=== PATIENT | female | born 1960 | race Caucasian/White ===

== ENCOUNTER 2022-07-28 08:13 | Emergency (ER) | payer OTHER, SELFPAY ==
[2022-07-28 08:26] VITALS: BP 142/92; PULSE 95; RESP 18; TEMP 36.2; O2SAT 96; BMI 36.6
--- NOTE | 2022-07-28 08:38 | CRLHL7_ITS ---
For Patients: As a result of the Century Cures Act, medical imaging exams and procedure reports are released immediately into your electronic medical record. You may view this report before your referring provider. If you have questions, please contact your health care provider. INDICATION: Pelvic/left lower quadrant pain, question diverticulitis. TECHNIQUE: CT of the abdomen and pelvis with 98 cc Isovue 370 IV contrast. Coronal and sagittal reconstructions. COMPARISON: None. FINDINGS: Mild hepatic steatosis. There is a 3.9 cm benign cyst in the left hepatic lobe. Cholecystectomy. No biliary dilation. Fatty infiltration of the pancreas. The spleen and adrenal glands are negative. Splenules. Hepatic and portal veins are patent. Symmetric enhancement of the kidneys. Tiny low-attenuation lesion in the right kidney is likely a cyst. No hydronephrosis or ureteral dilation. No obstructing urinary calculi identified. The bladder is normal in appearance. Hysterectomy. No adnexal mass. Colonic diverticulosis. There is mild wall thickening of the mid sigmoid colon with surrounding inflammatory fat stranding compatible with acute diverticulitis. No intraperitoneal free air or significant free fluid. No evidence of abscess. Moderate amount of stool in the proximal colon. Negative appendix. No small bowel dilation. No lymphadenopathy. Degenerative changes of the spine. Few tiny sclerotic lesions in the pelvis may represent bone islands. The lung bases are clear. Bilateral breast implants. Surgical clips left axilla. IMPRESSION: Acute uncomplicated diverticulitis of the mid sigmoid colon. No evidence of perforation or abscess. Please note that all CT scans at this facility use dose modulation, iterative reconstruction, and/or weight-based dosing when appropriate to reduce radiation dose to as low as reasonably achievable. Dictated by Diana Winters MD @ 07/28/2022 12:13:41 PM (Electronically Signed)
--- NOTE | 2022-07-28 08:40 | ED.GENADULT ---
HPI - General Adult General Date Seen: 07/28/22 Chief complaint: Abdominal Pain Stated complaint: Pelvic pain Time Seen by Provider: 07/28/22 08:27 Source: patient History of Present Illness HPI narrative: Patient is a very pleasant 62-year-old woman is here for evaluation of several days of pelvic pain. She says her symptoms developed on Monday, she presents to the ER on . Initially, she thought that she was getting a bladder infection as these are frequent for her. She usually gets dysuria and frequency however, and this presents with only pelvic pain, which she notes is unusual. It is constant although it is worse when she is up and moving around, she feels better when she is lying down. It has gotten worse over the course of the week, and now is moderate in intensity. On Monday, she says that she was having a bowel movement when she felt a pop in her pelvic region, which was strange although she did not think much of it. She thought maybe it was gas. Since then, she has had very small volume stools, she has been a little afraid to push because of that popping sensation. They have been soft, no bloody or melanotic stools. She denies constipation. She has had no nausea or vomiting. No fevers. No flank pain. She called the clinic today and was advised to come to the ER for further evaluation. She has been keeping up with hydration she feels, although she says she is prone to dehydration. She states that her general health is good. She has had a couple of prior colonoscopies, without significant findings. Most recently a couple of years ago. She has had a cholecystectomy and a partial hysterectomy. She smokes a very occasional cigar but otherwise does not smoke, rare alcohol. Allergies to sulfa. Related Data Home Medications Medication Instructions Recorded Confirmed exemestane 25 mg tablet mg 07/28/22 levothyroxine 112 mcg tablet mcg 07/28/22 rizatriptan 10 mg tablet mg 07/28/22 Previous Rx's Medication Instructions Recorded fluconazole 150 mg tablet 150 mg PO DAILY #1 tab 07/28/22 (Diflucan) Allergies Allergy/AdvReac Type Severity Reaction Status Date / Time Sulfa (Sulfonamide Allergy Verified 07/28/22 08:30 Antibiotics) Review of Systems Status of ROS: Reports: 10 or more systems reviewed and unremarkable except as noted in History and below Exam Narrative: Exam Narrative: Vital signs as noted above. In general, an alert, well-appearing patient. She looks comfortable. Head: Normocephalic, atraumatic. Eyes: Pupils are equal reactive. Extraocular movements are full. Conjunctivae are normal. ENT: Mucous membranes are moist. Throat is normal. Neck: Supple without lymphadenopathy. Heart: Regular rate and rhythm. No murmur or rub. Lungs: Clear bilaterally. No increased work of breathing, crackles or wheezes. Abdomen: Soft and nondistended. Mild left lower quadrant and pelvic tenderness without rebound guarding or rigidity. Bowel sounds are present. Back: No CVA tenderness. Extremities: Well perfused. No edema. No calf tenderness. Pulses intact. Neurologic: Patient is alert and oriented to person and place. Speech is fluent. Face is symmetric. Moves all extremities equally. Affect: Normal. Skin: Warm and dry. Well perfused. Const: Vital Signs, click to edit/add: Vital Signs - 24 hr 07/28/22 08:26 Temperature 97.2 F L Pulse Rate [Right Pulse Oximeter] 95 Respiratory Rate 18 Blood Pressure [Ri ght Upper Arm] 142/92 H Pulse Oximetry 96 Oxygen Delivery Me thod Room Air Documenting provider has reviewed patient's vital signs: yes Course Course Hospital Course: We will place an IV here, hang some normal saline. I do think an abdominal CT is warranted as I think diverticulitis, colitis, or other inflammatory bowel process or mass needs to be excluded at this point. A urine has been obtained to rule out bladder infection as well. I think kidney stone is less likely but possible as well. She declines the need for anything for pain at this moment. Labs pending. Labs are reassuring, her white blood cell count is normal, hemoglobin 14.1. Metabolic panel is entirely normal, lactate is 1.0. CRP is mildly elevated at 4. Urinalysis is negative, 0-2 reds 0-[address] scan by my review shows some fat stranding in the area of the sigmoid colon consistent likely with diverticulitis. I do not see evidence of free fluid. The final radiology report is as follows: IMPRESSION: Acute uncomplicated diverticulitis of the mid sigmoid colon. No evidence of perforation or abscess. I have reviewed this with the patient. Will start her on Augmentin. Reviewed reasons to return such as severe worsening pain, fevers, vomiting, bloody stools. Otherwise anticipate gradual improvement over the next several days to week. Primary care follow-up for further concerns. Vital Signs Vital signs: Initial Vital Signs Temperature 97.2 F L 07/28/22 08:26 Temperature Source Temporal Artery Scan 07/28/22 08:26 Pulse Rate 95 07/28/22 08:26 Pulse Rhythm 07/28/22 08:26 Respiratory Rate 18 07/28/22 08:26 Blood Pressure 142/92 H 07/28/22 08:26 Blood Pressure Mean 108 07/28/22 08:26 Blood Pressure Position Sitting 07/28/22 08:26 Pulse Oximetry 96 07/28/22 08:26 Oxygen Delivery Method 07/28/22 08:26 Vital Signs Temperature 97.2 F L 07/28/22 08:26 Pulse Rate 95 07/28/22 08:26 Respiratory Rate 18 07/28/22 08:26 Blood Pressure 142/92 H 07/28/22 08:26 Pulse Oximetry 96 07/28/22 08:26 Oxygen Delivery Method 07/28/22 08:26 Temperature 97.2 F L 07/28/22 08:26 Pulse Rate 95 07/28/22 08:26 Respiratory Rate 18 07/28/22 08:26 Blood Pressure 142/92 H 07/28/22 08:26 Pulse Oximetry 96 07/28/22 08:26 Oxygen Delivery Method 07/28/22 08:26 Medical Decision Making Lab Data Labs: Lab Results 07/28/22 07/28/22 07/28/22 Range/Units 08:21 09:28 09:28 WBC 7.51 (4.50-11.00) K/uL RBC 4.79 (4.00-5.20) m/uL Hgb 14.1 (12.0-16.0) gm/dL Hct 43.7 (33.0-51.0) % MCV 91 (80-100) fL MCH 29 (26-34) pg MCHC 32 (32-36) gm/dL RDW Coeff of Rosemary 12.8 (11.5-15.5) % Plt Count 259 (140-440) K/uL Neut % (Auto) 69.0 (42.0-72.0) % Lymph % (Auto) 21.0 (20-44) % [place] % (Auto) 6.4 (0.0-11.0) % Eos % (Auto) 3.3 (0.0-7.0) % Baso % (Auto) 0.3 (0.0-3.0) % Neut # (Auto) 5.18 (1.7-7.0) K/uL Lymph # (Auto) 1.58 (0.90-2.90) K/uL [place] # (Auto) 0.50 (0.00-0.90) K/UL Eos # (Auto) 0.25 (0.00-0.50) K/uL Baso # (Auto) 0.02 (0.00-0.30) K/uL Abs Immat Gran (auto) 0.00 (0.00-0.30) K/uL Imm/Tot Granulo (auto) 0.0 % Sodium 138 (135-149) mmol/L Potassium 4.0 (3.6-5.1) mmol/L Chloride 103 (96-114) mmol/L Carbon Dioxide 26 (20-32) mmol/L BUN 15 (7-30) mg/dL Creatinine 0.6 (0.5-1.5) mg/dL Estimated Creat Clear 47.63 Estimated GFR 101 ml/min Glucose 105 (60-115) mg/dL Lactate (0.5-1.9) mmol/L Calcium 9.6 (8.4-10.6) mg/dL C-Reactive Protein 4.0 H (0.5-1.0) mg/dL Urine Color Yellow (Yellow) Urine Appearance Slightly Cloudy A (Clear) Urine pH 7.0 (5.0-8.5) Ur Specific [place] 1.020 (1.000-1.030) Urine Protein Negative (Negative) Urine Glucose (UA) Negative (Negative) Urine Ketones Negative (Negative) Urine Blood Trace-lysed A (Negative) Urine Nitrite Negative (Negative) Urine Bilirubin Negative (Negative) Urine Urobilinogen 0.2 (0.2-1.0) Ur Leukocyte Esterase Negative (Negative) Urine RBC 0-2 (0-2) Urine WBC 0-2 (0-5) Ur Squamous Epith Cells None (None-Few) Urine Bacteria None (None) 07/28/22 Range/Units 09:28 WBC (4.50-11.00) K/uL RBC (4.00-5.20) m/uL Hgb (12.0-16.0) gm/dL Hct (33.0-51.0) % MCV (80-100) fL MCH (26-34) pg MCHC (32-36) gm/dL RDW Coeff of Rosemary (11.5-15.5) % Plt Count (140-440) K/uL Neut % (Auto) (42.0-72.0) % Lymph % (Auto) (20-44) % [place] % (Auto) (0.0-11.0) % Eos % (Auto) (0.0-7.0) % Baso % (Auto) (0.0-3.0) % Neut # (Auto) (1.7-7.0) K/uL Lymph # (Auto) (0.90-2.90) K/uL [place] # (Auto) (0.00-0.90) K/UL Eos # (Auto) (0.00-0.50) K/uL Baso # (Auto) (0.00-0.30) K/uL Abs Immat Gran (auto) (0.00-0.30) K/uL Imm/Tot Granulo (auto) % Sodium (135-149) mmol/L Potassium (3.6-5.1) mmol/L Chloride (96-114) mmol/L Carbon Dioxide (20-32) mmol/L BUN (7-30) mg/dL Creatinine (0.5-1.5) mg/dL Estimated Creat Clear Estimated GFR ml/min Glucose (60-115) mg/dL Lactate 1.0 (0.5-1.9) mmol/L Calcium (8.4-10.6) mg/dL C-Reactive Protein (0.5-1.0) mg/dL Urine Color (Yellow) Urine Appearance (Clear) Urine pH (5.0-8.5) Ur Specific [place] (1.000-1.030) Urine Protein (Negative) Urine Glucose (UA) (Negative) Urine Ketones (Negative) Urine Blood (Negative) Urine Nitrite (Negative) Urine Bilirubin (Negative) Urine Urobilinogen (0.2-1.0) Ur Leukocyte Esterase (Negative) Urine RBC (0-2) Urine WBC (0-5) Ur Squamous Epith Cells (None-Few) Urine Bacteria (None) Discharge Plan Discharge Clinical Impression: Diverticulitis Patient Disposition: Home, Self-Care Condition: Stable Instructions: Diverticulitis (ED) Additional Instructions: Return for worsening or severe pain, fever, vomiting, bloody stools or other worsening. Antibiotics as prescribed. Ibuprofen or Tylenol as needed for pain. Prescriptions: New fluconazole [Diflucan] 150 mg tablet 150 mg PO DAILY Qty: 1 0RF No Action rizatriptan 10 mg tablet exemestane 25 mg tablet Label Comments: TAKE ONE TABLET BY MOUTH EVERY DAY levothyroxine 112 mcg tablet Stand Alone Forms: [employer] Info Instructions
[2022-07-28 08:42] LABS: Appearance Urine Slightly Cloudy (Clear); Bilirubin Urine Negative (Negative); Blood Urine Trace-lysed (Negative); Color Urine Yellow (Yellow); Glucose Urine Negative (Negative); Ketones Urine Negative (Negative); Leukocyte Esterase Urine Negative (Negative); Nitrite Urine Negative (Negative); Protein Urine Negative (Negative); Urobilinogen Urine 0.2 (0.2-1.0)
[2022-07-28 08:57] LABS: RBC Urine 0-2 (0-2); WBC Urine 0-2 (0-5)
[2022-07-28 09:43] LABS: Basophils Absolute Auto 0.02 K/uL (0.00-0.30); Basophils Percent Auto 0.3 % (0.0-3.0); Eosinophils Absolute Auto 0.25 K/uL (0.00-0.50); Eosinophils Percent Auto 3.3 % (0.0-7.0); Hematocrit 43.7 % (33.0-51.0); Hemoglobin* 14.1 gm/dL (12.0-16.0); Lymphocytes Absolute Auto 1.58 K/uL (0.90-2.90); Mean Corpuscular HGB Conc 32 gm/dL (32-36); Mean Corpuscular Hemoglobin 29 pg (26-34); Mean Corpuscular Volume 91 fL (80-100); Monocytes Percent Auto 6.4 % (0.0-11.0); Neutrophils Absolute Auto 5.18 K/uL (1.7-7.0); Platelet Count* 259 K/uL (140-440); RDW Coefficient of Variation % 12.8 % (11.5-15.5); Red Blood Count 4.79 m/uL (4.00-5.20); White Blood Count* 7.51 K/uL (4.50-11.00)
--- OUTSIDE RECORDS SUMMARY | 2022-07-28 09:46 | XMS_ITS | Encounter Summary ---
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 documented in this encounter Results Breast Breast reconstruction-Plastic And Recon Surgery Image Exam (02/24/2022 12:00 PM CDT) Specimen (Source) Anatomical Location Collection Method / Collectio n Time Received Time / Laterality Volume Narrative IIMS - 02/24/2022 4:03 PM CDT This order has been created and auto-finalized to support the import of images acquired without order. The clini garett documentation to support these images can be found on the encounter za t produced images. Provider Not In System IMG NON RAD IMAGING PROCEDUR ES Performing Organization Address City/State/ZIP Code Phon e Number IIMS IIMS NA documented in this encounter Visit Diagnoses Not on filedocumented in this encounter
--- OUTSIDE RECORDS SUMMARY | 2022-07-28 09:46 | XMS_ITS | Encounter Summary ---
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
--- OUTSIDE RECORDS SUMMARY | 2022-07-28 09:46 | XMS_ITS | Clinical Summary ---
:1960 Author Organization [facility] [place] [address] Care Team Providers Name Role Phone Fransisco Javier Solis DPM Unavailable Staff, Other Clinical Unavailable Unavailable Gerri Serrano Primary Care Provider [phone] Allergies Active Allergy Reactions Severity Noted Date Comments Adhesive Other - Describe In 04/20/2017 Contact dermatitis Tape-Silicones Comment Field Amoxicillin-Pot Headache 02/18/2020 Clavulanate Morphine Hallucinations 12/07/2016 Nortriptyline Sedation 12/13/2006 INTOLERANCE Oxycodone Nausea Only 02/10/2021 Shellfish Derived Edema 06/02/2017 Raw shellf chuck Ankles swell Sulfa (Sulfonamide Hives 12/13/2006 Antibiotics) Medications Medication Sig Dispensed Refills Start Date End Date Status vitamin e 1,000 unit Take by mouth once 0 10/13/2015 Active cap daily. exemestane (AROMASIN) Take 1 tablet by 30 tablet 0 02/14/2020 Active 25 mg mouth once daily tabletIndications: after a meal. Ductal carcinoma of right breast (HC) clindamycin (CLEOCIN) TAKE 4 CAPSULES BY 0 0 Active 150 mg capsule MOUTH 1 HOUR PRIOR TO DENTAL APPOINTMENT fluocinonide 0.05% APPLY TO AFFECTED 60 g 0 05/25/2020 Active topical (LIDEX) 0.05 AREAS TOPICALLY 2 % TIMES DAILY. FOR NO ointmentIndications: MORE THAN 14 DAYS Seborrheic CONSECUTIVELY WILL dermatitis, CALL FOR REFILLS unspecified cholecalciferol Take 1 Capsule 0 01/06/2021 Active (Vitamin D) 1,000 (1,000 units) by unit capsule mouth once daily. cyanocobalamin Take 1 Tablet 90 Tablet 3 01/06/2021 Active (Vitamin B-12) 1,000 (1,000 mcg) by mcg tablet mouth once daily. Cranberry 400 mg 2 tablets PO daily 0 01/06/2021 Active capsule LORazepam (ATIVAN) 1 0 06/23/2021 Active mg tablet nitrofurantoin Take 1 tablet by 20 Capsule 1 07/01/2021 Active macrocrystaL mouth after (MACRODANTIN) 100 mg intercourse. capsuleIndications: UTI symptoms D-Mannose 99 % As directed 2 g 60 g 5 07/07/2021 Active powdIndications: once daily. Recurrent UTI rizatriptan (MAXALT) TAKE 1 TABLET BY 10 Tablet 8 11/12/2021 Active 10 mg MOUTH AT ONSET. MAY tabletIndications: TAKE WITH 2 Migraine syndrome IBUPROFEN. MAY REPEAT IN 2 HRS IF NEEDED. TAKE NO MORE THAT 2 TABS IN 24HRS. verapamil SR (CALAN TAKE 1 TABLET BY 90 Tablet 1 01/25/2022 Active SR) 120 mg MOUTH EVERY Sustained-Release MORNING. tabletIndications: Migraine syndrome levothyroxine TAKE 1 TABLET BY 30 Tablet 0 02/11/2022 Active (SYNTHROID) 112 mcg MOUTH ONCE DAILY. tabletIndications: Hypothyroidism, unspecified type levothyroxine Take 1 Tablet (112 90 tablet. 3 02/16/2022 Active (SYNTHROID) 112 mcg mcg) by mouth once tabletIndications: daily. Hypothyroidism, unspecified type estradioL (ESTRACE) Insert 1 g into the 42.5 g 2 05/20/2022 Active 0.01% (0.1 mg/g) vagina every Monday vaginal and Monday. creamIndications: Urinary problem sertraline (ZOLOFT) Take 1 Tablet (25 30 Tablet 0 05/23/2022 Active 25 mg mg) by mouth every tabletIndications: morning. Anxiety Active Problems Problem Noted Date H/O total hysterectomy 01/19/2022 Breast implant status 08/16/2018 Routine adult health maintenance 03/06/2017 Overview: Colonoscopy 02/2017 normal repeat in 10 y ears Ductal carcinoma of right breast 11/07/2016 Overview: New dx right breast. Hx previous ca righ t breast. Osteoarthritis 08/15/2014 Overview: Bilateral hands Chronic cholecystitis 01/17/2013 Esophageal reflux 12/26/2012 Overview: Off and on sx over the years EGD 12/2012 normal Low back pain 07/06/2010 Dysthymic disorder 09/28/2007 Overview: Depression Unspecified hypothyroidism 12/13/2006 Migraine, unspecified, without mention of intractable migraine without 12/13/2006 mention of status migrainosus Seborrheic dermatitis, unspecified 12/13/2006 Malignant neoplasm of breast (female), unspecified sit e 12/13/2006 Malignant neoplasm of breast (female), unspecified sit e 12/13/2006 Meniere's disease, unspecified 12/13/2000 Malignant neoplasm of breast (female), unspecified sit e 12/13/1989 Hallux valgus with bunions, right Hammertoe of right foot Plantar fasciitis of right foot Encounters Date Type Specialty Care Team Description 07/28/2022 Travel 07/28/2022 Nurse Triage Gerri Serrano, Abdo freddy Pain (Middle PA lower abdomen p ain) 05/16/2022 Telephone Gerri Serrano, [facility] Management PA from Last 3 Months Immunizations Name Administration Dates Next Due COVID-19 vaccine (Giftah-BioNTech 02/16/2022 30mcg/0.3mL) 12YO+ CAYETANO-SUCROSE PF, MDV COVID-19 vaccine (Giftah-BioNTech 06/14/2021, 12/30/2020, 30mcg/0.3mL) PF, MDV HepA-HepB (Twinrix) 04/22/2008, 11/06/2007, 09/28/2007 Influenza,CCIIV4 PRESERV FREE 06/21/2020 Td (Age >=7 Years) 01/13/2021, 06/01/2000 Tdap 02/08/2011 Zoster (Shingrix-RZV, recombinant) 04/25/2019, 01/25/2019 Family History Medical History Relation Name Comments Depression Brother 1 Brendan Migraines Brother 1 Brendan Spondyloarthropathy Brother 1 Brendan undifferenti ated, started on Enbrel Crohn's disease Brother 2 Jaden Depression Brother 2 Jaden Migraines Brother 2 Jaden Diabetes Father Cancer-breast Maternal Aunt Cancer-breast Maternal Uncle Arthritis Mother Cancer-breast Mother Crohn's disease Mother Diabetes Mother Other Mother MIGRAINE/COLON P OLYPS Depression Sister Suicidality Son 1 ALON Alcoholism Son 2 MARKO recovering Relation Name Status Comments Brother 1 Brendan Alive Brother 2 Jaden Alive Father Alive Maternal Aunt Maternal Uncle Mother Alive Other ANANTH Alive SPOUSE Sister Alive Son 1 ALON Son 2 MARKO Alive Social History Tobacco Use Types Packs/Day Years Used Date Never Smoker Smokeless Tobacco: Never Used Tobacco Cessation: Counseling Given: Yes Alcohol Use Standard Drinks/Week Comments Not Currently 0 (1 standard drink = 0.6 oz pure alcoho l) occasional Sex Assigned at Date Recorded Not on file COVID-19 Exposure Response Date Recorded In the last 10 days, have you been in contact with No / Unsu re 07/28/2022 7:24 AM CDT someone who was confirmed or suspected to have Coronavirus/COVID-19? Obstetrics History Para Term AB IAB SAB Ectopic Multiple Living Live Births 2 2 Date Outcome GA Total Labor/2nd/3rd Weight Sex Delivery Anes PTL Delia A 1 A5 Name Clin Labor Last Filed Vital Signs Vital Sign Reading Time Taken Comments Blood Pressure 111/67 02/16/2022 1:01 PM CDT Pulse 88 02/16/2022 1:01 PM CDT Temperature 37.3 ??C (99.1 ??F) 06/22/2021 4:54 PM CDT Respiratory Rate 18 07/07/2021 9:34 AM CDT Oxygen Saturation 97% 01/14/2022 8:16 AM CDT Inhaled Oxygen Concentration - - Weight 100.7 kg (222 lb) 02/16/2022 1:01 PM CDT Height 161 cm (5' 3.39) 02/16/2022 1:01 PM CDT Body Mass Index 38.85 02/16/2022 1:01 PM CDT Plan of Treatment Health Maintenance Due Date Last Done Comments COVID-19 vaccine series (5 - 04/13/2022 02/16/2022, 021, Booster for Pfizer series) 12/30/2020, Additiona l history exists Influenza for age 50-64 05/26/2022 06/21/2020 Depression screening for age 12+ 07/01/2022 07/01/2021, 03/2021, 07/01/2021, Additional history exists BMI (ht and wt on same day) for 02/16/2023 02/16/2022, 12/25, age 18+ 08/11/2021, Additional history exists Lipids for age 45-75 02/16/2027 02/16/2022, 01/13/2021, 02/18/2020, Additional history exists Colonoscopy through age 75 03/06/2027 03/06/2017, 7, 03/06/2017 (Completed outside of [facility]), Additional history exists Tetanus booster 01/13/2031 01/13/2021, 02/08/2011, 02/08/2011, Additional history exists Tdap Completed 02/08/2011 Hepatitis C screening for age Completed 08/13/2014 18-79 Zoster (shingles) series for age Completed 04/25/2019, 11/2018 50+ Medical Devices Implanted Type Area Furniture Associate Device Shelf Model / Identifier Expiration Date Ser ial / Lot [id number] - [id number] Right: Royal [id number] / Implanted: Qty: 1 on 06/02/2017 by Javier Crooks DPM at [facility] [employer] / Description: 2.7 mm locking screw, T8 [id number] - [id number] Left: Foot [employer] [id number] / Implanted: Qty: 2 on 10/02/2017 by Javier Crooks DPM at [facility] / N/A Description: 2.7mm Locking Screws, T8 Explanted Type Area Furniture Associate Device Shelf Model / Identifier Expiration Date Ser ial / Lot [id number] - [id number] Left: [employer] [id number] / Explanted: Qty: 1 on 10/02/2017 at [facility] [employer] / N/A Description: CP Screws, T8 Results Not on filefrom Last 3 Months Insurance Payer Benefit Plan / Subscriber ID Effective Dates Phone Addre ss Type Group MEDICA MEDICA CHOICE [id number] 2021-Present [address] [address] [place] [address] [phone] [address] [facility] y 6 (Home) [facility] [phone] [place] [id number] 1 (Work) Advance Directives Latest Code Status on File Code Status Date Activated Date Inactivated Comments Full Code 10/02/2017 9:37 AM 10/02/2017 7:57 PM Code Status Discussion: Not Discussed Full Code 06/02/2017 10:56 AM 06/02/2017 2:32 PM Code Status Discussion: Not Discussed Full Code 06/02/2017 6:03 AM 06/02/2017 10:56 AM Code Status Discussion: Not Discussed Care Teams Supply Chain Planner Relationship Specialty Start Date End Date Gerri Serrano PA PCP - General Physician Physical Therapy Manager 10/25/19 [address] [place] [address] Javier Moody DPM Surgery - Podiatric 09/28/17 [address] [place] [address] Staff, Other Clinical Plastic Surgery 09/28/17 .
--- OUTSIDE RECORDS SUMMARY | 2022-07-28 09:46 | XMS_ITS | Clinical Summary ---
:1960 Author Organization [facility] Address [address] [place] [address] Care Team Providers Name Role Phone Unavailable Primary Care Provider Unavailable Source Comments Patient records contain information from all sites at [facility]. For routine questions regarding patient records, call [phone] during business hours, M-F 8:00 AM - 5:00 PM Central Time. Record requests for emergency care only can be directed to [phone] at any time.[facility] Allergies Active Allergy Reactions Severity Noted Date Comments Adhesive Tape-Silicones Other (see comments) 7 Contact dermatitis Morphine Hallucinations 12/07/2016 Nortriptyline Rash 12/13/2006 INTOLERANCE Shellfish Derived Swelling 12/07/2016 ankle swel ling Sulfa (Sulfonamide Hives 05/18/2004 Antibiotics) Medications Medication Sig Dispensed Refills Start Date End Date Status exemestane (AROMASIN) 25 Take 1 tablet by 0 01/18/20 17 Active mg tablet mouth daily. ibuprofen (ADVIL,MOTRIN) Take 600 mg by 0 01/13/2017 Active 200 mg tablet mouth every 8 (eight) hours as needed. for pain levothyroxine Take 1 tablet by 0 05/21/2009 Active (SYNTHROID, LEVOTHROID) mouth daily. 125 mcg tablet vitamin E acetate Take 2 tablets 0 05/21/2009 Active (VITAMIN E ORAL) by mouth daily. 400 unit. sertraline (ZOLOFT) 100 Take 1.5 tablets 0 7 Active mg tablet by mouth at bedtime. cholecalciferol (VITAMIN Take 1,000 Units 0 12/05/19 10 Active D3) 1,000 Unit tablet by mouth daily. triamterene-hydroCHLOROt Take 1 capsule 0 05/29/2018 Active hiazide (DYAZIDE) by mouth daily. 37.5-25 mg per capsule oxyCODONE (ROXICODONE) 5 Take 1 tablet (5 15 tablet 0 07/25/20 18 Active mg immediate release mg total) by tabletIndications: Acute mouth every 4 Pain (four) hours as needed for pain or moderate pain or score 4-6 of 10 Indication: Acute Pain. Additional Information Patient not taking. Reported on 08/06/2018 verapamil (CALAN-SR) 120 mg ER Take 120 mg by mouth daily. 0 07/13/2018 Active tablet acetaminophen (TYLENOL) 500 mg Take 2 tablets (1,000 mg 0 08/17/2018 Active tablet total) by mouth every 6 (six) hours as needed for pain. cephalexin (KEFLEX) 500 mg capsule Take 1 Capsule (500 mg) by 0 01/14/2022 Active mouth 2 times daily for 7 days clindamycin (CLEOCIN) 150 mg As Needed 0 02/12/2020 Active capsule cranberry 400 mg capsule 2 tablets PO daily 0 2020 Active cyanocobalamin (VITAMIN B12) 1,000 Daily 0 01/06 Active mcg tablet d-mannose, bulk, 99 % powder 2 g by other route. 0 1 Active estrogens, conjugated, (Premarin) Insert into the vagina. 0 09/20/2021 Active 1 g (0.625 mg/gram) vaginal cream fluconazole (DIFLUCAN) 150 mg TAKE ONE TABLET BY MOUTH 0 01/14/2022 Active tablet ONCE FOR 1 DOSE. fluocinonide (LIDEX) 0.05 % Twice A Day as needed 0 05/25/2020 Active ointment LORazepam (ATIVAN) 1 mg tablet 0 1 Active nitrofurantoin (MACRODANTIN) 100 Take 1 tablet by mouth 0 07/01/2021 Active mg capsule after intercourse. rizatriptan (MAXALT) 10 mg tablet 0 2021 Active vitamin E 450 mg (1,000 Unit) Daily 0 Active capsule zoledronic rkqt-jpgmuoro-vursz Q5wozvaz 0 Active (zoledronic rj-uwltlrwj-2.9NaCl) 4 mg/100 mL piggyback levothyroxine (SYNTHROID, 0 02/11/2022 Active LEVOTHROID) 112 mcg tablet verapamiL (CALAN-SR) 120 mg ER Take 1 tablet by mouth 0 01/25/2022 Active tablet every morning. 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 Social History Tobacco Use Types Packs/Day Years Used Date Smoking Tobacco: Never Smokeless Tobacco: Never Alcohol Use Standard Drinks/Week Comments No 0 (1 standard drink = 0.6 oz pure alcoho l) Sex Assigned at Date Recorded Female 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 Last Filed Vital Signs Vital Sign Reading Time Taken Comments Blood Pressure 134/72 08/17/2018 9:55 AM BOOKKEEPER Pulse 66 08/17/2018 9:55 AM BOOKKEEPER Temperature 36.4 ??C (97.5 ??F) 08/17/2018 9:55 AM BOOKKEEPER Respiratory Rate 16 08/17/2018 9:55 AM BOOKKEEPER Oxygen Saturation 97% 08/17/2018 9:55 AM BOOKKEEPER Inhaled Oxygen Concentration - - Weight 99.7 kg (219 lb 12.8 oz) 08/16/2018 4:41 PM BOOKKEEPER Height 161.3 cm (5' 3.5) 08/16/2018 4:41 PM BOOKKEEPER Body Mass Index 38.32 08/16/2018 4:41 PM BOOKKEEPER Plan of Treatment Health Maintenance Due Date Last Done Comments CT Colonography 1960 Cologuard 1960 Colonoscopy 1960 Colorectal Cancer Screening 1960 FIT 1960 HIV Screening 1960 Hepatitis C Screening 1960 Depression Screening 09/25/2021 (Annual PHQ-2) COVID-19 Vaccine (5 - 04/13/2022 02/16/2022, 06/14/2021, Booster for Pfizer series) 12/30/2020, Additiona l history exists Influenza Vaccine (#1) 2022 07/20/2021, 06/21/2020 Creatinine Level 08/11/2022 08/11/2021, 06/16/2021, 01/13/2021, Additional history exists Potassium Level 08/11/2022 08/11/2021, 01/13/2021, 02/18/2020, Additional history exists Sodium Level 08/11/2022 08/11/2021, 01/13/2021, 02/18/2020, Additional history exists Lipid (Cholesterol) 02/16/2023 02/16/2022, 01/13/2021, Screening 02/18/2020, Additional history exists Thyroid Stimulating Hormone 02/16/2023 02/16/2022, 08/11/20 21, (TSH) test for thyroid 01/13/2021, Additional function history exists Fasting Glucose for 08/11/2024 08/11/2021, 01/13/2021, Diabetes Screening 02/18/2020, Additional history exists DTaP,Tdap,and Td Vaccines 01/13/2031 01/13/2021, 02/08/2011 (3 - Td or Tdap) Zoster Vaccines Completed 04/25/2019, 01/25/2019 Pneumococcal vaccine (0-64 Aged Out No lo nger eligible years) based on patient 's age to complete this topic Medical Devices Implanted Type Area Magazine Designer Device Shelf Model / Identifier Expiration Serial / Date Lot Maday Yost 615cc - Archer [id number] Breast Other/Legacy - Allerg an Implanted: Qty: 1 on 04/20/2017 Implant See Implant Medical Description Description: Device Magazine Designer - Startpack.. Body Location - Other. Right. Device Status Text - [id number]. Brst Resp Gel Stysrf 560 - [id number] - [id number] Breast Left: Allergan 03/29/2021 SRF-560 / Implanted: Qty: 1 on 07/25/2018 at [facility] Implant Other/Legacy - Medical [id number] / See Implant Description Conversions - Default Historical Implant Device Hardware e.g. Foot Implanted: 10/13/2017 (Quantity not on file) pins/screws/r ods Description: Body Location - Feet. Devic e Status Text - Hardware. Conversions - Default Historical Implant Device Knee Implant Other/Legacy - See Implant Implanted: 12/07/2016 (Quantity not on file) Description Description: Body Location - [email or web address]. Device Status Text - Knee Imp. Alloderm Rtu 2.4 + -.4mm 9.6x19.3cm - Archer [id number] Mesh or P atch Other/Legacy - See NanoLumens (Use Implanted: Qty: 1 on 12/07/2016 Implant Description Allergan ) Description: Device Magazine Designer - Nursing Home Quality Martell. Body Location - Other. Right. Device Status Text - [id number]. Explanted Type Area Magazine Designer Device Shelf Model / Identifier Expiration Serial / Date Lot Natrelle- Inspira 615cc - Archer [id number] Breast Other/Legacy - Allerg an Implanted: Qty: 1 on 04/20/2017 Implant See Implant Medical Explanted: Qty: 1 on 07/25/2018 at [facility] Description Description: Device Magazine Designer - [employer] Body Location - Other. Left. Device Status Text - [id number]. Natrelle-Hemstitching Machine Operator Mod Tab 500cc - Archer [id number] Tissue Expand er Other/Legacy - See Allergan Medical Explanted: Qty: 1 on 04/20/2017 Implant Description Description: Device Magazine Designer - [employer]er [employer] Body Location - Other. Right. Device Status Text - [id number]. Insurance Payer Benefit Plan / Subscriber ID Effective Dates Phone Addre ss Type Group MEDICA MEDICA [id number] 2017-Present [phone] [address] [address] [place] [address] [phone] [id number] [facility]. 6 (Home) [facility] [phone] FILIPPO Chung 1 (Work) [phone]
--- OUTSIDE RECORDS SUMMARY | 2022-07-28 09:46 | XMS_ITS | Encounter Summary ---
:1960 Author Organization [facility] Address [address] [place] [address] Care Team Providers Name Role Phone Unavailable Primary Care Provider Unavailable Reason for Referral MRI/CAT/PET Scan (Routine) - Pending Review Specialty Diagnoses / Procedures Referred By Contact Refer red To Contact Radiology Diagnoses Aftercare Plastic Surgery Implant Breast Status [facility] MR Breast Bilateral without and with IV Contrast C.N.P., D.N.P. [address] [place] [address] Referral ID Status Reason Start Date Expiration Date Visits V isits Requested Authorized [id number] Pending 02/24/2022 02/24/2023 1 1 Review utpatient (Routine) - Authorized Specialty Diagnoses / Procedures Referred By Contact Refer red To Contact Plastic Surgery [facility] jarad C.N.P., D.N.P. [address] [place] [address] Referral ID Status Reason Start Date Expiration Date Visits V isits Requested Authorized [id number] Authorized 02/24/2022 02/24/2023 1 1 Scheduling Instructions With Tessa Reason for Visit Outpatient (Routine) - Closed Specialty Diagnoses / Procedures Referred By Contact Refer red To Contact Plastic Surgery Janiya Aguilar, [place] [facility] P.A.-C., PIsaac, M.S. [address] [place] [address] Referral ID Status Reason Start Date Expiration Date Visits Requ ested Visits Authorized [id number] Closed 01/28/2021 01/28/2022 1 1 Encounter Details Date Type Department Care Team Description 02/24/2022 Office Visit Division of Plastic Tessa Starkey Aftercar e Plastic Surgery (Primary Dx); Surgery in [place], Yana, M .S. 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 - 02/24/2022 1:30 PM CDT SUBJECTIVE CHIEF COMPLAINT / REASON FOR VISIT 1. Valerie Box is status post implant based breast reconstruction on 04/20/2017 (smooth implants)with Dr. Son. 2. History of radiation to right breast 3. Annual implant check HISTORY OF PRESENT ILLNESS Valerie Box is a very pleasant 61 y.o. female who presents today for a routine annual implant check. She had ultrasound done last year after plastics visit for right breast lump. She reports that she subsequently visited her oncologist in [place] and had biopsies done on this right breast lump which was all negative. She is closely following with oncology and had a visit yesterday in [place]. She denies any concerns or symptoms. She specifically denies any persistent pain, tightness, changein shape of her breasts, axillary fullness, rashes, swelling, increase in size of her breasts, masses, signs/symptoms of an infection or any other changes. She is doing well and has no concerns. She isoverall happy with the cosmetic outcome. REVIEW OF SYSTEMS Pertinent items noted in HPI. OBJECTIVE There were no vitals taken for this visit. PHYSICAL EXAM General: Patient is alert and oriented x 3. She does not appear to be in acute distress. Very pleasant. Breast: Breast incisions have healed nicely. No obvious signs of fluid accumulation, infection, rashes, masses. Najera grade 1, implants are soft and mobile to touch. Excellent symmetry and overall cosmetic appearance. Right breast skin is in centrally, history of right breast radiation. Axilla: No axillary lymphadenopathy noted bilaterally ASSESSMENT / PLAN 1. Annual implant check It was a pleasure to see Valerie Box today for her annual implant check. She is doing well and has no concerns regarding her implants. Physical exam within realm of normal from implant standpoint. She would like her updated information sent to her oncologist. Contact information for our clinic is given to patient to provide to her oncologist for further questions or update. We have discussed risk of ALCL (atypical large cell lymphoma) with textured implants. She has smoothimplants. We discussed that the information surrounding PERCY- ALCL is constantly changing and at thistime, the risk associated with smooth implants is very low. I did go over presenting signs/symptoms of ALCL and was instructed to call us should she note any of these. She understood. If at any point she desires to have implants removed, or consider alternative reconstructive options she was advised to let me know. At this point she feels comfortable with observation. We also discussed signs and symptoms of ruptured implant, flipped implant, and capsular contracture.She was instructed to monitor for persistent pain, tightness, change in shape of her breasts, axillary fullness, masses, rashes, increase in size of breasts, swelling, signs/symptoms of an infection, or any other changes and to let us know if she notes any of these. We recommend prophylactic antibiotics any time she is having any dental/invasive procedures indefinitely or until guidelines change. I have discussed FDA recommended surveillance for implant rupture with MRI after 5-6 years of placement and every 2-3 years after that. She is now 5 years out since implant placement. We will plan on MRI track of implants in follow-up next year. Patient agrees with this plan. Photos were taken with pt's permission. Valerie Box will return in one year for an implant check and MRI. If she needs to see our team sooner, she can let us know. All questions were asked and answered per patient report. It was an absolute pleasure taking care ofValerie Box. PATIENT EDUCATION Ready to learn, no apparent learning barriers were identified; learning preferences include listening. Explained diagnosis and treatment plan; patient expressed understanding of the content. Billing: Established patient. Kyem-bc-jmlt time 25 minutes more than 50% of time was spent in counseling/addressing patient's concerns. documented in this encounter Plan of Treatment Scheduled Orders Name Type Priority Associated Diagnoses Order S chedule MR Breast Bilateral Imaging RAD - Routine (most Aftercare Plas tic Expected: without and with IV inpatients and all Surgery 02/24/2023 Contrast outpatients) Implant Breast (Approximate) , Status Post Expires: 05/27/2023 Scheduled Referrals Name Type Priority Associated Diagnoses Order S chedule Plastic Surgery Outpatient Referral Routine Expec gunnar: office visit 02/24/2023 (clinic) (Approximate), Expires: 05/27/2023 documented as of this encounter Visit Diagnoses Diagnosis Aftercare Plastic Surgery - Primary Implant Breast Status Post documented in this encounter
--- OUTSIDE RECORDS SUMMARY | 2022-07-28 09:47 | XMS_ITS | Encounter Summary ---
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
--- OUTSIDE RECORDS SUMMARY | 2022-07-28 09:47 | XMS_ITS | Encounter Summary ---
:1960 Author Organization [facility] Address [address] [place] [address] Care Team Providers Name Role Phone Unavailable Primary Care Provider Unavailable Encounter Details Date Type Department Care Team Description 02/08/2021 Clinical Communication Division of Plastic [place], An wyatt Surgery in [facility], P.A.-C., P.A.[facility] [address] [facility] [address] [place] [phone] Social History Tobacco Use Types Packs/Day Years Used Date Smoking Tobacco: Never Smokeless Tobacco: Never Alcohol Use Standard Drinks/Week Comments No 0 (1 standard drink = 0.6 oz pure alcoho l) Sex Assigned at Date Recorded 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 Son. I see an orderfor an US but the notes say we are waiting to hear from you before scheduling. Please advise, thank you documented in this encounter Plan of Treatment Not on filedocumented as of this encounter Visit Diagnoses Not on filedocumented in this encounter
--- OUTSIDE RECORDS SUMMARY | 2022-07-28 09:47 | XMS_ITS | Encounter Summary ---
:1960 Author Organization [facility] Address [address] [place] [address] Care Team Providers Name Role Phone Unavailable Primary Care Provider Unavailable Reason for Visit Reason Onset Date Comments Testing For Upper Respiratory Virus Symptoms 08/30/2021 Encounter Details Date Type Department Care Team Description 08/30/2021 External Outreach Department of Family Lindsay Busby , Contact With And Medicine in [facility], C.N.P. 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 - 08/30/2021 9:56 AM CST Encounter created for symptomatic infectious disease screening with possible COVID, Influenza, RSV, and/or Group A Strep testing. E POLISHER documented in this encounter Plan of Treatment Not on filedocumented as of this encounter Procedures Procedure Name Priority Date/Time Associated Diagnosis Comme nts SARS CORONAVIRUS-2 Routine 08/30/2021 1:30 PM Contact With And Results for this RNA, V FRAME POLISHER (Suspected) Exposure procedu re are in To COVID-19 the results section. documented in this encounter Results SARS Coronavirus-2 RNA, V Symptomatic (08/30/2021 1:30 PM FRAME POLISHER) [facility] Method Time Signature SARS-CoV-2 Swab, 08/31/2021 MKTO Specimen Nasopharynx 2:16 AM FRAME POLISHER Source SARS CoV-2 Undetected Undetected 08/31/2021 MKTO RNA, TMA 2:16 AM FRAME POLISHER Comment: SARS-CoV-2 RNA absent. This result does not rule out COVID-19 in the patient, as the sensitivity of the test depends o n the timing of the specimen collection and the quality of the specim en. Result should be correlated with patient's history and clinical presentat ion. ----ADDITIONAL INFORMATION---- This molecular amplification test was pe rformed using the Aptima SARS-CoV-2 assay ([employer] on the [employer] tem under emergency use authorization (EUA) by the U.S. Food and Drug Administ ration. Fact sheets for this EUA assay can be fo und at the following links: For Healthcare Providers: https://www.fd a.gov/media/374286/download For Patients: https://www.fda.gov/media/ 175190/download Specimen Anatomical Collection Method Collection Time Receive d Time (Source) Location / / Volume Laterality Varies 08/30/2021 1:30 PM 5:01 (Nasopharynx) FRAME POLISHER PM FRAME POLISHER Lindsay Busby APRN, C.N.P. LAB MICROBIOLOGY - GENERAL ORDERABLES Performing Organization Address City/State/ZIP Code Phon e Number [facility]- [address] [place] [phone] [place] [address] [place] [address] [address] documented in this encounter Visit Diagnoses Diagnosis Contact With And (Suspected) Exposure To COVID-19 - Primary documented in this encounter Additional Health Concerns Infection Onset Date Last Indicated Resolved Time COVID19 Pending 08/30/2021 08/30/2021 08/31/2021 2:16 AM FRAME POLISHER documented as of this encounter
--- OUTSIDE RECORDS SUMMARY | 2022-07-28 09:47 | XMS_ITS | Encounter Summary ---
:1960 Author Organization [facility] Address [address] [place] [address] Care Team Providers Name Role Phone Unavailable Primary Care Provider Unavailable Reason for Visit Outpatient (Routine) - Closed Specialty Diagnoses / Procedures Referred By Contact Refer red To Contact Plastic Surgery Diagnoses Follow Up Examination Postoperative Visit Therese Lizarraga, [facility] jarad Millan, P.A. [address] [place], [place] [address] Referral ID Status Reason Start Date Expiration Date Visits Requ ested Visits Authorized [id number] Closed 08/06/2018 08/06/2019 1 1 Encounter Details Date Type Department Care Team Description 10/15/2018 Office Visit Division of Plastic Therese Lizarraga [facility] low Up Examination Surgery in [place], PCorey., P .A. 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 - 10/15/2018 10:00 AM CST SUBJECTIVE CHIEF COMPLAINT / REASON FOR VISIT Post operative evaluation. HISTORY OF PRESENT ILLNESS Ms. Box is a 58 [address] of [address]. Son who underwent left implant exchange, left breast revision with mastopexy and bilateral fat grafting on July 25, 2018. She has a history of bilateralimplant based reconstruction and unfortunately developed a left breast cellulitis on August 17, 2018. She comes in today for three-month follow-up. She states she is doing well without any pain or concerns. She does not want any further surgeries, but she states that she has a dog ear on the left breast that is sometimes bothersome to her. She has resumed all normal activities without any concerns or difficulties. She denies any signs/symptoms of infection or other concerns today. OBJECTIVE PHYSICAL EXAM General: Patient is alert and oriented times three. In no acute distress. Breast: Incisions are clean, dry and intact without drainage. No erythema suggestive of cellulitis, ecchymosis, or obvious signs of fluid collections. No evidence of cellulitis or necrosis. Moderate size dog ear on the left lateral incision. Abdomen: Fat harvesting sites show no gross abnormalities. ASSESSMENT / PLAN #1 Follow Up Examination Postoperative Visit Ms. Box continues to do well. She is not interested in any revisions at this point, but may call later in time to have the dog-ear revised on the left lateral incision. She will call if she has any worries/concerns before this time. Signs/symptoms of an infection were reviewed with the patient and she was instructed to call us immediately if any of these occur. Patient has all appropriate phone numbers to call in case she has questions or concerns. Patient is aware to take prophylactic antibiotics before dental/invasive procedures, unless instructed otherwise. Photographs obtained. We will plan to see her back for annual follow-up, but certainly sooner if needed. She will call if she has any worries/concerns before this time. She will monitor for progressive pain, tightness, or changing in shape of the breast. She is aware of ALCL and the presenting features and call us if any of these occur. All questions were asked and answered per patient report. It was an absolute pleasure taking care ofMs. Box. POUNCER documented in this encounter Plan of Treatment Not on filedocumented as of this encounter Visit Diagnoses Diagnosis Follow Up Examination Postoperative Visi t documented in this encounter
--- OUTSIDE RECORDS SUMMARY | 2022-07-28 09:47 | XMS_ITS | Encounter Summary ---
:1960 Author Organization [facility] Address [address] [place] [id number] Care Team Providers Name Role Phone Unavailable Primary Care Provider Unavailable Encounter Details Date Type Department Care Team Description 05/02/2019 Clinical Communication Division of Plastic Arron Wilkes [facility] [place] [address] [place] [phone] Social History Tobacco Use Types Packs/Day Years Used Date Smoking Tobacco: Never Smokeless Tobacco: Never Alcohol Use Standard Drinks/Week Comments No 0 (1 standard drink = 0.6 oz pure alcoho l) Sex Assigned at Date Recorded 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
--- OUTSIDE RECORDS SUMMARY | 2022-07-28 09:47 | XMS_ITS | Encounter Summary ---
:1960 Author Organization [facility] Address [address] [place] [address] Care Team Providers Name Role Phone Unavailable Primary Care Provider Unavailable Reason for Visit Outpatient (Routine) - Closed Specialty Diagnoses / Procedures Referred By Contact Refer red To Contact Plastic Surgery Denny Bearden [place] M.D. [address] [place], [place] [phone] Referral ID Status Reason Start Date Expiration Date Visits Requ ested Visits Authorized [id number] Closed 05/03/2019 05/02/2020 1 1 Encounter Details Date Type Department Care Team Description 07/11/2019 Office Visit Division of Plastic Ashley Bearden Plastic Surgery in Denny Matson M.D . 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 - 07/11/2019 2:30 PM CDT See procedure note TRICAL SYSTEM SPECIALIST documented in this encounter Procedure Notes Denny Bearden M.D. - 07/11/2019 2:30 PM CDTProcedure(s): PLS SCAR REMOVAL/REVISION Left standing cone revision, measuring 10 cm. Lidocaine injected without any issues, then we proceeded to excise the excess tissue, adequate hemostasis obtained, the wound was closed in two layers utilizing interrupted deep dermal sutures followedBy a running subcuticular layer. No immediate complications TRICAL SYSTEM SPECIALIST documented in this encounter Plan of Treatment Not on filedocumented as of this encounter Visit Diagnoses Diagnosis Aftercare Plastic Surgery - Primary documented in this encounter Administered Medications Inactive Administered Medications - up to 3 most recent administrations Medication Order MAR Action Action Date Dose Rate Site lidocaine-EPINEPHrine 1 %-1:100,000 Given 07/11/2019 3:11 PM CDT 70 mL injection 90 mL (XYLOCAINE W/EPI) 90 mL, injection, Once, On Alla 07/11/19 at 1515, For 1 dose documented in this encounter
--- OUTSIDE RECORDS SUMMARY | 2022-07-28 09:47 | XMS_ITS | Encounter Summary ---
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 documented in this encounter Results PLASTIC AND RECON SURGERY IMAGE EXAM (10/15/2018 12:00 PM UMBRELLA CUTTER) Specimen (Source) Anatomical Collection Method Collection Time Re ceived Time Location / / Volume Laterality 10/15/2018 12:00 PM UMBRELLA CUTTER Narrative [facility] - 10/15/2018 12:22 PM UMBRELLA CUTTER This order has been created and auto-finalized [...]
--- OUTSIDE RECORDS SUMMARY | 2022-07-28 09:47 | XMS_ITS | Encounter Summary ---
:1960 Author Organization [facility] Address [address] [place] [address] Care Team Providers Name Role Phone Unavailable Primary Care Provider Unavailable Reason for Visit Reason Comments COVID Nurse Line Encounter Details Date Type Department Care Team Description 01/21/2020 Clinical Communication Division of Plastic DOT Velazquez Nurse Line [facility] [place] [address] [facility] [address] [place] [phone] Social History Tobacco Use Types Packs/Day Years Used Date Smoking Tobacco: Never Smokeless Tobacco: Never Alcohol Use Standard Drinks/Week Comments No 0 (1 standard drink = 0.6 oz pure alcoho l) Sex Assigned at Date Recorded 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 In the past 14 days, have you been tested for COVID-19 with a positive or pending result? no 2. In the past 14 days, do you, anyone in the household, or anyone you have had prolonged exposure have (any of the following)? a. Fever = 38.0 C (100.5 F) lasting 24 hours? no b. New symptoms (Specifically: cough, shortness of breath, respiratory distress, sore throat, diarrhea, chills, myalgia's (muscle aches), loss of smell, or change or loss of taste sensation)? no c. Had close contact with persons who are under quarantine or isolation for COVID? no d. Had close contact with a patient with known or possible COVID-19? no Route reply to: Doris Scheduling Contact Number: [phone] documented in this encounter Plan of Treatment Not on filedocumented as of this encounter Visit Diagnoses Not on filedocumented in this encounter
--- OUTSIDE RECORDS SUMMARY | 2022-07-28 09:47 | XMS_ITS | Encounter Summary ---
:1960 Author Organization [facility] Address [address] [place] [address] Care Team Providers Name Role Phone Unavailable Primary Care Provider Unavailable Reason for Referral Outpatient (Routine) - Closed Specialty Diagnoses / Procedures Referred By Contact Refer red To Contact Plastic Surgery Denny Bearden [place] M.D. [address] [place] [phone] Referral ID Status Reason Start Date Expiration Date Visits Requ ested Visits Authorized [id number] Closed 05/03/2019 05/02/2020 1 1 Scheduling Instructions Minor OR 1hr 2:30pm slot Encounter Details Date Type Department Care Team Description 05/03/2019 Orders Only Division of Plastic Trini Wilkes , Surgery in [facility] [address] [place] [phone] Social History Tobacco Use Types Packs/Day Years Used Date Smoking Tobacco: Never Smokeless Tobacco: Never Alcohol Use Standard Drinks/Week Comments No 0 (1 standard drink = 0.6 oz pure alcoho l) Sex Assigned at Date Recorded 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
--- OUTSIDE RECORDS SUMMARY | 2022-07-28 09:47 | XMS_ITS | Encounter Summary ---
:1960 Author Organization [facility] Address [address] [place] [address] Care Team Providers Name Role Phone Unavailable Primary Care Provider Unavailable Reason for Referral Outpatient (Routine) - Closed Specialty Diagnoses / Procedures Referred By Contact Refer red To Contact [facility]astic [facility] Yana, P.A., M.S. [address] [place] [phone] Referral ID Status Reason Start Date Expiration Date Visits Requ ested Visits Authorized [id number] Closed 01/28/2021 01/28/2022 1 1 utpatient (Routine) - Closed Specialty Diagnoses / Procedures Referred By Contact Refer red To Contact Diagnoses Unspecified Skin Changes Implant Breast Status Post Janiya Aguilar [place] Procedures BI Ultrasound Breast Focused Right Yana, P.A., M.S. [address] [place] [phone] Referral ID Status Reason Start Date Expiration Date Visits Requ ested Visits Authorized [id number] Closed 01/27/2021 01/27/2022 1 1 Reason for Visit Outpatient (Routine) - Closed Specialty Diagnoses / Procedures Referred By Contact Refer red To Contact Plastic Surgery Madeline Velazquez P. A.-C. [address] [phone] Referral ID Status Reason Start Date Expiration Date Visits Requ ested Visits Authorized [id number] Closed 02/11/2020 02/10/2021 1 1 Encounter Details Date Type Department Care Team Description 01/27/2021 Office Visit Division of Plastic Janiya Aguilar cified Skin Changes (Primary Dx); Surgery in [place], [place], Yana, PIsaac, I mplant Breast Status Post [address] [place] [phone] Social History Tobacco Use Types Packs/Day Years Used Date Smoking Tobacco: Never Smokeless Tobacco: Never Alcohol Use Standard Drinks/Week Comments No 0 (1 standard drink = 0.6 oz pure alcoho l) Sex Assigned at Date Recorded 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 - 01/27/2021 2:30 PM CDT SUBJECTIVE CHIEF COMPLAINT / REASON FOR VISIT 1. Annual implant check HISTORY OF PRESENT ILLNESS is a very pleasant 60 y.o. female whose history is significant for bilateral breast final implant exhange by Dr. Bearden on 04/20/2017. She has smooth implants. She has a history of radiation to the right breast. She presents today for a routine annual implant check. She denies any changes with her implants. She reports asymmetry but she does not want any additional procedures. Shewill be having her right shoulder replaced next week and was wondering if this is okay from a plastic surgery standpoint. She reports she continues to follow with her local oncologist every 6 months. She specifically denies any persistent pain, tightness, change in shape or size of her breasts, axillary fullness, rashes, swelling, masses, signs/symptoms of an infection or any other changes. She is doing well and has no concerns. REVIEW OF SYSTEMS Pertinent items noted in HPI. OBJECTIVE There were no vitals taken for this visit. PHYSICAL EXAM General: Patient is alert and oriented x 3. She does not appear to be in acute distress. Very pleasant. Breast: Breast incisions fully healed. No obvious signs of fluid accumulation, infection, rashes, masses or capsular contracture bilaterally. Implants are soft and mobile. Right breast skin very thin centrally and multiple small 2-3mm nodules noted. Axilla: No axillary lymphadenopathy noted bilaterally ASSESSMENT / PLAN #1 Annual Implant Check Ms. Box continues to do well. I did notice some skin changes centrally located on her right breast. She is unsure if this was there before as she does not look at her breasts. She states she recently saw her local oncologist and there were no concerns at that appointment. I recommended that we get an ultrasound of the area for evaluation. She was okay with this if we could do it today but adilene could not come back tomorrow due to work and will be having shoulder surgery next week so she needs to quarantine. I recommended we do it at her earliest convenience. I would also like to talk to her local oncologist about the area. She was okay with this. She will continue to monitor for progressive pain, tightness, or changing in shape of the breast. Patient is aware to take prophylactic antibiotics before dental/invasive procedures, unless instructed otherwise. I have discussed the FDA recommended surveillance for implant integrity with an MRI after 5-6 years of placement and every 2-3 years after that. I will remind her yearly and discuss ordering an MRI when the time comes. Signs/symptoms of an infection were reviewed with the patient and she was instructed to call us immediately if any of these occur. Patient has all appropriate phone numbers to call in case she has questions or concerns. I will follow up with her regarding the ultrasound results once obtained. I will also discuss this with Dr. Bearden. Until then, we will plan for another annual implant check but certainly sooner if she has any concerns or worries before this time. Photographs obtained. All questions were asked and answered per patient report. It was an absolute pleasure taking care ofMs. Box. PATIENT EDUCATION Ready to learn, no apparent learning barriers were identified; learning preferences include listening. Explained diagnosis and treatment plan; patient expressed understanding of the content. Billing: Established patient. Srdu-mk-cofe time 25 minutes more than 50% of time was spent in counseling/addressing patient's concerns. documented in this encounter Plan of Treatment Scheduled Referrals Name Type Priority Associated Diagnoses Order [facility] Plastic Surgery Outpatient Referral Routine Expec gunnar: office visit 01/28/2022 (clinic) (Approximate), Expires: 01/29/2024 documented as of this encounter Results (ABNORMAL) BI Ultrasound Breast Focused Right (02/11/2021 9:23 AM CDT) Anatomical Region Laterality Modality Breast, Breast Imaging RST LOS, Breast Imaging ARZ LOS, [place] [address] Right Ultrasound Imaging FLA LOS Specimen (Source) Anatomical Collection Method Collection Time Re ceived Time Location / / Volume Laterality 02/11/2021 9:43 AM CDT Impressions 02/11/2021 10:51 AM CDT Two palpable areas of concern in the right breast have sonographic features most suggestive of benign fat n ecrosis. RECOMMENDATION: ??Short-Term Follow-Up 6 Month Recommend follow-up short-term ultrasoun d in 6 months to evaluate the two areas of probably benign fat necrosis in the r ight breast. Findings, impressions and recommendations discussed with the patie nt following imaging. All questions answered. ASSESSMENT: ??BI-RADS: 3: Probably Benig n. Narrative 02/11/2021 10:51 AM CDT EXAM: ??BI ULTRASOUND BREAST FOCUSED RIGHT INDICATION: ??Palpable abnormality in th e right breast. Patient has a history of right breast cancer with recurrence stat us post mastectomy and implant reconstruction. COMPARISON: ??Prior exam(s) were availab le and reviewed for comparison. FINDINGS: ??Targeted ultrasound of the p alpable mass in the outer right breast, 3 cm lateral from the mastectomy scar demo nstrates a well-circumscribed oval-shaped hyperechoic mass without int ernal blood flow. This measures 0.9 x 0.3 x 1.1 cm. Additional targeted ultrasound of the ri ght breast, 6 o'clock position 3 cm inferior to the mastectomy scar demonstr ates a well-circumscribed heterogeneously hyperechoic mass without internal blood flow. This measures 0.8 x 0.5 x 0.8 cm. Procedure Note Hunter Robles M.D., Ph.D. - 02/12/20 21 EXAM: BI ULTRASOUND BREAST FOCUSED RIGHT INDICATION: Palpable abnormality in the right breast. Patient has a history of right breast cancer with recurrence stat us post mastectomy and implant reconstruction. COMPARISON: Prior exam(s) were available and reviewed for comparison. FINDINGS: Targeted ultrasound of the pal pable mass in the outer right breast, 3 cm lateral from the mastectomy scar demo nstrates a well-circumscribed oval-shaped hyperechoic mass without int ernal blood flow. This measures 0.9 x 0.3 x 1.1 cm. Additional targeted ultrasound of the ri ght breast, 6 o'clock position 3 cm inferior to the mastectomy scar demonstr ates a well-circumscribed heterogeneously hyperechoic mass without internal blood flow. This measures 0.8 x 0.5 x 0.8 cm. IMPRESSION: Two palpable areas of concern in the rig ht breast have sonographic features most suggestive of benign fat n ecrosis. RECOMMENDATION: Short-Term Follow-Up 6 M [facility] Recommend follow-up short-term ultrasoun d in 6 months to evaluate the two areas of probably benign fat necrosis in the r ight breast. Findings, impressions and recommendations discussed with the patie nt following imaging. All questions answered. ASSESSMENT: BI-RADS: 3: Probably Benign. Janiya Aguilar P.A.-C., P.A., M.S. IMG BI PROCEDURES documented in this encounter Visit Diagnoses Diagnosis Unspecified Skin Changes - Primary Implant Breast Status Post Unspecified Skin Changes Implant Breast Status Post documented in this encounter
--- OUTSIDE RECORDS SUMMARY | 2022-07-28 09:47 | XMS_ITS | Encounter Summary ---
:[address] 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 documented in this encounter Results PLASTIC AND RECON SURGERY IMAGE EXAM (09/03/2018 12:00 PM PROVIDER RELATIONS CONSULTANT) Specimen (Source) Anatomical Location Collection Method / Collectio n Time Received Time / Laterality Volume Narrative [facility] - 09/03/2018 4:09 PM PROVIDER RELATIONS CONSULTANT This order has been created and auto-finalized [...]
--- OUTSIDE RECORDS SUMMARY | 2022-07-28 09:47 | XMS_ITS | Encounter Summary ---
:1960 Author Organization [facility] Address [address] [place] [address] Care Team Providers Name Role Phone Unavailable Primary Care Provider Unavailable Encounter Details Date Type Department Care Team Description 02/17/2021 Clinical Communication Division of Plastic Carly Aguilar Surgery in [place], Isirdo Solis., P.A., [place] M.S. 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 - 02/17/2021 1:51 PM CDT I called and spoke to the patient about her ultrasound results. I explained that the ultrasound shows that the areas on her right breast were likely areas of fat necrosis from her surgery. I explained that the recommended follow-up is another ultrasound in 6 months. She was quite concerned about this given that she has had breast cancer twice. She feels 6 months is a long-time to wait. I recommended she see our breast Clinic team for continued care regarding additional imaging and monitoring of changes in her breast. She states she has a local oncologist who she sees every 6 months and is wonderingif her oncologist could do this. I explained that either option is very reasonable and she should dowhat she feels most comfortable with. She reached out to her local oncologist and asked them to review the results of her ultrasound. She will let me know if she plans to continue following with them or if she would like a consult for our breast clinic. She was in agreement with this plan and had no further questions. We will plan to see her back in Plastic surgery Clinic in 1 year for her annual implant check. She will contact us in the meantime if she has any additional questions or concerns. PATIENT EDUCATION Ready to learn, no apparent learning barriers were identified; learning preferences include listening. Explained diagnosis and treatment plan; patient expressed understanding of the content. documented in this encounter Plan of Treatment Not on filedocumented as of this encounter Visit Diagnoses Not on filedocumented in this encounter
--- OUTSIDE RECORDS SUMMARY | 2022-07-28 09:47 | XMS_ITS | Encounter Summary ---
:1960 Author Organization 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 documented in this encounter Results Breast Breast Reconstruction-Plastic And Recon Surgery Image Exam (01/27/2021 12:00 AM CDT) Specimen (Source) Anatomical Location Collection Method / Collectio n Time Received Time / Laterality Volume Narrative [facility]IMS - 01/27/2021 4:10 PM CDT This order has been created [...]
--- OUTSIDE RECORDS SUMMARY | 2022-07-28 09:47 | XMS_ITS | Encounter Summary ---
:1960 Author Organization [facility] Address [address] [place] [address] Care Team Providers Name Role Phone Unavailable Primary Care Provider Unavailable Encounter Details Date Type Department Care Team Description 05/03/2019 Clinical Communication Division of Plastic Ander tan, [place] M[place] . 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 She declined new PAG. Telephone Encounter - Roslyn Luz - 05/03/2019 10:01 AM CDT Left message for patient to schedule for 07/11. Angelika spoke with patient and said we could scheduleher at 2:30 pm that day. But after speaking with the patient, 8:30 am would work as well. So it is up to the patient if she would prefer morning or afternoon. Appointment needs 1 hr in the bedroom. Thank you! documented in this encounter Plan of Treatment Not on filedocumented as of this encounter Visit Diagnoses Not on filedocumented in this encounter
--- OUTSIDE RECORDS SUMMARY | 2022-07-28 09:47 | XMS_ITS | Encounter Summary ---
:1960 Author Organization [facility] Address [address] [place] [address] Care Team Providers Name Role Phone Unavailable Primary Care Provider Unavailable Reason for Referral Outpatient (Routine) - Closed Specialty Diagnoses / Procedures Referred By Contact Refer red To Contact Plastic Surgery Madeline Velazquez P. A.-C. [facility] [address] [place] [phone] Referral ID Status Reason Start Date Expiration Date Visits Requ ested Visits Authorized [id number] Closed 02/11/2020 02/10/2021 1 1 Reason for Visit Outpatient (Routine) - Closed Specialty Diagnoses / Procedures Referred By Contact Refer red To Contact [facility]astic [facility] [address] [place] [phone] Referral ID Status Reason Start Date Expiration Date Visits Requ ested Visits Authorized [id number] Closed 12/06/2019 12/05/2020 1 1 Encounter Details Date Type Department Care Team Description 02/11/2020 Office Visit Division of Plastic Marcus, Rebekah Breast Status Surgery in [facility] Vivek Correa Post (Primary Dx) [address] [place] [phone] Social History Tobacco Use Types Packs/Day Years Used Date Smoking Tobacco: Never Smokeless Tobacco: Never Alcohol Use Standard Drinks/Week Comments No 0 (1 standard drink = 0.6 oz pure alcoho l) Sex Assigned at Date Recorded 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 - 02/11/2020 10:30 AM CDT SUBJECTIVE CHIEF COMPLAINT / REASON FOR VISIT 1. Annual implant check 2. underwent bilateral breast final implant exchange with fat grafting performed by Dr. Bearden on 04/20/2017. Subsequently she underwent 2 more revisionary procedures. Bilaterally she has smooth shell implants. 3. History of radiation right breast HISTORY OF PRESENT ILLNESS is a very pleasant 59 y.o. female who presents today for a routine annual implant check.She states that from implant standpoint she has been doing very well. She denies any changes with her breast implants. She states that she is overall pleased with her implants and is not interested in having any additional procedures. She specifically denies any persistent pain, tightness, change in shape of her breasts/s, axillary fullness, rashes, swelling, increase in size of her breasts, masses, signs/symptoms of an infection orany other changes. She is doing well and has no concerns. REVIEW OF SYSTEMS Pertinent items noted in HPI. OBJECTIVE There were no vitals taken for this visit. PHYSICAL EXAM General: Patient is alert and oriented x 3. She does not appear to be in acute distress. Very pleasant. Breast: Breast incision/s have healed nicely. No obvious signs of fluid accumulation, infection, rashes, masses or capsular contracture bilaterally. Implant/s are nice and soft. Axilla: No axillary lymphadenopathy noted bilaterally. ASSESSMENT / PLAN 1. Annual implant check 2. underwent bilateral breast final implant exchange with fat grafting performed by Dr. Bearden on 04/20/2017. Subsequently she underwent 2 more revisionary procedures. Bilaterally she has smooth shell implants. 3. History of radiation right breast is doing well. Her implant/s appears to be within realm of normal and I did not appreciate any obvious abnormalities on today's examination. She is overall pleased with her reconstruction and is not interested in having any additional procedures. I will have her monitor for persistent pain, tightness, change in shape of her breasts, axillary fullness, masses, rashes, increase in size of breast/s, swelling, signs/symptoms of an infection, or anyother changes and to let us know if she notes any of these. We still recommend prophylactic antibiotics any time she is having any dental/invasive procedures indefinitely or until guidelines change. Need for MRI/FDA recommendations reviewed, and at this point she would like to hold off on acquiring MRI as she is not having any difficulties and I believe this is very reasonable. We have discussed riskof ALCL (atypical large cell lymphoma- which is a type of cancer) with textured implants. She has smooth implants. The risk of the disease (ALCL) with smooth implants is virtually nonexistent at the moment. In any case, I did go over presenting signs/symptoms of ALCL and was instructed to call us should she note any of these. She understood. Photos were taken with pt's permission. will return to see me in 1-2 years for an implant check. All questions were asked and answered per patient report. It was an absolute pleasure taking care of. PATIENT EDUCATION Ready to learn, no apparent learning barriers were identified; learning preferences include listening. Explained diagnosis and treatment plan; patient expressed understanding of the content. Billing: Established patient. [id number] time 15 minutes more than 50% of time was spent in counseling/addressing patient's concerns. documented in this encounter Plan of Treatment Scheduled Referrals Name Type Priority Associated Diagnoses Order S chedule Plastic Surgery Outpatient Referral Routine Expec gunnar: office visit 02/10/2021 (clinic) (Approximate), Expires: 02/10/2023 documented as of this encounter Visit Diagnoses Diagnosis Implant Breast Status Post - Primary documented in this encounter
--- OUTSIDE RECORDS SUMMARY | 2022-07-28 09:47 | XMS_ITS | Encounter Summary ---
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 Patient spoke with KIM Guillen on 05/01/2019 and discussed wanting excision of left lateral dog ear. Patient underwent bilateral implant exchange with Dr. Son on August 17, 2018 and then left implant exchange due to cellulitis as well as and revision with mastopexy and bilateral fat grafting July 25, 2018. Patient offered July 11, 2019 2:30pm appointment with Dr. Son to have left lateral dog ear excised in [place]. . Patient agreed to date and denied having any further questions or concerns at this time. Patient also requested to have July 17, 2019 appointment with KIM Guillen cancelled. All questions were answered to the best of my ability. PLAN Disposition/Recommendation: Patient contacted regarding scheduling dog ear excision in [place] withDr. Huy. Education: patient/caller able to teach back Caller agreeable to plan of care: yes The following references were used: nursing clinical judgement and provider KIM Guillen documented in this encounter Plan of Treatment Not on filedocumented as of this encounter Visit Diagnoses Not on filedocumented in this encounter
--- OUTSIDE RECORDS SUMMARY | 2022-07-28 09:47 | XMS_ITS | Encounter Summary ---
:1960 Author Organization [facility] Address [address] [place] [address] Care Team Providers Name Role Phone Unavailable Primary Care Provider Unavailable Reason for Referral Outpatient (Routine) - Closed Specialty Diagnoses / Procedures Referred By Contact Refer red To Contact Diagnoses Unspecified Skin Changes Implant Breast Status Post Janiya Aguilar [facility] Procedures BI Ultrasound Breast Focused Right Vane Millan, M.S. [address] [place] [phone] Referral ID Status Reason Start Date Expiration Date Visits Requ ested Visits Authorized [id number] Closed 01/27/2021 01/27/2022 1 1 Reason for Visit Outpatient (Routine) - Closed Specialty Diagnoses / Procedures Referred By Contact Refer red To Contact Diagnoses Unspecified Skin Changes Implant Breast Status Post Janiya Aguilar [facility] Procedures BI Ultrasound Breast Focused Right Yana PNikoANiko, M.S. [address] [place] [phone] Referral ID Status Reason Start Date Expiration Date Visits Requ ested Visits Authorized [id number] Closed 01/27/2021 01/27/2022 1 1 Encounter Details Date Type Department Care Team Description 02/11/2021 Hospital Encounter Department of Janiya Aguilar cified Skin Changes; Radiology in [place] Implant Breast Status Post [place], [place] Vane M.S. 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 cholecalciferol (VITAMIN Take 1,000 Units by 0 D3) 1,000 Unit tablet mouth daily. clindamycin (CLEOCIN) 150 As Needed 0 02/12/2020 mg capsule cranberry 400 mg capsule 2 tablets PO daily 0 cyanocobalamin (VITAMIN Daily 0 01/06/2021 B12) 1,000 mcg tablet exemestane (AROMASIN) 25 mg Take 1 tablet by 0 tablet mouth daily. fluocinonide (LIDEX) 0.05 % Twice A Day as 0 04/27 ointment needed ibuprofen (ADVIL,MOTRIN) Take 600 mg by mouth 0 0 01/13/2017 200 mg tablet every 8 (eight) hours as needed. for pain levothyroxine (SYNTHROID, Take 1 tablet by 0 04/26 LEVOTHROID) 125 mcg tablet mouth daily. oxyCODONE (ROXICODONE) 5 mg Take 1 tablet (5 mg 15 tablet 0 07/25/2018 immediate release total) by mouth tabletIndications: Acute every 4 (four) hours Pain as needed for pain or moderate pain or score 4-6 of 10 Indication: Acute Pain. sertraline (ZOLOFT) 100 mg Take 1.5 tablets by 0 04/20/2017 tablet mouth at bedtime. triamterene-hydroCHLOROthia Take 1 capsule by 0 0 05/29/2018 zide (DYAZIDE) 37.5-25 mg mouth daily. per capsule verapamil (CALAN-SR) 120 mg Take 120 mg by mouth 0 07/13/2018 ER tablet daily. vitamin E acetate (VITAMIN Take 2 tablets by 0 E ORAL) mouth daily. 400 unit. documented as of this encounter Plan of Treatment Not on filedocumented as of this encounter Procedures Procedure Name Priority Date/Time Associated Comments Diagnosis BI ULTRASOUND RAD - Routine 02/11/2021 9:23 Unspecified Skin Result s for this BREAST FOCUSED (most inpatients AM CDT Changes procedure are in RIGHT and all Implant Breast the results outpatients) Status Post section. documented in this encounter Results (ABNORMAL) BI Ultrasound Breast Focused Right (02/11/2021 9:23 AM CDT) Anatomical Region Laterality Modality Breast, Breast Imaging RST LOS, Breast Imaging ARZ LOS, Lorie st Right Ultrasound Imaging FLA LOS Specimen [...] n ecrosis. RECOMMENDATION: Short-Term Follow-Up 6 M ont Recommend follow-up short-term ultrasoun d in 6 months to evaluate the two areas of probably benign fat necrosis in the r ight breast. Findings, impressions and recommendations discussed with the patie nt following imaging. All questions answered. ASSESSMENT: BI-RADS: 3: Probably Benign. Janiya Aguilar P.A.-C., P.A., M.S. IMG BI PROCEDURES documented in this encounter Visit Diagnoses Diagnosis Unspecified Skin Changes Implant Breast Status Post documented in this encounter
--- OUTSIDE RECORDS SUMMARY | 2022-07-28 09:47 | XMS_ITS | Encounter Summary ---
:1960 Author Organization [facility] Address [address] [place] [address] Care Team Providers Name Role Phone Unavailable Primary Care Provider Unavailable Reason for Visit Reason Onset Date Comments Procedure 07/03/2019 Encounter Details Date Type Department Care Team Description 07/03/2019 Clinical Communication Division of Plastic Huy-Ester tan, Procedure Surgery in [place] M[place] . 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 Left detailed message. Telephone Encounter - Trini Wilkes R.N. - 07/03/2019 11:51 AM CDT James Smith, She should have someone come with her just to be safe. Thanks! Telephone Encounter - Sarah Hall - 07/03/2019 11:39 AM CDT Patient calling, she is having dog ear revision on 07/11 and she is wondering if she is able to drive herself to/from this procedure. She would like a call back. documented in this encounter Plan of Treatment Not on filedocumented as of this encounter Visit Diagnoses Not on filedocumented in this encounter
--- OUTSIDE RECORDS SUMMARY | 2022-07-28 09:47 | XMS_ITS | Encounter Summary ---
:1960 Author Organization [facility] Address [address] [place] [address] Care Team Providers Name Role Phone Unavailable Primary Care Provider Unavailable Reason for Referral Outpatient (Routine) - Closed Specialty Diagnoses / Procedures Referred By Contact Refer red To Contact Plastic Surgery Denny Bearden [place] M.D. [address] [place] [phone] Referral ID Status Reason Start Date Expiration Date Visits Requ ested Visits Authorized [id number] Closed 12/06/2019 12/05/2020 1 1 Scheduling Instructions Please put on DONY schedule on a day Dr. 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
--- OUTSIDE RECORDS SUMMARY | 2022-07-28 09:47 | XMS_ITS | Encounter Summary ---
:1960 Author Organization [facility] Address [address] [place] [address] Care Team Providers Name Role Phone Unavailable Primary Care Provider Unavailable Reason for Visit Reason Onset Date Comments Communication 05/01/2019 Encounter Details Date Type Department Care Team Description 05/01/2019 Clinical Communication Division of Plastic Jo Lizarraga Communication Surgery in [facility] Yana Koch , P.A. 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 - 05/03/2019 8:21 AM CDT I called the patient 2 days ago, and she would like to have the left breast dog- ear removed. I discussed with her that this could be done as a minor procedure in the clinic by Dr. Son. We will reschedule her appointment to be with Dr. Son for a minor procedure of dog ear removal. I spoke with Angelika regarding the patient wanting the left breast dog-ear removed. She will set up a time in clinic for the patient to have a minor procedure. Angelika will speak with the patient regarding availability. Telephone Encounter - Reynaldo Andrade - 05/01/2019 2:24 PM CDT Patient called from a missed phone call. Tried paging Krystle but she was unavailable. She would like a call back Telephone Encounter - Nikki Lynch - 05/01/2019 10:17 AM CDT Patient is wondering if during the appointment on 07/17, she can get the bulge taken care of on her breast. She would like a call back please on if this is possible or not. [phone] Thank you Nikki documented in this encounter Plan of Treatment Not on filedocumented as of this encounter Visit Diagnoses Not on filedocumented in this encounter
--- OUTSIDE RECORDS SUMMARY | 2022-07-28 09:47 | XMS_ITS | Encounter Summary ---
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 documented in this encounter Results Breast Breast Reconstruction-Plastic And Recon Surgery Image Exam (02/11/2020 12:00 PM CDT) Specimen (Source) Anatomical Collection Method Collection Time Re ceived Time Location / / Volume Laterality 02/11/2020 12:00 PM CDT Narrative [facility] - 02/11/2020 2:24 PM CDT This order has been created [...]
--- OUTSIDE RECORDS SUMMARY | 2022-07-28 09:47 | XMS_ITS | Encounter Summary ---
:1960 Author Organization [facility] Address [address] [place] [address] Care Team Providers Name Role Phone Unavailable Primary Care Provider Unavailable Encounter Details Date Type Department Care Team Description 12/06/2019 Clinical Communication Division of Plastic [place], 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 Thank you! documented in this encounter Plan of Treatment Not on filedocumented as of this encounter Visit Diagnoses Not on filedocumented in this encounter
--- OUTSIDE RECORDS SUMMARY | 2022-07-28 09:47 | XMS_ITS | Encounter Summary ---
:1960 Author Organization [facility] Address [address] [place] [address] Care Team Providers Name Role Phone Unavailable Primary Care Provider Unavailable Encounter Details Date Type Department Care Team Description 05/11/2021 Orders Only [facility] Sa tatiana Bliss M.D. 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
--- OUTSIDE RECORDS SUMMARY | 2022-07-28 09:48 | XMS_ITS | Encounter Summary ---
:1960 Author Organization [facility] Address [address] [place] [id number] Care Team Providers Name Role Phone Unavailable Primary Care Provider Unavailable Reason for Referral Outpatient (Routine) - Closed Specialty Diagnoses / Procedures Referred By Contact Refer red To Contact Plastic Surgery Monty Ware D.O. [place] [address] [place] [address] Referral ID Status Reason Start Date Expiration Date Visits Requ ested Visits Authorized [id number] Closed 08/17/2018 08/17/2019 1 1 Scheduling Instructions Schedule with Dr Son DONY on Monday TER Reason for Visit Auth/Cert Specialty Diagnoses / Procedures Referred By Contact Refer red To Contact Diagnoses Implant Breast Status Post Left breast infection Procedures Obsv pt via ATC Referral ID Status Reason Start Date Expiration Date Visits Requ ested Visits Authorized [id number] 1 1 Encounter Details Date Type Department Care Team Description 08/16/2018 - Hospital Encounter [facility] [place] Implant Breast 08/17/2018 Hospital, Denny Todd, Status P ost (Primary [place], Marisol Virk Dx) Building, [address] [place] [address] [address] [facility] [address] [place], [place] [phone] (Work) [phone] Social History Tobacco Use Types Packs/Day Years Used Date Smoking Tobacco: Never Smokeless Tobacco: Never Alcohol Use Standard Drinks/Week Comments No 0 (1 standard drink = 0.6 oz pure alcoho l) Sex Assigned at Date Recorded Female 08/20/2018 8:53 AM FAGOTER documented as of this encounter Last Filed Vital Signs Vital Sign Reading Time Taken Comments Blood Pressure 134/72 08/17/2018 9:55 AM FAGOTER Pulse 66 08/17/2018 9:55 AM FAGOTER Temperature 36.4 ??C (97.5 ??F) 08/17/2018 9:55 AM FAGOTER Respiratory Rate 16 08/17/2018 9:55 AM FAGOTER Oxygen Saturation 97% 08/17/2018 9:55 AM FAGOTER Inhaled Oxygen Concentration - - Weight 99.7 kg (219 lb 12.8 oz) 08/16/2018 4:41 PM FAGOTER Height 161.3 cm (5' 3.5) 08/16/2018 4:41 PM FAGOTER Body Mass Index 38.32 08/16/2018 4:41 PM FAGOTER documented in this encounter Discharge Summaries Sameer Carlson M.D. - 08/17/2018 9:43 AM CST DISCHARGE SUMMARY BRIEF OVERVIEW Discharge Provider: Denny Flannery M.D. Primary Care Provider Phone Number: None Primary Care Provider Fax Number: None Other Providers: None Admission Date: 08/16/2018 Discharge Date: 08/17/2018 PRINCIPAL DIAGNOSIS Left breast cellulitis DISCHARGE DISPOSITION Home or Self Care [1] ACTIVE ISSUES REQUIRING FOLLOW UP An appointment has been scheduled for you to see Dr. Flannery on 08/20/2018 at 8:45am. Please report fifteen minutes prior to the appointment time to [address] If you need to reschedule your appointment, please call [phone]. Signs of Infection: Please inspect your incisions daily for signs and symptoms of infection. These include but are not limited to high fever, increased redness, swelling, or pain around the incisions, discharge from the incisions, or separation of the incisions. Should any of the above occur, you should contact Dr. Flannery 's service. During evening or weekend hours, you may contact a member of Dr. Flannery???s team by calling the [facility] protective signal operator at and ask to speak with Dr. Flannery???s resident marine electronics technician for emergencies. For questions during the week, Monday - Monday 8-4:30pm please call [phone] Flannery???s team. Care of your Surgical Sites: Continue to monitor for redness. Additional Instructions: Do not use heat or ice packs on the breast or surgical areas. Please do not smoke, or be exposed to second hand smoke. Sleep in whatever position is comfortable. Activity: Be careful not to put pressure on the breasts, especially at the center of your chest. Please do notengage in repetitive upper body activities (cleaning windows, vacuuming etc) or aerobic exercise forthe first 4 weeks. Do gentle exercises to increase comfort and range of motion in shoulders and arms. Please keep your heart rate below 100 beats per minute during the first 4 weeks. No lifting more than 15 pounds or any strenuous activity for at least 5 weeks after surgery. Then gradually increase your activity as tolerated. Diet: To optimize healing, it is essential to have adequate nutritional intake. Studies have shown drastically improved outcomes for patients with a sound nutritional state. It is recommended you take a multivitamin daily. A balanced diet with recommended daily servings of lean protein, vegetables and grains can help ensure adequate nutrition. It is equally important to drink water throughout the day. Thiswill help prevent constipation. Pain Medications: You have been given a prescription for narcotics. Do not drive or drink alcohol while taking this medication. Do not take more than 6 tablets per day. Please use Colace daily while taking the narcoticsto prevent constipation. If you feel like you no longer need this medications to control your pain you may transition to [id number] Tylenol for pain relief. Do not take more than 8 tablets of Tylenol (4000 mg) per day. You may also take ibuprofen, no more than 600mg three times daily. Medication Disposal: Dispose of unused or medications correctly to reduce the risk of medications being taken or used unsafely or improperly by you or others. Do not keep medications longer than the expiration datenoted on the medication container. Follow these U. S. Food and Drug Administration guidelines for disposing medications. - Securely store medications to prevent misuse. - Follow any disposal instruction on the medication label. - Do not flush medication down the toilet, unless told otherwise. - Bring unused medications to a community medication take-back program for proper disposal. - If no take-back program is available, throw medications in the household trash, but first: o Take medication out of its original container and mix it with an undesirable substance such as used coffee grounds or mireille litter. o Put medication that is mixed with an undesirable substance in a sealable bag, empty can or a container to prevent medication from leaking. o Remove or scratch out all identifying information from a medication container label to help protect your identity and health information. - Disposal requirements vary from state to state. Contact local waste management with questions. - When in doubt about proper disposal, talk with your pharmacist. - Chemotherapy medications may require special handling. Antibiotics: Please continue antibiotics as prescribed. Hygiene: You may shower. Be careful not to rub on the incisions, just pat dry please. Please do not soak in bath water or a hot tub for at least 3 weeks following your surgery. Shall you have any questions please do not hesitate to call us. We would be more than happy to answer these for you. OUTPATIENT FOLLOW UP Future Appointments Date Time Provider Department Center 08/20/2018 9:00 AM Denny Flannery M.D. [facility] 10/15/2018 10:00 AM Therese Lizarraga P.A.-Hollis., M.S. [facility] TEST RESULTS PENDING AT DISCHARGE Pending Labs Order Current Status MRSA Culture In process DETAILS OF HOSPITAL STAY REASON FOR ADMISSION Implant Breast Status Post HOSPITAL COURSE Ms. Valerie Box is a 58 year old female patient of Dr. Son who underwent left implant exchange, left breast revision/mastopexy and bilateral fat grafting on 07/25/18. She has a history of bilateral implant reconstruction on 04/20/17 and was last seen in follow-up on 08/06/18 and was doing well. ?? She contacted the plastic surgery service team on 08/16 with concerns of a small open wound on the left breast. She states that the left inframammary (IMF) incision began to drain some cloudy fluid this morning. She also described swelling, redness and tenderness to palpation for the past 3-4 days along the left IMF but thought it was related to the bra and therefore she exchanged the bra for a breast binder. She was admitted for IV antibiotics and close monitoring. Unfortunately her son recently and she needs to attend a wake and over the next two days. Labs were obtained which revealed normal CBC, ESR and slightly increased CRP on 11.9. Infectious Disease was consulted and recommended oral antibiotics, Duricef 500 mg BID and Doxycycline 100 mg BID. The erythema was improved the following morning. Ultrasound was obtained which showed no localised fluid collections, therefore no aspiration was performed. At the time of discharge, the patient was hemodynamically stable. We reviewed signs of infections and she will contact our service if she notices worsening. CONSULTS ORDERED DURING THIS ADMISSION IP CONSULT TO INFECTIOUS DISEASES IP CONSULT TO CARE MANAGEMENT CONDITION AT DISCHARGE improved Discharge instructions were provided to the patient and caregiver(s). TER documented in this encounter Medications at Time of Discharge Medication Sig Dispensed Refills Start Date End Date acetaminophen (TYLENOL) Take 2 tablets 0 08/17/20 18 500 mg tablet (1,000 mg total) by mouth every 6 (six) hours as needed for pain. cholecalciferol (VITAMIN Take 1,000 Units 0 12/04 D3) 1,000 Unit tablet by mouth daily. exemestane (AROMASIN) 25 Take 1 tablet by 0 01/17 mg tablet mouth daily. ibuprofen (ADVIL,MOTRIN) Take 600 mg by 0 017 200 mg tablet mouth every 8 (eight) hours as needed. for pain levothyroxine (SYNTHROID, Take 1 tablet by 0 04/26 LEVOTHROID) 125 mcg tablet mouth daily. oxyCODONE (ROXICODONE) 5 Take 1 tablet (5 15 tablet 0 07/25 mg immediate release mg total) by mouth tabletIndications: Acute every 4 (four) Pain hours as needed for pain or moderate pain or score 4-6 of 10 Indication: Acute Pain. sertraline (ZOLOFT) 100 mg Take 1.5 tablets 0 tablet by mouth at bedtime. triamterene-hydroCHLOROthi Take 1 capsule by 0 azide (DYAZIDE) 37.5-25 mg mouth daily. per capsule verapamil (CALAN-SR) 120 Take 120 mg by 0 018 mg ER tablet mouth daily. vitamin E acetate (VITAMIN Take 2 tablets by 0 E ORAL) mouth daily. 400 unit. cefadroxil (DURICEF) 500 Take 1 capsule 27 capsule 0 018 08/31/2018 mg capsule (500 mg total) by mouth 2 (two) times a day for 14 days. doxycycline monohydrate Take 1 tablet (100 27 tablet 0 07/2708/31/2018 (ADOXA) 100 mg tablet mg total) by mouth 2 (two) times a day for 14 days. sennosides (SENOKOT) 8.6 Take 1 tablet (8.6 30 tablet 0 08/24/2018 mg tablet mg total) by mouth daily. documented as of this encounter Progress Notes Sameer Carlson M.D. - 08/17/2018 8:15 AM CST SUBJECTIVE Events over the past 24 hours: RAMAKRISHNA. IV antibiotics started yesterday and redness and swelling has been decreasing. OBJECTIVE VITAL SIGNS Vitals: 08/16/18 1641 08/16/18 2200 08/17/18 0330 BP: 127/76 114/63 138/68 Temp: 37 ??C 36.7 ??C 36.4 ??C Pulse: 93 85 67 Heart Rate: 93 Resp: 18 18 20 Weight: 99.7 kg SpO2: 96% 94% 97% Temp (24hrs), Av.7 ??C, Min:36.4 ??C, Max:37 ??C Intake/Output @PHYSEXAMPLS@ General: Alert, awake, orientated x 3 Breast: Left breast erythema has decreased since yesterday. No active purlulence or drainage. Breastis tender to touch. No wound dehiscence. ASSESSMENT / PLAN Hospital Problems as of 08/17/2018 1. Implant Breast Status Post Plan Valerie Box is a 58 y.o. pleasant lady who presented yesterday with a breast infection/cellulitis after a implant exchange on 07/25/18. She was admitted and started on IV antibiotics. Erythema around the breast has been decreasing this morning. Unfortunately that patient has to attend the of her son this afternoon and would like to leave by 9 am. We have consulted ID who have recommended oral antibiotics. She will receive a ultrasound guided breast aspiration this morning. ?? Antibiotics: Duracef 500mg BID, Doxcycyline 100mg BID ?? Ultrasound guided needle aspiration at 9am ?? Diet: NPO till ultrasound. Adult regular after ?? Pain: Acetaminophen 1000mg, tramadol 50mg prn ?? Fluids: 20ml/hr LR ?? Activity: Ad keysha ?? Follow up: 08/20 with NPP ?? Discharge after she recieves her ultrasound guided aspiration Sameer Carlson M.D. TER Cameron Teran M.D., Ph.D., M.H.S. - 08/16/2018 1:14 PM CST Ms. Valerie Box is a 58 year old female patient of Dr. Son who underwent left implant exchange, left breast revision/mastopexy and bilateral fat grafting on 07/25/18. She has a history of bilateral implant reconstruction on 04/20/17 but was unhappy with the left breast appearing larger and sitting lower on the chest wall. She was last seen in follow-up on 08/06/18 and was doing well. She contacted the plastic surgery service pager at 12:50 with concerns of a small open wound on the left breast. She states that the left inframammary (IMF) incision began to drain some cloudy fluid this morning. She also described swelling, redness and tenderness to palpation for the past 3-4 days along the left IMF but thought it was related to the bra and therefore she exchanged the bra for a breast binder. Denies fevers, chills or other symptoms. I asked for her to come to [facility] [place] to be evaluated. She lives about 1.5 hours away. She may require IV antibiotics and admission. Unfortunately her son recently and she needs to attend a wake and over the next two days and says she cannot be admitted for IV antibiotics. I will wait for her arrival for further evaluation and management. TER documented in this encounter H&P Notes Jeffry, Cameron S, M.D., Ph.D., M.H.S. - 08/16/2018 6:30 PM CST PLASTIC SURGERY CONSULT NOTE Today's date: 08/16/2018 Date of admission: 08/16/2018 Chief Complaint: left breast redness, swelling, drainage HPI: Ms. Valerie Box is a 58 year old female patient of Dr. Son who underwent left implant exchange, left breast revision/mastopexy and bilateral fat grafting on 07/25/18. She has a history of bilateral implant reconstruction on 04/20/17 but was unhappy with the left breast appearing larger and sitting lower on the chest wall. She was last seen in follow-up on 08/06/18 and was doing well. She contacted the plastic surgery service pager at 12:50 with concerns of a small open wound on the left breast. She states that the left inframammary (IMF) incision began to drain some cloudy fluid this morning. She also described swelling, redness and tenderness to palpation for the past 3-4 days along the left IMF but thought it was related to the bra and therefore she exchanged the bra for a breast binder. Denies fevers, chills or other symptoms. I asked for her to come to [facility] [place] to be evaluated. Unfortunately her son recently and she needs to attend a wake and over the next two days and says she must be discharged tomorrow morning to attend the services. PMHx: Past Medical History: Diagnosis Date ??? Malignant Neoplasm Unspecified (HCC) ??? Post Operative Nausea/Vomiting Past Surgical History: Procedure Laterality Date ??? AXILLARY SENTINEL LYMPH NODE BIOPSY, PREOPERATIVE LYMPHOSCINTIGRAPHY Left 12/07/2016 Axillary sentinel lymph node biopsy, preoperative lymphoscintigraphy ??? BIOPSY LYMPH NODE - CERVICAL Right 08/27/1992 Right cervical node biopsy. Wide local excision of right breast carcinoma. ??? BREAST RECONSTRUCTION-TISSUE PLATE GRINDER Bilateral 12/07/2016 Breast Reconstruction-tissue senior systems architect Notes: sub-muscular, with use of AlloDerm. ??? BREAST-CAPSULOTOMY Bilateral 04/20/2017 Breast-capsulotomy ??? BREAST-IMPLANT EXCHANGE-SILICONE Bilateral 04/20/2017 Breast-implant exchange-silicone ??? BREAST-MASTOPEXY Left 04/20/2017 Breast-mastopexy Notes: for symmetry ??? BREAST-REVISION Bilateral 10/13/2017 Breast-revision Notes: proceed as indicated ??? CHOLECYSTECTOMY ??? EXCHANGE SILICONE IMPLANT BREAST Left 07/25/2018 Procedure: EXCHANGE SILICONE IMPLANT BREAST.; Surgeon: Denny Flannery M.D.; Location: [facility] ??? INJECTION FAT Bilateral 07/25/2018 Procedure: INJECTION FAT into right vs bilateral mastectomy flaps, harvested from abdomen, bilateral flanks, proceed as indicated.; Surgeon: Denny Flannery M.D.; Location: [facility] ??? INJECTION-FAT Bilateral 04/20/2017 Injection-fat Notes: [place] from: Abdomen, Flanks ??? INJECTION-FAT Bilateral 10/13/2017 Injection-fat Notes: Into Breasts, [place]ley from Abdomen ??? JOINT REPLACEMENT ??? MASTECTOMY - SKIN SPARING Bilateral 12/07/2016 Mastectomy - skin sparing ??? PARTIAL HYSTERECTOMY ??? PELVIC LAPAROSCOPY N/A 08/13/1993 Laparoscopy. Bilateral bipolar tubal coagulation. ??? REVISION BREAST Left 07/25/2018 Procedure: Revision Breast, mastopexy of mastectomy flaps, proceed as indicated.; Surgeon: Denny Flannery M.D.; Location: [facility] SOCIAL: Social History Social History ??? Marital status: Spouse name: N/A ??? Number of children: N/A ??? Years of education: N/A Social History Main Topics ??? Smoking status: Never Smoker ??? Smokeless tobacco: Never Used ??? Alcohol use No ??? Drug use: No ??? Sexual activity: Not on file Other Topics Concern ??? Not on file Social History Narrative ??? No narrative on file MEDICATIONS Medications Scheduled Medication Dose/Rate, Route, Frequency Last Action acetaminophen tablet 1,000 mg (TYLENOL) 1,000 mg, oral, Q6H Given: 08/16 1746 cefepime in dextrose (iso-osm) IVPB 2 g (MAXIPIME) 2 g, IV, Q12H New Ba/22 183 exemestane tablet 25 mg (AROMASIN) 25 mg, oral, Daily Ordered levothyroxine tablet 125 mcg (SYNTHROID, LEVOTHROID) 125 mcg, oral, Daily Ordered sertraline tablet 200 mg (ZOLOFT) 200 mg, oral, Daily at bedtime Ordered sodium chloride injection 3 mL 3 mL, IV, Q12H SATISH Ordered traMADol tablet 50 mg (ULTRAM) 50 mg, oral, Q6H Ordered triamterene-hydroCHLOROthiazide 37.5-25 mg per capsule 1 capsule (DYAZIDE) 1 capsule, oral, Daily Ordered vancomycin 1,000 mg in NaCl 0.9% IVPB (VANCOCIN) 15 mg/kg, IV, Q12H Ordered verapamil ER tablet 120 mg (CALAN-SR) 120 mg, oral, Daily Ordered Continuous Medication Dose/Rate, Route, Frequency Last Action lactated ringers 20 mL/hr, IV, Continuous New Ba08/16 1849 PRN Medication Dose/Rate, Route, Frequency Last Action naloxone injection 0.2 mg (NARCAN) 0.2 mg, IV, PRN Ordered sennosides tablet 8.6 mg (SENOKOT) 8.6 mg, oral, At bedtime PRN Ordered sodium chloride injection 10 mL 10 mL, IV, PRN Ordered sodium chloride injection 3 mL 3 mL, IV, PRN Ordered ALLERGIES Allergies Allergen Reactions ??? Adhesive Tape-Silicones Other (see comments) Contact dermatitis ??? Morphine Hallucinations ??? Nortriptyline Rash INTOLERANCE ??? Shellfish Derived Swelling ankle swelling ??? Sulfa (Sulfonamide Antibiotics) Hives ROS Pertinent items are noted in HPI; all other review of systems was negative. Objective: Vitals: 08/16/18 1641 BP: 127/76 Pulse: 93 Resp: 18 Temp: 37 ??C SpO2: 96% Physical Exam: GEN: A&Ox3, accompanied by niece. She appears anxious and is emotional given the recent events. She is well informed of the medical need for IV antibiotics for the cellulitis and potential breast implant infection. RESP: No respiratory distress. BREASTS: Breasts are soft and warm. History of mastectomies. Left breast inverted T incision is clean dry and intact with a small wound near the T junction along the lateral limb, measuring about 0.5 x0.5 cm. The wound is not full thickness and there is no evidence of exposed implant or other structure. No fluid is able to be expressed from the wound. No fluctuance noted. Mildly tender to palpation and warm. No signs of hematoma, seroma or fluid collection. There is evidence of cellulitis which wasdemarcated with a surgical marking pen. Right breast without evidence of hematoma, seroma, fluid, cellulitis, infection. Photographs were taken. Laboratory/Imaging: Recent Results (from the past 24 hour(s)) BMP (Basic Metabolic Panel) Collection Time: 08/16/18 5:19 PM Result Value Potassium, S 4.1 Sodium, S 140 Chloride, S 98 Bicarbonate, S 28 Anion Gap 14 Bld Urea Nitrog(BUN), S 16 Creatinine, S 0.82 eGFR-Non Black 79 eGFR-Black >90 Calcium, Total 9.8 Glucose, S 94 CBC with Differential Collection Time: 08/16/18 5:19 PM Result Value Hemoglobin 14.0 Hematocrit 42.6 Erythrocytes 4.75 MCV 89.7 RBC Distrib Width 13.4 Platelet Count 347 Leukocytes 8.4 Neutrophils 5.23 Lymphocytes 2.15 Monocytes 0.56 Eosinophils 0.38 Basophils 0.04 Sedimentation Rate Collection Time: 08/16/18 5:19 PM Result Value Sedimentation Rate, B 18 CRP (C-Reactive Protein) Collection Time: 08/16/18 5:19 PM Result Value C-Reactive Protein (CRP), S 11.9 (H) Assessment/Plan: #1 Implant Breast Status Post Ms. Valerie Box is a 58 year old female patient of Dr. Son who underwent left implant exchange, left breast revision/mastopexy and bilateral fat grafting on 07/25/18. She has a history of bilateral implant reconstruction on 04/20/17 but was unhappy with the left breast appearing larger and sitting lower on the chest wall. She was last seen in follow-up on 08/06/18 and was doing well. She contacted the plastic surgery service pager at 12:50 with concerns of a small open wound on the left breast. She states that the left inframammary (IMF) incision began to drain some cloudy fluid this morning. She also described swelling, redness and tenderness to palpation for the past 3-4 days along the left IMF but thought it was related to the bra and therefore she exchanged the bra for a breast binder. Denies fevers, chills or other symptoms. I asked for her to come to [facility] to be evaluated. Unfortunately her son recently and she needs to attend a wake and over the next two days and says she must be discharged tomorrow morning to attend the services. PLAN Plan: dismiss tomorrow morning to attend wake/ services per patient request, although medicalrecommendation would be for continued IV antibiotics. Continue to monitor vitals. We will acquire CBC, electrolytes, ESR, CRP. Activity: no strenuous activity or lifting Anticoagulation: ambulate, SCDs Antibiotics (dates): IV Vancomycin and cefepime Consults: Infectious disease (for recommendations), social work (for IV abx planning close to or at home), ultrasound-guided radiology (US aspiration in AM) Cultures: - Diet: NPO after midnight Drains: - Dressings: Xeroform to left breast IMF wound Disposition: Home 08/16/18 Follow up: Pending Plan of care was discussed with the patient and all questions and concerns were answered to their satisfaction. TER documented in this encounter Consult Notes Flo Bennett M.D. - 08/17/2018 6:51 AM CSTAssociated Order(s): IP CONSULT TO INFECTIOUS DISEASES [facility] Consultation Service-Consult Note SUBJECTIVE DEMOGRAPHIC INFORMATION Patient Name: Valerie Box Clinic Number:[id number] Age: 58 y.o. Birthdate: 1960 Sex: female Service Date/Time: 08/17/18 6:51 AM Referring Provider: Denny Flannery M* REASON FOR CONSULT We are asked to see Ms. Box to give further recommendations for evaluation and management of left breast implant infection - needs to dismiss by 830 AM tomorrow morning to home and then may returnto the hospital on Monday - please evaluate this evening. HISTORY OF PRESENT ILLNESS This is a 58 year old female right-sided breast cancer diagnosed in 1991, treated with breast conservation, axillary lymph node dissection, as well as adjuvant radiation to the right breast and a year cyclophosphamide, 5 fluorouracil, and prednisone, with remission until mammogram in 2016 showed changes, prompting the patient to undergo bilateral skin sparing mastectomy with placement of right-sided submuscular tissue senior systems architect, left-sided Irizarry pattern reduction with subcutaneous tissue senior systems architect, which were performed 11/2016, with no postoperative complications. Pathology was noted on left side. Shehad a subsequent bilateral implant exchange with bilateral mastectomy flap revision and fat graftingfrom abdomen in 03/2017 without issue, however the patient had significant asymmetry, notably present prior to reconstruction, and therefore underwent left implant exchange with left breast revision and mastopexy as well as bilateral fat grafting 07/25/2018, with follow-up on 08/06/2018 with incisionsclean, dry, intact without drainage. On 08/16/2018 the patient contacted plastic surgery due to drainage with cloudy fluid, some redness,swelling, and tenderness for about 4 days to the left breast. Therefore the patient was admitted andstarted on cefepime and vancomycin by Plastic surgery. The patient has had excellent response to this with erythema well retracted from marked borders. An ultrasound of the breast has been done and demonstrated no fluid collection. MRSA nares has been done, is pending. The patient denies any systemic symptoms including fevers, chills, nausea, vomiting, shortness of breath, chest pain, dysuria, hematuria, diarrhea, hematochezia, melena, or any changes other than the local swelling, redness, tenderness, and drainage which is now improved from the left breast inferiorly along the incision. Unfortunately the patient's son has and she must go to his wake and 08/17/2018, therefore Infectious Disease is consulted for an out patient antibiotic regimen pending return 08/19 are 08/20 for reassessment by Plastic surgery. The patient denies sick contacts, exposures, or recent travel. REVIEW OF SYSTEMS All other systems reviewed and are negative. REVIEW OF HISTORY The following portions of the patient's history were reviewed and updated as appropriate: allergies,current medications, medical history, social history, surgical history and problem list OBJECTIVE Vitals: 08/16/18 2200 08/16/18 2234 08/17/18 0330 08/17/18 0504 BP: 114/63 138/68 Pulse: 85 67 Heart Rate: Temp: 36.7 ??C 36.4 ??C Resp: 18 20 Height: Weight: SpO2: 94% 97% TempSrc: Oral Oral Pain Score: 2 2 2 Pain Location: Breast Breast PHYSICAL EXAMINATION Nursing note and vitals reviewed. General: Alert, oriented, conversant Respiratory: Clear to auscultation bilaterally Chest: Left breast with erythema to inferior aspect primarily around incision, with erythema well retracted from marked borders, somewhat tender to palpation, warm, and without any fluctuance or drainage, also with a 2-3 mm eschar to the superoir portion of the erythema as noted in imaging seen in Qreads Abdomen: Soft, nontender, nondistended Extremities: Warm and well perfused DIAGNOSTICS Pertinent studies include: 08/17 US Left breast: IMPRESSION: Along the surgical incisions of the central breast and inferior breast at 6 o'clock, there is subcutaneous edema and mild skin thickening. No underlying focal fluid collections. No antolin-implant fluid collection. There is a thin linear echogenic line extending along the incision centered in the area of edema but this is also seen in areas with no redness and no subcutaneous edema, finding represents surgical material. ASSESSMENT / PLAN 1. Left breast cellulitis in setting of left implant exchange with left breast revision and mastopexy as well as bilateral fat grafting 07/25/2018 DISCUSSION The patient has history as noted above with left breast cellulitis which appears to be improving on cefepime and vancomycin IV, with an 08/17 ultrasound of the left breast which has been negative for fluid collection and MRSA nares which are pending (MRSA notes a helps to stratify the likelihood of MRSA infection, and less likely if the patient's MRSA nares is negative). On exam the patient's erythema is significantly improved compared to images and marked borders, and a more erythematous sub cm area with very small eschar is noted, however without any fluctuance with leakage. We can reasonably define a course of oral antibiotics as below provided the patient follows up with Plastic surgery for reassessment as response to therapy and MRSA nares result RECOMMENDATIONS 1. Please start cefadroxil 500 mg p.o. b.i.d., and doxycycline 100 mg p.o. B.i.d. (this covers empirically for strep, Staph, and MRSA, essentially an expanded cellulitis coverage), planned course of antibiotics will be 10 days, however this may change based on response to therapy. The patient should still return for re-assessment as soon as she is reasonably able (planned currently for Monday 08/20 in plastic surgery clinic) 2. Will follow up MRSA nares swab Follow up: We will plan for this patient to follow-up with infectious diseases clinic outpatient next week to be coordinated with Plastic surgery appointment. Plan: If he MRSA nares is negative, we will plan to discontinue doxycycline. If MRSA nares is positive would plan to continue doxycycline. If the patient does not demonstrate continued improvement, or demonstrates worsening, we would recommend the patient be readmitted for IV antibiotic therapy and further workup. Discussed with staff Dr. Loya We will sign off as patient is being dismissed. Please page the [facility] pager at [phone] withquestions. Thank you for the consultation. DIAGNOSES #1 Implant Breast Status Post Flo Bennett M.D. TER Associated attestation - Mandy Loya M.D. - 08/17/2018 5:36 PM [facility] I went to evaluate the patient this morning, but she was at ultrasound. I was not able to evaluate her this morning before her discharge. I did discuss the plan of care with Dr. Bennett. The patient needed to leave for her son's and thus could not stay inpatient for IV antibiotics. Fortunately, her ultrasound was negative for fluid collection in the breast. She had good improvement with vancomycin and cefepime. We recommend she continue on cefadroxil and doxycycline through this weekend and velma-evaluated on Monday in Plastic surgery Clinic as well as Infectious Disease Clinic. We generally would treat the breast infection in the case of having implant in place with IV antibiotics. However if she has had good response to oral therapy who were not seen periprosthetic fluid collection, it may be reasonable to complete a course of oral antibiotics. If patient were having any worsening or notsignificant improvement in the cellulitis, then we would recommend him sitting up parental antibiotics through the outpatient setting or readmission. documented in this encounter Nursing Notes Victoriano Holly R.N. - 08/17/2018 10:13 AM CST Pt discharged home to self care. She refused escort services and left the unit with family. Victoriano Brady R.N. - 08/17/2018 10:12 AM CST Goals: Pt will be educated on discharge instructions. Identify possible barriers to meeting goals/advancing plan of care: none Stability of the patient: Moderately Stable - Low risk of patient condition declining or worsening End of Shift Summary: Pt met discharge criteria. She was educated on post discharge instructions.Questions were answered. Oliver Jenkins R.N. - 08/17/2018 4:08 AM CST Problem: PAIN - ADULT Goal: PT VERBALIZES/DEMONSTRATES ADEQUATE COMFORT LEVEL OR BASELINE Outcome: Progressing Comments: Goals: Clinical Goals for the Shift: Pain controlled to pt satisfaction. Identify possible barriers to meeting goals/advancing plan of care: None Stability of the patient: Moderately Stable - Low risk of patient condition declining or worsening End of Shift Summary: Pain well controlled NOC. TER Corina Arcos R.N. - 08/16/2018 7:58 PM CST SKIN/TISSUE INTEGRITY ??? Skin/Tissue integrity maintained or improved Not Progressing INFECTION - ADULT ??? Absence of infection during hospitalization Progressing KNOWLEDGE DEFICIT ??? Patient/family/caregiver demonstrates understanding of disease process, treatment plan, medications, and discharge instructions Progressing PAIN - ADULT ??? PT VERBALIZES/DEMONSTRATES ADEQUATE COMFORT LEVEL OR BASELINE Progressing SAFETY ADULT ??? Maintain a safe environment Progressing Goals: Patient will have pain controlled, remain vitally stable and create plan of care. Identify possible barriers to meeting goals/advancing plan of care: None Stability of the patient: Moderately Stable - Low risk of patient condition declining or worsening End of Shift Summary: Patient remained vitally stable, had pain controlled with tylenol. Plan of care was made for patient with antibiotics, emotional support was provided to patient. TER documented in this encounter Miscellaneous Notes Hospital Course - Sameer Carlson M.D. - 08/17/2018 7:19 AM CST Ms. Valerie Box is a 58 year old female patient of Dr. Son who underwent left implant exchange, left breast revision/mastopexy and bilateral fat grafting on 07/25/18. She has a history of bilateral implant reconstruction on 04/20/17 and was last seen in follow-up on 08/06/18 and was doing well. ?? She contacted the plastic surgery service team on 08/16 with concerns of a small open wound on the left breast. She states that the left inframammary (IMF) incision began to drain some cloudy fluid this morning. She also described swelling, redness and tenderness to palpation for the past 3-4 days along the left IMF but thought it was related to the bra and therefore she exchanged the bra for a breast binder. She was admitted for IV antibiotics and close monitoring. Unfortunately her son recently and she needs to attend a wake and over the next two days. Labs were obtained which revealed normal CBC, ESR and slightly increased CRP on .. Infectious Disease was consulted and recommended oral antibiotics, Duricef 500 mg BID and Doxycycline 100 mg BID. The erythema was improved the following morning. Ultrasound was obtained which showed no localised fluid collections, therefore no aspiration was performed. At the time of discharge, the patient was hemodynamically stable. We reviewed signs of infections and she will contact our service if she notices worsening. TER documented in this encounter Plan of Treatment Scheduled Referrals Name Type Priority Associated Diagnoses Order S [facility] Plastic Surgery Outpatient Referral Routine Expec gunnar: office visit 08/20/2018, (clinic) Expires: 08/17/2021 documented as of this encounter Procedures Procedure Name Priority Date/Time Associated Comments Diagnosis US CHEST RAD - Semiurgent 08/17/2018 9:32 Results for (Fast; most ED AM [facility] this procedur e patients; some are in the inpatients) results section. MRSA CULTURE Routine 08/16/2018 7:09 Results for PM [facility] this procedure are in the results section. SEDIMENTATION RATE, Routine 08/16/2018 5:19 Resul ts for B PM [facility] this procedure are in the results section. CBC WITH Routine 08/16/2018 5:19 Results for DIFFERENTIAL, B PM [facility] this procedu re are in the results section. C-REACTIVE PROTEIN Routine 08/16/2018 5:19 Result s for (CRP), S/P PM [facility] this procedure are in the results section. BASIC METABOLIC Routine 08/16/2018 5:19 Results f or PANEL, S/P PM [facility] this procedure are in the results section. documented in this encounter Results US Chest (08/17/2018 9:32 AM [facility]) Anatomical Region Laterality Modality N/A Ultrasound Specimen (Source) Anatomical Collection Method Collection Time Re ceived Time Location / / Volume Laterality 08/17/2018 9:35 AM [facility] Impressions 08/17/2018 9:42 AM [facility] IMPRESSION: Along the surgical incisions of the central breast and inferior breast at 6 o'clock, there is subcutaneo us edema and mild skin thickening. No underlying focal fluid collections. No p yi-implant fluid collection. ??There is a thin linear echogenic line extending a long the incision centered in the area of edema but this is also seen in areas with no redness and no subcutaneous edema, finding represents surgical mater ial. Narrative 08/17/2018 9:42 AM [facility] EXAMS: US CHEST COMPARISON: None Procedure Note Kamryn Stanley M.D. - 08/17/2018Formatt ing of this note might be different from the original. EXAMS: US CHEST COMPARISON: None IMPRESSION: Along the surgical incisions of the central breast and inferior breast at 6 o'clock, there is subcutaneo us edema and mild skin thickening. No underlying focal fluid collections. No p yi-implant fluid collection. There is a thin linear echogenic line extending a long the incision centered in the area of edema but this is also seen in areas with no redness and no subcutaneous edema, finding represents surgical mater ial. Sameer BELL US PROCEDURES MRSA Culture (08/16/2018 7:09 PM [facility]) [facility] Method Time Signature MRSA Culture No growth 08/17/2018 [facility] of MRSA 8:05 PM [facility] - [facility] Specimen Anatomical Collection Method Collection Time Receive d Time (Source) Location / / Volume Laterality Swab (Nares) 08/16/2018 7:09 PM 8 7:20 [facility] PM [facility] Comment: Specimen Source Site: Swab Suzanne Evans M.D. LAB MICROBIOLOGY - GEN ERAL ORDERABLES Performing Organization Address City/[facility]/ZIP Code Phon e Number [facility] - [address] [address] [facility] (ABNORMAL) CRP (C-Reactive Protein) (08/16/2018 5:19 PM [facility]) [facility] Method Time Signature C-Reactive 11.9 (H) <=8.0 08/16/2018 [facility] Protein (CRP), mg/L 6:02 PM [facility] Specimen Anatomical Collection Method Collection Time Receive d Time (Source) Location / / Volume Laterality Blood (Blood, 08/16/2018 5:19 PM 08/16/20 18 5:31 Venous) [facility] PM [facility] Cameron Teran M.D., Ph.D. LAB BLOOD ADD-ON Performing Organization Address City/[facility]/ZIP Code Phon e Number [facility] - [address] [address] [facility] Sedimentation Rate (08/16/2018 5:19 PM [facility]ER) [facility] Method Time Signature Sedimentation 18 0 - 29 08/16/2018 [facility] Rate, B mm/1 h 6:35 PM [facility] Specimen Anatomical Collection Method Collection Time Receive d Time (Source) Location / / Volume Laterality Blood (Blood, 08/16/2018 5:19 PM 08/16/20 18 5:31 Venous) [facility] PM [facility] Cameron Teran M.D., Ph.D. LAB BLOOD ADD-ON Performing Organization Address City/[facility]/ZIP Code Phon e Number [facility] - [address] [address] [facility] CBC with Differential (08/16/2018 5:19 PM [facility]ER) [facility] Method Time Signature Hemoglobin 14.0 11.6 - 08/16/2018 [facility] 15.0 g/dL 5:35 PM [facility] Hematocrit 42.6 35.5 - 08/16/2018 [facility] 44.9 % 5:35 PM [facility] Erythrocytes 4.75 3.92 - 08/16/2018 [facility] 5.13 5:35 PM [facility] - x10(12)/L [facility] MCV 89.7 78.2 - 08/16/2018 [facility] 97.9 fL 5:35 PM [facility] RBC Distrib Width 13.4 12.2 - 08/16/2018 [facility] 16.1 % 5:35 PM [facility] Platelet Count 347 157 - 371 08/16/2018 [facility] x10(9)/L 5:35 PM [facility] Leukocytes 8.4 3.4 - 9.6 08/16/2018 [facility] x10(9)/L 5:35 PM [facility] Neutrophils 5.23 1.56 - 08/16/2018 [facility] 6.45 5:35 PM [facility] - x10(9)/L [facility] Lymphocytes 2.15 0.95 - 08/16/2018 [facility] 3.07 5:35 PM [facility] - x10(9)/L [facility] Monocytes 0.56 0.26 - 08/16/2018 [facility] 0.81 5:35 PM [facility] - x10(9)/L [facility] Eosinophils 0.38 0.03 - 08/16/2018 [facility] 0.48 5:35 PM [facility] - x10(9)/L [facility] Basophils 0.04 0.01 - 08/16/2018 [facility] 0.08 5:35 PM [facility] - x10(9)/L [facility] Specimen Anatomical Collection Method Collection Time Receive d Time (Source) Location / / Volume Laterality Blood (Blood, 08/16/2018 5:19 PM 08/16/20 18 5:31 Venous) [facility] PM [facility] Cameron Teran M.D., Ph.D. LAB BLOOD ADD-ON Performing Organization Address City/State/ZIP Code Phon e Number [facility] - [address] [place], [place] [address] [facility] BMP (Basic Metabolic Panel) (08/16/2018 5:19 PM [facility]ER) Analysis Performed At Patho logist Time Signature Potassium, S 4.1 3.6 - 5.2 08/16/2018 [facility] mmol/L 6:02 PM [facility] Sodium, S 140 135 - 145 08/16/2018 [facility] mmol/L 6:02 PM [facility] Chloride, S 98 98 - 107 08/16/2018 [facility] mmol/L 6:02 PM [facility] Bicarbonate, S 28 22 - 29 08/16/2018 [facility] mmol/L 6:02 PM [facility] Anion Gap 14 7 - 15 08/16/2018 [facility] 6:02 PM [facility] BUN (Blood Urea 16 6 - 21 08/16/2018 [facility] Nitrogen), S mg/dL 6:02 PM [facility] Creatinine 0.82 0.59 - 08/16/2018 [facility] 1.04 mg/dL 6:02 PM [facility] eGFR-Non 79 >=60 08/16/2018 [facility] Black/ mL/min/BSA 6:02 PM [facility] Comment: ----ADDITIONAL INFORMATION---- Estimated GFR calculated using the 2009 CKD_EPI creatinine equation. eGFR-Black/ >90 >=60 mL/min/BSA 08/16/2018 6:02 [facility] Comment: ----ADDITIONAL INFORMATION---- Estimated GFR calculated using the 2009 CKD_EPI creatinine equation. Calcium, Total, S 9.8 8.6 - 10.0 mg/dL 08/16/2018 6:02 PM [facility] S Glucose, S 94 70 - 140 mg/dL 08/16/2018 6:02 PM [facility] [place] Specimen Anatomical Collection Method Collection Time Receive d Time (Source) Location / / Volume Laterality Blood (Blood, 08/16/2018 5:19 PM 08/16/20 18 5:31 [address]) [facility] Cameron Teran M.D., Ph.D. LAB BLOOD ADD-ON Performing Organization Address City/State/ZIP Code Phon e Number [facility] - [address] [address] [facility] documented in this encounter Visit Diagnoses Diagnosis Implant Breast Status Post - Primary Implant Breast Status Post Cellulitis Breast documented in this encounter Admitting Diagnoses Diagnosis Implant Breast Status Post documented in this encounter Administered Medications Inactive Administered Medications - up to 3 most recent administrations Medication Order MAR Action Action Date Dose Rate Site acetaminophen tablet 1,000 mg Given 08/17/2018 5:06 AM [facility] 1,000 mg (TYLENOL) 1,000 mg, oral, Every 6 hours, First dose on Alla 08/16/18 at 1715 Given 08/16/2018 10:34 PM [facility] 1,000 mg Given 08/16/2018 5:46 PM [facility] 1,000 mg cefadroxil capsule 500 mg (DURICEF) Given 08/17/2018 9:57 AM [facility]ER 500 mg 500 mg, oral, 2 times daily, First dose on Mon08/17/18 at 0745, Indications: Prophylaxis, surgical cefepime in dextrose (iso-osm) IVPB 2 New Bag 08/17/2018 5:06 AM [facility] 2 g 200 mL/hr g (MAXIPIME) 2 g, intravenous, at 200 mL/hr, Administer over 30 Minutes, Every 12 hours, First dose on Alla 08/16/18 at 1715, premix bag, Drug Monitoring Program: Pharmacist to adjust medication dosing based on indication and drug clearance factors., Indications: Skin and soft tissue infection New Bag 08/16/2018 6:35 PM [facility] 2 g 200 mL/hr doxycycline hyclate tablet 100 mg Given 08/17/2018 9:57 AM [facility] 1 00 mg (VIBRA-TABS) 100 mg, oral, Daily, First dose on Mon08/17/18 at 0900, Indications: Prophylaxis, surgical exemestane tablet 25 mg (AROMASIN) Given 08/17/2018 9:58 AM [facility]ER 25 mg 25 mg, oral, Daily, First dose (after last modification) on Alla 08/16/18 at 2015, Dose should be given after a meal. HAZARDOUS - Handle with care Given 08/16/2018 10:34 PM [facility] 25 mg lactated ringers Rate/Dose Verify 08/16/2018 7:38 PM [facility] 20 mL/hr 20 mL/hr 20 mL/hr, intravenous, Continuous, Starting on Alla 08/16/18 at 1715 New Bag 08/16/2018 6:49 PM [facility] 20 mL/hr 20 mL/hr levothyroxine tablet 125 mcg (SYNTHROID, Given 08/17/2018 5:12 A M [facility]ER 125 mcg LEVOTHROID) 125 mcg, oral, Daily before breakfast, First dose on Mon08/17/18 at 0700 naloxone injection 0.2 mg (NARCAN) 0.2 mg, intravenous, As needed, respirat ory depression, Starting on Alla 08/16/18 at 1702, For respiratory rate less than 8 b reaths per minute or RASS score of -3, -4, -5. Apply oxygen to keep oxygen saturati ons greater than 90% and notify service. sennosides tablet 8.6 mg (SENOKOT) 8.6 mg, oral, Bedtime PRN, constipation, Starting on Mon08/16/18 at 1701, do not give if patient has diarrhea sertraline tablet 200 mg (ZOLOFT) Given 08/16/2018 10:03 PM F[facility]ER 200 mg 200 mg, oral, Daily at bedtime, First dose on Mon08/16/18 at 2100 sodium chloride injection 10 mL 10 mL, intravenous, As needed, line care, Starting on Mon08/16/18 at 1656, Peripheral Intravenous Catheter and Rapid Infusion Cat heter, prior to blood sampling, post blood transfusion or post blood samplin g sodium chloride injection 3 mL 3 mL, intravenous, As needed, line care, Starting on Mon08/16/18 at 1656, Prior to and following infusion and between multi ple consecutive infusions: sodium chloride 0.9 % injection sodium chloride injection 3 mL Given 08/16/2018 10:04 PM [facility] 3 mL 3 mL, intravenous, Every 12 hours scheduled, First dose on Mon08/16/18 at 2100, Peripheral Intravenous Catheter and Rapid Infusion Catheter, when no infusion to maintain patency traMADol tablet 50 mg (ULTRAM) 50 mg, oral, Every 6 hours, First dose on Mon08/16/18 at 2014 triamterene-hydroCHLOROthiazide 37.5-25 mg Given 08/17 9:57 AM [facility] 1 capsule per capsule 1 capsule (DYAZIDE) 1 capsule, oral, Daily, First dose on Mon08/17/18 at 0900 vancomycin 1,000 mg in NaCl 0.9% New Bag 08/17/2018 5:07 AM CS T 1,000 mg 260 mL/hr IVPB (VANCOCIN) 1,000 mg (rounded from 1,080 mg = 15 mg/kg ? 72 kg Adjusted weight), intravenous, at 260 mL/hr, Administer over 60 Minutes, Every 12 hours, First dose on Alla 08/16/18 at 1715, Drug Monitoring Program: Pharmacist to adjust medication dosing based on indication and drug clearance factors., Indications: Skin and soft tissue infection New Bag 08/16/2018 7:38 PM [facility]ER 1,000 mg 260 mL/hr verapamil ER tablet 120 mg (CALAN-SR) Given 08/17/2018 9:57 AM [facility] 120 mg 120 mg, oral, Daily, First dose on Mon08/17/18 at 0900, Do NOT crush or chew. Tablet may be split on score if needed. documented in this encounter Active and Recently Administered Medications Times are shown in [facility]. Scheduled Medication Order 08/15/2018 08/16/2018 08/17/2018 acetaminophen tablet 1,000 mg (TYLENOL) 5280 (Given - Provider: Logan Ludwig R.N.)2234 (Given - Provider: Blanca Khanna R.N.) 0506 (Given - Provider: Oliver Ni R.N.) 1,000 mg, oral, Every 6 hours, First dose on Alla 08/16/18 at 171 5 cefadroxil capsule 500 mg (DURICEF) 0957 (Given - Provider: Victoriano Holly R.N.) 500 mg, oral, 2 times daily, First dose on Mon08/17/18 at 0745, Indications: Prophylaxis, Surgical cefepime in dextrose (iso-osm) IVPB 2 g (MAXIPIME) (CANCELED ) 1835 (New Bag - Provider: Logan Ludwig R.N. - Comment: IV not able to get in. good now.) 0506 (New Bag - Provider: Oliver Ni R.N.) 2 g, intravenous, at 200 mL/hr, Administ er over 30 Minutes, Every 12 hours, First dose on Alla 08/16/18 at 1715, premix bag, Drug Monitoring Program: Pharmacist to adjust medication dosing based on indic ation and drug clearance factors., Indications: Skin and Sof t Tissue Infection doxycycline hyclate tablet 100 mg (VIBRA-TABS) 0957 (Given - Provider: Victoriano Holly R.N.) 100 mg, oral, Daily, First dose on Mon10/17/17 at 0900, Indications: Prophylaxis, Surgical exemestane tablet 25 mg (AROMASIN) 2234 (Given - Provider: Eboni ReddyNNiko) 0958 (Given - Provider: Victoriano Holly R.N.) 25 mg, oral, Daily, First dose on Mon at 2014, Dose should be given after a meal. HAZARDOUS - Handle with care levothyroxine tablet 125 mcg (SYNTHROID, LEVOTHROID) 0512 (Given - Provider: Oliver Ni R.N.) 125 mcg, oral, Daily before breakfast, First dose on Mon 8 at 0700 sertraline tablet 200 mg (ZOLOFT) 2202 ( Given - Provider: Blanca Khanna R.N.) 200 mg, oral, Daily at bedtime, First dose on Mon08/16/18 at 21 00 sodium chloride injection 3 mL 2203 (Given - Pro vider: Eboni ReddyNNiko) 1039 (Not Given - Provider: Victoriano Holly R.N. - Reason: Other - Comment: Pt discharging, IV removed) 3 mL, intravenous, Every 12 hours schedu led, First dose on Mon08/16/18 at 2100, Peripheral Intravenous Catheter and Rapid Infusion Catheter, when no infusion to maintain patency traMADol tablet 50 mg (ULTRAM) 2204 (Not Given - Provider: Blanca Khanna R.N. - Reason: Patient/family refused) 0352 (Not Given - Provider: Oliver Ni R.N. - Reason: Patient/family refused)1040 (Not Given - Provider: Victoriano Holly RNikoN. - Reason: Patient/family refused) 50 mg, oral, Every 6 hours, First dose on Mon08/16/18 at 2014 triamterene-hydroCHLOROthiazide 37.5-25 mg per capsule 1 capsule (DYAZIDE) 0957 (Given - Provider: Eboni MascorroNNiko) 1 capsule, oral, Daily, First dose on Mon08/17/18 at 0900 vancomycin 1,000 mg in NaCl 0.9% IVPB (VANCOCIN) (CANCELED) 1938 (New Bag - Provider: Corina Arcos R.N.) 0507 (New Bag - Provider: Oliver Ni R.N.) 1,000 mg (rounded from 1,080 mg = 15 mg/ kg ? 72 kg Adjusted weight), intravenous, at 260 mL/hr, Administer over 60 Minutes, Every 12 hours, First dose on Alla 08/16/18 at 1715, Drug Monitoring Program: Pharmacist to adjust medication dosing b ased on indication and drug clearance factors., Indications: Skin and Soft Tissue Infection verapamil ER tablet 120 mg (CALAN-SR) 0957 (Given - Provider: Victoriano Holly RCharles) 120 mg, oral, Daily, First dose on Mon10/17/17 at 0900, Do NOT crush or chew. Tablet may be split on score if needed. Continuous Medication Order 08/15/2018 08/16/2018 08/17/2018 lactated ringers 1849 (New Bag - Prov ider: Corina Arcos R.N.)1938 (Rate/Dose Verify - Provider: Corina Arcos R.N.) 20 mL/hr, intravenous, at 20 mL/hr, Continuous, Starting Alla at 1715 PRN Medication Order 08/15/2018 08/16/2018 08/17/2018 naloxone injection 0.2 mg (NARCAN) 0.2 mg, intravenous, As needed, respirat ory depression, Starting Alla 08/16/18 at 1702, For respiratory rate less than 8 breaths per minute or RASS score of -3, -4, -5. Apply oxygen to keep oxygen saturations greater than 90% and notify service. sennosides tablet 8.6 mg (SENOKOT) 8.6 mg, oral, Bedtime PRN, constipation, Starting Alla 08/16/18 at 1701, do not give if patient has diarrhea sodium chloride injection 10 mL 10 mL, intravenous, As needed, line care , Starting Alla 08/16/18 at 1656, Peripheral Intravenous Catheter and Rapid Infusion Catheter, prior to blood sampling, post blood transfusion or post blood sampling sodium chloride injection 3 mL 3 mL, intravenous, As needed, line care, Starting Alla 08/16/18 at 1656, Prior to and following infusion and between multiple consecutive infusions: sodium chloride 0.9 % injection documented in this encounter
--- OUTSIDE RECORDS SUMMARY | 2022-07-28 09:48 | XMS_ITS | Encounter Summary ---
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 documented in this encounter Results PLASTIC AND RECON SURGERY IMAGE EXAM (08/27/2018 10:11 AM CHIEF LEGAL OFFICER) Specimen (Source) Anatomical Collection Method Collection Time Re ceived Time Location / / Volume Laterality 08/27/2018 12:00 PM CHIEF LEGAL OFFICER Narrative [facility] - 08/27/2018 10:11 AM CHIEF LEGAL OFFICER This order has been created and auto-finalized [...]
--- OUTSIDE RECORDS SUMMARY | 2022-07-28 09:48 | XMS_ITS | Encounter Summary ---
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 documented in this encounter Results PLASTIC AND RECON SURGERY IMAGE EXAM (08/16/2018 4:06 PM COMMUNITY NURSE) Specimen (Source) Anatomical Collection Method Collection Time Re ceived Time Location / / Volume Laterality 08/16/2018 4:03 PM COMMUNITY NURSE Narrative [facility] - 08/16/2018 4:06 PM COMMUNITY NURSE This order has been created and auto-finalized [...]
--- OUTSIDE RECORDS SUMMARY | 2022-07-28 09:48 | XMS_ITS | Encounter Summary ---
:1960 Author Organization [facility] Address [address] [place] [address] Care Team Providers Name Role Phone Unavailable Primary Care Provider Unavailable Encounter Details Date Type Department Care Team Description 07/31/2018 Orders Only [facility] Valdo Gonzalez [address] [facility] [place] [id number] Social History Tobacco Use Types Packs/Day Years Used Date Smoking Tobacco: Never Smokeless Tobacco: Never Alcohol Use Standard Drinks/Week Comments No 0 (1 standard drink = 0.6 oz pure alcoho l) Sex Assigned at Date Recorded Female 08/20/2018 8:53 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
--- OUTSIDE RECORDS SUMMARY | 2022-07-28 09:48 | XMS_ITS | Encounter Summary ---
:1960 Author Organization [facility] Address [address] [place] [address] Care Team Providers Name Role Phone Unavailable Primary Care Provider Unavailable Encounter Details Date Type Department Care Team Description 08/16/2018 Clinical Communication Division of Plastic Christopher Teran, Surgery in [place], [place], Ph.D . [address] [place] [phone] Social History Tobacco Use Types Packs/Day Years Used Date Smoking Tobacco: Never Smokeless Tobacco: Never Alcohol Use Standard Drinks/Week Comments No 0 (1 standard drink = 0.6 oz pure alcoho l) Sex Assigned at Date Recorded Female 08/20/2018 8:53 AM PATIENT SUPPORT ASSISTANT documented as of this encounter Miscellaneous Notes Telephone Encounter - Cameron Teran M.D., Ph.D., M.H.S. - 08/16/2018 1:14 PM CST RE: [phone] TELEPHONE CALL Ms. Valerie Box is a 58 year [...] her to come to [facility] at [facility] to be evaluated. She lives about 1.5 hours away. She may require IV antibiotics and admission. Unfortunately her son recently and she needs to attend a wake and over the next two days and says she cannot be admitted for IV antibiotics. I will wait for her arrival for further evaluation and management. All questions were answered. ENT SUPPORT ASSISTANT documented in this encounter Plan of Treatment Not on filedocumented as of this encounter Visit Diagnoses Not on filedocumented in this encounter
--- OUTSIDE RECORDS SUMMARY | 2022-07-28 09:48 | XMS_ITS | Encounter Summary ---
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 documented in this encounter Results PLASTIC AND RECON SURGERY IMAGE EXAM (08/06/2018 12:00 PM ROTO MIXER OPERATOR) Specimen (Source) Anatomical Location Collection Method / Collectio n Time Received Time / Laterality Volume Narrative [facility] - 08/07/2018 8:33 AM ROTO MIXER OPERATOR This order has been created and auto-finalized [...]
--- OUTSIDE RECORDS SUMMARY | 2022-07-28 09:48 | XMS_ITS | Encounter Summary ---
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 bilateral mastectomy flaps; harvested from ... Mastopexy Breast to improve symmetry, proceed as indicated Referral ID Status Reason Start Date Expiration Date Visits Requ ested Visits Authorized [id number] 1 1 Encounter Details Date Type Department Care Team Description 07/25/2018 Anesthesia Event [facility] Ananth Cline M.D. [address] [place] [phone] [address] Quintanilla, Cori A, SIGNALS COLLECTOR/ANALYST, MOLDING MACHINE TENDER [address] [place] [phone] [place], [place] [phone] Anesthesia Record Procedure Summary Procedure Name Responsible Anesthesia Start Anesthesia Stop Time Anesthesiologist Time EXCHANGE SILICONE Ananth Cline M.D. 07/25/18 1034 07/25/18 1343 IMPLANT BREAST. (Left) Events Date Time Event Comment 07/25/2018 1034 An Start Machine/Equipmen t Checked Infection Precautions Foll owed Procedure/Site Verified NPO Sta tus Verified Supine Standard ASA Mon itors Applied 1044 An Induction 1049 An Intubation 1049 Turnover to Proceduralist 1115 Proc Start 1314 Proc Fin 1328 Turnover to ANE Staff 1328 Airway Removal Criteria Met 1328 Extubation/Airway Removed 1336 an stop data 1343 An End I completed my h andoff to the receiving staff during [facility] 1. Identified the patient 2. Ident ified the responsible provider 3. Revi ewed the pertinent medical history 4. Discussed the surgical course 5. Review ed intra-op anesthesia management and i ssues during anesthesia 6. Set expectati ons for post-procedure period 7. Allowe d opportunity for questions and ac knowledgement of understanding. Name Total fentanyl injection 50 mcg/mL 275 mcg lidocaine 2% (mg) injection 100 mg propofol 10 mg/mL 200 mg succinylcholine 20 mg/mL injection 120 mg ondansetron 4 mg/2 mL injection 4 mg glycopyrrolate 0.2 mg/mL injection 0.2 mg ceFAZolin injection 1 g (ANCEF) 2 g dexamethasone 4 mg/mL injection 4 mg propofol 10 mg/mL infusion 727.18 mg ketamine 10 mg/mL injection 10 mg droperidol 2.5 mg/mL injection 0.625 mg lactated ringers 900 mL Agents No agents on file. Blood No blood administrations on file. Lines, Drains, and Airways Type Details Placement Removal Peripheral IV (Ped) 07/25/18; 0828; 20 G; 07/25/18 0828 by 07/25 1606 by Left; Forearm; GronMalia armendariz Danet te I., Chlorhexidine R.N. (Preferred) ETT Placement Date: 07/25/18 1049 by 07/25/18 1328 b y 07/25/18; Placement Gena Santos, [place], [place], SIGNALS COLLECTOR/ANALYST, Time: 1049 (created via SIGNALS COLLECTOR/ANALYST, MOLDING MACHINE TENDER MOLDING MACHINE TENDER procedure documentation); Mask Ventilation: Easy mask; Type: Standard ETT; Single Lumen Tube Size: 7 mm; Cuffed: Yes; Blade Size: Burch 2; Location: Oral; Removal Date: 07/25/18; Removal Time: 1328 (RETIRED) Incision 07/25/18; 1148; Abdomen; 07/25/18 1148 by 1418 by Bilateral; abdominal Stupeck, Jayme S, [facility] binder, topifoam; DRSG R.N. d, Schedu ling ABD COMBO [id number], DRSG Automate d Batch Job PRM WND NONADH 2X3; 06/15/21 (Removed by background completion utility); 1418 (Removed by background completion utility) (RETIRED) Incision 07/25/18; 1149; Breast; 07/25/18 1149 by 05/27 10/15 1418 by Bilateral; edi bra; Jayme aLst, [facility]-Backgroun DRSG PRM WND NONADH 2X3, R.N. 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 - 07/25/2018 1:59 PM CDT Patient: Valerie Box Procedure Summary Date: 07/25/18 Room / Location: [place] [address] / [facility] [place], [place] Anesthesia Start: 1034 Anesthesia Stop: 1343 Procedures: EXCHANGE SILICONE IMPLANT BREAST. (Left ) INJECTION FAT into right vs bilateral mastectomy flaps, harvested from abdomen, bilateral flanks, proceed as indicated. (Bilateral ) Revision Breast, mastopexy of mastectomy flaps, proceed as indicated. (Left ) Diagnosis: Absence Of Breast Acquired Bilateral (Absence Of Breast Acquired Bilateral [Z90.13].) Provider: Denny Bearden M.D. Responsible Provider: Ananth Cline M.D. Anesthesia Type: general ASA Status: 2 Anesthesia Type: general Last vitals BP (!) 147/113 (07/25/18 1347) Temp 36.5 ??C (07/25/181346) Pulse 100 (07/25/18 134) Resp 16 (07/25/181346) SpO2 97 % (07/25/181346) Anesthesia Post Evaluation Patient Disposition: general care unit Cardiovascular status: hemodynamics (HR & BP) acceptable Respiratory status: patent airway with spontaneous effort Temperature: normothermic Oxygen requirements: nasal cannula Level of consciousness: awake Pain score: pain adequately controlled and/or at baseline Post Op nausea/vomiting: none Hydration status: euvolemic Anesthesia Procedure Notes - Christopher Dias APRN, CRNA - 07/25/2018 11:04 AM CDTAssociated Order(s): AIRWAY MANAGEMENT Airway Date/Time: 07/25/2018 10:49 AM Patient location during procedure: OR / Procedure Area Performed by: GENA SANTOS Authorized by: ANANTH CLINE Pre procedure details Pre evaluation for airway management: procedure Urgency: elective Preop assessment of probable difficulty: no difficulty anticipated Sedation level: anesthetized Preoxygenation: bag valve mask Procedure details Mask difficulty assessment: easy mask Final airway type: direct laryngoscopy, intubation Laryngeal Manipulation: no Final airway difficulty of direct laryngoscopy (DL): 0-easy Final best view of glottic structures - Cormack/Lehane Score: grade 2A ETT location: oral Adult blade type: Burch 2 Adult tube size: 7 Adult ETT distance at teeth/gum: 22 Oral tube type: standard ETT Cuffed: yes Number of attempt to successful placement: 1 Airway confirmation: bilateral breath sounds, positive ETCO2 and bilateral chest rise Other previous techniques attempted: none Post procedure details Procedure outcome: successful Airway event: no complications Anesthesia Preprocedure Evaluation - Ananth Cline M.D. - 07/25/2018 10:32 AM CDT Anesthesia Pre-Evaluation Pertinent components of the patient's history including current problem list, medical history, surgical history, family history, social history, medications and allergies were reviewed and updated as appropriate. The patient was examined and the Pre-op diagnosis, planned procedure, and H&P were reviewed and remain unchanged. PROBLEM LIST Relevant Problems ONC (+) Malignant Neoplasm Of Breast Adenocarcinoma (HCC) (+) Metastatic Lung Cancer OBJECTIVE PHYSICAL EXAMINATION Airway (HEENT) Mallampati: II TM Distance: >3 FB Neck ROM: Full Cardiovascular Rhythm: Regular Rate: Normal Cardiovascular Assessment: Normal Pulmonary Pulmonary Assessment: Clear Neurological Normal Dental Normal General / Constitutional Normal ASSESSMENT / PLAN ANESTHESIA PLAN ASA: 2 Anesthesia Plan: general Patient seen and allergies reviewed; anesthesia plan and risks discussed directly with patient / legal guardian, or through an repair technician; patient evaluated and approved for anesthesia / sedation. Use of blood products discussed with patient who consented to blood products. documented in this encounter Plan of Treatment Not on filedocumented as of this encounter Procedures Procedure Name Priority Date/Time Associated Comments Diagnosis LDA ANE ENDOTRACHEAL Routine 07/25/2018 11:04 Res ults for this AIRWAY AM CDT procedure are i n the results section. documented in this encounter Results LDA ANE ENDOTRACHEAL AIRWAY (07/25/2018 11:04 AM CDT) Narrative Christopher Dias APRN, CRNA - 07/25/2018 11:04 AM CDT Christopher Dias APRN, CRNA ? 07/25/2018 11:14 AM Airway Date/Time: 07/25/2018 10:49 AM Patient location during procedure: OR / Procedure Area Performed by: GENA SANTOS Authorized by: ANANTH CLINE Pre procedure details ?? Pre evaluation for airway management : procedure ?? Urgency: elective ?? Preop assessment of probable difficu lty: no difficulty anticipated ?? Sedation level: anesthetized ?? Preoxygenation: bag valve mask Procedure details ??Mask difficulty assessment: easy mask ?? Final airway type: direct laryngosco py, intubation Laryngeal Manipulation: no ? Final airway difficulty of direct la ryngoscopy (DL): 0-easy ?? Final best view of glottic structure s - Cormack/Lehane Score: grade 2A ?? ETT location: oral ?? Adult blade type: Burch 2 ?? Adult tube size: 7 ?? Adult ETT distance at teeth/gum: 22 ?? Oral tube type: standard ETT ?? Cuffed: yes ?? Number of attempt to successful plac ement: 1 ?? Airway confirmation: bilateral breat h sounds, positive ETCO2 and bilateral chest rise ?? Other previous techniques attempted: none Post procedure details ?? Procedure outcome: successful ? Airway event: no complications Procedure Note Christopher DiasHEATHER, MOLDING MACHINE TENDER - 07/25/2018 11:04 AM CDT Airway Date/Time: 07/25/2018 10:49 AM Patient location during procedure: OR / Procedure Area Performed by: GENA SANTOS Authorized by: ANANTH CLINE Pre procedure details Pre evaluation for airway management: p rocedure Urgency: elective Preop assessment of probable difficulty : no difficulty anticipated Sedation level: anesthetized Preoxygenation: bag valve mask Procedure details Mask difficulty assessment: easy mask Final airway type: direct laryngoscopy, intubation Laryngeal Manipulation: no Final airway difficulty of direct laryn goscopy (DL): 0-easy Final best view of glottic structures - Cormack/Lehane Score: grade 2A ETT location: oral Adult blade type: Burch 2 Adult tube size: 7 Adult ETT distance at teeth/gum: 22 Oral tube type: standard ETT Cuffed: yes Number of attempt to successful placeme nt: 1 Airway confirmation: bilateral breath s ounds, positive ETCO2 and bilateral chest rise Other previous techniques attempted: no ne Post procedure details Procedure outcome: successful Airway event: no complications Ananth Cline M.D. ANESTHESIA ORDERABLES documented in this encounter Visit Diagnoses Not on filedocumented in this encounter Administered Medications Inactive Administered Medications - up to 3 most recent administrations Medication Order MAR Action Action Date Dose Rate Site ceFAZolin injection 1 g (ANCEF) Given 07/25/2018 11:00 AM CDT 2 g 1 g, intravenous, Once, On Mon07/25/18 at 1030, For 1 dose, Intra-Op, Preoperatively within 1 hour prior to surgical incision [place] IV push over 3 minutes. Add 5 mL NS to 1 gram vial for a final concentration of 200 mg/mL., Drug Monitoring Program: Pharmacist to adjust medication order based on comorbities and indication., Indications: Prophylaxis, surgical dexamethasone injection (DECADRON) Given 07/25/2018 11:00 AM CDT 4 mg As needed, Starting on Mon07/25/18 at 1100, Anesthesia Intra-op droperidol injection (INAPSINE) Given 07/25/2018 12:32 PM CDT 0.625 mg intravenous, As needed, nausea, vomiting, Starting on Mon07/25/18 at 1232, Anesthesia Intra-op fentaNYL injection (SUBLIMAZE) Given 07/25/2018 12:56 PM CDT 25 mcg intravenous, As needed, severe pain or score 7-10 of 10, Starting on Mon07/25/18 at 1044, Anesthesia Intra-op Given 07/25/2018 11:36 AM CDT 50 mcg Given 07/25/2018 11:13 AM CDT 50 mcg glycopyrrolate injection (ROBINUL) Given 07/25/2018 11:20 AM CDT 0.2 mg intravenous, As needed, Starting on Mon07/25/18 at 1120, Anesthesia Intra-op ketamine injection (KETALAR) Given 07/25/2018 12:32 PM CDT 10 mg As needed, Starting on Mon07/25/18 at 1232, Anesthesia Intra-op lactated ringers Continued from OR 07/25/2018 1:44 PM CDT 20 mL/hr 20 mL/hr 20 mL/hr, intravenous, Continuous, Starting on Mon07/25/18 at 0945, Pre-Op New Bag 07/25/2018 10:34 AM CDT lidocaine (PF) (cardiac) injection Given 07/25/2018 10:44 AM CDT 100 mg intravenous, As needed, Starting on Mon07/25/18 at 1044, Anesthesia Intra-op ondansetron (PF) injection (ZOFRAN) Given 07/25/2018 12:57 PM CDT 4 mg intravenous, As needed, nausea, vomiting, Starting on Mon07/25/18 at 1257, Anesthesia Intra-op propofol 10 mg/mL infusion Rate/Dose 07/25/2018 11:58 25 mcg/kg/min 15 mL/hr (DIPRIVAN) Change AM CDT Continuous Infusion: Per Instructions PRN, Starting on Mon07/25/18 at 1044, Anesthesia Intra-op Rate/Dose Change 07/25/2018 11:48 AM CDT 50 mcg/kg/min 30.1 mL/hr New Bag 07/25/2018 10:44 AM CDT 75 mcg/kg/min 45.1 mL/hr propofol injection (DIPRIVAN) Given 07/25/2018 12:51 PM CDT 20 mg intravenous, As needed, Starting on Mon07/25/18 at 1044, Anesthesia Intra-op Given 07/25/2018 11:37 AM CDT 20 mg Given 07/25/2018 10:52 AM CDT 50 mg succinylcholine-0.9% NaCl (PF) injection Given 07/25/2018 10:49 AM CDT 120 mg (ANECTINE) intravenous, As needed, Starting on Mon07/25/18 at 1049, Anesthesia Intra-op documented in this encounter
--- OUTSIDE RECORDS SUMMARY | 2022-07-28 09:48 | XMS_ITS | Encounter Summary ---
:1960 Author Organization [facility] Address [address] [place] [address] Care Team Providers Name Role Phone Unavailable Primary Care Provider Unavailable Reason for Referral Outpatient (Routine) - Closed Specialty Diagnoses / Procedures Referred By Contact Refer red To Contact Plastic Surgery Diagnoses Absence Of Breast Acquired Bilateral Denny Bearden [place] M.D. [address] [place] [address] Referral ID Status Reason Start Date Expiration Date Visits Requ ested Visits Authorized [id number] Closed 08/27/2018 08/27/2019 1 1 Scheduling Instructions PM w/ midlevel or Dr. Son EXAMINER Reason for Visit Outpatient (Routine) - Closed Specialty Diagnoses / Procedures Referred By Contact Refer red To Contact Plastic Surgery Diagnoses Absence Of Breast Acquired Bilateral Denny Bearden [place] M.D. 200 [place] [address] Referral ID Status Reason Start Date Expiration Date Visits Requ ested Visits Authorized [id number] Closed 08/20/2018 08/20/2019 1 1 Encounter Details Date Type Department Care Team Description 08/27/2018 Office Visit Division of Plastic Benoit Bearden ce Of Breast Surgery in Denny Matson M.D . 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 - 08/27/2018 8:30 AM CST Returns for follow-up appointment, she states that she is feeling better, she has noticed that the redness has gone away had the wound has continued to heal. Physical exam Alert awake oriented no acute distress Breast exam: Cellulitis is gone, there is some erythema at the adhesive site most likely from irritation, the wound is nicely healed, there is a very small area of approximately 2 mm word is covered bya scab, there is no warmth sensation or evidence of fluid collection or secretions. Assessment and plan She is doing well, the plan at this point is to finish the course of antibiotics that she is currently receiving which is due in a week, she will call us if she has any questions, otherwise I will planto see her next week. EXAMINER documented in this encounter Plan of Treatment Scheduled Referrals Name Type Priority Associated Diagnoses Order S [facility] Plastic Surgery Outpatient Referral Routine Absence Of Breast Expected: Post Op (clinic) Acquired Bilateral 09/03, Expires: 08/27/2021 documented as of this encounter Visit Diagnoses Diagnosis Absence Of Breast Acquired Bilateral - P rimary documented in this encounter
--- OUTSIDE RECORDS SUMMARY | 2022-07-28 09:48 | XMS_ITS | Encounter Summary ---
:1960 Author Organization [facility] Address [address] [place] [address] Support Name Relationship Address Phone Balwinder Box Spouse [phone] [facility] [phone] [place] [address] Care Team Providers Name Role Phone Unavailable Primary Care Provider Unavailable Reason for Visit Reason Onset Date Comments Post Hospital Follow-up 08/17/2018 Encounter Details Date Type Department Care Team Description 08/17/2018 Clinical Communication [facility] [address] [facility] Sully Shafer Follow-up [place], [place] [address], [phone] [place] [address] Social History Tobacco Use Types Packs/Day Years Used Date Smoking Tobacco: Never Smokeless Tobacco: Never Alcohol Use Standard Drinks/Week Comments No 0 (1 standard drink = 0.6 oz pure alcoho l) Sex Assigned at Date Recorded Female 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 Please sign the orders. Thank you. ?? INTERVENTIONIST documented in this encounter Plan of Treatment Not on filedocumented as of this encounter Visit Diagnoses Diagnosis Implant Breast Status Post - Primary documented in this encounter
--- OUTSIDE RECORDS SUMMARY | 2022-07-28 09:48 | XMS_ITS | Encounter Summary ---
:1960 Author Organization [facility] Address [address] [place] [address] Care Team Providers Name Role Phone Unavailable Primary Care Provider Unavailable Reason for Visit Reason Onset Date Comments RX PRIOR AUTHORIZATION 07/31/2018 DENIAL OF ONDANSE BELEN Encounter Details Date Type Department Care Team Description 07/31/2018 Clinical [facility] - Johnathan Shi RX PRIOR Communication Shayna Koch M.D. 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 The patient???s health insurer has denied prior authorization for DENIAL OF ONDANSETRON. SEE COMMUNICATIONS. Your options: 1. Appeal the decision by reaching out to the patient???s insurer directly. FAX [phone]. 2. Consider changing the patient???s medication therapy. 3. If not appealing or prescribing a different Rx, the prescription has already been released to thepharmacy so the patient has the option to pay full lopez for the item if desired. A COPY OF THE INITIAL SUBMISSION AND OF THE COMPLETE DENIAL LETTER CAN BE FOUND UNDER THE PATIENT'S MEDIA TAB. Thank you MANAGER documented in this encounter Plan of Treatment Not on filedocumented as of this encounter Visit Diagnoses Not on filedocumented in this encounter
--- OUTSIDE RECORDS SUMMARY | 2022-07-28 09:48 | XMS_ITS | Encounter Summary ---
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 documented in this encounter Results PLASTIC AND RECON SURGERY IMAGE EXAM (08/20/2018 10:37 AM RECYCLING MANAGER) Specimen (Source) Anatomical Collection Method Collection Time Re ceived Time Location / / Volume Laterality 08/20/2018 12:00 PM RECYCLING MANAGER Narrative [facility] - 08/20/2018 10:37 AM RECYCLING MANAGER This order has been created and auto-finalized [...]
--- OUTSIDE RECORDS SUMMARY | 2022-07-28 09:48 | XMS_ITS | Encounter Summary ---
:1960 Author Organization [facility] Address [address] [place] [address] Care Team Providers Name Role Phone Unavailable Primary Care Provider Unavailable Reason for Referral Outpatient (Routine) - Closed Specialty Diagnoses / Procedures Referred By Contact Refer red To Contact Plastic Surgery Diagnoses Follow Up Examination [facility] [address] [place], [place] [address] Referral ID Status Reason Start Date Expiration Date Visits Requ ested Visits Authorized [id number] Closed 08/06/2018 08/06/2019 1 1 PROCESS ENGINEER Reason for Visit Outpatient (Routine) - Closed Specialty Diagnoses / Procedures Referred By Contact Refer red To Contact Plastic Surgery Diagnoses [facility] [address] [place] [address] Referral ID Status Reason Start Date Expiration Date Visits Requ ested Visits Authorized [id number] Closed 04/13/2018 04/13/2019 1 1 Encounter Details Date Type Department Care Team Description 08/06/2018 Office Visit Division of Plastic Therese Lizarraga [facility] Up Examination Postoperative Visit (Primary Dx); Surgery in [place], Yana, P .A. 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 - 08/06/2018 3:00 PM CST SUBJECTIVE CHIEF COMPLAINT / REASON FOR VISIT Post operative evaluation. HISTORY OF PRESENT ILLNESS Ms. Box is a 58 y[address] patient of Dr. Son who underwent left implant exchange, left breast revision/mastopexy, bilateral fat grafting on July 25, 2018. She has a history of bilateral implantreconstruction, but was unhappy with the left breast appearing larger and sitting lower on the chestwall. She has a history of right breast radiation from more than 20 years ago. She has been wearing the compressive garments 17/04 and has been following all activity and work restrictions given to her postoperatively. She denies any pain, but states that her left breast is very itchy from the tape. She denies any signs or symptoms of infection. OBJECTIVE PHYSICAL EXAM General: Patient is alert and oriented times three. In no acute distress. Breast: Left breast incisions are clean, dry and intact without drainage. Minimal resolving ecchymosis of the left inferior breast without evidence of hematoma or seroma. No erythema suggestive of cellulitis or obvious signs of fluid collections. No evidence of cellulitis or necrosis. Abdomen: Fat harvesting area show no gross abnormalities. Stab incisions are healing well. ASSESSMENT / PLAN #1 Absence Of Breast Acquired Bilateral #2 Follow Up Examination Postoperative Visit is recovering nicely. All postoperative instructions pertaining to activity, weight restrictions and compression garments were reviewed with the patient. Signs/symptoms of an infection were reviewed with the patient and she was instructed to call us immediately if any of these occur. Patient has all appropriate phone numbers to call in case she has questions or concerns. Patient is aware to take prophylactic antibiotics before dental/invasive procedures, unless instructed otherwise. Photographs obtained. We will plan to see her back in approximately 2 months for follow-up, but certainly sooner if needed. She will call if she has any worries or concerns before this time. All questions were asked and answered per patient report. It was an absolute pleasure taking care ofMs. Box. PROCESS ENGINEER documented in this encounter Plan of Treatment Scheduled Referrals Name Type Priority Associated Diagnoses Order S chedule Plastic Surgery Outpatient Referral Routine Follow Up Examinat ion Expected: Post Op (clinic) Postoperative Visit 09/25 (Approximate), Expires: 08/06/2021 documented as of this encounter Visit Diagnoses Diagnosis Follow Up Examination Postoperative Visi t - Primary Absence Of Breast Acquired Bilateral documented in this encounter
--- OUTSIDE RECORDS SUMMARY | 2022-07-28 09:48 | XMS_ITS | Encounter Summary ---
:1960 Author Organization [facility] Address [address] [place] [address] Care Team Providers Name Role Phone Unavailable Primary Care Provider Unavailable Encounter Details Date Type Department Care Team Description 08/06/2018 Orders Only Division of Breast, Endocrine, P [place] [facility] Metabolic, and Gastrointestinal Surgery in [place], [place] [address] [place] [address] Social History Tobacco Use Types Packs/Day Years Used Date Smoking Tobacco: Never Smokeless Tobacco: Never Alcohol Use Standard Drinks/Week Comments No 0 (1 standard drink = 0.6 oz pure alcoho l) Sex Assigned at Date Recorded 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
--- OUTSIDE RECORDS SUMMARY | 2022-07-28 09:48 | XMS_ITS | Encounter Summary ---
:1960 Author Organization [facility] Address [address] [place] [address] Care Team Providers Name Role Phone Unavailable Primary Care Provider Unavailable Reason for Referral Outpatient (Routine) - Closed Specialty Diagnoses / Procedures Referred By Contact Refer red To Contact Plastic Surgery Diagnoses Absence Of Breast Acquired Bilateral Denny Bearden [place] M.D. [address] [place] [phone] Referral ID Status Reason Start Date Expiration Date Visits Requ ested Visits Authorized [id number] Closed 08/20/2018 08/20/2019 1 1 Scheduling Instructions 08/27 at 830 TEAM COORDINATOR SCHEDULER Reason for Visit Outpatient (Routine) - Closed Specialty Diagnoses / Procedures Referred By Contact Refer red To Contact Plastic Surgery Monty Ware D.O. [facility] [address] [place] [address] Referral ID Status Reason Start Date Expiration Date Visits Requ ested Visits Authorized [id number] Closed 08/17/2018 08/17/2019 1 1 Encounter Details Date Type Department Care Team Description 08/20/2018 Office Visit Division of Plastic Benoit Bearden ce Of Breast Surgery in Denny Matson M.D . 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 - 08/20/2018 9:00 AM CST She returns for follow-up appointment, she states that she feels better. She denies any constitutional symptoms. She feels that the redness is improving. Physical exam Alert awake oriented x3 no acute distress Breast exam: Left breast shows markedly improved area of cellulitis, there is an area of superficialwound dehiscence that continues to heal, there is no evidence of fluid collection, there is no active drainage appreciated Assessment and plan She is progressing very well, we will continue with the plan of p.o. antibiotic as prescribed, she will continue with local wound care with Xeroform on the left breast wound, I will be seeing her back within a week, she will call us if she notices any changes before then. TEAM COORDINATOR SCHEDULER documented in this encounter Plan of Treatment Scheduled Referrals Name Type Priority Associated Diagnoses Order S [facility] Plastic Surgery Outpatient Referral Routine Absence Of Breast Expected: Post Op (clinic) Acquired Bilateral 08/27 (Approximate), Expires: 08/20/2021 documented as of this encounter Visit Diagnoses Diagnosis Absence Of Breast Acquired Bilateral - P rimary documented in this encounter
--- OUTSIDE RECORDS SUMMARY | 2022-07-28 09:48 | XMS_ITS | Encounter Summary ---
:[address] [facility] Address [address] [place] [address] Care Team Providers Name Role Phone Unavailable Primary Care Provider Unavailable Reason for Visit Outpatient (Routine) - Closed Specialty Diagnoses / Procedures Referred By Contact Refer red To Contact Plastic Surgery Diagnoses Absence [facility] [address] [place] [address] Referral ID Status Reason Start Date Expiration Date Visits Requ ested Visits Authorized [id number] Closed 08/27/2018 08/27/2019 1 1 Encounter Details Date Type Department Care Team Description 09/03/2018 Office Visit Division of Plastic Therese Lizarraga Abs ence Of Breast Surgery in [place], PJess, P .A. 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 - 09/03/2018 1:00 PM CST SUBJECTIVE CHIEF COMPLAINT / REASON FOR VISIT Post operative evaluation. HISTORY OF PRESENT ILLNESS Ms. Box is a 58 y[address] of [address] Son who underwent left implant exchange, left breast revision/mastopexy and bilateral fat grafting on July 25, 2018. She has a history of bilateral implant reconstruction and underwent the surgery for better symmetry. She unfortunately developed left breast cellulitis on August 17, 2018. She finished her course of doxycycline and Duricef on MondaySeptember 01. She denies any fevers, chills, or other signs/symptoms of infection. She states that the redness has resolved. OBJECTIVE PHYSICAL EXAM General: Patient is alert and oriented times three. In no acute distress. Breast: Left incision is clean, dry and intact without drainage. One spitting suture was removed from the inframammary incision. No erythema suggestive of cellulitis, ecchymosis, or obvious signs of fluid collections. No evidence of cellulitis or necrosis. Darkening underneath the inframammary fold incision near the t-juncture. Right breast is well-healed. ASSESSMENT / PLAN #1 Absence Of Breast Acquired Bilateral is recovering nicely. Dr. Son came in the room to examine and evaluate the patient with me. We are unsure what the darkening is under the incision, but she will continue to watch this.The breast appears to be healing well without signs of infection or other concerns. Signs/symptoms of an infection were reviewed with the patient and she was instructed to call us immediately if any of these occur. Patient has all appropriate phone numbers to call in case she has questions or concerns. Patient is aware to take prophylactic antibiotics before dental/invasive procedures, unless instructed otherwise. Photographs obtained. We will plan to see her back in approximately 4-6 weeks for follow-up, but certainly sooner if needed. She will call if she has any concerns/worries before this time. All questions were asked and answered per patient report. It was an absolute pleasure taking care ofMs. Box. SER AND OILER documented in this encounter Plan of Treatment Not on filedocumented as of this encounter Visit Diagnoses Diagnosis Absence Of Breast Acquired Bilateral documented in this encounter
--- OUTSIDE RECORDS SUMMARY | 2022-07-28 09:49 | XMS_ITS | Encounter Summary ---
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
--- OUTSIDE RECORDS SUMMARY | 2022-07-28 09:49 | XMS_ITS | Encounter Summary ---
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 documented in this encounter Results PLASTIC AND RECON SURGERY IMAGE EXAM (10/24/2017 11:25 AM REEFER TRUCK DRIVER) Specimen (Source) Anatomical Collection Method Collection Time Re ceived Time Location / / Volume Laterality 10/24/2017 12:00 PM REEFER TRUCK DRIVER Narrative [facility] - 10/24/2017 11:25 AM REEFER TRUCK DRIVER This order has been created and auto-finalized [...]
--- OUTSIDE RECORDS SUMMARY | 2022-07-28 09:49 | XMS_ITS | Encounter Summary ---
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 documented in this encounter Results PLASTIC AND RECON SURGERY IMAGE EXAM (07/06/2018 12:00 PM CDT) Specimen (Source) Anatomical Collection Method Collection Time Re ceived Time Location / / Volume Laterality 07/06/2018 12:00 PM CDT Narrative [facility] - 07/06/2018 2:09 PM CDT This order has been created [...]
--- OUTSIDE RECORDS SUMMARY | 2022-07-28 09:49 | XMS_ITS | Encounter Summary ---
:1960 Author Organization [facility] Address [address] [place] [address] Care Team Providers Name Role Phone Unavailable Primary Care Provider Unavailable Encounter Details Date Type Department Care Team Description 12/22/2016 - Hospital Encounter HX RST INFUSION Jessika Decker 12/29/2016 THERAPY M, R.N. 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 levothyroxine (SYNTHROID, Take 1 tablet by 0 04/26 LEVOTHROID) 125 mcg tablet mouth daily. vitamin E acetate (VITAMIN Take 2 tablets by 0 E ORAL) mouth daily. 400 unit. triamterene-hydroCHLOROthia Take 1 tablet by 0 07/25/2018 zide (MAXZIDE-25) 37.5-25 mouth daily. mg per tablet documented as of this encounter Plan of Treatment Not on filedocumented as of this encounter Visit Diagnoses Not on filedocumented in this encounter
--- OUTSIDE RECORDS SUMMARY | 2022-07-28 09:49 | XMS_ITS | Encounter Summary ---
:1960 Author Organization [facility] Address [address] [place] [address] Care Team Providers Name Role Phone Unavailable Primary Care Provider Unavailable Reason for Referral Outpatient (Routine) - Closed Specialty Diagnoses / Procedures Referred By Contact Refer red To Contact Plastic Surgery Diagnoses Absence Of Breast Acquired Bilateral Denny Bearden [place] M.D. [address] [place] [address] Referral ID Status Reason Start Date Expiration Date Visits Requ ested Visits Authorized [id number] Closed 04/13/2018 04/13/2019 1 1 Scheduling Instructions W/ midlevel Outpatient (Routine) - Closed Specialty Diagnoses / Procedures Referred By Contact Refer red To Contact Plastic Surgery Diagnoses Absence Of Breast Acquired Bilateral Denny Bearden [place] M.D. [address] [place] [address] Referral ID Status Reason Start Date Expiration Date Visits Requ ested Visits Authorized [id number] Closed 04/13/2018 04/13/2019 1 1 Scheduling Instructions AM slot on Jul 24 so there is enough rita e to order implants. 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 - 04/13/2018 2:20 PM CDT Patient is requesting the following information: The patient was contacted to schedule staged breast reconstruction surgery. PLAN The following information was provided: The patient will stop blood thinning medications on July 11. She will re- start her Bactroban ointment, that she still has, on July 20. She will be seen for surgical discussion and listing with Dr. Son on July 24 and anticipates bilateral breast implant exchanges for smaller devices, right vs. bilateral fat grafting and left mastopexy on July 25 as an outpatient surgery at [facility]. Patient was assessed per the Pre-operative Staphylococcus aureus Screening protocol #[id number]. Patient meets inclusion criteria. Patient had no exclusion criteria. Surgery scheduled in 5 days or less Prescribed medication: Mupirocin (Bactroban Nasal??) 2% ointment nasal twice daily for 5 days. Apply pea size amount to each naris. Use medication for 5 days. Start 5 days prior to surgery or as soon as possible. Dispense one 22 gram tube. 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 She states she only has 5 days PTO to take for this surgical recovery. Postop activity restrictions were reviewed with the patient. She should not drive if taking narcotic pain medications; nor making important legal decision for herself or others. Education: patient/caller able to teach back The following references were used: nursing clinical judgement Telephone Encounter - Sarah Hall - 04/09/2018 11:06 AM CDT Patient called back, she was hoping she would be able to schedule. I explained that the week of Jul 16 is not yet open but that the RN would be able to call when it is. Thank you. Telephone Encounter - Sarah Hall - 04/02/2018 8:29 AM CDT Patient called, she is still interested in the week of July 16. She was told this calendar is not open yet but Ailin would be able to contact her in a couple weeks when it opened. She wants to make sure she is on the list and someone doesn't get scheduled before her. Thank you. Telephone Encounter - Corinne Spears - 03/29/2018 2:45 PM CDT Patient calling to get put on the books for surgery looking for the week of July 16 if possible. 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 documented in this encounter Plan of Treatment Scheduled Referrals Name Type Priority Associated Diagnoses Order S chedule Plastic Surgery Outpatient Referral Routine Absence Of Breast Expected: Pre Op (clinic) Acquired Bilateral 2017, Expires: 04/13/2021 Plastic Surgery Outpatient Referral Routine Absence Of Breast Expected: Post Op (clinic) Acquired Bilateral 08/06 (Approximate), Expires: 04/13/2021 documented as of this encounter Visit Diagnoses Diagnosis Absence Of Breast Acquired Bilateral - P rimary documented in this encounter
--- OUTSIDE RECORDS SUMMARY | 2022-07-28 09:49 | XMS_ITS | Encounter Summary ---
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 exemestane (AROMASIN) 25 mg Take 1 tablet by 0 tablet mouth daily. ibuprofen (ADVIL,MOTRIN) Take 600 mg by 0 017 200 mg tablet mouth every 8 (eight) hours as needed. for pain levothyroxine (SYNTHROID, Take 1 tablet by 0 04/26 LEVOTHROID) 125 mcg tablet mouth daily. sertraline (ZOLOFT) 100 mg Take 1.5 tablets 0 tablet by mouth at bedtime. vitamin E acetate (VITAMIN Take 2 tablets by 0 E ORAL) mouth daily. 400 unit. sertraline (ZOLOFT) 50 mg Take 1 tablet by 0 03/2607/25/2018 tablet mouth at bedtime. triamterene-hydroCHLOROthia Take 1 tablet by 0 07/25/2018 zide (MAXZIDE-25) 37.5-25 mouth daily. mg per tablet documented as of this encounter Plan of Treatment Not on filedocumented as of this encounter Visit Diagnoses Not on filedocumented in this encounter
--- OUTSIDE RECORDS SUMMARY | 2022-07-28 09:49 | XMS_ITS | Encounter Summary ---
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 documented in this encounter Results PLASTIC AND RECON SURGERY IMAGE EXAM (11/15/2017 12:00 PM BAIL BOND AGENT) Specimen (Source) Anatomical Location Collection Method / Collectio n Time Received Time / Laterality Volume Narrative IIMS - 11/15/2017 4:07 PM BAIL BOND AGENT This order has been created and auto-finalized [...]
--- OUTSIDE RECORDS SUMMARY | 2022-07-28 09:49 | XMS_ITS | Encounter Summary ---
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 bilateral mastectomy flaps; harvested from ... Mastopexy Breast to improve symmetry, proceed as indicated Referral ID Status Reason Start Date Expiration Date Visits Requ ested Visits Authorized [id number] 1 1 Encounter Details Date Type Department Care Team Description 07/25/2018 Surgery RST [facility]A OR S[place]iman, EXCHANGE SILICONE [address] Denny M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 - 07/25/2018 10:10 AM CDT Breast Implant Exchange with Fat Injections An appointment has been scheduled for you to see Dr. Bearden on 08/06/18 at 3:00 PM. Please report fifteen minutes prior to the appointment time to [address] Desk [address] If you need to reschedule your appointment, please call [phone]. Signs of Infection: Please inspect your incisions daily for signs and symptoms of infection. These include but are not limited to high fever, increased redness, swelling, or pain around the incisions, discharge from the incisions, or separation of the incisions. Should any of the above occur, you should contact Dr. Bearden 's service. During evening or weekend hours, you may contact a member of Dr. Bearden???s team by calling the [facility] soap drier operator at and ask to speak with Dr. Bearden???s resident seasoning mixer for emergencies. For questions during the week, Monday - Monday 8-4:30pm please call [phone] Bearden???s team. Care of your Surgical Sites: Your surgical incisions are covered with surgical tape and glue. You do not need to remove these dressings at all; they will fall off on their own once your skin has recovered. If some of the edges of the dressings start to peel off, you may trim it carefully to keep the rest of the dressing in place. Care of your Henry Sites: You may need a compression-type garment. Please wear this for 3 weeks following your surgery. You may experience some drainage from these sites; this is normal. You can cover these sites with dry gauzeas needed. Garments: Please continue to wear the bra provided to you in the hospital until instructed otherwise during your follow-up appointment. Additional Instructions: Do not use heat or [...] control your pain you may transition to [id number] Tylenol for pain relief. Do not take [...] Chemotherapy medications may require special handling. Antibiotics: If given; continue to use the prescribed antibiotic as directed. Hygiene: You may shower. Be careful not to rub on the incisions, just pat dry please. Please do not soak in bath water or a hot tub for at least 3 weeks following your surgery. Shall you have any questions please do not hesitate to call us. We would be more than happy to answer these for you. documented in this encounter Medications at Time of Discharge Medication Sig Dispensed Refills Start Date End Date cholecalciferol (VITAMIN Take 1,000 Units by 0 D3) 1,000 Unit tablet mouth daily. exemestane (AROMASIN) 25 Take 1 tablet by 0 01/17 mg tablet mouth daily. ibuprofen (ADVIL,MOTRIN) Take 600 mg by 0 017 200 mg tablet mouth every 8 (eight) hours as needed. for pain levothyroxine (SYNTHROID, Take 1 tablet by 0 04/26 LEVOTHROID) 125 mcg tablet mouth daily. oxyCODONE (ROXICODONE) 5 Take 1 tablet (5 mg 15 tablet 0 mg immediate release total) by mouth tabletIndications: Acute every 4 (four) Pain hours as needed for pain or moderate pain or score 4-6 of 10 Indication: Acute Pain. sertraline (ZOLOFT) 100 mg Take 1.5 tablets by 0 04/20/2017 tablet mouth at bedtime. triamterene-hydroCHLOROthi Take 1 capsule by 0 azide (DYAZIDE) 37.5-25 mg mouth daily. per capsule verapamil (CALAN-SR) 120 Take 120 mg by 0 018 mg ER tablet mouth daily. vitamin E acetate (VITAMIN Take 2 tablets by 0 E ORAL) mouth daily. 400 unit. cefadroxil (DURICEF) 500 Take 1 capsule (500 4 capsule 0 07/27/2018 mg capsule mg total) by mouth 2 (two) times a day for 2 days. ondansetron (ZOFRAN) 4 mg Take 1 tablet (4 mg 30 tablet 0 1 08/01/2018 tablet total) by mouth every 8 (eight) hours as needed for nausea or vomiting for up to 7 days. ondansetron (ZOFRAN) 4 mg Take 1 tablet (4 mg 10 tablet 0 1 08/01/2018 tablet total) by mouth every 8 (eight) hours as needed for nausea or vomiting for up to 7 days. sennosides (SENOKOT) 8.6 Take 1 tablet (8.6 30 tablet 0 08/24/2018 mg tablet mg total) by mouth daily. documented as of this encounter H&P Notes Johnathan Shi M.D. - 07/25/2018 6:20 AM CDT Day of Surgery H&P: Indications for Procedure: The patient was examined and the Pre-op diagnosis and planned procedure remain unchanged History of Present Illness: Reviewed and unchanged from the previous documentation - refer to the prior outpatient note for details. Allergies, Medications, Past Medical and Surgical History: Allergies reviewed and updated as necessary. Physical Exam: General: Alert, oriented, and not in distress Heart: Refer to anesthesiology physical examination documentation of today's date Musculoskeletal/Extremities: Unchanged from prior outpatient exam. Neurological: Unchanged from prior outpatient exam Assessment and Plan: Plan Unchanged documented in this encounter OR Notes Op Note - Johnathan Shi M.D. - 07/25/2018 11:15 AM CDT FULL OP NOTE Procedure(s) with comments: EXCHANGE SILICONE IMPLANT BREAST. (Left) INJECTION FAT into bilateral mastectomy flaps 110 cc on the right breast and 60 cc on the left breast, harvested from abdomen, bilateral flanks. (Bilateral) - Donor sites abdomen, flanks. Revision Breast, mastopexy of mastectomy flaps. (Left) Surgeon(s): Denny Bearden M.D. Mills, Andrew M, M.D. Douglass, Brandon G, M.D. Anesthesia Type: General Pre-Operative Diagnosis: Absence Of Breast Acquired Bilateral [Z90.13]. Post-Operative Diagnosis: Same as pre-operative diagnosis Findings: As expected Complications: None Description of Procedure: Mrs. Box was seen in the preoperative area. Risks, benefits and alternatives to procedure werediscussed with her in detail. Informed consent was obtained. The patient was then brought back to the operating room, placed supine on the operative room table and induced under general anesthesia with endotracheal intubation. She was then prepped and draped in normal sterile fashion using a chlorhexidine solution. A surgical pause was then performed including the patient's name, date of , laterality of procedure, procedure performed and fire risk. Using an 11 blade scalpel, 2 stab incisions were made on the lateral flanks. Using a tumescent solution, infiltration with total of 1 L was performed in the lower abdomen as well as bilateral flanks. After sufficient time for the tumescent to take effect and using the revolve system a total of 175 cc of fat was harvested and processed. These were then placed into 10 cc syringes. Exparel was then placed into the abdomen in the stab sites were then closed with interrupted 4-0 chromic sutures. Attention was then turned to the left breast. Using her vertical scar a 6 cm incision was made with a 10 blade scalpel and the dissection was carried down to the breast capsule with electrocautery. Thebreast capsule was then opened and her old SRX 650 cc breast implant was removed. A capsulorrhaphy as well as scoring of the capsule was then performed on the inferior as well as lateral portion of thebreast pocket. Capsulorrhaphy was performed with a interrupted 2-0 PDS suture. A 560 cc implant Sizer was then selected and placed into the pocket. Skin was then tailor tacked on the vertical as well as the IMF incision. Good symmetry and position of the IMS was seen bilaterally. The nikolay were thenremoved after the tailor tack skin was marked with a permanent pen. The tailor tack skin was then de-epithelialized and hemostasis was achieved with electrocautery. Nikolay were then used to reapproximate the skin to allow for appropriate alignment of the tissue and closure. The left breast implant was then placed in sterile conditions after washing with iodine based solution, Vancomycin gentamicin as well as normal saline. My gloves were then changed and the implant was paste into the previous breast capsule. The breast capsule was then closed with 2-0 Vicryl sutures in interrupted fashion. The deep dermis was then closed with 3-0 Monocryl and the skin was ran with a 2-0 Monoderm along the IMF incision and a 4-0 Monocryl on the vertical limb. Using an 11 blade scalpel a stab incision was made on the right breast and a total of 110 cc of fat was infiltrated into the superior medial portion of the right breast. 60 cc of fat was then infiltrated into the superior medial portion of the left breast. The stab incision was then closed with a 4-0 chromic suture. Perineal was then placed over top of the incisions and small Primapore dressings wereplaced over the stab incisions. ABDs as well as a Mirena bra was then placed and top of foam was placed on the abdomen with an abdominal binder. The patient was then woken from the procedure, transferred the PACU in stable condition and tolerated the procedure well. All counts were correct. Specimens * No specimens in log * Drains * No drains in log * Estimated Blood Loss 10 mL Implants Implant Name Type Inv. Item Serial No. 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 LRB No. Used Action BRST RESP GEL STYSRF 560 - [id number] - [id number] Breast Implant BRST RESP GEL STYSRF 560 [id number] [employer] Left 1 Implanted OSKAR- LEANDRO 615CC - ANNA [id number] Breast Implant [employer] 1 Explanted Johnathan Shi M.D. Brief Op Note - Philippe Roach M.D. - 07/25/2018 11:15 AM CDT BRIEF OP NOTE Procedure(s) with comments: EXCHANGE SILICONE IMPLANT BREAST. (Left) INJECTION FAT into right vs bilateral mastectomy flaps, harvested from abdomen, bilateral flanks, (Bilateral) - Donor sites abdomen, flanks. Revision Breast, mastopexy of mastectomy flaps. (Left) Surgeon(s): Denny Bearden M.D. Mills, Andrew M, M.D. Douglass, Brandon G, M.D. Anesthesia Type: General Pre-Operative Diagnosis: Absence Of Breast Acquired Bilateral [Z90.13]. Brief Operative Note Details Specimens * No specimens in log * Drains * No drains in log * Estimated Blood Loss No blood loss documented. Implants Implant Name Type Inv. Item Serial No. 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 LRB No. Used Action BRST RESP GEL STYSRF 560 - [id number] - [id number] Breast Implant BRST RESP GEL STYSRF 560 [id number] [employer] Left 1 Implanted NATRELLE- INSPIRA 615CC - ANNA [id number] Breast Implant [employer] 1 Explanted Philippe Roach M.D. documented in this encounter Plan of Treatment Not on filedocumented as of this encounter Procedures Procedure Name Priority Date/Time Associated Diagnosis Comme nts REVISION BREAST 07/25/2018 10:14 AM Absence Of Breast CDT Acquired Bilateral INJECTION FAT 07/25/2018 10:14 AM Absence Of Breast CDT Acquired Bilateral EXCHANGE SILICONE 07/25/2018 10:14 AM Absence Of Breas t IMPLANT BREAST CDT Acquired Bilateral documented in this encounter Visit Diagnoses Diagnosis Absence Of Breast Acquired Bilateral - P rimary Absence Of Breast Acquired Bilateral documented in this encounter Admitting Diagnoses Diagnosis Absence Of Breast Acquired Bilateral documented in this encounter Administered Medications Inactive Administered Medications - up to 3 most recent administrations Medication Order MAR Action Action Date Dose Rate Site acetaminophen injection 1,000 New Bag 07/25/2018 1:50 PM 1,000 mg 400 mL/hr mg (OFIRMEV) CDT 1,000 mg, intravenous, at 400 mL/hr, Administer over 15 Minutes, Once, On Mon07/25/18 at 1345, For 1 dose, PACU (only), Oral unless RASS less than -1 or nausea/vomiting. Do not use if given in last 6 hours, Restriction Criteria (Pharmacy will review and approve if criteria met): Unable to take or tolerate medications administered via the enteral route or orally (not just NPO) bupivacaine liposome (PF) 20 mL, Given 07/25/2018 12:55 PM CDT 1 00 mL Other bupivacaine 30 mL in sodium chloride (PF) 0.9 % 100 mL injection As needed, Starting on Mon07/25/18 at 1255, Intra-Op fentaNYL injection 25 mcg (SUBLIMAZE) Given 07/25/2018 2:20 PM CDT 25 mcg 25 mcg, intravenous, Every 2 min PRN, moderate pain or score 4-6 of 10, severe pain or score 7-10 of 10, Starting on Mon07/25/18 at 1344, PACU (only), Up to maximum total dose of 200 mcg Given 07/25/2018 2:15 PM CDT 25 mcg Given 07/25/2018 2:11 PM CDT 25 mcg gentamicin-vancomycin 160 mg-1 g in Given 07/25/2018 11:45 AM CD T 1,000 mL Other 1000 mL irrigation (bottle) irrigation, Once in surgery, OR use only, Starting on Mon07/25/18 at 1020, For 1 dose, Intra-Op, Drug Monitoring Program: Pharmacist to adjust medication order based on comorbities and indication. ibuprofen tablet 800 mg (ADVIL,MOTRIN) Given 07/25/2018 2:07 PM CDT 800 mg 800 mg, oral, Once as needed, moderate pain or score 4-6 of 10, Starting on Mon07/25/18 at 1340, For 1 dose, PACU (only), Take with food or milk if GI disturbances occur with use. lactated ringers Continued from OR 07/25/2018 1:44 PM CDT 20 mL/hr 20 mL/hr 20 mL/hr, intravenous, Continuous, Starting on Mon07/25/18 at 0945, Pre-Op New Bag 07/25/2018 10:34 AM CDT lidocaine 500 mg-EPINEPHrine 1 mg in Given 07/25/2018 11:17 AM C DT 1,000 mL Other lactated ringers 1000 mL (TUMESCENT-PLASTICS) solution subcutaneous, Once, On Mon07/25/18 at 1030, For 1 dose, Intra-Op oxyCODONE IR tablet 5 mg (ROXICODONE) Given 07/25/2018 2:11 PM CDT 5 mg 5 mg, oral, Once as needed, moderate pain or score 4-6 of 10, severe pain or score 7-10 of 10, Starting on Mon07/25/18 at 1344, For 1 dose, PACU (only), Prior to discharge povidone iodine 0.25% in NaCl 0.9% Given 07/25/2018 11:45 AM CDT 500 mL Other irrigation solution irrigation, Once, On Mon07/25/18 at 1030, For 1 dose, Intra-Op, IRRIGATION USE ONLY documented in this encounter Active and Recently Administered Medications Times are shown in CDT. Scheduled Medication Order 07/23/2018 07/24/2018 07/25/2018 acetaminophen injection 1,000 mg (OFIRMEV) (COMPLETED) 1350 (New Bag - Provider: Meryl Xiao R.N.) 1,000 mg, intravenous, at 400 mL/hr, Adm inister over 15 Minutes, Once, Mon07/25/18 at 1345, For 1 dose, PACU (only), Oral unless RASS less than -1 or nausea/vomiting. Do not use if given in last 6 hour s, Restriction Criteria (Pharmacy will r eview and approve if criteria met): Unable to take or tolerate medications administered via the enteral route or orally (not just NPO) acetaminophen tablet 1,000 mg (TYLENOL) 1,000 mg, oral, Every 6 hours, First dos e on Mon07/25/18 at 2000, Start 6 hours after last dose. Do not exceed 4 grams in 24 hours. bupivacaine liposome (PF) 266 mg/20 mL (13.3 mg/mL) injection 20 mL (EXPAREL) 1030 (Due) 20 mL, infiltration, Once, Mon07/25/18 at 1030, For 1 dose, Int ra-Op ceFAZolin injection 1 g (ANCEF) (COMPLETED) 1100 (Given - Provider: Christopher Dias WELDER MANUFACTURE, PODIATRIC ASSISTANT) 1 g, intravenous, Once, Mon07/25/18 at 1030, For 1 dose, Intra-Op, Preoperatively within 1 hour prior to surgical incision Adminster IV push over 3 minutes. Add 5 mL NS to 1 gram vial for a final baltazar ntration of 200 mg/mL., Drug Monitoring Program: Pharmacist to adjust medication order based on comorbities and indication., Indications: Prophylaxis, Surgical lidocaine 500 mg-EPINEPHrine 1 mg in lac tated ringers 1000 mL (TUMESCENT- PLASTICS) solution (COMPLETED) 1030 (Due )1117 (Given - Provider: Johnathan Shi M.D. - Comment: bilateral flanks and abdomen) subcutaneous, Once, Mon07/25/18 at 1030, For 1 dose, Intra-Op povidone iodine 0.25% in NaCl 0.9% irrigation solution (COMPLETE D) 1030 (Due)1145 (Given - Provider: Denny Bearden M.D. - Comment: Left breast pocket/implant) irrigation, Once, Mon07/25/18 at 1030, For 1 dose, Intra-Op, IRRIGATION USE ONLY Continuous Medication Order 07/23/2018 07/24/2018 07/25/2018 lactated ringers 1034 (New Bag - Provider: Charisma Quintanilla APRN, AJAY)1257 (Anesthesia Volume Adjustment - Provider: Charisma Quintanilla APRN, AJAY)1336 (Anesthesia Volume Adjustment - Provider: Charisma Quintanilla APRN, AJAY) 20 mL/hr, intravenous, at 20 mL/hr, Cont inuous, Starting Mon07/25/18 at 0945, Pre-Op 1344 (Continued from OR - Provider: Meryl Xiao R.N.) PRN Medication Order 07/23/2018 07/24/2018 07/25/2018 bupivacaine liposome (PF) 20 mL, bupivac alanna 30 mL in sodium chloride (PF) 0.9 % 100 mL injection (CANCELED) 1255 (Given - Provider: Johnathan Shi M.D. - Comment: Left breast, abdomen, bilateral flanks) As needed, Starting Mon07/25/18 at 1255, Intra-Op fentaNYL injection 25 mcg (SUBLIMAZE) (CANCELED) 1411 (Given - Provider: Nasra Pierce RCharles)1415 (Given - Provider: Nasra Pierce R.N.)1420 (Given - Provider: Nasra Pierce RCharles) 25 mcg, intravenous, Every 2 min PRN, mo derate pain or score 4-6 of 10, severe pain or score 7-10 of 10, Starting Mon07/25/18 at 1344, PACU (only), Up to maximum total dose of 200 mcg gentamicin-vancomycin 160 mg-1 g in 1000 mL irrigation (bottle) (COMPLETED) 1145 (Given - Provider: Denny Bearden M.D. - Comment: Left breast pocket/implant) irrigation, Once in surgery, OR use only , Starting Mon07/25/18 at 1020, For 1 dose, Intra-Op, Drug Monitoring Program: Pharmacist to adjust medication order based on comorbities and indication. ibuprofen tablet 800 mg (ADVIL,MOTRIN) (COMPLETED) 1407 (Given - Provider: Nasra Pierce R.N.) 800 mg, oral, Once as needed, moderate p ain or score 4-6 of 10, Starting Mon07/25/18 at 1340, For 1 dose, PACU (only), Take with food or milk if GI disturbances occur with use. naloxone injection 0.2 mg (NARCAN) 0.2 mg, intravenous, As needed, respirat ory depression, Starting Mon07/25/18 at 1534, For respiratory rate less than 8 breaths per minute or RASS score of -3, -4, -5. Apply oxygen to keep oxygen saturations greater than 90% and notify service. ondansetron (PF) injection 4 mg (ZOFRAN) 4 mg, intravenous, Every 6 hours PRN, na usea, vomiting, Starting Mon07/25/18 at 1534, For 48 hours, Reassess for nausea or vomiting after at least 10 minutes. If nausea or vomiting persists administer next ordered antiemetic medications (ord er for antiemetic medication administration ondansetron then droperidol then promethazine). oxyCODONE IR tablet 10 mg (ROXICODONE) 10 mg, oral, Every 4 hours PRN, moderate pain or score 4-6 of 10, severe pain or score 7-10 of 10, Starting Mon07/25/18 at 1534 oxyCODONE IR tablet 5 mg (ROXICODONE) 5 mg, oral, Every 4 hours PRN, mild pain or score 1-3 of 10, Starting Mon07/25/18 at 1534 oxyCODONE IR tablet 5 mg (ROXICODONE) (COMPLETED) 1411 (Given - Provider: Nasra Pierce R.N.) 5 mg, oral, Once as needed, moderate sade n or score 4-6 of 10, severe pain or score 7-10 of 10, Starting Mon07/25/18 at 1344, For 1 dose, PACU (only), Prior to discharge promethazine injection 6.25 mg (PHENERGAN) 6.25 mg, intravenous, Every 6 hours PRN, nausea, vomiting, Starting Mon07/25/18 at 1534, For 48 hours, RASS must be -2 or higher to administer. Reassess for nausea/vomiting after at least 10 minutes. I f nausea or vomiting persists administer next ordered antiemetic medications (order for antiemetic medication administration ondansetron then droperidol then promethazine). documented in this encounter
--- OUTSIDE RECORDS SUMMARY | 2022-07-28 09:49 | XMS_ITS | Encounter Summary ---
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 documented in this encounter Results PLASTIC AND RECON SURGERY IMAGE EXAM (05/22/2017 12:00 PM CDT) Specimen (Source) Anatomical Collection Method Collection Time Re ceived Time Location / / Volume Laterality 05/22/2017 12:00 PM CDT Narrative [facility] - 05/22/2017 3:33 PM CDT This order has been created [...]
--- OUTSIDE RECORDS SUMMARY | 2022-07-28 09:49 | XMS_ITS | Encounter Summary ---
:1960 Author Organization [facility] Address [address] [place] [address] Care Team Providers Name Role Phone Unavailable Primary Care Provider Unavailable Encounter Details Date Type Department Care Team Description 06/27/2018 Clinical Communication Division of Plastic Ander tan, Surgery in Denny Matson M.D . 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 I will ccl the order. documented in this encounter Plan of Treatment Not on filedocumented as of this encounter Visit Diagnoses Not on filedocumented in this encounter
--- OUTSIDE RECORDS SUMMARY | 2022-07-28 09:49 | XMS_ITS | Encounter Summary ---
:1960 Author Organization [facility] Address [address] [place] [address] Care Team Providers Name Role Phone Unavailable Primary Care Provider Unavailable Encounter Details Date Type Department Care Team Description 10/12/2017 Hospital Encounter HX NO MAPPING Francine Tobias R.N. 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
--- OUTSIDE RECORDS SUMMARY | 2022-07-28 09:49 | XMS_ITS | Encounter Summary ---
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 documented in this encounter Results Hx general Pathology Report (08/27/1992 5:47 PM JOURNEYMAN PIPEFITTER) Specimen Anatomical Collection Method Collection Time Receive d Time (Source) Location / / Volume Laterality 08/27/1992 5:47 PM 2 5:47 JOURNEYMAN PIPEFITTER PM JOURNEYMAN PIPEFITTER Narrative [facility] - 08/27/1992 5:47 PM JOURNEYMAN PIPEFITTER [id number] Surgical Pathology Requested By: ? Octavio bautista M.D. ?([id number]) ?? TISSUE DESCRIPTION: ?? Right breast biopsy (55 grams, 6.5 x 6 x 3 cm), new margins (4 x 3 x 1 cm), right axillary ?? lymph node dissection (12 x 8 x 3 cm ), and a separately submitted right cervical node (1 x 1 x ?? 0.5 cm). ?? [id number] A1, B1, B2, C1, C2, C3 ?? DIAGNOSIS: ?? 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 specimen. ??The final margins, after re-excision, are widely clear by more than 2 cm. 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 ??The ?? larger of the two metastatically inv olved lymph node measures 5 x 3.5 x 3 cm. ??The separately ?? submitted right cervical lymph node is negative for tumor. ?? [id number] ?Patric Izquierdo M.D.:rar Procedure Note 12/14/2017 [id number] Surgical Pathology Requested By: Octavio Randall M.D. ([id number]) TISSUE DESCRIPTION: Right breast biopsy (55 grams, 6.5 x 6 x 3 cm), new margins (4 x 3 x 1 cm), right axillary lymph node dissection (12 x 8 x 3 cm), and a separately submitted right cervical node (1 x 1 x 0.5 cm). [id number] A1, B1, B2, C1, C2, C3 DIAGNOSIS: Medullary carcinoma forming a mass (1.2 cm) in the superior portion of the resection specimen. The final margins, after re-e xcision, are widely clear by more than 2 cm. Multiple (2 of 22) right axillary lymph nodes ar e positive for metastatic medullary carcinoma. The larger of the two metastatically involv ed lymph node measures 5 x 3.5 x 3 cm. The separately submitted right cervical lymph node is negative for tumor. [id number] Patric Izquierdo M.D.:rar Octavio Randall M.D. LAB PATHOLOGY/CYTOLOGY ORDER CONSTANCE Performing Organization Address City/State/ZIP Code Phon e Number [facility] - [address] [place] [id number] [address] [facility] documented in this encounter Visit Diagnoses Not on filedocumented in this encounter
--- OUTSIDE RECORDS SUMMARY | 2022-07-28 09:49 | XMS_ITS | Encounter Summary ---
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
--- OUTSIDE RECORDS SUMMARY | 2022-07-28 09:49 | XMS_ITS | Encounter Summary ---
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 documented in this encounter Results PLASTIC AND RECON SURGERY IMAGE EXAM (08/16/2017 12:00 PM STRAND FORMING MACHINE OPERATOR) Specimen (Source) Anatomical Location Collection Method / Collectio n Time Received Time / Laterality Volume Narrative [facility] - 08/16/2017 4:55 PM STRAND FORMING MACHINE OPERATOR This order has been created and [...]
--- OUTSIDE RECORDS SUMMARY | 2022-07-28 09:49 | XMS_ITS | Encounter Summary ---
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 Pulse 72 12/08/2016 11:03 Value from Tiffanie tplus. AM CDT Temperature - - Respiratory Rate 15 12/08/2016 8:23 AM Value from Hollis fraser. CDT Oxygen Saturation - - Inhaled Oxygen - - Concentration Weight 108 kg (237 lb 14 12/07/2016 8:46 AM Vital si gn result oz) CDT from CDM. Height 163 cm (5' 4.17) 12/07/2016 8:46 AM Vital si gn result CDT from CDM. Body Mass Index 40.61 12/07/2016 8:46 AM CDT documented in this encounter Medications [...] Procedure Name Priority Date/Time Associated Comments Diagnosis HXGENERAL PATHOLOGY Routine 12/07/2016 11:27 Resu lts for this REPORT AM CDT procedure are i n the results section. MISC. INVITAE Routine 11/24/2016 9:33 AM Results for this [employer] procedure are i n the results section. documented in this encounter Results Hx general Pathology Report (12/07/2016 11:27 AM CDT) Specimen Anatomical Collection Method Collection Time Receive d Time (Source) Location / / Volume Laterality 12/07/2016 11:27 12/07/2016 AM CDT 11:27 AM CDT Narrative [facility] - 12/07/2016 11:27 AM CDT ??12/07/2016 Surgical Pathology ?([id number]) ??REVISED REPORT (Addendum/Procedure in cluded) ?? Requested By: Mandy Pepe M.D. ?? [phone] ? Additional Physician: ??Denny Spivey M.D. [phone] ? SLIDE DISPOSITION: ? DIAGNOSIS: ?? A. ??Breast, right, skin-sparing mastec mike: Invasive ductal carcinoma, Harris grade II (of III) , forming a nodule measuring 0.8 x 0.7 x 0.5 cm. The margins are neg ative for carcinoma. See synoptic report. ? Immunohistochemical stains were perform ed on paraffin sections of block A3 using antibodies directed agai nst the following antigens: P63 and Calponin. The p63 and calponin highlights absence of myoepithelial cells. A stain for e-cadh selwyn shows membranous staining of the tumor cells. ?? B. ??Lymph node, left axillary No. 1, s entinel biopsy: ??A single (1) lymph node is negative for metastatic c arcinoma. ?? C. ??Breast, right, anteroinferior nadia in, re-excision: Negative for tumor ? D. ??Breast, left, skin-sparing mastect soraida: Benign breast tissue with non-proliferative fibrocystic changes. ?? E. ??Lymph node, left axillary No. 2, s entinel biopsy: ??A single (1) lymph node is negative for metastatic c arcinoma. ?? F. ??Breast, right, anterior margin at 2 o'clock, re-excision: ?? Invasive ductal carcinoma, Harris g rade II (of III), fomring a 1.6 x 0.8 x 0.5 cm mass. Perineural inv asion is identified. All margins, after re-excision of the anter ior margin (part G below), are negative for carcinoma. ??See synop tic report. ?? G. ??Breast, right, anterior margin at 2 o'clock No. 2, re-excision: Negative for tumor. ?? H. ??Breast, left, excess tissue, excis ion: Benign fibroadipose tissue. ?? I. ??Breast, left, excess tissue No. 2, excision: Benign skin and fibroadipose tissue. ?? Synoptic Report for parts A and F combi justin: Laterality: Right Procedure: Mastectomy, skin-sparing. ?? Lymph Node Sampling: [place] lymph nod es submitted. ?? Tumor Site (Mastectomy): Upper inner qu adrant. ?? Tumor Focality: Two (2) foci of invasiv e carcinoma. ?? Tumor Size (Largest Invasive Carcinoma) : Multiple (2) masses, 1.6 x 0.8 x 0.5 cm (2 o'clock, part F); 0.8 x 0.7 x 0.5 cm (12 o'clock, part A). ? Histologic Type of Invasive Carcinoma: Invasive ductal carcinoma. ?? Histologic Grade: Harris Histologic Score: ? [place] score: ? Glandular /tubular differentiation: 3 ? Nuclear p leomorphism: 2 ? Mitotic r ate: 1 ? [place] grade: II ?? Ductal Carcinoma In Situ (DCIS): Solid type, low nuclear grade without necrosis in a single duct (part F). ?? Lymph-vascular Invasion: Absent. ?? Biopsy Site: Biopsy site changes presen t (part F). ?? Microcalcifications: Absent. ?? Macroscopic and Microscopic Extent of T umor: ? Nipple: N ot involved. ? Skin: Not involved. ? Skeletal Muscle: Not present. ?? Surgical Margins: Negative for invasive carcinoma: nearest 2 o'clock anterior margin, 0.5 cm. ?? Additional Findings: ??None identified. ?? Pathologic Staging Descriptors: sn, m Pathologic Staging (AJCC, 7th edition): ?? Primary tumor: ??pT1c Regional lymph nodes: pN0 ?[place] nodes, total number ex amined: ??2 ?Non-sentinel axillary nodes, to harjeet number examined: ??0 ?ALL (sentinel plus non-sentinel ) nodes, total number: ??2 ? Number of negative LNs: 2 ? Number of LNs with isolated tumor cells: 0 ? Number of LNs with micrometastases: 0 ? Number of LNs with macrometastases: 0T Distant Metastasis: ??Not applicable. ? The synoptic report incorporates inform ation from all relevant surgical material and includes all requ ired data elements of the current CAP Cancer Protocol. ? Participated in interpretation: Dr. Ng. Pager: [phone]. and Dr. Sherman Gonzalez . Pager: [phone]. ?? As the signing pathologist, I verify th at I have examined all relevant slides/materials for the speci men(s) and rendered or confirmed the diagnosis. ? 12/14/2016 09:25 Interpreted by: Favian Edge M.D. [phone] Report electronically signed by Favian Edge M.D. Transcribed by: daniel 12/07/2016 14:55:43 ?ADDENDUM: Source: Breast, right, anterior margin at 2 o'clock, re-excision, block F3 ?? Sample is adequate for evaluation. ? Proliferation index Ki-67 (MIB-1) = 25. 4%. ?? Ki-67 (MIB-1) proliferation data must b e interpreted within the clinical context for which the test was ordered. Recent studies have suggested that Ki-67 (MIB-1) analysis o f paraffin-embedded breast cancer tissue specimens may provide use ful prognostic information. ?? 1. John A, Mandeep KABA, Kaiser M . Proliferation marker Ki-67 in early breast cancer. J Clin Oncol 11 02Jun 25;23(28):4320-9946 2. de Eliazar E, Le F, Floridalma G Jr, et al. Ki-67 as prognostic marker in early breast cance r: a meta-analysis of published studies involving 12,155 ayse ents. Br J Cancer 2006February 12;96(10):1453-4447 Epub 2006Jan 16 ?? Method: ??Immunohistochemical staining of the Ki-67 antigen in formalin-fixed paraffin-embedded tissue sections has been validated by our laboratory, using the MIB-1 clon e and a proprietary detection system. All controls show appropriate r eactivity. Ki-67 (MIB-1)-stained slides are scanned usin g the [employer] ScanScope instrument, which captures digital imag es of the patient slide. A technologist views the digitized image on a computer monitor and using a tracing tool available in Image Scope ([employer]), traces around areas of invasive o r metastatic cancer capturing no less than 75% of the total cancer wi thin the image. The traced areas are then analyzed using an image analysis algorithm that renders the percentage of positive-stai greta tumor nuclei. The slides and test results are then reviewed by a pathologist who provides a final interpretation. Laboratory Developed Test ? Transcribed by: ??lou ??12/14/2016 10:28 :43 ? Signed by Sunitha Balderas M.D. 12/14/2016 1 5:08:14 ? PRELIMINARY FROZEN SECTION CONSULTATION : A. ??Breast, right, skin-sparing mastec mike: ??Sclerosing adenosis. ?? Negative for tumor. ?? B. ??Lymph node, left axillary No. 1, s entinel biopsy: ??A single (1) sentinel lymph node without blue dye is negative for metastatic carcinoma. ?? C. ??Breast, right, anteroinferior nadia in, re-excision: ??Negative for tumor (by 0.7 cm). ?? D. ??Breast, left, skin-sparing mastect soraida: ??Duct ectasia. ??Negative for tumor. ?? E. ??Lymph node, left axillary No. 2, s entinel biopsy: ??A single (1) sentinel lymph node without blue dye is negative for metastatic carcinoma. ?? F. ??Breast, right, anterior margin at 2 o'clock, re-excision: ?? Invasive ductal carcinoma, [place] g rade II (of III). ??All margins, after re-excision of the anter ior margin (part G below), are negative for carcinoma. ?? G. ??Breast, right, anterior margin at 2 o'clock No. 2, re-excision: ?? Negative for tumor (by 0.5 cm). ?? H. ??Breast, left, excess tissue, excis ion: ??Benign fibroadipose tissue (185 grams). ?? I. ??Breast, left, excess tissue No. 2, excision: ??Benign skin and adipose tissue (170 grams). ?? HOLD OVER for further evaluation on per manent sections. ?? Frozen section histologic interpretatio n of part A and C-I performed by: ??Favian Edge M.D. ?? Frozen section histologic interpretatio n of part B performed by: ?? Olivia Dasilva M.D. ?? GROSS DESCRIPTION: A. ??Received fresh labeled right [facility] [facility] skin-sparing mastectomy is a 590 gram, 21.5 (M-L) x 4.5 (A-P) x 20 .5 (S-I) cm oriented skin-sparing mastectomy with a 7.3 x 4. 8 cm skin ellipse. ??A nipple is present. ??Grossly, there is a 0.8 x 0.7 x 0.5 cm fibrous area located at the 12 o'clock central breas t, 2.5 cm to the nearest anterior margin. ??There is also a 1.8 x 1.5 x 0.7 cm villar-white calcified nodule, 1.0 cm from the anter ior margin. ??The breast parenchyma is diffusely fatty, grossly. ??Balancing Machine Set Up Worker sections are submitted. ??Grossed by DJS. ?? B. ??Received fresh labeled left axill ángel sentinel lymph node No. 1 is a single 2.5 x 1.2 x 0.9 cm lymph no de. ??Blue dye is not identified in the lymph node. ??All sub mitted. ??Grossed by AER. ?? C. ??Received fresh labeled right [address] excess tissue anteroinferior margin is a 30 gram, 11 .5 x 5.5 x 0.2 cm portion of yellow, lobulated fibroadipose tissue w ith orientation. ?? Balancing Machine Set Up Worker sections are submitted. ??Grossed by TWC. ?? D. ??Received fresh labeled left breas t skin-sparing mastectomy is an 1815 gram, 26.5 (M-L) x 7 (A-P) x 25 .4 (S-I) cm oriented skin-sparing mastectomy with an 11.2 x 5.4 cm skin ellipse. ??A nipple is present. ??There are no vijay s identified grossly. ??The breast parenchyma is fat replaced, ellie sly. ??Balancing Machine Set Up Worker sections are submitted. ??Grossed by TWC. ?? E. ??Received fresh labeled left axill ángel sentinel lymph node No. 2 is a single 2 x 1 x 0.6 cm lymph node. ??Blue dye is not identified in the lymph node. ??All submitted. ??G rossed by AER. ?? F. ??Received fresh labeled right [facility] re-excision anterior margin 2 o'clock is a 3.5 x 2.7 x 0.9 cm port ion of red-yellow fibrofatty tissue with orientation. ??There is a 1 .6 x 0.8 x 0.5 cm white, fibrous biopsy site 0.2 cm from the ant erior margin. ??A biopsy clip is identified. ??Balancing Machine Set Up Worker section s are submitted. ??Grossed by DJS. ?? G. ??Received fresh labeled right sh[address] re-excision anterior margin 2 o'clock No. 2 is a 5 gram, 1.4 x 1.1 x 0.5 cm fragment of yellow lobulated fibroadipose tissue with orie ntation. ??All submitted. ?? Grossed by TWC. ?? H. ??Received fresh labeled left breas t excess tissue is a 185 gram aggregate of fibroadipose tissue. ??No masses identified. ?? Balancing Machine Set Up Worker sections are submitted. ??Grossed by TWC. ?? I. ??Received fresh labeled left breas t excess tissue No. 2 is a 170 gram aggregate of fibroadipose tiss ue and skin. ??No masses identified. ??Balancing Machine Set Up Worker sections a re submitted. ??Grossed by DJS/MG. ?? BLOCK SUMMARY: Part A: ??Right breast skin sparing mas tectomy ?1 Rt nipple ?2 Rt nipple ?3 Rt 12:00 nodule ?4 Rt anterior margin 1 ?5 Rt anterior margin 1 ?6 Rt anterior margin 2 ?7 Rt anterior margin 2 ?? Part B: ??Left axillary sentinel lymph node #1 ?[address] #1a (1of2) ?[address] #1a (2of2) ?? Part C: ??Right breast excess tissue- a nteroinferior margin ?1 Rt lateral margin ?2 Rt lateral margin ?3 Rt inferior margin ?4 Rt inferior margin ?? Part D: ??Left breast skin sparing mast ecomy ?1 Left nipple ?2 Left UOQ ?3 Left LOQ ?4 Left LOQ ?5 Left UIQ ?6 Left UIQ ?7 Left LIQ ?8 Left LIQ ?? Part E: ??Left axillary sentinel lymph node #2 ?1 Lt sentinel #2 ?? Part F: ??Right breast re-excision ante rior margin- 2 o'clock ?1 Rt biopsy site 1 ?2 Rt biopsy site 2 ?3 Rt biopsy site 3 ?4 Rt biopsy site 4 ?5 Remaining margin 1 ?6 Remaining margin 2 ?7 Remaining margin 3 ?8 Remaining margin 4 ?? Part G: ??Right breast re-excision ante rior margin 2 o'clock #2 ?1 Re-ex ant mgn 2:00 #2 ?? Part H: ??Left breast excess tissue ?1 Lt breast excess tissue ?2 Lt breast excess tissue ?? Part I: ??Left breast excess tissue #2 ?1 Lt breast excess tissue#2 ?? Vinicio Owen M.D. (Tom) ? Procedure Note 12/16/2017 12/07/2016 Surgical Pathology ([id number]) REVISED REPORT (Addendum/Procedure incl uded) Requested By: Mandy Pepe M.D. [phone] Additional Physician: Denny tan M.D. [id number] SLIDE DISPOSITION: DIAGNOSIS: A. Breast, right, skin-sparing mastecto my: Invasive ductal carcinoma, [place] grade II (of III) , forming a nodule measuring 0.8 x 0.7 x 0.5 cm. The margins are neg ative for carcinoma. See synoptic report. Immunohistochemical stains were perform ed on paraffin sections of block A3 using antibodies directed agai nst the following antigens: P63 and Calponin. The p63 and calponin highlights absence of myoepithelial cells. A stain for e-cadh selwyn shows membranous staining of the tumor cells. B. Lymph node, left axillary No. 1, sen tinel biopsy: A single (1) lymph node is negative for metastatic c arcinoma. C. Breast, right, anteroinferior margin , re-excision: Negative for tumor D. Breast, left, skin-sparing mastectom y: Benign breast tissue with non-proliferative fibrocystic changes. E. Lymph node, left axillary No. 2, sen tinel biopsy: A single (1) lymph node is negative for metastatic c arcinoma. F. Breast, right, anterior margin at 2 o'clock, re-excision: Invasive ductal carcinoma, [place] g rade II (of III), fomring a 1.6 x 0.8 x 0.5 cm mass. Perineural inv asion is identified. All margins, after re-excision of the anter ior margin (part G below), are negative for carcinoma. See synopti c report. G. Breast, right, anterior margin at 2 o'clock No. 2, re-excision: Negative for tumor. H. Breast, left, excess tissue, excisio n: Benign fibroadipose tissue. I. Breast, left, excess tissue No. 2, e xcision: Benign skin and fibroadipose tissue. Synoptic Report for parts A and F combi justin: Laterality: Right Procedure: Mastectomy, skin-sparing. Lymph Node Sampling: [place] lymph nod es submitted. Tumor Site (Mastectomy): Upper inner qu adrant. Tumor Focality: Two (2) foci of invasiv e carcinoma. Tumor Size (Largest Invasive Carcinoma) : Multiple (2) masses, 1.6 x 0.8 x 0.5 cm (2 o'clock, part F); 0.8 x 0.7 x 0.5 cm (12 o'clock, part A). Histologic Type of Invasive Carcinoma: Invasive ductal carcinoma. Histologic Grade: [place] Histologic Score: Harris score: Glandular/tubular differentiation: 3 Nuclear pleomorphism: 2 Mitotic rate: 1 Harris grade: II Ductal Carcinoma In Situ (DCIS): Solid type, low nuclear grade without necrosis in a single duct (part F). Lymph-vascular Invasion: Absent. Biopsy Site: Biopsy site changes presen t (part F). Microcalcifications: Absent. Macroscopic and Microscopic Extent of T umor: Nipple: Not involved. Skin: Not involved. Skeletal Muscle: Not present. Surgical Margins: Negative for invasive carcinoma: nearest 2 o'clock anterior margin, 0.5 cm. Additional Findings: None identified. Pathologic Staging Descriptors: sn, m Pathologic Staging (AJCC, 7th edition): Primary tumor: pT1c Regional lymph nodes: pN0 [place] nodes, total number examined: 2 Non-sentinel axillary nodes, total numb er examined: 0 ALL (sentinel plus non-sentinel) nodes, total number: 2 Number of negative LNs: 2 Number of LNs with isolated tumor cells : 0 Number of LNs with micrometastases: 0 Number of LNs with macrometastases: 0T Distant Metastasis: Not applicable. The synoptic report incorporates inform ation from all relevant surgical material and includes all requ ired data elements of the current CAP Cancer Protocol. Participated in interpretation: Dr. Ng. Pager: [phone]. and Dr. Sherman Gonzalez . Pager: [phone]. As the signing pathologist, I verify th at I have examined all relevant slides/materials for the speci men(s) and rendered or confirmed the diagnosis. 12/14/2016 09:25 Interpreted by: Favian Edge M.D. [id number] Report electronically signed by Favian Edge M.D. Transcribed by: daniel 12/07/2016 14:55:43 ADDENDUM: Source: Breast, right, anterior margin at 2 o'clock, re-excision, block F3 Sample is adequate for evaluation. Proliferation index Ki-67 (MIB-1) = 25. 4%. Ki-67 (MIB-1) proliferation data must b e interpreted within the clinical context for which the test was ordered. Recent studies have suggested that Ki-67 (MIB-1) analysis o f paraffin-embedded breast cancer tissue specimens may provide use ful prognostic information. 1. John Griffith, Mandeep KABA, Kaiser Koch . Proliferation marker Ki-67 in early breast cancer. J Clin Oncol 11 02Jun 25;23(35):5050-8394 2. de Eliazar E, Rey F, Hedrick G Jr, et al. Ki-67 as prognostic marker in early breast cance r: a meta-analysis of published studies involving 12,155 ayse ents. Br J Cancer 2006February 12;96(10):1649-8932 Epub 2006Jan 16 Method: Immunohistochemical staining of the Ki-67 antigen in formalin-fixed paraffin-embedded tissue sections has been validated by our laboratory, using the MIB-1 clon e and a proprietary detection system. All controls show appropriate r eactivity. Ki-67 (MIB-1)-stained slides are scanned usin g the [employer] ScanScope instrument, which captures digital imag es of the patient slide. A technologist views the digitized image on a computer monitor and using a tracing tool available in Image Scope ([employer]), traces around areas of invasive o r metastatic cancer capturing no less than 75% of the total cancer wi thin the image. The traced areas are then analyzed using an image analysis algorithm that renders the percentage of positive-stai greta tumor nuclei. The slides and test results are then reviewed by a pathologist who provides a final interpretation. Laboratory Developed Test Transcribed by: lou 12/14/2016 10:28:43 Signed by Sunitha Balderas M.D. 12/14/2016 1 5:08:14 PRELIMINARY FROZEN SECTION CONSULTATION : A. Breast, right, skin-sparing mastecto my: Sclerosing adenosis. Negative for tumor. B. Lymph node, left axillary No. 1, sen tinel biopsy: A single (1) sentinel lymph node without blue dye is negative for metastatic carcinoma. C. Breast, right, anteroinferior margin , re-excision: Negative for tumor (by 0.7 cm). D. Breast, left, skin-sparing mastectom y: Duct ectasia. Negative for tumor. E. Lymph node, left axillary No. 2, sen tinel biopsy: A single (1) sentinel lymph node without blue dye is negative for metastatic carcinoma. F. Breast, right, anterior margin at 2 o'clock, re-excision: Invasive ductal carcinoma, Harris g rade II (of III). All margins, after re-excision of the anter ior margin (part G below), are negative for carcinoma. G. Breast, right, anterior margin at 2 o'clock No. 2, re-excision: Negative for tumor (by 0.5 cm). H. Breast, left, excess tissue, excisio n: Benign fibroadipose tissue (185 grams). I. Breast, left, excess tissue No. 2, e xcision: Benign skin and adipose tissue (170 grams). HOLD OVER for further evaluation on per manent sections. Frozen section histologic interpretatio n of part A and C-I performed by: Favian Edge M.D. Frozen section histologic interpretatio n of part B performed by: Olivia Dasilav M.D. GROSS DESCRIPTION: A. Received fresh labeled right breast skin-sparing mastectomy is a 590 gram, 21.5 (M-L) x 4.5 (A-P) x 20 .5 (S-I) cm oriented skin-sparing mastectomy with a 7.3 x 4. 8 cm skin ellipse. A nipple is present. Grossly, there is a 0.8 x 0 .7 x 0.5 cm fibrous area located at the 12 o'clock central breas t, 2.5 cm to the nearest anterior margin. There is also a 1.8 x 1.5 x 0.7 cm villar-white calcified nodule, 1.0 cm from the anter ior margin. The breast parenchyma is diffusely fatty, grossly. Balancing Machine Set Up Worker sections are submitted. Grossed by DJS. B. Received fresh labeled left axillar y sentinel lymph node No. 1 is a single 2.5 x 1.2 x 0.9 cm lymph no de. Blue dye is not identified in the lymph node. All submi tted. Grossed by AER. C. Received fresh labeled right breast excess tissue anteroinferior margin is a 30 gram, 11 .5 x 5.5 x 0.2 cm portion of yellow, lobulated fibroadipose tissue w ith orientation. Balancing Machine Set Up Worker sections are submitted. Grossed by TW. D. Received fresh labeled left breast skin-sparing mastectomy is an 1815 gram, 26.5 (M-L) x 7 (A-P) x 25 .4 (S-I) cm oriented skin-sparing mastectomy with an 11.2 x 5.4 cm skin ellipse. A nipple is present. There are no masses identified grossly. The breast parenchyma is fat replaced, ellie sly. Balancing Machine Set Up Worker sections are submitted. Grossed by TW. E. Received fresh labeled left axillar y sentinel lymph node No. 2 is a single 2 x 1 x 0.6 cm lymph node. Blue dye is not identified in the lymph node. All submitted. Gross ed by AER. F. Received fresh labeled right breast re-excision anterior margin 2 o'clock is a 3.5 x 2.7 x 0.9 cm port ion of red-yellow fibrofatty tissue with orientation. There is a 1.6 x 0.8 x 0.5 cm white, fibrous biopsy site 0.2 cm from the ant erior margin. A biopsy clip is identified. Balancing Machine Set Up Worker sections are submitted. Grossed by DJS. G. Received fresh labeled right breast re-excision anterior margin 2 o'clock No. 2 is a 5 gram, 1.4 x 1.1 x 0.5 cm fragment of yellow lobulated fibroadipose tissue with orie ntation. All submitted. Grossed by TWC. H. Received fresh labeled left breast excess tissue is a 185 gram aggregate of fibroadipose tissue. No ma sses identified. Balancing Machine Set Up Worker sections are submitted. Grossed by TWC. I. Received fresh labeled left breast excess tissue No. 2 is a 170 gram aggregate of fibroadipose tiss ue and skin. No masses identified. Balancing Machine Set Up Worker sections are submitted. Grossed by DJS/MG. BLOCK SUMMARY: Part A: Right breast skin sparing maste ctomy 1 Rt nipple 2 Rt nipple 3 Rt 12:00 nodule 4 Rt anterior margin 1 5 Rt anterior margin 1 6 Rt anterior margin 2 7 Rt anterior margin 2 Part B: Left axillary sentinel lymph no de #[address] #1a (1of2) [address] #1a (2of2) Part C: Right breast excess tissue- ant eroinferior margin 1 Rt lateral margin 2 Rt lateral margin 3 Rt inferior margin 4 Rt inferior margin Part D: Left breast skin sparing mastec soraida 1 Left nipple 2 Left UOQ 3 Left LOQ 4 Left LOQ 5 Left UIQ 6 Left UIQ 7 Left LIQ 8 Left LIQ Part E: Left axillary sentinel lymph no de #2 1 Lt sentinel #2 Part F: Right breast re-excision anteri or margin- 2 o'clock 1 Rt biopsy site 1 2 Rt biopsy site 2 3 Rt biopsy site 3 4 Rt biopsy site 4 5 Remaining margin 1 6 Remaining margin 2 7 Remaining margin 3 8 Remaining margin 4 Part G: Right breast re-excision anteri or margin 2 o'clock #2 1 Re-ex ant mgn 2:00 #2 Part H: Left breast excess tissue 1 Lt breast excess tissue 2 Lt breast excess tissue Part I: Left breast excess tissue #2 1 Lt breast excess tissue#2 Vinicio Owen M.D. (Tom) Mandy Pepe M.D. LAB PATHOLOGY/CYTOLOGY ORDER CONSTANCE Performing Organization Address City/State/ZIP Code Phon e Number [facility] [employer] - [address] [place], [place] [address] [facility] 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 [facility] Test LABORATORIES - [facility] [place] Comment: Test ? Result ?Flag ??Unit ??RefValue ? [employer] ?Result ? . ?Final Report: See Documents tab in [employer] ?or Synthesis. ? Specimen Anatomical Collection Method Collection Time Receive d Time (Source) Location / / Volume Laterality 11/24/2016 9:33 AM 7 9:33 NAIL MAKER AM NAIL MAKER Juanpablo Abad M.D. LAB MISC ORDERABLES Performing Organization Address City/State/ZIP Code Phon e Number [facility] - [address] [place], [place] [address] [facility] documented in this encounter Visit Diagnoses Not on filedocumented in this encounter
--- OUTSIDE RECORDS SUMMARY | 2022-07-28 09:49 | XMS_ITS | Encounter Summary ---
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 documented in this encounter Results PLASTIC AND RECON SURGERY IMAGE EXAM (01/12/2018 12:00 PM CDT) Specimen (Source) Anatomical Collection Method Collection Time Re ceived Time Location / / Volume Laterality 01/12/2018 12:00 PM CDT Narrative [facility] - 01/12/2018 3:16 PM CDT This order has been created [...]
--- OUTSIDE RECORDS SUMMARY | 2022-07-28 09:49 | XMS_ITS | Encounter Summary ---
:1960 Author Organization [facility] Address [address] [place] [address] Care Team Providers Name Role Phone Unavailable Primary Care Provider Unavailable Reason for Visit Outpatient (Routine) - Closed Specialty Diagnoses / Procedures Referred By Contact Refer red To Contact Plastic Surgery Diagnoses Absence Of Breast Acquired Bilateral Denny Bearden [place] M.D. [address] [place] [address] Referral ID Status Reason Start Date Expiration Date Visits Requ ested Visits Authorized [id number] Closed 04/13/2018 04/13/2019 1 1 Encounter Details Date Type Department Care Team Description 07/06/2018 Office Visit Division of Plastic Benoit Bearden ce Of Breast Surgery in [place] . 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 - 07/06/2018 8:30 AM CDT She is here for preoperative listing appointment. The plan will be to proceed with bilateral breast revision, which includes possible bilateral breast fat grafting, left breast reinforcement of the capsule inferiorly and laterally, as well as reshaping of the skin in order to address the laxity and improve symmetry, we will plan to exchange the implant on the left for a smaller implant as well. We discussed postoperative care in detail, she is in agreement with the plan of care. documented in this encounter Plan of Treatment Not on filedocumented as of this encounter Visit Diagnoses Diagnosis Absence Of Breast Acquired Bilateral documented in this encounter
--- OUTSIDE RECORDS SUMMARY | 2022-07-28 09:49 | XMS_ITS | Encounter Summary ---
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.] 0 E ORAL) mouth daily. 400 unit. HYDROcodone-acetaminophen Take 2 tablets by 0 07/25/2018 (NORCO) 5-325 mg per tablet mouth every 4 (four) hours as needed. Pain as needed ondansetron ODT (ZOFRAN Take 1 tablet by 0 201707/25/2018 ODT) 4 mg disintegrating mouth every 4 tablet (four) hours as needed. For nausea sertraline (ZOLOFT) 50 mg Take 1 tablet by 0 03/2607/25/2018 tablet mouth at bedtime. triamterene-hydroCHLOROthia Take 1 tablet by 0 07/25/2018 zide (MAXZIDE-25) 37.5-25 mouth daily. mg per tablet documented as of this encounter Plan of Treatment Not on filedocumented as of this encounter Visit Diagnoses Not on filedocumented in this encounter
--- OUTSIDE RECORDS SUMMARY | 2022-07-28 09:49 | XMS_ITS | Encounter Summary ---
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
--- OUTSIDE RECORDS SUMMARY | 2022-07-28 09:49 | XMS_ITS | Encounter Summary ---
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 bilateral mastectomy flaps; harvested from ... Mastopexy Breast to improve symmetry, proceed as indicated Referral ID Status Reason Start Date Expiration Date Visits Requ ested Visits Authorized [id number] 1 1 Encounter Details Date Type Department Care Team Description 07/25/2018 Hospital Encounter Outpatient Surgery Unit Ander tan, in [facility] donavon Baldwin M.D. 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 If you need to reschedule your appointment, please call [phone]. Signs of Infection: Please inspect your incisions [...] of Dr. Bearden???s team by calling the [facility] washer operator at and ask to speak with Dr. Bearden???s resident almond blancher operator for emergencies. For questions during the week, Monday - Monday 8-4:30pm please call [phone] Beadren???s team. Care of your Surgical Sites: Your [...] the dressing in place. Care of your Harrison Sites: You may need a compression-type garment. [...] control your pain you may transition to [id number] Tylenol for pain relief. Do not take [...] mastectomy flaps. (Left) Surgeon(s): Denny Bearden M.D. Johnathan Shi M.D. Douglass, Brandon G, M.D. Anesthesia Type: [...] Implant Name Type Inv. Item Serial No. Director Of Technology Lot No. LRB No. Used Action BRST RESP GEL STYSRF 560 - [id number] - [id number] Breast Implant BRST RESP GEL STYSRF 560 [id number] [employer] Left 1 Implanted ANASTASIA REEVES 615CC - ANNA [id number] Breast Implant [employer] 1 Explanted Johnathan Shi M.D. Brief Op Note - Philippe Roach M.D. - 07/25/2018 11:15 AM CDT BRIEF OP NOTE Procedure(s) with comments: EXCHANGE SILICONE IMPLANT BREAST. (Left) INJECTION FAT into right vs bilateral mastectomy flaps, harvested from abdomen, bilateral flanks, (Bilateral) - Donor sites abdomen, flanks. Revision Breast, mastopexy of mastectomy flaps. (Left) Surgeon(s): Denny Bearden M.D. Johnathan Shi M.D. Douglass, Brandon G, M.D. Anesthesia Type: General Pre-Operative Diagnosis: Absence Of Breast Acquired Bilateral [Z90.13]. Brief Operative Note Details Specimens * No specimens in log * Drains * No drains in log * Estimated Blood Loss No blood loss documented. Implants Implant Name Type Inv. Item Serial No. Director Of Technology Lot No. LRB No. Used Action BRST RESP GEL STYSRF 560 - [id number] - [id number] Breast Implant BRST RESP GEL STYSRF 560 [id number] [employer] Left 1 Implanted NATEMORYE- INSPIRA 615CC - ANNA [id number] Breast Implant [employer] 1 Explanted Philippe [...] - P rimary documented in this encounter Admitting Diagnoses Diagnosis [...] enteral route or orally (not just NPO) fentaNYL injection 25 mcg (SUBLIMAZE) Given 07/25/2018 2:20 PM CDT 25 mcg 25 mcg, intravenous, Every 2 min PRN, moderate pain or score 4-6 of 10, severe pain or score 7-10 of 10, Starting on Mon07/25/18 at 1344, PACU (only), Up to maximum total dose of 200 mcg Given 07/25/2018 2:15 PM CDT 25 mcg Given 07/25/2018 2:11 PM CDT 25 mcg ibuprofen tablet 800 mg (ADVIL,MOTRIN) Given 07/25/2018 [...] Pre-Op New Bag 07/25/2018 10:34 AM CDT oxyCODONE IR tablet 5 mg (ROXICODONE) Given 07/25/2018 2:11 PM CDT 5 mg 5 mg, oral, Once as needed, moderate pain or score 4-6 of 10, severe pain or score 7-10 of 10, Starting on Mon07/25/18 at 1344, For 1 dose, PACU (only), Prior to discharge documented in this encounter Active and Recently Administered Medications Times are shown in CDT. Scheduled Medication Order 07/23/2018 07/24/2018 07/25/2018 acetaminophen injection 1,000 mg (OFIRMEV) (COMPLETED) 1350 (New Bag - Provider: Meryl Xaio R.N.) 1,000 mg, intravenous, at 400 mL/hr, [...] (COMPLETED) 1100 (Given - Provider: Christopher Dias APRN, FIRE ALARM TECHNICIAN) 1 g, intravenous, Once, Mon07/25/18 at 1030, [...] (CANCELED) 1411 (Given - Provider: Nasra Pierce R.N.)1415 (Given - Provider: Nasra Pierce R.N.)1420 (Given - Provider: Nasra Pierce R.N.) 25 mcg, intravenous, Every 2 min PRN, [...] (COMPLETED) 1407 (Given - Provider: Nasra Pierce R.NNiko) 800 mg, oral, Once as needed, moderate [...]
--- OUTSIDE RECORDS SUMMARY | 2022-07-28 09:49 | XMS_ITS | Encounter Summary ---
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 documented in this encounter Results PLASTIC AND RECON SURGERY IMAGE EXAM (05/01/2017 12:00 AM CDT) Specimen (Source) Anatomical Location Collection Method / Collectio n Time Received Time / Laterality Volume Narrative [facility] - 05/01/2017 3:22 PM CDT This order has been created [...]
--- OUTSIDE RECORDS SUMMARY | 2022-07-28 09:49 | XMS_ITS | Encounter Summary ---
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
[2022-07-28 09:58] LABS: Chloride* 103 mmol/L (96-114); Slide Review Reflex No; Sodium* 138 mmol/L (135-149)
[2022-07-28 10:01] LABS: Creatinine* 0.6 mg/dL (0.5-1.5); Est. Creatinine Clearance* 47.63; Estimated Glomerular Filt Rate 101 ml/min
[2022-07-28 10:02] LABS: Blood Urea Nitrogen* 15 mg/dL (7-30); Carbon Dioxide* 26 mmol/L (20-32); Glucose* 105 mg/dL (60-115)
[2022-07-28 10:03] LABS: Calcium* 9.6 mg/dL (8.4-10.6)
--- NOTE | 2022-09-20 16:19 | ONC.NURNOTE ---
Patient is wanting to be seen by Dr. Hammer in January when she is due for follow up, she will stay with the [facility].
== END 2022-07-28 12:58 | disposition home or self-care (01) ==
PROVIDERS: Emergency Provider Emergency Medicine; PCP Physician Assistant Medical
DX: K57.92 Diverticulitis of intestine, part unspecified, without perforation or abscess without bleeding (principal)
CPT/HCPCS: 36415; 74177; 80048; 81001; 83605; 85025; 86140; 87086; 99284; Q9967

== ENCOUNTER 2023-03-09 12:44 | Outpatient (RCR) | payer OTHER, SELFPAY | END 2023-09-05 23:59 | disposition home or self-care (01) | LOC: CCIC 12:44 | PROVIDERS: PCP Physician Assistant Medical; Visit Provider Internal Medicine Hematology & Oncology | DX: C50.911 Malignant neoplasm of unspecified site of right female breast (principal); Z17.0 Estrogen receptor positive status [ER+]; Z90.13 Acquired absence of bilateral breasts and nipples; R23.2 Flushing; N95.2 Postmenopausal atrophic vaginitis; M79.10 Myalgia, unspecified site; M19.011 Primary osteoarthritis, right shoulder | CPT/HCPCS: 99212; 99214; 99215 ==

== ENCOUNTER 2023-08-25 09:34 | Outpatient (CLI) | payer OTHER, SELFPAY ==
--- NOTE | 2023-08-25 09:45 | CRLHL7_ITS ---
For Patients: As a result of the Century Cures Act, medical imaging exams and procedure reports are released immediately into your electronic medical record. You may view this report before your referring provider. If you have questions, please contact your health care provider. BILATERAL BREAST MRI WITHOUT AND WITH GADOLINIUM CLINICAL HISTORY: 63-year-old female with history of treated RIGHT breast cancer (mastectomy). Prophylactic LEFT mastectomy. Follow-up foci of enhancement in the RIGHT breast. INDICATION FOR BREAST MRI: Short interval follow-up. COMPARISON STUDIES: Breast MRI 02/24/2023. CONTRAST: 20 cc of Dotarem. TECHNIQUE: The patient was positioned prone using a breast coil. Multiple imaging sequences were obtained using 1-1.5 mm thick slices with no gap. The image sequences include T2-weighted STIR in the axial plane, T1-weighted nonfat-saturated gradient echo in the axial plane, pre- and post-contrast T1-weighted FLASH 3D with fat suppression in the axial plane, and T1-weighted FLASH high resolution 3D with fat suppression in the sagittal plane. Image post-processing was performed on a [employer] workstation. Complex 3D rendering including maximum intensity projections (MIPS) and volumetric renderings were obtained to optimize visualization of the extent of pathology and relationship to the nipple, skin, and chest wall. This aids in determining feasibility of breast conservation surgery. Subtraction, multiplanar reconstruction, mean curve determination, and angiogenesis mapping were also performed. The study was technically adequate. FINDINGS: Amount of Fibroglandular Tissue: N/A. Breast Background Enhancement: Minimal. RIGHT Breast: Postsurgical changes of mastectomy. There is a subpectoral silicone implant in place. Although dedicated silicone sequences were not obtained there is a similar appearing Linguine sign is present, consistent with intracapsular rupture and stable to prior exam. Comparison to prior exam is also somewhat limited due to differences in technique, however the foci of enhancement within the medial RIGHT breast are less conspicuous on today`s exam. There is however a new 0.4 cm focus of enhancement in the upper inner quadrant, middle depth, approximately 9 cm from the nipple. LEFT Breast: Stable postsurgical changes of mastectomy with subsequent occur template for the implant appears intact however dedicated sensitive sequences were not obtained. Lymph Nodes: No RIGHT axillary adenopathy. Stable mildly prominent LEFT lymph nodes. IMPRESSIONS AND RECOMMENDATIONS: RIGHT Breast: 1. Previously described foci of enhancement within the medial RIGHT breast, appear less conspicuous on today`s exam, however there is a new foci of enhancement within the upper inner quadrant, measuring 0.4 cm. This is favored to be benign and may represent fat necrosis. Recommend continued follow-up with MRI in 6 months. 2. 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 LEFT Breast: 1. Benign, postsurgical changes of mastectomy with implant reconstruction. No obvious implant rupture, however silicone sensitive sequences were not obtained. 2. Stable mildly prominent LEFT axillary lymph nodes. BI-RADS Category 3: Probably benign Dictated by Shelia Fisher MD @ 08/30/2023 3:28:33 PM ronal/Dictated by: Shelia Fisher MD @ 08/30/2023 3:28:00 PM (Electronically Signed)
== END 2023-08-25 09:35 | disposition home or self-care (01) ==
PROVIDERS: PCP Physician Assistant Medical; Visit Provider Internal Medicine Hematology & Oncology
DX: Z85.3 Personal history of malignant neoplasm of breast (principal); R92.8 Other abnormal and inconclusive findings on diagnostic imaging of breast; Z13.29 Encounter for screening for other suspected endocrine disorder
CPT/HCPCS: 77049; A9575

== ENCOUNTER 2024-01-19 10:36 | Emergency (ER) | payer OTHER, SELFPAY ==
[2024-01-19 10:48] VITALS: BP 168/119; PULSE 115; RESP 24; TEMP -12.4; TEMP 9.7; O2SAT 97; BMI 35.4
--- NOTE | 2024-01-19 11:55 | CT_ITS ---
Patient: TIFFANY HAWLEY Facility:?[facility] Patient ID:?[id number] Site Patient ID:?[id number]. Site :?1960 Study:?CT-Abdomen/Pelvis 98CC ISOVUE 370-01/19/2024 1:52:42 PM Ordering Physician:?DR. OSUNA Final Report: INDICATION: Lower abdominal pain, left greater than right. COMPARISON: July 28, 2022 TECHNIQUE: CT examination of the abdomen and pelvis was performed following the uneventful intravenous administration of 98 cc of Isovue 370. Thin section axial images were obtained from the lung bases through the pubic symphysis. Oral contrast was not administered. Please note that all CT scans at this facility use dose modulation, iterative reconstruction, and/or weight-based dosing when appropriate to reduce radiation dose to as low as reasonably achievable. FINDINGS: LUNG BASES: The lung bases as visualized appear normal.The heart size is normal at the lung bases. Partial visualization of bilateral breast implants LIVER/BILIARY SYSTEM:The liver is normal in size and configuration. There is no focal soft mass and there is no intra- or extra hepatic biliary ductal dilatation.Surgically absent gallbladder. Hepatic steatosis. 4 centimeter cyst in the left lobe of the liver. ADRENALS: Normal KIDNEYS, URETERS and BLADDER:Tiny low-density lesions likely cysts. No hydronephrosis or hydroureter. The bladder appears normal SPLEEN:Normal appearance. PANCREAS: Appears normal. RETROPERITONEUM and MESENTERY: There is no mass, adenopathy or aortic aneurysm. GASTROINTESTINAL SYSTEM: Diverticulosis. There are findings of acute uncomplicated sigmoid diverticulitis. Of note, the patient had a very similar appearing diverticulitis in this area 07/28/2022. Diverticulosis elsewhere. PELVIS: No mass or adenopathy. Mild fluid presumably reactive to the diverticulitis.. OSSEOUS STRUCTURES and ABDOMINAL WALL: No acute osseous abnormality. No significant abdominal wall abnormality OTHER: No free fluid or free air. IMPRESSION: Acute uncomplicated sigmoid diverticulitis. Other nonacute appearing findings as discussed above. The patient had a similar episode of diverticulitis in this area 07/28/2022 Please note that all CT scans at this facility use dose modulation, iterative reconstruction, and/or weight-based dosing when appropriate to reduce radiation dose to as low as reasonably achievable. Dictated by Jatin Faustin MD @ 01/19/2024 1:59:11 PM Signed by:?Jatin Faustin MD @01/19/2024 1:59:11 PM (Electronic Signature)
--- OUTSIDE RECORDS SUMMARY | 2024-01-19 12:16 | XMS_ITS | Encounter Summary ---
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] Procedures SD DELAYED INSRT/RPLC BRST IMPLNT SD RMVL RPTRD BRST IMPLNT SD REV KIMMY CAPSULOTOMY BRST SD GRAFTING OF AUTOLOGOUS FAT BY LIPO 50 CC OR LESS SD GRAFTING OF AUTOLOGOUS FAT BY LIPO EA ADDL 50 CC SD CAPSULORRHAPHY GLENOHUMRL JT MULTI-DIRIONAL INS RECONSTRUCTION BREAST WITH IMPLANT; proceed as indicated REMOVAL IMPLANT BREAST CAPSULECTOMY BREAST INJECTION FAT harvested from abdomen, flanks or thighs Referral ID Status Reason Start Date Expiration Date Visits Re quested Visits Authorized [id number] 1 1 Encounter Details Date Type Department Care Team (Late st Contact Info) Description 10/26/2023 9:01 AM RETAIL MARKETING EXECUTIVE Anesthesia Event [facility] [address] [place] [address] Balwinder Cline M.D. [address] [place] [address] Anesthesia Record Procedure Summary Procedure Name Responsible Anesthesiologist Anesthesia Start Time Anesthesia Stop Time RECONSTRUCTION BREAST WITH IMPLANT, proceed as indicated. (Bilateral) Balwinder Cline M.D. 10/26/23 0901 10/26/23 1148 Events Date Time Event Comment 10/26/2023 0901 An Start Machine/Equipme nt Checked Infection Precautions Followed Procedure/Site Verified NPO Status Verified Supine Standard ASA Monitors Applied 0909 An Induction 0912 An Intubation 0912 Turnover to Proceduralist 0953 Proc Start 1130 Proc Fin 1137 Turnover to ANE Staff 1137 Airway Removal Criteria Met 1137 Extubation/Airway Removed 1139 an stop data 1142 an jaylene now 1148 An End I completed my handoff to the receiving staff during which we 1. Identified the patient 2. Identified the responsible provider 3. Reviewed the pertinent medical history 4. Discussed the surgical course 5. Reviewed intra-op anesthesia management and issues during anesthesia 6. Set expectations for post-procedure period 7. Allowed opportunity for questions and acknowledgement of understanding. Meds Name Total fentanyl injection 50 mcg/mL 225 mcg lidocaine 2% (mg) injection 100 mg succinylcholine 20 mg/mL injection 100 m g ondansetron 4 mg/2 mL injection 4 mg propofol 10 mg/mL infusion 1,247.13 mg propofol 10 mg/mL injection 310 mg dexAMETHasone (DECADRON) injection 4 mg/ mL 8 mg ceFAZolin injection 2,000 mg (ANCEF) 2 g ketamine 10 mg/mL injection 30 mg haloperidol 5 mg/mL injection 1 mg Lactated Ringers Free Drip 700 mL * Agents No agents on file. * Blood No blood administrations on file. Lines, Drains, and Airways Type Details Placement Removal Wound 10/26/23; 0953; Inci jann; Breast; Lateral, Lower, Right 10/26/23 0953 by Jayme Last, R.N. Wound 10/26/23; 0953; Inci jann; Breast; Lateral, Left, Lower 10/26/23 0953 by Jayme Last, R.N. Peripheral IV Placement Date: 10/18; Placement Time: 0652; Catheter Size: 20 G; Orientation: Anterior, Left; Location: Wrist; Site Prep: Chlorhexidine (Preferred); Technique: Anatomical landmarks; Inserted by: pascual; Insertion Attempts: 1; Removal Date: 10/26/23; Removal Time: 1340; Removal Reason: Completion of therapy 10/26/23 0652 by Akua Darden 10/26/23 1340 by Rosario Marshall RCharles ETT Placement Date: 10/18; Placement Time: 911 (created via procedure documentation); Mask Ventilation: Easy mask; Technique: Video laryngoscopy; Type: Standard ETT; Single Lumen Tube Size: 7 mm; Cuffed: Yes; Location: Oral; Grade View: Grade 1; Insertion Attempts: 1; Placement Verification: Bilateral breath sounds, Positive ETCO2, Symmetrical chest wall movement; Removal Date: 10/26/23; Removal Time: 11310/26/23 09 by Delfina Cheng R.N. 10/26/23 113 by Darrion Victor APRN, CRNA documented in this encounter Social History Tobacco Use Types Packs/Day Years Used Date Smoking Tobacco: Never Smokeless Tobacco: Never Alcohol Use Standard Drinks/Week Comments No 0 (1 standard drink = 0.6 oz pur e alcohol) socially Nutrition Answer Date Recorded Nutrition: EVOO Fat Source Unknown 11/24 Nutrition: Servings of Fruits/Vegetables per Day Not on file 11/24/2020 Dental Answer Date Recorded Dental: Regular Dentist Unknown 11/25/19 21 Sex and Gender Information Value Date Recorded Sex Assigned at Female 08/20/2018 8:53 AM RETAIL MARKETING EXECUTIVE Gender Identity Female 08/20/2018 8:53 AM RETAIL MARKETING EXECUTIVE Sexual Orientation Straight 08/20/2018 8: 53 AM RETAIL MARKETING EXECUTIVE documented as of this encounter OR Notes * Anesthesia Postprocedure Evaluation - Balwinder Cline M.D. - 10/26/2023 3:00 PM CST Patient: Valerie Box Procedure Summary Date: 10/26/23 Room / Location: [place] [id number] / [facility] in [place], [place] Anesthesia Start: 09 Anesthesia Stop: 1148 Procedures: RECONSTRUCTION BREAST WITH IMPLANT, proceed as indicated. (Bilateral) REMOVAL IMPLANT BREAST. (Bilateral) CAPSULOTOMY breast (Bilateral) CAPSULORRHAPHY. (Bilateral) Diagnosis: Absence Of Breast Acquired Bilateral (Absence Breast Acquired Bilateral [Z90.13].) Providers: Denny Bearden M.D. Responsible Provider: Balwinder Cline M.D. Anesthesia Type: general ASA Status: 3 Anesthesia Type: general Last vitals Vitals Value Taken Time BP 137/75 10/26/23 1319 Temp 36.7 ??C 10/26/23 1259 Pulse 88 10/26/23 1319 Resp 16 10/26/23 1319 SpO2 93 % 10/26/23 1319 Vitals shown include unfiled device data. Please reference Vitals flowsheet for most recent vital signs. Anesthesia Post Evaluation Cardiovascular status: hemodynamics (HR & BP) acceptable Respiratory status: patent airway with spontaneous effort Temperature: normothermic Oxygen requirements: nasal cannula Level of consciousness: awake Pain score: pain adequately controlled and/or at baseline Post Op nausea/vomiting: none Hydration status: euvolemic IL MARKETING EXECUTIVE * Anesthesia Procedure Notes - Delfina Cheng RCharles - 10/26/2023 9:14 AM RETAIL MARKETING EXECUTIVE Associated Order(s): Airway Airway Date/Time: 10/26/2023 9:12 AM Performed by: Delfina Cheng RCharles Authorized by: Balwinder Cline M.D. Patient location during procedure: OR / Procedure Area PROCEDURE DETAILS: Mask difficulty assessment: easy mask Final airway type: video laryngoscope Laryngeal Manipulation: no Final best view of glottic structures - Cormack/Lehane Score: grade 1 ETT location: oral VL device: glide scope [place] scope blade size: 3 Tube size: 7 ETT distance at teeth/gum: 21 Oral tube type: standard ETT Cuffed: yes Number of attempt to successful placement: 1 Airway confirmation: bilateral breath sounds, positive ETCO2 and bilateral chest rise PRE PROCEDURE DETAILS: Pre evaluation for airway management: procedure Urgency: elective Preoxygenation: bag valve mask SEDATION / ANESTHESIA Anesthesia method: anesthesia POST PROCEDURE DETAILS: Procedure outcome: successful IL MARKETING EXECUTIVE * Anesthesia Preprocedure Evaluation - Balwinder Cline M.D. - 10/26/2023 8:31 AM CST Preprocedure Anesthesia & H&P Assessment Procedure Summary Date/Time: 10/26/23 0842 Procedures: RECONSTRUCTION BREAST WITH IMPLANT, proceed as indicated. (Bilateral) REMOVAL IMPLANT BREAST. (Bilateral) CAPSULECTOMY BREAST vs CAPSULOTOMY. (Bilateral) CAPSULORRHAPHY. (Bilateral) Diagnosis: Absence Of Breast Acquired Bilateral [Z90.13] Pre-op diagnosis: Absence Breast Acquired Bilateral [Z90.13]. Location: [place] [address] / [facility] in [place], [place] Providers: Denny Bearden M.D. Pertinent components of the patient's history including current problem list, medical history, surgical history, family history, social history, medications and allergies were reviewed. Present illness and pre-op diagnosis were confirmed. The planned surgery / procedure was verified with the patient / legal guardian. The patient's general health condition remains unchanged RELEVANT COMORBID CONDITIONS Other (+) Morbid Obesity Body Mass Index Greater Than Or Equal To 40 Adult (HCC) OBJECTIVE PHYSICAL EXAMINATION Airway (HEENT) Mallampati: III Cardiovascular Rhythm: Regular Rate: Normal Cardiovascular Assessment: cardiovascular normal Pulmonary Pulmonary Assessment: Clear General / Constitutional General State of Health:: calm ASSESSMENT / PLAN ANESTHESIA PLAN ASA: 3 Anesthesia Plan: general Patient seen and allergies reviewed, anesthesia plan and risks discussed directly with patient /legal guardian or through an excavating supervisor. Risks/Benefits/Alternatives of Blood transfusion discussed with patient / legal guardian, includingan opportunity to ask questions and/or decline some or all transfusion therapies. The patient / legal guardian consented to the use of all blood products, as deemed medically necessary Approval to Proceed: approved for anesthesia IL MARKETING EXECUTIVE documented in this encounter Plan of Treatment Not on file documented as of this encounter Procedures Procedure Name Priority Date/Time Associated Diagnosis Comments LDA ANE ENDOTRACHEAL AIRWAY Routine 10/26/2023 9:12 AM RETAIL MARKETING EXECUTIVE documented in this encounter Results * LDA ANE ENDOTRACHEAL AIRWAY (10/26/2023 9:12 AM RETAIL MARKETING EXECUTIVE) Narrative Delfina Cheng R.N. - 10/26/2023 9:12 AM RETAIL MARKETING EXECUTIVE Delfina Cheng R.N. ? 10/26/2023 ??9:15 AM Airway Date/Time: 10/26/2023 9:12 AM Performed by: Delfina Cheng R.N. Authorized by: Balwinder Cline M.D. ?? Patient location during procedure: OR / Procedure Area PROCEDURE DETAILS: Mask difficulty assessment: easy mask Final airway type: video laryngoscope Laryngeal Manipulation: no ?? Final best view of glottic structures - Cormack/Lehane Score: grade 1 ETT location: oral VL device: glide scope [place] scope blade size: 3 Tube size: 7 ETT distance at teeth/gum: 21 Oral tube type: standard ETT Cuffed: yes Number of attempt to successful placement: 1 Airway confirmation: bilateral breath sounds, positive ETCO2 and bilateral chest rise PRE PROCEDURE DETAILS: Pre evaluation for airway management: procedure Urgency: elective Preoxygenation: bag valve mask SEDATION / ANESTHESIA Anesthesia method: anesthesia POST PROCEDURE DETAILS: ? Procedure outcome: successful ?? Balwinder Cline M.D. ANESTHESIA ORDERABLE S documented in this encounter Visit Diagnoses Not on filedocumented in this encounter Administered Medications Inactive Administered Medications - up to 3 most recent administrations Medication Order MAR Action Action Date Dose Rate Site ceFAZolin injection 2,000 mg (ANCEF) 2,000 mg (rounded from 2,267.5 mg = 25 mg/kg ? 90.7 kg), intravenous, Once, On Alla 10/26/23 at 0915, For 1 dose, Intra-Op, Administer within 1 hour prior to surgical incision If needed, reconstitute vial per package insert instructions. See IVAG for administration guidelines., Drug Monitoring Program: Pharmacist to adjust medication dosing based on indication and drug clearance factors., Indications: Prophylaxis, surgical Given 10/26/2023 9:52 AM RETAIL MARKETING EXECUTIVE 2 g dexAMETHasone injection (DECADRON) intravenous, As needed, Starting on Alla 10/26/23 at 0917, Anesthesia Intra-op Given 10/26/2023 9:17 AM RETAIL MARKETING EXECUTIVE 8 mg fentaNYL injection (SUBLIMAZE) intravenous, As needed, Starting on Alla 10/26/23 at 0909, Anesthesia Intra-op Given 10/26/2023 10:33 AM RETAIL MARKETING EXECUTIVE 25 mcg Given 10/26/2023 9:55 AM RETAIL MARKETING EXECUTIVE 50 mcg Given 10/26/2023 9:19 AM RETAIL MARKETING EXECUTIVE 50 mcg haloperidol lactate injection (HALDOL) intravenous, As needed, Starting on Alla 10/26/23 at 1051, Anesthesia Intra-op Given 10/26/2023 10:51 AM RETAIL MARKETING EXECUTIVE 1 mg ketamine injection (KETALAR) intravenous, As needed, Starting on Alla 10/26/23 at 0952, Anesthesia Intra-op Given 10/26/2023 10:48 AM RETAIL MARKETING EXECUTIVE 10 mg Given 10/26/2023 9:52 AM RETAIL MARKETING EXECUTIVE 20 mg Lactated Ringer's intravenous, Continuous Infusion: Per Instructions PRN, Starting on Alla 10/26/23 at 0906, Anesthesia Intra-op New Bag 10/26/2023 9:06 AM RETAIL MARKETING EXECUTIVE lidocaine (PF) (cardiac) injection intravenous, As needed, Starting on Alla 10/26/23 at 0909, Anesthesia Intra-op Given 10/26/2023 9:09 AM RETAIL MARKETING EXECUTIVE 100 mg ondansetron (PF) injection (ZOFRAN) intravenous, As needed, Starting on Alla 10/26/23 at 1051, Anesthesia Intra-op Given 10/26/2023 10:51 AM RETAIL MARKETING EXECUTIVE 4 mg propofol 10 mg/mL infusion (DIPRIVAN) intravenous, Continuous Infusion: Per Instructions PRN, Starting on Alla 10/26/23 at 0909, Anesthesia Intra-op New Bag 10/26/2023 9:09 AM RETAIL MARKETING EXECUTIVE 125 mcg/kg/min 68.025 mL/hr propofoL injection (DIPRIVAN) intravenous, As needed, Starting on Alla 10/26/23 at 0909, Anesthesia Intra-op Given 10/26/2023 10:48 AM RETAIL MARKETING EXECUTIVE 30 mg Given 10/26/2023 10:43 AM RETAIL MARKETING EXECUTIVE 30 mg Given 10/26/2023 10:33 AM RETAIL MARKETING EXECUTIVE 30 mg succinylcholine (PF) injection (ANECTINE) intravenous, As needed, Starting on Alla 10/26/23 at 0909, Anesthesia Intra-op Given 10/26/2023 9:09 AM RETAIL MARKETING EXECUTIVE 100 mg documented in this encounter Care Teams Tarring Machine Operator Relationship Specialty Start Date End Date Elsewhere, Pcp PCP - General Publication Director 09/25/19 documented as of this encounter
--- OUTSIDE RECORDS SUMMARY | 2024-01-19 12:16 | XMS_ITS | Encounter Summary ---
Author Name Unknown Organization [facility] Address [address] [place] [address] Care Team Providers Care Gauge Machine Operator Name Role Phone Elsewhere, Pcp Primary Care Provider Unavailabl e Reason for Visit * Outpatient (Routine) - Closed Specialty Diagnoses / Procedures Referred By Mily ferrell Referred To Contact Plastic Surgery Tessa Starkey P.A.-Hollis., M.S. [address] [place] [phone] [facility] Referral ID Status Reason Start Date Expiration Date Visits Re quested Visits Authorized [id number] Closed 12/26/2023 06/26/2025 1 1 Encounter Details Date Type Department Care Team (Late st Contact Info) Description 12/28/2023 1:30 PM CDT Office Visit Division of Plastic Surgery in [place], [place] [address] [place] [phone] Tessa Starkey P.ANiko-Hollis., M.S. [address] [place] [phone] Absence Of Breast Acquired Bilateral (Primary Dx) Social History Tobacco Use Types Packs/Day Years Used Date Smoking Tobacco: Never Smokeless Tobacco: Never Alcohol Use Standard Drinks/Week Comments No 0 (1 standard drink = 0.6 oz pur e alcohol) socially [facility] Utilities Answer Date Recorded In the past 12 months has th e Doorman, gas, oil, or water [employer] threatened to shut off services in your home? No 12/26/2023 Exercise Vital Sign Answer Date Recorde d On average, how many days pe r week do you engage in moderate to strenuous exercise (like a brisk walk)? Patient declined On average, how many minutes do you engage in exercise at this level? 0 min 12/26/2023 Hunger Vital Sign Answer Date Recorded Within the past 12 months, y ou worried that your food would run out before you got the money to buy more. Never true 12/26/19 Within the past 12 months, t he food you bought just didn't last and you didn't have money to get more. Never true 12/26/2023 PRAPARE - Transportation Answer Date Re corded In the past 12 months, has l ack of transportation kept you from medical appointments or from getting medications? No 10/2023 In the past 12 months, has l ack of transportation kept you from meetings, work, or from getting things needed for daily living? No 12/26/2023 Nutrition Answer Date Recorded Nutrition: EVOO Fat Source Unknown 12/25 On average, how many serving s of fruits and vegetables do you eat per day (serving size is equal to 1 cup or approximately the size of a tennis ball)? 3-5 12/26/2023 Dental Answer Date Recorded Dental: Regular Dentist Yes 12/26/19 Employment Answer Date Recorded Employment status Retired 12/26/2023 Housing Stability Answer Date Recorded What is your living situation today? I have [facility] to live 12/26/2023 Sex and Gender Information Value Date Recorded Sex Assigned at Female 08/20/2018 8:53 AM WILDLIFE OFFICER Gender Identity Female 08/20/2018 8:53 AM WILDLIFE OFFICER Sexual Orientation Straight 08/20/2018 8: 53 AM WILDLIFE OFFICER documented as of this encounter Progress Notes * Tessa Starkey P.A.-C., M.S. - 12/28/2023 1:30 PM CDT SUBJECTIVE CHIEF COMPLAINT / REASON FOR VISIT 1. Valerie Box is s/p bilateral implant based breast reconstruction with Dr. Son on 10/26/23. 2. History of radiation on right breast 3. C/C: left incision pulling and pain HISTORY OF PRESENT ILLNESS Saranya is a very pleasant 63 y.o. female who presents today for evaluation of left breast incision. She has been experiencing sharp, fleeting pain whenever laying in bed on her right side and pulling her left body over. Other than that, she reports she is doing well. She has no other concerns. She denies having to take pain medication and is not exhibiting any signs/symptoms of infection, specifically fevers, chills, malaise. She reports no change in shape or size of her breasts, no rashes or skin changes. REVIEW OF SYSTEMS Pertinent items noted in HPI. OBJECTIVE Pain 0/10 PHYSICAL EXAMINATION General: Patient is alert and oriented x 3. She does not appear to be in acute distress. Very pleasant. Left Breast: Breast incisions has healed completely. No obvious signs of fluid accumulation or infection noted. Implants are soft and mobile. Lateral chest wall has some palpable scar tissue surrounding the extended incision, no other findings. ASSESSMENT / PLAN 1. Valerie Box is s/p bilateral implant based breast reconstruction with Dr. Son on 10/26/23. 2. History of radiation on right breast 3. C/C: left incision pulling and pain It was a pleasure seeing Valerie Box today in the clinic. Based on the patient's description of pain, I discussed that it is likely due to nerve pain. We discussed how nerves regenerate slowly over time, and because she has had several surgeries in the past, having some discomfort in this area is likely due to this. She understands she should continue washing this area for any notable changes. I advised that she massage this area with a gentle moisturizer to help reduce any scar tissue from forming. We discussed the need for prophylactic antibiotics prior to dental appointments or any other invasive procedures. Signs/symptoms of an infection were reviewed with the patient and she was instructed to call us immediately if any of these occur. Patient will return to clinic in 1 year for annual implant check. Patient has all appropriate phone numbers to call in case she has questions or concerns. Photographs obtained with patient's permission. All questions were asked and answered per patient report. PATIENT EDUCATION Ready to learn, no apparent learning barriers were identified; learning preferences include listening. Explained diagnosis and treatment plan; patient expressed understanding of the content. documented in this encounter Plan of Treatment Not on file documented as of this encounter Visit Diagnoses Diagnosis Absence Of Breast Acquired Bilateral- Primary documented in this encounter Care Teams Gauge Machine Operator Relationship Specialty Start Date End Date Elsewhere, Pcp PCP - General Signal Supervisor 09/25/19 documented as of this encounter
--- OUTSIDE RECORDS SUMMARY | 2024-01-19 12:16 | XMS_ITS | Referral Summary ---
Author Name Unknown Organization [facility] Address [address] [place] [address] Care Team Providers Care Dietary Aid Name Role Phone Elsewhere, Pcp Primary Care Provider Unavailabl e Source Comments Patient records contain information from all sites at [facility]. For routine questions regarding patient records, call [phone] during business hours, M-F 8:00 AM - 5:00 PM Central Time. Record requests for emergency care only can be directed to [phone] at any time.[facility] Encounters Date Type Department Care Team Description 12/28/2023 12:00 PM CDT Ancillary Procedure Department of Plastic and Reconstructive Surgery 12/28/2023 1:30 PM CDT Office Visit Division of Plastic Surgery in [place], [place] [address] [place] [phone] Tessa Starkey P.A.-C., M.S. Absence Of Breast Acquired Bilateral (Primary Dx) 12/27/2023 2:30 PM CDT Clinical Communication Virtual Review in [place], [place] 200 [place] [address] Pre-visit Intake 12/26/2023 Orders Only Division of Plastic Surgery in [place], [place] [address] [place] [phone] Tessa Starkey P.Nacho.Chantale., M.S. 11/24/2023 Abstract [place], [place] [address] [place] [phone] Provider, Historical 11/24/2023 Ancillary Procedure Department of Plastic and Reconstructive Surgery 11/24/2023 1:00 PM CORPORATE LIBRARIAN Office Visit Division of Plastic Surgery in [place], [place] [address] [place] [phone] Tessa Starkey P.A.-Hollis., M.S. Absence Of Breast Acquired Bilateral (Primary Dx) 11/22/2023 8:30 AM CORPORATE LIBRARIAN Clinical Communication Virtual Review in [place], [place] 200 [place] [address] Pre-visit Intake 11/10/2023 Ancillary Procedure Department of Plastic and Reconstructive Surgery 11/10/2023 11:30 AM CORPORATE LIBRARIAN Office Visit Division of Plastic Surgery in [place], [place] [address] [place] [phone] Tessa Starkey P.A.-C., M.S. Absence Of Breast Acquired Bilateral (Primary Dx) 10/26/2023 9:01 AM CORPORATE LIBRARIAN Anesthesia Event [facility] [address] [place] [address] Balwinder Cline M.D. 10/26/2023 8:42 AM CORPORATE LIBRARIAN - 10/26/2023 12:47 PM CORPORATE LIBRARIAN Surgery [facility] [address] [place] [address] Denny Bearden M.D. RECONSTRUCTION BREAST WITH IMPLANT, proceed as indicated. 10/26/2023 6:04 AM CORPORATE LIBRARIAN - 10/26/2023 1:47 PM CORPORATE LIBRARIAN Hospital Encounter Outpatient Surgery Unit in [place], [place] [address] [place] [phone] Denny Bearden M.D. Discharge Disposition: Home or Self Care 10/23/2023 Ancillary Procedure Department of Plastic and Reconstructive Surgery 10/23/2023 11:16 AM CORPORATE LIBRARIAN - 10/23/2023 11:59 PM CORPORATE LIBRARIAN Hospital Encounter Department of Laboratory Medicine and Pathology, [facility] in [place], [place] [address] [place] [phone] Tessa Starkey P.A.-C., M.S. Absence Of Breast Acquired Bilateral Discharge Disposition: Home or Self Care 10/23/2023 1:15 PM CORPORATE LIBRARIAN Office Visit Division of Plastic Surgery in [place], [place] [address] [place] [address] Denny Bearden M.D. Absence Of Breast Acquired Bilateral (Primary Dx) from Last 3 Months Allergies Active Allergy Reactions Criticality Noted Date Comments Adhesive Tape-Silicones Other (see comments) 04/20/2017 Contact dermatitis, tape over eyes from previous surgery Amoxicillin-Pot Clavulanate Headache 02/18/2020 Morphine Hallucinations 12/07/2016 Nortriptyline Rash,Other (see comments) 12/13/2006 INTOLERANCE, migraines Oxycodone Nausea Only 02/10/2021 Shellfish Derived Swelling 12/07/2016 ankle swelling Sulfa (Sulfonamide Antibiotics) Hives (Reselect Reaction) 05/18/2004 Medications Medication Sig Dispensed Refills Start Date End Date Status exemestane (AROMASIN) 25 mg tablet Take 1 tablet by mouth daily. 01/17/2017 Active clindamycin (CLEOCIN) 150 mg capsule PRIOR TO DENTAL 02/12/2020 Active cranberry 400 mg capsule 2 tablets PO daily 01/06/2021 Active fluocinonide (LIDEX) 0.05 % ointment Twice A Day as needed 05/25/2020 Active LORazepam (ATIVAN) 1 mg tablet 06/23/2021 Active nitrofurantoin (MACRODANTIN) 100 mg capsule Take 1 tablet by mouth after intercourse. 07/01/2021 Active rizatriptan (MAXALT) 10 mg tablet Take 10 mg by mouth as needed for migraine. 01/24/2022 Active estradioL (ESTRACE) 0.1 mg/g (0.01%) vaginal cream Insert 1 g into the vagina 2 (two) times a week. 03/20/2023 Active metroNIDAZOLE (METROLOTION) 0.75 % lotion Apply topically 2 (two) times a day. 03/20/2023 Active d-mannose 500 mg capsule Take by mouth daily. 08/01/2022 Active calcium carbonate-vitamin D3 500 mg-3.125 mcg (125 unit) per tablet Take 1 tablet by mouth 2 (two) times a day. Active levothyroxine (SYNTHROID, LEVOTHROID) 112 mcg tablet Take 1 tablet by mouth every morning before breakfast. 11/09/2023 Active ibuprofen (ADVIL,MOTRIN) 200 mg tablet Take 3 tablets (600 mg total) by mouth every 8 (eight) hours as needed for pain. Hold for 2 days after surgery. May resume taking on 10/29/23 10/26/2023 12/27/2023 Discontinue d (Therapy completed) acetaminophen (TYLENOL) 500 mg tablet Take 2 tablets (1,000 mg total) by mouth every 6 (six) hours as needed for pain (pain) for up to 14 days. 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 Never true 12/26/19 24 Within the past 12 months, t he [...] your living situation today? I have a [facility] place to live 12/26/2023 Sex and Gender Information Value Date Recorded Sex Assigned at Female 08/20/2018 8:53 AM CORPORATE LIBRARIAN Gender Identity Female 08/20/2018 8:53 AM CORPORATE LIBRARIAN Sexual Orientation Straight 08/20/2018 8: 53 AM CORPORATE LIBRARIAN Last Filed Vital Signs Vital Sign Reading Time Taken Comments Blood Pressure 137/75 10/26/2023 1:19 PM CORPORATE LIBRARIAN Pulse 88 10/26/2023 1:19 PM CORPORATE LIBRARIAN Temperature 36.7 ??C (98.1 ??F) 10/26/2023 1 2:59 PM CORPORATE LIBRARIAN Respiratory Rate 16 10/26/2023 1:19 PM CORPORATE LIBRARIAN Oxygen Saturation 94% 10/26/2023 1:19 PM CORPORATE LIBRARIAN Inhaled Oxygen Concentration - - Weight 90.7 kg (199 lb 15.3 oz) 10/26/2023 6:35 AM CORPORATE LIBRARIAN Height 160.5 cm (5' 3.19) 10/26/2023 6:35 AM CS T Body Mass Index 35.21 10/26/2023 6:35 AM CORPORATE LIBRARIAN Plan of Treatment Not on file Medical Devices Implanted Type Area Clinical Therapist Device Identifier Shelf Expiration Date Model / Serial / Lot Breast Smo Rnd High 600cc - [id number] - [id number] Implanted:Qty: 1 on 10/26/2023 by Jatin Covarrubias M.D. at [facility] Breast Implant Left: Other/Legacy - See Implant Description [employer] 07/11/2026 [id number] / [id number] / [place] [employer] Implant 650cc Implanted:Qty: 1 on 10/26/2023 by Jatin Covarrubias M.D. at [facility] Breast Implant Right: Other/Legacy - See Implant Description [employer] [id number] 08/03/2027 350-650 1BC / [id number] / [id number] Conversions - Default Historical Implant Device Implanted:09/25 (Quantity not on file) Hardware e.g. pins/screw s/rods Foot Description:Body Location - Feet. Device Status Text - Hardware. Conversions - Default Historical Implant Device Implanted:11/23 (Quantity not on file) Knee Implant Other/Legacy - See Implant Description Description:Body Location - [email or web address]. Device Status Text - Knee Imp. Alloderm Rtu 2.4 + -.4mm 9.6x19.3cm - Archer [id number] Implanted:Qty: 1 on 12/07/2016 Mesh or Patch Other/Legacy - See Implant Description LifeCell Martell (Use Allergan) Description:Device Manufactu rer - [employer] Martell. Body Location - Other. Left. Device Status Text - [id number]. Alloderm Rtu 2.4 + -.4mm 9.6x19.3cm - Archer [id number] Implanted:Qty: 1 on 12/07/2016 Mesh or Patch Other/Legacy - See Implant Description [employer]Cell [employer]ell (Use Allergan) Description:Device Manufactu rer - [employer]ell. Body Location - Other. Right. Device Status Text - [id number]. Alloderm Rtu 2.4 9.6x19.3cm 185sqcm - Archer [id number] Implanted:Qty: 370 on 12/07/2016 Mesh or Patch LifeCell Martell (Use Allergan) Description:Device Manufactu rer - Lif[employer]ell Martell. Device Status Text - [id number]. Shoulder Implant Shoulder Implant Right: Shoulder Explanted Type Area Clinical Therapist Device Identifier Shelf Expiration Date Model / Serial / Lot Maday Yost 615cc - Archer [id number] Implanted:Qty: 1 on 04/20/2017 Explanted:Qty: 1 on 07/25/2018 at [facility] Breast Implant Other/Legacy - See Implant Description [employer] Description:Device Manufactu rer - [employer] Body Location - Other. Left. Device Status Text - [id number]. Natrelle- Inspira 615cc - Archer [id number] Implanted:Qty: 1 on 04/20/2017 Explanted:Qty: 1 on 10/26/2023 by Denny Bearden M.D. at [facility] Breast Implant Other/Legacy - See Implant Description [employer] Description:Device Manufactu rer - [employer] Body Location - Other. Right. Device Status Text - [id number]. Brst Resp Gel Stysrf 560 - [id number] - [id number] Implanted:Qty: 1 on 07/25/2018 at [facility] Explanted:Qty: 1 on 10/26/2023 by Jatin Covarrubias M.D. at [facility] Breast Implant Left: Other/Legacy - See Implant Description [employer] 03/29/2021 [id number] / [id number] / Natrelle-Expand er Mod Tab 500cc - Archer [id number] Explanted:Qty: 1 on 04/20/2017 Tissue Hr Recruiter Other/Legacy - See Implant Description [employer] Description:Device Manufactu rer - [employer] Inc.. Body Location - Other. Left. Device Status Text - [id number]. Natrelle-Expand er Mod Tab 500cc - Archer [id number] Explanted:Qty: 1 on 04/20/2017 Tissue Hr Recruiter Other/Legacy - See Implant Description [employer] Description:Device Manufactu rer - [employer]gan Inc.. Body Location - Other. Right. Device Status Text - [id number]. Procedures Procedure Name Priority Date/Time Associated Diagnosis Comments PLASTIC AND RECON SURGERY IMAGE EXAM Routine 12/28/2023 12:00 PM CDT PLASTIC AND RECON SURGERY IMAGE EXAM Routine 11/24/2023 12:00 AM CORPORATE LIBRARIAN PLASTIC AND RECON SURGERY IMAGE EXAM Routine 11/10/2023 12:00 AM CORPORATE LIBRARIAN LDA ANE ENDOTRACHEAL AIRWAY Routine 10/26/2023 9:12 AM CORPORATE LIBRARIAN CAPSULORRHAPHY 10/26/2023 8:46 AM CORPORATE LIBRARIAN Absence Of Breast Acquired Bilateral CAPSULECTOMY BREAST 10/26/2023 8 :46 AM CORPORATE LIBRARIAN Absence Of Breast Acquired Bilateral REMOVAL IMPLANT BREAST 8:46 AM CORPORATE LIBRARIAN Absence Of Breast Acquired Bilateral RECONSTRUCTION BREAST WITH IMPLANT 10/26/2023 8:46 AM CORPORATE LIBRARIAN Absence Of Breast Acquired Bilateral CBC WITH DIFFERENTIAL, B Routine 10/23/2023 11:46 AM CORPORATE LIBRARIAN Absence Of Breast Acquired Bilateral BASIC METABOLIC PANEL, S/P Routine 10/23/2023 11:46 AM CORPORATE LIBRARIAN Absence Of Breast Acquired Bilateral PLASTIC AND RECON SURGERY IMAGE EXAM Routine 10/23/2023 12:00 AM CORPORATE LIBRARIAN EXTI THYROID-STIMULATING HORMONE-SENSITIVE (S-TSH), S Routine 04/07/2023 10:30 AM CDT EXTI LIPID PANEL W REFLEX MEASURED LDL Routine 03/07/2023 9:06 AM CDT from Last 3 Months or Most Recently Relevant to Health Maintenance Results * Breast Breast reconstruction-Plastic And Recon Surgery Image Exam (12/28/2023 12:00 PM CDT) Only the most recent of4 resultswithin the time period is included. Narrative IIMS - 12/29/2023 9:12 AM CDT This order has been created and auto-finalized to support the import of images acquired without order. The clinical documentation to support these images can be found on the encounter that produced images. Provider Not In System IMG NON RAD IMAGI NG PROCEDURES IIMS NA * LDA ANE ENDOTRACHEAL AIRWAY (10/26/2023 9:12 AM CORPORATE LIBRARIAN) Narrative Delfina Cheng, R.N. - 10/26/2023 9:12 AM CORPORATE LIBRARIAN Delfina Cheng R.N. ? 10/26/2023 ??9:15 AM [...] ETT location: oral VL device: glide scope Outlook scope blade size: 3 Tube size: 7 [...] ?? Balwinder Cline M.D. ANESTHESIA ORDERABLE S * (ABNORMAL) CBC with Differential, Blood (10/23/2023 11:46 AM CORPORATE LIBRARIAN) Pathologist [facility] Hemoglobin 14.9 11.6 - 15.0 g/dL 10/23/2023 12:28 PM CORPORATE LIBRARIAN DTL Hematocrit 45.8(H) 35.5 - 44.9 % 10/23/2023 12:28 PM CORPORATE LIBRARIAN DTL Erythrocytes 4.94 3.92 - 5.13 x10(12)/L 10/23/2023 12:28 PM CORPORATE LIBRARIAN DTL MCV 92.7 78.2 - 97.9 fL 10/23/2023 12:28 PM CORPORATE LIBRARIAN DTL RBC Distrib Width 13.0 12.2 - 16.1 % 10/23/2023 12:28 PM CORPORATE LIBRARIAN DTL Platelet Count 253 157 - 371 x10(9)/L 10/23/2023 12:28 PM CORPORATE LIBRARIAN DTL Leukocytes 7.1 3.4 - 9.6 x10(9)/L 10/23/2023 12:28 PM CORPORATE LIBRARIAN DTL Neutrophils 4.11 1.56 - 6.45 x10(9)/L 10/23/2023 12:28 PM CORPORATE LIBRARIAN [facility] Lymphocytes 2.10 0.95 - 3.07 x10(9)/L 10/23/2023 12:28 PM CORPORATE LIBRARIAN DTL Monocytes 0.48 0.26 - 0.81 x10(9)/L 10/23/2023 12:28 PM CORPORATE LIBRARIAN DTL Eosinophils 0.32 0.03 - 0.48 x10(9)/L 10/23/2023 12:28 PM CORPORATE LIBRARIAN DTL Basophils 0.04 0.01 - 0.08 x10(9)/L 10/23/2023 12:28 PM CORPORATE LIBRARIAN DTL Blood (Blood, Venous) 10/23/2023 11:46 AM CORPORATE LIBRARIAN 10/23/2023 12:21 PM CORPORATE LIBRARIAN Tessa Starkey P.A.-C., M.S. LAB BLOOD ADD-O N [facility] [address] [place] [address], [facility] DTL [facility] [address] [place] [address] * (ABNORMAL) Basic Metabolic Panel (10/23/2023 11:46 AM CORPORATE LIBRARIAN) Pathologist [facility] Potassium, S 4.6 3.6 - 5.2 mmol/L 10/23/2023 1:10 PM CORPORATE LIBRARIAN DTL Sodium, S 138 135 - 145 mmol/L 10/23/2023 1:10 PM CORPORATE LIBRARIAN DTL Chloride, S 102 98 - 107 mmol/L 10/23/2023 1:10 PM CORPORATE LIBRARIAN DTL Bicarbonate, S 28 22 - 29 mmol/L 10/23/2023 1:10 PM CORPORATE LIBRARIAN DTL Anion Gap 8 7 - 15 10/23/2023 1:10 PM CORPORATE LIBRARIAN DTL BUN (Blood Urea Nitrogen), S 17 6 - 21 mg/dL 10/23/2023 1:10 PM CORPORATE LIBRARIAN DTL Creatinine 0.79 0.59 - 1.04 mg/dL 10/23/2023 1:10 PM CORPORATE LIBRARIAN DTL Estimated GFR (eGFR) 83 >=60 mL/min/BSA 10/23/2023 1:10 PM CORPORATE LIBRARIAN DTL Comment: Estimated GFR calculated using the 2020 CKD_EPI creatinine equation. Calcium, Total, S 10.6(H) 8.8 - 10.2 mg/dL 10/23/2023 1:22 PM CORPORATE LIBRARIAN DTL Glucose, S 90 70 - 140 mg/dL 10/23/2023 1:10 PM CORPORATE LIBRARIAN DTL Blood (Blood, Venous) 10/23/2023 11:46 AM CORPORATE LIBRARIAN 10/23/2023 12:42 PM CORPORATE LIBRARIAN Tessa Starkey P.A.-C., M.S. LAB BLOOD ADD-O N [facility] [address] [place] [address], [place] DTL [facility] [address] [place] [address] from Last 3 Months or Most Recently Relevant to Health Maintenance Advance Directives For more information, please contact: [phone] Documents on File Type Date Recorded Patient Activities Manager Expl anation Advance Directives 11/24/2023 1:07 PM Balwinder Box HCPOA/ADVOCATE/AGENT/R EPRESENTATIVE/SURROGAT E Healthcare Agents on File Name Relationship Healthcare Agent Relationship Communication Balwinder Box Spouse Health Care Agent Favian Box Son First Altern ate Health Care Agent Care Teams Dietary Aid Relationship Specialty Start Date End Date Elsewhere, Pcp PCP - General Extended Day Teacher 09/25/19
--- OUTSIDE RECORDS SUMMARY | 2024-01-19 12:16 | XMS_ITS | Encounter Summary ---
Author Name Unknown Organization [facility] Address [address] [place] [address] Care Team Providers Care Fishery Biologist Name Role Phone Elsewhere, Pcp Primary Care Provider Unavailabl e Encounter Details Date Type Department Care Team (Latest Contact Info) Description 12/28/2023 12:00 PM CDT Ancillary Procedure Department of Plastic and Reconstructive Surgery Social History Tobacco Use Types Packs/Day Years Used Date Smoking Tobacco: Never Smokeless Tobacco: Never Alcohol Use Standard Drinks/Week Comments No 0 (1 standard drink = 0.6 oz pur e alcohol) socially [facility] Utilities Answer Date Recorded In the past 12 months has th e electric, gas, oil, or water [employer] threatened to shut off services in your [...] your living situation today? I have a [facility] place to live 12/26/2023 Sex and Gender Information Value Date Recorded Sex Assigned at Female 08/20/2018 8:53 AM AUTOMATED ACCESS SYSTEMS TECHNICIAN Gender Identity Female 08/20/2018 8:53 AM AUTOMATED ACCESS SYSTEMS TECHNICIAN Sexual Orientation Straight 08/20/2018 8: 53 AM AUTOMATED ACCESS SYSTEMS TECHNICIAN documented as of this encounter Plan of Treatment Not on file documented as of this encounter Procedures Procedure Name Priority Date/Time Associated Diagnosis Comments PLASTIC AND RECON SURGERY IMAGE EXAM Routine 12/28/2023 12:00 PM CDT documented in this encounter Results * Breast Breast reconstruction-Plastic And Recon Surgery Image Exam (12/28/2023 12:00 PM CDT) Narrative IIMS - 12/29/2023 9:12 AM CDT This order has been created and auto-finalized to support the import of images acquired without order. The clinical documentation to support these images can be found on the encounter that produced images. Provider Not In System IMG NON RAD IMAGI NG PROCEDURES IIMS NA documented in this encounter Visit Diagnoses Not on filedocumented in this encounter Care Teams Fishery Biologist Relationship Specialty Start Date End Date Elsewhere, Pcp PCP - General Nematologist 09/25/19 documented as of this encounter
--- OUTSIDE RECORDS SUMMARY | 2024-01-19 12:16 | XMS_ITS ---
Author Name Unknown Organization [facility] Address [address] [place] [address] Care Team Providers Care Inspector Watch Train Name Role Phone Unavailable Unavailable Unavailable Surgery Details Not on file Complications Check Surgery Details section. Procedure Estimated Blood Loss Check Surgery Details section. Procedure Findings Check Surgery Details section. Procedure Specimens Taken Check Surgery Details section.
--- OUTSIDE RECORDS SUMMARY | 2024-01-19 12:16 | XMS_ITS | Encounter Summary ---
Author Name Unknown Organization [facility] Address [address] [place] [address] Care Team Providers Care Overnight Stocker Name Role Phone Elsewhere, Pcp Primary Care Provider Unavailabl e Encounter Details Date Type Department Care Team (Late st Contact Info) Description 11/24/2023 Abstract [place], [place] [address] [place] [phone] Provider, Historical Social History Tobacco Use Types [...] Sex Assigned at Female 08/20/2018 8:53 AM STAFF PHYSICAL THERAPIST Gender Identity Female 08/20/2018 8:53 AM STAFF PHYSICAL THERAPIST Sexual Orientation Straight 08/20/2018 8: 53 AM STAFF PHYSICAL THERAPIST documented as of this encounter Plan of Treatment Not on file documented as of this encounter Visit Diagnoses Not on filedocumented in this encounter Care Teams Overnight Stocker Relationship Specialty Start Date End Date Elsewhere, Pcp PCP - General Pipe Fitter Helper 09/25/19 documented as of this encounter
--- OUTSIDE RECORDS SUMMARY | 2024-01-19 12:16 | XMS_ITS | Encounter Summary ---
Author Name Unknown Organization [facility] Address [address] [place] [address] Care Team Providers Care Electric Pile Driver Operator Name Role Phone Elsewhere, Pcp Primary Care Provider Unavailabl e Reason for Referral * Outpatient (Routine) - Closed Specialty Diagnoses / Procedures Referred By Mily ferrell Referred To Contact Plastic Surgery Tessa Starkey P.A.-C., M.S. [address] [place] [phone] [facility] Referral ID Status Reason Start Date Expiration Date Visits Re quested Visits Authorized [id number] Closed 12/26/2023 06/26/2025 1 1 Scheduling Instructions W/ Tessa Encounter Details Date Type Department Care Team (Late st Contact Info) Description 12/26/2023 Orders Only Division of Plastic Surgery in [place], [place] [address] [place] [phone] Tessa Starkey P.A.-C., M.S. [address] [place] [phone] Social History Tobacco Use Types Packs/Day Years Used Date Smoking Tobacco: Never Smokeless Tobacco: Never Alcohol Use Standard Drinks/Week Comments No 0 (1 standard drink = 0.6 oz pur e alcohol) socially [facility] Utilities Answer Date Recorded In the past 12 months has th e electric, gas, oil, or water company threatened to shut off services in your [...] your living situation today? I have a [facility] place to live 12/26/2023 Sex and Gender Information Value Date Recorded Sex Assigned at Female 08/20/2018 8:53 AM AIR TRAFFIC SUPERVISOR Gender Identity Female 08/20/2018 8:53 AM AIR TRAFFIC SUPERVISOR Sexual Orientation Straight 08/20/2018 8: 53 AM AIR TRAFFIC SUPERVISOR documented as of this encounter Plan of Treatment Scheduled Referrals Name Type Priority Associated Diagnoses Orde r Schedule Plastic Surgery office visit (clinic) Outpatient Referral Routine Expected: 12/26/2023 (Approximate), Expires: 03/26/2025 documented as of this encounter Visit Diagnoses Not on filedocumented in this encounter Care Teams Electric Pile Driver Operator Relationship Specialty Start Date End Date Elsewhere, Pcp PCP - General Senior Test Engineer 09/25/19 documented as of this encounter
--- OUTSIDE RECORDS SUMMARY | 2024-01-19 12:16 | XMS_ITS | Clinical Summary ---
Author Name Unknown Organization [facility] Address [address] [place] [address] Care Team Providers Care Professor Of Sociology Name Role Phone Elsewhere, Pcp Primary Care Provider Unavailabl e Source Comments Patient records contain information from all sites at [facility]. For routine questions regarding patient records, call [phone] during business hours, M-F 8:00 AM - 5:00 PM Central Time. Record requests for emergency care only can be directed to [phone] at any time.[facility] Allergies Active Allergy Reactions Criticality Noted Date [...] Overview: Added automatically from request for surgery [id number] Metastatic Lung Cancer 12/14/2016 Hyperlipidemia 11/11/2016 Morbid Obesity Body Mass Ind ex Greater Than Or Equal To 40 Adult 11/11/2016 Malignant Neoplasm Of Unspec ified Site Of Laterality Unknown Female Breast Adenocarcinoma 05/18/2004 Encounters Date Type Department Care Team Description 12/28/2023 1:30 PM CDT Office Visit Division of Plastic Surgery in [place], [place] [address] [place] [phone] Tessa Starkey P.A.-C., M.S. Absence Of Breast Acquired Bilateral (Primary Dx) 12/28/2023 12:00 PM CDT Ancillary Procedure Department of Plastic and Reconstructive Surgery 12/27/2023 2:30 PM CDT Clinical Communication Virtual Review in [place], [place] [address] [place] [address] Pre-visit Intake 12/26/2023 Orders Only Division of Plastic Surgery in [place], [place] [address] [place] [phone] Tessa Starkey P.A.-C., M.S. 11/24/2023 1:00 PM SOW FARM MANAGER Office Visit Division of Plastic Surgery in [place], [place] [address] [place] [phone] Tessa Starkey P.A.-C., M.S. Absence Of Breast Acquired Bilateral (Primary Dx) 11/24/2023 [place], [place] [address] [place] [phone] Provider, Historical 11/24/2023 Ancillary Procedure Department of Plastic and Reconstructive Surgery 11/22/2023 8:30 AM SOW FARM MANAGER Clinical Communication Virtual Review in [place], [place] [address] [place] [address] Pre-visit Intake 11/10/2023 11:30 AM SOW FARM MANAGER Office Visit Division of Plastic Surgery in [place], [place] [address] [place] [phone] Tessa Starkey P.Nacho.Chantale., M.S. Absence Of Breast Acquired Bilateral (Primary Dx) 11/10/2023 Ancillary Procedure Department of Plastic and Reconstructive Surgery 10/26/2023 9:01 AM SOW FARM MANAGER Anesthesia Event T [facility] OR [address] [place] [address] Balwinder Cline M.D. 10/26/2023 8:42 AM SOW FARM MANAGER - 10/26/2023 12:47 PM SOW FARM MANAGER Surgery RST [facility] OR [address] [place] [address] Denny Bearden M.D. RECONSTRUCTION BREAST WITH IMPLANT, proceed as indicated. 10/26/2023 6:04 AM SOW FARM MANAGER - 10/26/2023 1:47 PM SOW FARM MANAGER Hospital Encounter Outpatient Surgery Unit in [place], [place] [address] [place] [address] Denny Bearden M.D. Discharge Disposition: Home or Self Care 10/23/2023 1:15 PM SOW FARM MANAGER Office Visit Division of Plastic Surgery in [place], [place] [address] [place] [address] Denny Beadren M.D. Absence Of Breast Acquired Bilateral (Primary Dx) 10/23/2023 11:16 AM SOW FARM MANAGER - 10/23/2023 11:59 PM SOW FARM MANAGER Hospital Encounter Department of Laboratory Medicine and Pathology, [facility] in [place], [place] [address] [place] [address] Tessa Starkey P.A.-C., M.S. Absence Of Breast Acquired Bilateral Discharge Disposition: Home or Self Care 10/23/2023 Ancillary Procedure Department of Plastic and Reconstructive Surgery from Last 3 Months Family History Medical History Relation Name Comments Diabetes Father Brendan Orosco Hyperlipidemia Father Brendan Orosco Breast cancer Mother Doris Rogers Dementia Mother Doris Rogers Diabetes Mother Doris Rogers Ulcerative colitis Mother Doris Rogers Relation Name Status Comments Father Brendan Orosco Mother Doris Rogers Social History Tobacco Use Types Packs/Day Years Used Date Smoking Tobacco: Never Smokeless Tobacco: Never Tobacco Cessation:Counseling Given: Not Answered Alcohol Use Standard Drinks/Week Comments No 0 (1 standard drink = 0.6 oz pur e alcohol) socially [facility] Utilities Answer Date Recorded In the past 12 months has [employer], gas, oil, or water [employer] threatened to shut off services in your [...] your living situation today? I have a [facility] place to live 12/26/2023 Sex and Gender Information Value Date Recorded Sex Assigned at Female 08/20/2018 8:53 AM SOW FARM MANAGER Gender Identity Female 08/20/2018 8:53 AM SOW FARM MANAGER Sexual Orientation Straight 08/20/2018 8: 53 AM SOW FARM MANAGER Last Filed Vital Signs Vital Sign Reading Time Taken Comments Blood Pressure 137/75 10/26/2023 1:19 PM SOW FARM MANAGER Pulse 88 10/26/2023 1:19 PM SOW FARM MANAGER Temperature 36.7 ??C (98.1 ??F) 10/26/2023 1 2:59 PM SOW FARM MANAGER Respiratory Rate 16 10/26/2023 1:19 PM SOW FARM MANAGER Oxygen Saturation 94% 10/26/2023 1:19 PM SOW FARM MANAGER Inhaled Oxygen Concentration - - Weight 90.7 kg (199 lb 15.3 oz) 10/26/2023 6:35 AM SOW FARM MANAGER Height 160.5 cm (5' 3.19) 10/26/2023 6:35 AM CS T Body Mass Index 35.21 10/26/2023 6:35 AM SOW FARM MANAGER Plan of Treatment Health Maintenance Due Date Last Done Comments CT Colonography 1959 Cologuard 1959 FIT 1959 HIV Screening 1959 Hepatitis C Screening 1959 Pneumococcal vaccine (0-64 years) (1 of 2 - PCV) 1965 Depression Screening (Annual PHQ-2) 09/25/2023 Lipid (Cholesterol) Screening 03/07/2024 03/07/2023, 02/16/2022, 01/13/2021, Additional history exists Thyroid Stimulating Hormone (TSH) test for thyroid function 04/07/2024 04/07/2023, 03/07/2023, 02/16/2022, Additional history exists Fasting Glucose for Diabetes Screening 10/23/2026 10/23/2023, 03/07/2023, 02/16/2022, Additional history exists Colonoscopy 03/06/2027 03/06/2017 Colorectal Cancer Screening 03/06/2027 DTaP,Tdap,and Td Vaccines (3 - Td or Tdap) 01/13/2031 01/13/2021, 02/08/2011 Zoster Vaccines Completed 04/25/2019, 01/25/2019 COVID-19 Vaccine Completed 08/08/2023, , 02/16/2022, Additional history exists Influenza Vaccine Completed 08/08/2023, , 07/20/2021, Additional history exists HPV Vaccines Aged Out No longer eligi ble based on patient's age to complete this topic Medical Devices Implanted Type Area Art Handler Device Identifier Shelf Expiration Date Model / Serial / Lot Breast Smo Rnd High 600cc - [id number] - [id number] Implanted:Qty: 1 on 10/26/2023 by Jatin Covarrubias M.D. at [facility] Breast Implant Left: Other/Legacy - See Implant Description [employer] 07/11/2026 [id number] / [id number] / [place] [employer] Implant 650cc Implanted:Qty: 1 on 10/26/2023 by Jatin Covarrubias M.D. at [facility] Breast Implant Right: Other/Legacy - See Implant Description [employer] [id number] 08/03/2027 350-650 1BC / [id number] / [id number] Conversions - Default Historical Implant Device Implanted:09/25 (Quantity not on file) Hardware e.g. pins/screw s/rods Foot Description:Body Location - Feet. Device Status Text - Hardware. Conversions - Default Historical Implant Device Implanted:11/23 (Quantity not on file) Knee Implant Other/Legacy - See Implant Description Description:Body Location - miley.TKA's. Device Status Text - Knee Imp. Alloderm Rtu 2.4 + -.4mm 9.6x19.3cm - Archer [id number] Implanted:Qty: 1 on 12/07/2016 Mesh or Patch Other/Legacy - See Implant Description LifeCell Martell (Use Allergan) Description:Device Manufactu rer - Lifecell Martell. Body Location - Other. Left. Device Status Text - [id number]. Alloderm Rtu 2.4 + -.4mm 9.6x19.3cm - Archer [id number] Implanted:Qty: 1 on 12/07/2016 Mesh or Patch Other/Legacy - See Implant Description LifeCell Martell (Use Allergan) Description:Device Manufactu rer - Lifecell Martell. Body Location - Other. Right. Device Status Text - [id number]. Alloderm Rtu 2.4 9.6x19.3cm 185sqcm - Archer [id number] Implanted:Qty: 370 on 12/07/2016 Mesh or Patch LifeCell Martell (Use Allergan) Description:Device Manufactu rer - Lifecell Martell. Device Status Text - [id number]. Shoulder Implant Shoulder Implant Right: Shoulder Explanted Type Area Art Handler Device Identifier Shelf Expiration Date Model / Serial / Lot AbenaFandeavor- e-Zassiira 615cc - Archer [id number] Implanted:Qty: 1 on 04/20/2017 Explanted:Qty: 1 on 07/25/2018 at [facility] Breast Implant Other/Legacy - See Implant Description Allergan Medical Description:Device Manufactu rer - Allergan Inc.. Body Location - Other. Left. Device Status Text - [id number]. Natrelle- Inspira 615cc - Archer [id number] Implanted:Qty: 1 on 04/20/2017 Explanted:Qty: 1 on 10/26/2023 by Denny Bearden M.D. at [facility] Breast Implant Other/Legacy - See Implant Description [employer] Medical Description:Device Manufactu rer - Allergan Inc.. Body Location - Other. Right. Device Status Text - [id number]. Brst Resp Gel Stysrf 560 - [id number] - [id number] Implanted:Qty: 1 on 07/25/2018 at [facility] Explanted:Qty: 1 on 10/26/2023 by Jatin Covarrubias M.D. at [facility] Breast Implant Left: Other/Legacy - See Implant Description Allergan Medical 03/29/2021 [id number] / [id number] / Natrelle-Expand er Mod Tab 500cc - Archer [id number] Explanted:Qty: 1 on 04/20/2017 Tissue Equipment Validation Specialist Other/Legacy - See Implant Description Allergan Medical Description:Device Manufactu rer - Allergan Inc.. Body Location - Other. Left. Device Status Text - [id number]. Natrelle-Expand er Mod Tab 500cc - Archer [id number] Explanted:Qty: 1 on 04/20/2017 Tissue Equipment Validation Specialist Other/Legacy - See Implant Description Allergan Medical Description:Device Manufactu rer - Allergan Inc.. Body Location - Other. Right. Device Status Text - [id number]. Procedures Procedure Name Priority Date/Time Associated Diagnosis Comments PLASTIC AND RECON SURGERY IMAGE EXAM Routine 12/28/2023 12:00 PM CDT PLASTIC AND RECON SURGERY IMAGE EXAM Routine 11/24/2023 12:00 AM SOW FARM MANAGER PLASTIC AND RECON SURGERY IMAGE EXAM Routine 11/10/2023 12:00 AM SOW FARM MANAGER LDA ANE ENDOTRACHEAL AIRWAY Routine 10/26/2023 9:12 AM SOW FARM MANAGER CAPSULORRHAPHY 10/26/2023 8:46 AM SOW FARM MANAGER Absence Of Breast Acquired Bilateral CAPSULECTOMY BREAST 10/26/2023 8 :46 AM SOW FARM MANAGER Absence Of Breast Acquired Bilateral REMOVAL IMPLANT BREAST 8:46 AM SOW FARM MANAGER Absence Of Breast Acquired Bilateral RECONSTRUCTION BREAST WITH IMPLANT 10/26/2023 8:46 AM SOW FARM MANAGER Absence Of Breast Acquired Bilateral CBC WITH DIFFERENTIAL, B Routine 10/23/2023 11:46 AM SOW FARM MANAGER Absence Of Breast Acquired Bilateral BASIC METABOLIC PANEL, S/P Routine 10/23/2023 11:46 AM SOW FARM MANAGER Absence Of Breast Acquired Bilateral PLASTIC AND RECON SURGERY IMAGE EXAM Routine 10/23/2023 12:00 AM SOW FARM MANAGER EXTI THYROID-STIMULATING HORMONE-SENSITIVE (S-TSH), S Routine 04/07/2023 [...] System IMG NON RAD IMAGI NG PROCEDURES IIKS NA * LDA ANE ENDOTRACHEAL AIRWAY (10/26/2023 9:12 AM SOW FARM MANAGER) Narrative Delfina Cheng, R.N. - 10/26/2023 9:12 AM SOW FARM MANAGER Delfina Cheng R.N. ? 10/26/2023 ??9:15 AM Airway Date/Time: 10/26/2023 9:12 AM Performed by: Delfina Cheng, R.N. Authorized by: Balwinder Cline M.D. ?? Patient location during procedure: OR / Procedure Area PROCEDURE DETAILS: Mask difficulty assessment: easy mask Final airway type: video laryngoscope Laryngeal Manipulation: no ?? Final best view of glottic structures - Cormack/Lehane Score: grade 1 ETT location: oral VL device: glide scope Gambrills scope blade size: 3 Tube size: 7 [...] CBC with Differential, Blood (10/23/2023 11:46 AM SOW FARM MANAGER) Hemoglobin 14.9 11.6 - 15.0 g/dL 10/23/2023 12:28 PM SOW FARM MANAGER DTL Hematocrit 45.8(H) 35.5 - 44.9 % 10/23/2023 12:28 PM SOW FARM MANAGER DTL Erythrocytes 4.94 3.92 - 5.13 x10(12)/L 10/23/2023 12:28 PM SOW FARM MANAGER DTL MCV 92.7 78.2 - 97.9 fL 10/23/2023 12:28 PM SOW FARM MANAGER DTL RBC Distrib Width 13.0 12.2 - 16.1 % 10/23/2023 12:28 PM SOW FARM MANAGER DTL Platelet Count 253 157 - 371 x10(9)/L 10/23/2023 12:28 PM SOW FARM MANAGER DTL Leukocytes 7.1 3.4 - 9.6 x10(9)/L 10/23/2023 12:28 PM SOW FARM MANAGER DTL Neutrophils 4.11 1.56 - 6.45 x10(9)/L 10/23/2023 12:28 PM SOW FARM MANAGER DHPM Lymphocytes 2.10 0.95 - 3.07 x10(9)/L 10/23/2023 12:28 PM SOW FARM MANAGER DTL Monocytes 0.48 0.26 - 0.81 x10(9)/L 10/23/2023 12:28 PM SOW FARM MANAGER DTL Eosinophils 0.32 0.03 - 0.48 x10(9)/L 10/23/2023 12:28 PM SOW FARM MANAGER DTL Basophils 0.04 0.01 - 0.08 x10(9)/L 10/23/2023 12:28 PM SOW FARM MANAGER DTL Blood (Blood, Venous) 10/23/2023 11:46 AM SOW FARM MANAGER 10/23/2023 12:21 PM SOW FARM MANAGER Tessa Starkey P.A.-C., M.S. LAB BLOOD ADD-O N [facility] [address] [place] [address], [facility] DTL [facility] [address] [place] [address] [facility] [address] [place] [address] * (ABNORMAL) Basic Metabolic Panel (10/23/2023 11:46 AM SOW FARM MANAGER) Potassium, S 4.6 3.6 - 5.2 mmol/L 10/23/2023 1:10 PM SOW FARM MANAGER DTL Sodium, S 138 135 - 145 mmol/L 10/23/2023 1:10 PM SOW FARM MANAGER DTL Chloride, S 102 98 - 107 mmol/L 10/23/2023 1:10 PM SOW FARM MANAGER DTL Bicarbonate, S 28 22 - 29 mmol/L 10/23/2023 1:10 PM SOW FARM MANAGER DTL Anion Gap 8 7 - 15 10/23/2023 1:10 PM SOW FARM MANAGER DTL BUN (Blood Urea Nitrogen), S 17 6 - 21 mg/dL 10/23/2023 1:10 PM SOW FARM MANAGER DTL Creatinine 0.79 0.59 - 1.04 mg/dL 10/23/2023 1:10 PM SOW FARM MANAGER DTL Estimated GFR (eGFR) 83 >=60 mL/min/BSA 10/23/2023 1:10 PM SOW FARM MANAGER DTL Comment: Estimated GFR calculated using the 2020 CKD_EPI creatinine equation. Calcium, Total, S 10.6(H) 8.8 - 10.2 mg/dL 10/23/2023 1:22 PM SOW FARM MANAGER DTL Glucose, S 90 70 - 140 mg/dL 10/23/2023 1:10 PM SOW FARM MANAGER DTL Blood (Blood, Venous) 10/23/2023 11:46 AM SOW FARM MANAGER 10/23/2023 12:42 PM SOW FARM MANAGER Tessa Starkey P.A.-C., M.S. LAB BLOOD ADD-O N [facility] [address] [place] [address], [place] DTL [facility] [address] [place] [address] from Last 3 Months or Most Recently Relevant to Health Maintenance Advance Directives For more information, please contact: [phone] Documents on File Type Date Recorded Patient Automatic Bandsaw Tender Expl anation Advance Directives 11/24/2023 1:07 PM Balwinder Box HCPOA/ADVOCATE/AGENT/R EPRESENTATIVE/SURROGAT E Healthcare Agents on File Name Relationship Healthcare Agent Relationship Communication Balwinder Box Spouse Health Care Agent Favian Box Son First Altern ate Health Care Agent Care Teams Professor Of Sociology Relationship Specialty Start Date End Date Elsewhere, Pcp PCP - General Project Geologist 09/25/19
--- OUTSIDE RECORDS SUMMARY | 2024-01-19 12:16 | XMS_ITS | Encounter Summary ---
Author Name Unknown Organization [facility] Address [address] [place] [address] Care Team Providers Care Vp Customer Development Name Role Phone Elsewhere, Pcp Primary Care Provider Unavailabl e Reason for Referral * Outpatient (Routine) - Authorized Specialty Diagnoses / Procedures Referred By Contac t Referred To Contact Plastic Surgery Tessa Starkey P.A.-C., M.S. [address] [place] [phone] [facility] Referral ID Status Reason Start Date Expiration Date V isits Requested Visits Authorized [id number] Authorized 11/24/2023 05/25/2025 1 1 Scheduling Instructions Breast irish PATIONAL THERAPY ASSISTANT Reason for Visit * Outpatient (Routine) - Closed Specialty Diagnoses / Procedures Referred By Contac t Referred To Contact Plastic Surgery Tessa Starkey P.A.-C., M.S. [address] [place] [phone] [facility] Referral ID Status Reason Start Date Expiration Date Visits Re quested Visits Authorized [id number] Closed 11/10/2023 05/11/2025 1 1 Encounter Details Date Type Department Care Team ([facility] st Contact Info) Description 11/24/2023 1:00 PM OCCUPATIONAL THERAPY ASSISTANT Office Visit Division of Plastic Surgery in [place], [place] [address] [place] [address] Tessa Starkey P.A.-C., M.S. [address] [place] [address] Absence Of Breast Acquired Bilateral (Primary Dx) [...] Sex Assigned at Female 08/20/2018 8:53 AM OCCUPATIONAL THERAPY ASSISTANT Gender Identity Female 08/20/2018 8:53 AM OCCUPATIONAL THERAPY ASSISTANT Sexual Orientation Straight 08/20/2018 8: 53 AM OCCUPATIONAL THERAPY ASSISTANT documented as of this encounter Progress Notes * Tessa Starkey P.A.-C., M.S. - 11/24/2023 1:00 PM CST SUBJECTIVE CHIEF COMPLAINT / REASON FOR VISIT 1. Valerie Box is s/p bilateral implant based breast reconstruction with Dr. Son on 10/26/23. 2. History of radiation on right breast 3. Routine post op visit - 4 weeks HISTORY OF PRESENT ILLNESS Saranya is a very pleasant 63 y.o. female who presents today for a routine postop check afterimplant based breast reconstruction. Bilateral implants were removed and replaced, right implant ruptured. Since her last visit, she reports everything is going well. She denies pain and is not taking pain medication. She denies signs/symptoms of infection, specifically fevers, chills, malaise. She reports no changein shape or size of her breasts, no rashes or skin changes. She reports she continues to follow all activity restrictions. She is also wearing her compression bra as instructed. Overall she is recovering well and has no complaints. REVIEW OF SYSTEMS Pertinent items noted in HPI. OBJECTIVE Pain 0/10 PHYSICAL EXAMINATION General: Patient is alert and oriented x 3. She does not appear to be in acute distress. Very pleasant. Breast: Surgical tape intact, removed today. No rashes around surgical tape. Breast incisions appear clean, dry, intact and no erythema or drainage noted. No obvious signs of fluid accumulation or infection noted bilaterally. Implants are soft and mobile bilaterally. Right breast has multiple superficial tyra like nodules, similar to last visit. ASSESSMENT / PLAN 1. Valerie Box is s/p bilateral implant based breast reconstruction with Dr. Son on 10/26/23. 2. History of radiation on right breast 3. Routine post op visit - 4 weeks It was a pleasure seeing Valerie Box today in the clinic. She is recovering as expected after recent operation. As they are four weeks out from surgery, the patient no longer needs to wear compression garments. Recommended wearing a snug sports bra for comfort and support. Patient should avoid wearing underwire bra or push up bra for the next 2-3 months as they distort the breasts. All activity restrictions are now lifted. Recommended slowly getting back to physical activities. She may shower, however, she should not soak in tub/water until she is at least 6-8 weeks from surgery and all incisions have healed, and are without any scabbing or otherwise compromised. We discussed the need for prophylactic antibiotics prior to dental appointments or any other invasive procedures. We discussed signs and symptoms of ruptured implant, flipped implant, PERCY- ALCL, capsular contracture. We will plan on annual implant checks for the patient. If she begins to experienceany symptoms such as change in shape or size of her breasts, pain, swelling of her breast, rashes, or lumps and bumps surrounding her breast area, she should let us know and we would be happy to see her earlier. We discussed the recommendation to have an MRI about 5 years after implant placement. Signs/symptoms of an infection were reviewed with [...] plan; patient expressed understanding of the content. PATIONAL THERAPY ASSISTANT documented in this encounter Plan of Treatment Scheduled Referrals Name Type Priority Associated Diagnoses Orde r Schedule Plastic Surgery office visit (clinic) Outpatient Referral Routine Expected: 11/23/2024 (Approximate), Expires: 02/23/2025 documented as of this encounter Visit Diagnoses Diagnosis Absence Of Breast Acquired Bilateral- Primary documented in this encounter Care Teams Vp Customer Development Relationship Specialty Start Date End Date Elsewhere, Pcp PCP - General Painter And Decorator 09/25/19 documented as of this encounter
--- OUTSIDE RECORDS SUMMARY | 2024-01-19 12:16 | XMS_ITS | Encounter Summary ---
Author Name Unknown Organization [facility] Address [address] [place] [id number] Care Team Providers Care Home Extension Agent Name Role Phone Elsewhere, Pcp Primary Care Provider Unavailabl e Reason for Visit * Reason Onset Date Comments Pre-visit Intake 11/22/2023 Encounter Details Date Type Department Care Team (Latest Contact Info) Description 11/22/2023 8:30 AM TOBACCO BALER Clinical Communication Virtual Review in [place], [place] [address] [place] [address] Pre-visit Intake Social History Tobacco Use Types Packs/Day Years [...] Sex Assigned at Female 08/20/2018 8:53 AM TOBACCO BALER Gender Identity Female 08/20/2018 8:53 AM TOBACCO BALER Sexual Orientation Straight 08/20/2018 8: 53 AM TOBACCO BALER documented as of this encounter Plan of Treatment Not on file documented as of this encounter Visit Diagnoses Not on filedocumented in this encounter Care Teams Home Extension Agent Relationship Specialty Start Date End Date Elsewhere, Pcp PCP - General Supervisor Asbestos Removal 09/25/19 documented as of this encounter
--- OUTSIDE RECORDS SUMMARY | 2024-01-19 12:16 | XMS_ITS | Encounter Summary ---
Author Name Unknown Organization [facility] Address [address] [place] [address] Care Team Providers Care Rotary Envelope Machine Operator Name Role Phone Elsewhere, Pcp Primary Care Provider Unavailabl e Encounter Details Date Type Department Care Team (Late st Contact Info) Description 11/24/2023 Ancillary Procedure Department of Plastic and [...] Sex Assigned at Female 08/20/2018 8:53 AM CARGO AND CONTAINER INSPECTOR Gender Identity Female 08/20/2018 8:53 AM CARGO AND CONTAINER INSPECTOR Sexual Orientation Straight 08/20/2018 8: 53 AM CARGO AND CONTAINER INSPECTOR documented as of this encounter Plan of Treatment Not on file documented as of this encounter Procedures Procedure Name Priority Date/Time Associated Diagnosis Comments PLASTIC AND RECON SURGERY IMAGE EXAM Routine 11/24/2023 12:00 AM CARGO AND CONTAINER INSPECTOR documented in this encounter Results * Breast Implants-Plastic And Recon Surgery Image Exam (11/24/2023 12:00 AM CARGO AND CONTAINER INSPECTOR) Narrative [facility] - 11/24/2023 4:10 PM CARGO AND CONTAINER INSPECTOR This order has been created and auto-finalized to support the import of images acquired without order. The clinical documentation to support these images can be found on the encounter that produced images. Provider Not In System IMG NON RAD IMAGI NG PROCEDURES [facility] NA documented in this encounter Visit Diagnoses Not on filedocumented in this encounter Care Teams Rotary Envelope Machine Operator Relationship Specialty Start Date End Date Elsewhere, Pcp PCP - General Contractor Buyer 09/25/19 documented as of this encounter
--- OUTSIDE RECORDS SUMMARY | 2024-01-19 12:16 | XMS_ITS | Encounter Summary ---
Author Name Unknown Organization [facility] Address [address] [place] [address] Care Team Providers Care Senior Care Assistant Name Role Phone Elsewhere, Pcp Primary Care Provider Unavailabl e Reason for Referral * Outpatient (Routine) - Closed Specialty Diagnoses / Procedures Referred By Contac t Referred To Contact Plastic Surgery Tessa Starkey P.A.-C., M.S. 200 [place] [address] [facility] Referral ID Status Reason Start Date Expiration Date Visits Re quested Visits Authorized [id number] Closed 11/10/2023 05/11/2025 1 1 Scheduling Instructions W/ Tessa IT RISK ANALYTICS MANAGER Reason for Visit * Outpatient (Routine) - Closed Specialty Diagnoses / Procedures Referred By Mily t Referred To Contact Plastic Surgery Tessa Starkey P.A.-C., M.S. [address] [place] [phone] [facility] Referral ID Status Reason Start Date Expiration Date Visits Re quested Visits Authorized [id number] Closed 08/24/2023 08/23/2026 1 1 Encounter Details Date Type Department Care Team ([facility] st Contact Info) Description 11/10/2023 11:30 AM CREDIT RISK ANALYTICS MANAGER Office Visit Division of Plastic Surgery in [place], [place] [address] [place] [address] Tessa Starkey P.A.-C., M.S. [address] [place] [address] Absence Of Breast Acquired Bilateral (Primary Dx) [...] Sex Assigned at Female 08/20/2018 8:53 AM CREDIT RISK ANALYTICS MANAGER Gender Identity Female 08/20/2018 8:53 AM CREDIT RISK ANALYTICS MANAGER Sexual Orientation Straight 08/20/2018 8: 53 AM CREDIT RISK ANALYTICS MANAGER documented as of this encounter Progress Notes * Tessa Starkey P.A.-C., M.S. - 11/10/2023 11:30 AM CST SUBJECTIVE CHIEF COMPLAINT / REASON FOR VISIT 1. Valerie Box is s/p bilateral implant based breast reconstruction with Dr. Son. 2. History of radiation on right breast 3. Routine post op visit - 2 weeks HISTORY OF PRESENT ILLNESS Saranya is a very pleasant 63 y.o. female who presents today for a routine postop check afterimplant based breast reconstruction. Bilateral implants were removed and replaced, right implant ruptured. She reports that the recovery has been going well. She states that pain has been improving. She reports taking Tylenol and Ibuprofen PRN for pain at this time. She denies signs/symptoms of infection, specifically fevers, chills, malaise. She reports no changein shape or size of her breasts, no rashes or skin changes. She reports she continues to follow all activity restrictions. She is also wearing her compression bra as instructed. Overall she is recovering well and has no complaints. She has questions over her right small palpable nodules. REVIEW OF SYSTEMS Pertinent items noted in HPI. OBJECTIVE Pain 0/10 PHYSICAL EXAMINATION General: Patient is alert and oriented x 3. She does not appear to be in acute distress. Very pleasant. Breast: Surgical tape intact. No rashes around surgical tape. Breast incisions appear clean, dry, intact and no erythema or drainage noted. No obvious signs of fluid accumulation or infection noted bilaterally. Implants are soft and mobile bilaterally. Right breast has multiple superficial tyra like nodules. ASSESSMENT / PLAN 1. Valerie Box is s/p bilateral implant based breast reconstruction with Dr. Son. 2. History of radiation on right breast 3. Routine post op visit - 2 weeks It was a pleasure seeing Valerie Box today in the clinic. She is recovering as expected after recent operation. We discussed wearing adequate compression garments 4 weeks post operatively. We discussed limiting physical activity increasing heart rate above 100 bpm as well as activities that require repetitive arm movement for 4 weeks post operatively. She may begin slowly resuming activities afterwards. She may shower, however, she should not soak in tub/water until she is at least 6-8 weeks from surgery and all incisions have healed, and are without any scabbing or otherwise compromised. The patient was instructed to remove brown surgical tape at 4 weeks post operative if they have notfallen off by themselves. If the tape begins to peel, she may trim them back. She had several oncologic questions that I was unable to answer for her. I recommended that she askher oncologist about the medication that she is taking. She has a follow up MRI for the small nodules on her right breast. Signs/symptoms of an infection were reviewed with the patient and she was instructed to call us immediately if any of these occur. Patient will return to clinic in 2 weeks to see me for her next post operative follow up. Patient has all appropriate phone numbers to call in case she has questions or concerns. Photographs obtained with patient's permission. All questions were asked and answered per patient report. PATIENT EDUCATION Ready to learn, no apparent learning barriers were identified; learning preferences include listening. Explained diagnosis and treatment plan; patient expressed understanding of the content. IT RISK ANALYTICS MANAGER documented in this encounter Plan of Treatment Scheduled Referrals Name Type Priority Associated Diagnoses Orde r Schedule Plastic Surgery office visit (clinic) Outpatient Referral Routine Expected: 11/24/2023 (Approximate), Expires: 02/07/2025 documented as of this encounter Visit Diagnoses Diagnosis Absence Of Breast Acquired Bilateral- Primary documented in this encounter Care Teams Senior Care Assistant Relationship Specialty Start Date End Date Elsewhere, Pcp PCP - General Relay Repairer 09/25/19 documented as of this encounter
--- OUTSIDE RECORDS SUMMARY | 2024-01-19 12:16 | XMS_ITS | Encounter Summary ---
Author Name Unknown Organization [facility] Address [address] [place] [address] Care Team Providers Care Wire Brusher Name Role Phone Elsewhere, Pcp Primary Care Provider Unavailabl e Encounter Details Date Type Department Care Team (Late st Contact Info) Description 11/10/2023 Ancillary Procedure Department of Plastic and [...] Sex Assigned at Female 08/20/2018 8:53 AM DROP MACHINE OPERATOR Gender Identity Female 08/20/2018 8:53 AM DROP MACHINE OPERATOR Sexual Orientation Straight 08/20/2018 8: 53 AM DROP MACHINE OPERATOR documented as of this encounter Plan of Treatment Not on file documented as of this encounter Procedures Procedure Name Priority Date/Time Associated Diagnosis Comments PLASTIC AND RECON SURGERY IMAGE EXAM Routine 11/10/2023 12:00 AM DROP MACHINE OPERATOR documented in this encounter Results * Breast Implant Exchange-Plastic And Recon Surgery Image Exam (11/10/2023 12:00 AM DROP MACHINE OPERATOR) Narrative IIMS - 11/10/2023 2:25 PM DROP MACHINE OPERATOR This order has been created and auto-finalized to support the import of images acquired without order. The clinical documentation to support these images can be found on the encounter that produced images. Provider Not In System IMG NON RAD IMAGI NG PROCEDURES [facility]IM[facility] NA documented in this encounter Visit Diagnoses Not on filedocumented in this encounter Care Teams Wire Brusher Relationship Specialty Start Date End Date Elsewhere, Pcp PCP - General Wool Washer Feeder 09/25/19 documented as of this encounter
--- OUTSIDE RECORDS SUMMARY | 2024-01-19 12:16 | XMS_ITS | Encounter Summary ---
Author Name Unknown Organization [facility] Address [address] [place] [address] Care Team Providers Care Internet Merchant Name Role Phone Elsewhere, Pcp Primary Care Provider Unavailabl e Reason for Visit * Reason Onset Date Comments Pre-visit Intake 12/27/2023 Encounter Details Date Type Department Care Team (Latest Contact Info) Description 12/27/2023 2:30 PM CDT Clinical Communication Virtual Review in [place], [place] 200 [place] [address] Pre-visit Intake Social History Tobacco Use Types Packs/Day Years Used Date Smoking Tobacco: Never Smokeless Tobacco: Never Tobacco Cessation:Counseling Given: Not Answered Alcohol Use Standard Drinks/Week Comments No 0 (1 standard drink = 0.6 oz pur e alcohol) socially [facility] Utilities Answer Date Recorded In the past 12 months has [employer] gas, oil, or water [employer] threatened to shut off services in your [...] your living situation today? I have a [facility] place to live 12/26/2023 Sex and Gender Information Value Date Recorded Sex Assigned at Female 08/20/2018 8:53 AM HEAD TURNING MACHINE OPERATOR Gender Identity Female 08/20/2018 8:53 AM HEAD TURNING MACHINE OPERATOR Sexual Orientation Straight 08/20/2018 8: 53 AM HEAD TURNING MACHINE OPERATOR documented as of this encounter Plan of Treatment Not on file documented as of this encounter Visit Diagnoses Not on filedocumented in this encounter Care Teams Internet Merchant Relationship Specialty Start Date End Date Elsewhere, Pcp PCP - General Board Hammer Operator 09/25/19 documented as of this encounter
--- OUTSIDE RECORDS SUMMARY | 2024-01-19 12:17 | XMS_ITS | Encounter Summary ---
Author Name Unknown Organization [facility] Address [address] [place] [address] Care Team Providers Care Market Research Consultant Name Role Phone Elsewhere, Pcp Primary Care Provider Unavailabl e Encounter Details Date Type Department Care Team (Latest Contact Info) Description 10/23/2023 11:16 AM DIAMOND WHEEL MOLDER - 10/23/2023 11:59 PM DIAMOND WHEEL MOLDER Hospital Encounter Department of Laboratory Medicine and Pathology, [facility], in [place], [place] [address] [place] [phone] Tessa Starkey P.A.-C., M.S. [address] [place] [phone] Absence Of Breast Acquired Bilateral Discharge Disposition: Home or Self Care Social History Tobacco Use Types Packs/Day Years Used Date Smoking Tobacco: Never Smokeless Tobacco: Never Alcohol Use Standard Drinks/Week Comments No 0 (1 standard drink = 0.6 oz pur e alcohol) Nutrition Answer Date Recorded Nutrition: EVOO Fat Source Unknown 11/24 Nutrition: Servings of Fruits/Vegetables per Day Not on file 11/24/2020 Dental Answer Date Recorded Dental: Regular Dentist Unknown 11/25/19 21 Sex and Gender Information Value Date Recorded Sex Assigned at Female 08/20/2018 8:53 AM DIAMOND WHEEL MOLDER Gender Identity Female 08/20/2018 8:53 AM DIAMOND WHEEL MOLDER Sexual Orientation Straight 08/20/2018 8: 53 AM DIAMOND WHEEL MOLDER documented as of this encounter Medications at Time of Discharge Medication Sig Dispensed Refills Start Date End Date calcium carbonate-vitamin D3 500 mg-3.125 mcg (125 unit) per tablet Take 1 tablet by mouth 2 (two) times a day. clindamycin (CLEOCIN) 150 mg capsule PRIOR TO DENTAL 02/12/2020 cranberry 400 mg capsule 2 tablets PO daily 01/06/2021 d-mannose 500 mg capsule Take by mouth daily. 08/01/2022 estradioL (ESTRACE) 0.1 mg/g (0.01%) vaginal cream Insert 1 g into the vagina 2 (two) times a week. 03/20/2023 exemestane (AROMASIN) 25 mg tablet Take 1 tablet by mouth daily. 01/17/2017 fluocinonide (LIDEX) 0.05 % ointment Twice A Day as needed 05/25/2020 LORazepam (ATIVAN) 1 mg tablet 06/23/2021 metroNIDAZOLE (METROLOTION) 0.75 % lotion Apply topically 2 (two) times a day. 03/20/2023 nitrofurantoin (MACRODANTIN) 100 mg capsule Take 1 tablet by mouth after intercourse. 07/01/2021 rizatriptan (MAXALT) 10 mg tablet Take 10 mg by mouth as needed for migraine. 01/24/2022 cefadroxil (DURICEF) 500 mg capsule Take 1 capsule (500 mg total) by mouth 2 (two) times a day for 7 days. 14 capsule 10/26/2023 11/02/2023 sennosides-docusate sodium (SENOKOT-S) 8.6-50 mg per tablet Take 1 tablet by mouth 2 (two) times a day for 14 days. Continue taking while you're taking prescription pain medications. Do not take if you're having diarrhea. 10/26/2023 11/09/2023 acetaminophen (TYLENOL) 500 mg tablet Take 2 tablets (1,000 mg total) by mouth every 6 (six) hours as needed for pain. 08/17/2018 10/26/2023 acetaminophen (TYLENOL) 500 mg tablet Take 2 tablets (1,000 mg total) by mouth every 6 (six) hours as needed for pain (pain) for up to 14 days. Take 2 tablets up to four times daily for pain 10/26/2023 12/28/2023 cephalexin (KEFLEX) 500 mg capsule Take 1 Capsule (500 mg) by mouth 2 times daily for 7 days 01/14/2022 10/26/2023 cholecalciferol (VITAMIN D3) 1,000 Unit tablet Take 1,000 Units by mouth daily. 12/04/2009 11/22/2023 cyanocobalamin (VITAMIN B12) 1,000 mcg tablet Take 1 tablet by mouth daily. 01/06/2021 11/22/2023 estrogens, conjugated, (Premarin) 1 g (0.625 mg/gram) vaginal cream Insert into the vagina. 09/20/2021 10/26/2023 fluconazole (DIFLUCAN) 150 mg tablet TAKE ONE TABLET BY MOUTH ONCE FOR 1 DOSE. 01/14/2022 ibuprofen (ADVIL,MOTRIN) 200 mg tablet Take 600 mg by mouth every 8 (eight) hours as needed. for pain 01/13/2017 10/26/2023 ibuprofen (ADVIL,MOTRIN) 200 mg tablet Take 3 tablets (600 mg total) by mouth every 8 (eight) hours as needed for pain. Hold for 2 days after surgery. May resume taking on 10/29/23 10/26/2023 12/27/2023 levothyroxine (SYNTHROID, LEVOTHROID) 112 mcg tablet 02/11/2022 10/26/2023 levothyroxine (SYNTHROID, LEVOTHROID) 125 mcg tablet Take 1 tablet by mouth daily. 05/21/2009 11/22/2023 oxyCODONE (ROXICODONE) 5 mg immediate release tabletIndications:Ac [place] Pain Take 1 tablet (5 mg total) by mouth every 4 (four) hours as needed for pain or moderate pain or score 4-6 of 10 Indication: Acute Pain. 15 tablet 07/25/2018 10/26/2023 sertraline (ZOLOFT) 100 mg tablet Take 1.5 tablets by mouth at bedtime. 04/20/2017 10/26/2023 traMADoL (ULTRAM) 50 mg tabletIndications:Ac [place] Pain Take 1 tablet (50 mg total) by mouth every 6 (six) hours as needed for pain Indications: Acute Pain. 8 tablet 10/26/2023 11/22/2023 triamterene-hydroCHL OROthiazide (DYAZIDE) 37.5-25 mg per capsule Take 1 capsule by mouth daily. 05/29/2018 10/26/2023 verapamil (CALAN-SR) 120 mg ER tablet Take 120 mg by mouth daily. 07/13/2018 10/26/2023 verapamiL (CALAN-SR) 120 mg ER tablet Take 1 tablet by mouth every morning. 01/25/2022 10/26/2023 vitamin E 450 mg (1,000 Unit) capsule Daily 024 vitamin E acetate (VITAMIN E ORAL) Take 2 tablets by mouth daily. 400 unit. 05/21/2009 zoledronic ikbc-lviaimod-wmtde (zoledronic hi-tmofadwm-1.9NaCl) 4 mg/100 mL piggyback Q9thwvof 10/26/2023 documented as of this encounter Plan of Treatment Not on file documented as of this encounter Procedures Procedure Name Priority Date/Time Associated Diagnosis Comments CBC WITH DIFFERENTIAL, B Routine 10/23/2023 11:46 AM DIAMOND WHEEL MOLDER Absence Of Breast Acquired Bilateral BASIC METABOLIC PANEL, S/P Routine 10/23/2023 11:46 AM DIAMOND WHEEL MOLDER Absence Of Breast Acquired Bilateral documented in this encounter Results * (ABNORMAL) CBC with Differential, Blood (10/23/2023 11:46 AM DIAMOND WHEEL MOLDER) Hemoglobin 14.9 11.6 - 15.0 g/dL 10/23/2023 12:28 PM DIAMOND WHEEL MOLDER DTL Hematocrit 45.8(H) 35.5 - 44.9 % 10/23/2023 12:28 PM DIAMOND WHEEL MOLDER DTL Erythrocytes 4.94 3.92 - 5.13 x10(12)/L 10/23/2023 12:28 PM DIAMOND WHEEL MOLDER DTL MCV 92.7 78.2 - 97.9 fL 10/23/2023 12:28 PM DIAMOND WHEEL MOLDER DTL RBC Distrib Width 13.0 12.2 - 16.1 % 10/23/2023 12:28 PM DIAMOND WHEEL MOLDER DTL Platelet Count 253 157 - 371 x10(9)/L 10/23/2023 12:28 PM DIAMOND WHEEL MOLDER DTL Leukocytes 7.1 3.4 - 9.6 x10(9)/L 10/23/2023 12:28 PM DIAMOND WHEEL MOLDER DTL Neutrophils 4.11 1.56 - 6.45 x10(9)/L 10/23/2023 12:28 PM DIAMOND WHEEL MOLDER PM Lymphocytes 2.10 0.95 - 3.07 x10(9)/L 10/23/2023 12:28 PM DIAMOND WHEEL MOLDER DTL Monocytes 0.48 0.26 - 0.81 x10(9)/L 10/23/2023 12:28 PM DIAMOND WHEEL MOLDER DTL Eosinophils 0.32 0.03 - 0.48 x10(9)/L 10/23/2023 12:28 PM DIAMOND WHEEL MOLDER DTL Basophils 0.04 0.01 - 0.08 x10(9)/L 10/23/2023 12:28 PM DIAMOND WHEEL MOLDER DTL Blood (Blood, Venous) 10/23/2023 11:46 AM DIAMOND WHEEL MOLDER 10/23/2023 12:21 PM DIAMOND WHEEL MOLDER Tessa Starkey P.A.-C., M.S. LAB BLOOD ADD-O N [facility] [address] [place] [address], [facility] DTL [facility] [address] [place] [address] * (ABNORMAL) Basic Metabolic Panel (10/23/2023 11:46 AM DIAMOND WHEEL MOLDER) [facility] Potassium, S 4.6 3.6 - 5.2 mmol/L 10/23/2023 1:10 PM DIAMOND WHEEL MOLDER DTL Sodium, S 138 135 - 145 mmol/L 10/23/2023 1:10 PM DIAMOND WHEEL MOLDER DTL Chloride, S 102 98 - 107 mmol/L 10/23/2023 1:10 PM DIAMOND WHEEL MOLDER DTL Bicarbonate, S 28 22 - 29 mmol/L 10/23/2023 1:10 PM DIAMOND WHEEL MOLDER DTL Anion Gap 8 7 - 15 10/23/2023 1:10 PM DIAMOND WHEEL MOLDER DTL BUN (Blood Urea Nitrogen), S 17 6 - 21 mg/dL 10/23/2023 1:10 PM DIAMOND WHEEL MOLDER DTL Creatinine 0.79 0.59 - 1.04 mg/dL 10/23/2023 1:10 PM DIAMOND WHEEL MOLDER DTL Estimated GFR (eGFR) 83 >=60 mL/min/BSA 10/23/2023 1:10 PM DIAMOND WHEEL MOLDER DTL Comment: Estimated GFR calculated using the 2020 CKD_EPI creatinine equation. Calcium, Total, S 10.6(H) 8.8 - 10.2 mg/dL 10/23/2023 1:22 PM DIAMOND WHEEL MOLDER DTL Glucose, S 90 70 - 140 mg/dL 10/23/2023 1:10 PM DIAMOND WHEEL MOLDER DTL Blood (Blood, Venous) 10/23/2023 11:46 AM DIAMOND WHEEL MOLDER 10/23/2023 12:42 PM DIAMOND WHEEL MOLDER Tessa Starkey P.A.-C., M.S. LAB BLOOD ADD-O N [facility] [address] [place] [address], [facility] [address] [place] [address] documented in this encounter Visit Diagnoses Diagnosis Absence Of Breast Acquired Bilateral documented in this encounter Care Teams Market Research Consultant Relationship Specialty Start Date End Date Elsewhere, Pcp PCP - General Senior Architectural Designer 09/25/19 documented as of this encounter
--- OUTSIDE RECORDS SUMMARY | 2024-01-19 12:17 | XMS_ITS | Encounter Summary ---
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 [Z90.13] Procedures NE DELAYED INSRT/RPLC BRST IMPLNT NE RMVL RPTRD BRST IMPLNT NE REV KIMMY CAPSULOTOMY BRST NE GRAFTING OF AUTOLOGOUS FAT BY LIPO 50 CC OR LESS NE GRAFTING OF AUTOLOGOUS FAT BY LIPO EA ADDL 50 CC NE CAPSULORRHAPHY GLENOHUMRL JT MULTI-DIRIONAL INS RECONSTRUCTION BREAST WITH IMPLANT; proceed as indicated REMOVAL IMPLANT BREAST CAPSULECTOMY BREAST INJECTION FAT harvested from abdomen, flanks or thighs Referral ID Status Reason Start Date Expiration Date Visits Re quested Visits Authorized [id number] 1 1 Encounter Details Date Type Department Care Team (Latest Contact Info) Description 10/26/2023 6:04 AM RECEIVING ROOM CLERK - 10/26/2023 1:47 PM RECEIVING ROOM CLERK Hospital Encounter Outpatient Surgery Unit in [place], [place] [address] [place] [address] Denny Bearden M.D. 200 [place] [id number] Discharge Disposition: Home or Self Care Social [...] Sex Assigned at Female 08/20/2018 8:53 AM RECEIVING ROOM CLERK Gender Identity Female 08/20/2018 8:53 AM RECEIVING ROOM CLERK Sexual Orientation Straight 08/20/2018 8: 53 AM RECEIVING ROOM CLERK documented as of this encounter Last Filed Vital Signs Vital Sign Reading Time Taken Comments Blood Pressure 137/75 10/26/2023 1:19 PM RECEIVING ROOM CLERK Pulse 88 10/26/2023 1:19 PM RECEIVING ROOM CLERK Temperature 36.7 ??C (98.1 ??F) 10/26/2023 1 2:59 PM RECEIVING ROOM CLERK Respiratory Rate 16 10/26/2023 1:19 PM RECEIVING ROOM CLERK Oxygen Saturation 94% 10/26/2023 1:19 PM RECEIVING ROOM CLERK Inhaled Oxygen Concentration - - Weight 90.7 kg (199 lb 15.3 oz) 10/26/2023 6:35 AM RECEIVING ROOM CLERK Height 160.5 cm (5' 3.19) 10/26/2023 6:35 AM CS T Body Mass Index 35.21 10/26/2023 6:35 AM RECEIVING ROOM CLERK documented in this encounter Discharge Instructions * Attachments The following attachments cannot be sent through Care Everywhere. * Your Scopolamine Patch (Dutch) documented in this encounter Medications at Time [...] four times daily for pain 10/26/2023 12/28/2023 cholecalciferol (VITAMIN D3) 1,000 Unit tablet Take 1,000 Units by mouth daily. 12/04/2009 11/22/2023 cyanocobalamin (VITAMIN B12) 1,000 mcg tablet Take 1 tablet by mouth daily. 01/06/2021 11/22/2023 ibuprofen (ADVIL,MOTRIN) 200 mg tablet Take 3 tablets (600 mg total) by mouth every 8 (eight) hours as needed for pain. Hold for 2 days after surgery. May resume taking on 10/29/23 10/26/2023 12/27/2023 levothyroxine (SYNTHROID, LEVOTHROID) 125 mcg tablet Take 1 tablet by mouth daily. 05/21/2009 11/22/2023 traMADoL (ULTRAM) 50 mg tabletIndications:Ac ben Pain Take 1 tablet (50 mg total) by mouth every 6 (six) hours as needed for pain Indications: Acute Pain. 8 tablet 10/26/2023 11/22/2023 documented as of this encounter OR Notes * Op Note - Jatin Covarrubias M.D. - 10/26/2023 9:53 AM CST Pre-op Diagnosis Absence Of Breast Acquired Bilateral Post-op Diagnosis Absence Of Breast Acquired Bilateral Drier Helper A graduate assistant actively participated and was necessary for one or more of the following: opening, exposure and visualization during the case, maintaining hemostasis, wound closure resulting in itssafe and expeditious completion. Findings As expected. Complications None Operative Note Narrative Procedure: Bilateral breast implant exchange due to right breast implant rupture - Right breast: prepectoral Maud Memorygel Smooth Round Ultra high profile 650 cc. Left breast: prepectoral Maud Memorygel Smooth Round High profile 600 cc Left breast lateral capsulorraphy and right breast inferolateral capsulorraphy The patient was seen in the preoperative holding area. Informed consent for the procedure was obtained. The patient was site marked, transferred to the operating room, and placed in the supine position. Sequential compression devices were placed on the bilateral lower extremities. General endotracheal anesthesia was administered. All pressure points were padded. The patient was prepped and drapedin the usual sterile fashion. Preoperative antibiotics were administered. A procedural pause was performed to confirm the correct patient, procedure, and operative site. Attention was brought to the bilateral breasts. Similar procedures were performed on each side. An approximately 5 cm incision was made along the lateral IMF scar using a 10 blade. Bovie cautery was used to bring our dissection down to the implant capsule which was opened with Bovie cautery. The left implant was removed and found to be intact. The right implant was found to be ruptured completely. The bilateral capsules were inspected and appeared benign. On the right breast, the implant was removed and the pocket irrigated multiple times with hydrogen peroxide and all the silicone removed. Superior and superomedial capsulotomies were performed bilaterally. A lateral capsulorraphy performedon the left side and inferolateral capsulorraphy performed on the right side with 2-0 PDS suture. Sizers were used to identify the ideal implant size (see above). Once the implant size was chosen, the permanent implants were opened. The bilateral breast pockets were irrigated with Betadine and vancomycin and gentamycin antibiotic irrigation. The surgeon's gloves were changed. The implants were inserted into the pocket via no touch technique using Garcia funnel. The implant capsule was closed with Vicryl figure of 8 suture. Skin edges were refreshed. A strip of lateral skin was removed bilaterally (full thickness, about 7 cm long) in order to medialize and elevate Skin was then closed with 3-0 Monocryl deep dermal suture followed by 3-0 Stratafix running subcuticular. Dressing were placed on al incisions. The patient was then placed into a well padded edi bra. This marked the conclusion of the case. All counts were correct and there were no apparent complications. The patient was then woken from anesthesia. She tolerated the procedure well and returned to the PACU in stable condition. Triston Mackey M.D. documented in this encounter Plan of Treatment Not on file documented as of this encounter Procedures Procedure Name Priority Date/Time Associated Diagnosis Comments CAPSULORRHAPHY 10/26/2023 8:46 AM RECEIVING ROOM CLERK Absence Of Breast Acquired Bilateral CAPSULECTOMY BREAST 10/26/2023 8 :46 AM RECEIVING ROOM CLERK Absence Of Breast Acquired Bilateral REMOVAL IMPLANT BREAST 8:46 AM RECEIVING ROOM CLERK Absence Of Breast Acquired Bilateral RECONSTRUCTION BREAST WITH IMPLANT 10/26/2023 8:46 AM RECEIVING ROOM CLERK Absence Of Breast Acquired Bilateral documented in this encounter Visit Diagnoses Diagnosis Absence Of Breast Acquired Bilateral- Primary documented in this encounter Admitting Diagnoses Diagnosis Absence Of Breast Acquired Bilateral documented in this encounter Administered Medications Inactive Administered Medications - up to 3 most recent administrations Medication Order MAR Action Action Date Dose Rate Site acetaminophen tablet 1,000 mg (TYLENOL) 1,000 mg, oral, Once as needed, other, If patient has not received in the previous 6 hours, Starting on Alla 10/26/23 at 1147, For 1 dose, PACU (only), Oral unless RASS less than -1 or nausea/vomiting. Do not use if given in last 6 hours Given 10/26/2023 12:10 PM RECEIVING ROOM CLERK 1,000 mg fentaNYL injection 25 mcg (SUBLIMAZE) 25 mcg, intravenous, Every 2 min PRN, moderate pain or score 4-6 of 10, severe pain or score 7-10 of 10, Starting on Alla 10/26/23 at 1147, PACU (only), Up to maximum total dose of 200 mcg Given 10/26/2023 12:16 PM RECEIVING ROOM CLERK 25 mcg Given 10/26/2023 11:53 AM RECEIVING ROOM CLERK 25 mcg gentamicin-vancomycin 160 mg-1 g in NaCl 0.9% 1000 mL irrigation (bottle) irrigation, Once in surgery, OR use only, Starting on Alla 10/26/23 at 0848, For 1 dose, Intra-Op Lactated Ringer's 20 mL/hr, intravenous, Continuous, Starting on Alla 10/26/23 at 0845, Pre-Op Lactated Ringer's 20 mL/hr, intravenous, Continuous, Starting on Alla 10/26/23 at 1030, PACU & Post-Op Continued from OR 10/26/2023 11:55 AM RECEIVING ROOM CLERK 20 mL/hr 20 mL/hr lidocaine 500 mg-EPINEPHrine 1 mg in lactated ringers 1000 mL (TUMESCENT-PLASTICS) solution subcutaneous, Once in surgery, OR use only, Starting on Alla 10/26/23 at 0848, For 1 dose, Intra-Op povidone iodine 0.25% in NaCl 0.9% irrigation solution irrigation, Once in surgery, OR use only, Starting on Alla 10/26/23 at 0848, For 1 dose, Intra-Op, IRRIGATION USE ONLY scopolamine base 1 mg over 3 days 1 patch (TRANSDERM SCOP) 1 patch, transdermal, Administer over 72 Hours, Every 72 hours, First dose on Alla 10/26/23 at 0900, For 1 dose, Pre-Op, Contains 1.5 mg to deliver 1 mg/72 hours. Medication Applied 10/26/2023 8:41 AM RECEIVING ROOM CLERK 1 patch Behind Right Ear traMADoL tablet 100 mg (ULTRAM) 100 mg, oral, Every 4 hours PRN, severe pain or score 7-10 of 10, Starting on Alla 10/26/23 at 1238, Restriction Criteria (Pharmacy will review and approve if criteria met): Use in adults 18 years and older traMADoL tablet 50 mg (ULTRAM) 50 mg, oral, Every 4 hours PRN, moderate pain or score 4-6 of 10, Starting on Alla 10/26/23 at 1238, Restriction Criteria (Pharmacy will review and approve if criteria met): Use in adults 18 years and older tranexamic acid 3 g/75 mL (40 mg/mL) in NaCl 0.9% sterile solution 75 mL 75 mL, topical, Once in surgery, OR use only, Starting on Alla 10/26/23 at 0848, For 1 dose, Intra-Op, For topical, irrigation, or infiltration use ONLY documented in this encounter Active and Recently Administered Medications Times are shown in RECEIVING ROOM CLERK. Scheduled Medication Order 10/24/2023 10/25/2023 10/26/2023 BUPivacaine liposome (PF) 266 mg/20 mL (13.3 mg/mL) injection 20 mL (EXPAREL) 20 mL, infiltration, Once, On Alla 10/26/23 at 0915, For 1 dose, Intra-Op 0915 (Due) ceFAZolin injection 2,000 mg (ANCEF) (COMPLETED) 2,000 mg (rounded from 2,267.5 mg = 25 mg/kg ? 90.7 kg), intravenous, Once, On Alla 10/26/23 at 0915, For 1 dose, Intra-Op, Administer within 1 hour prior to surgical incision If needed, reconstitute vial per package insert instructions. See IVAG for administration guidelines., Drug Monitoring Program: Pharmacist to adjust medication dosing based on indication and drug clearance factors., Indications: Prophylaxis, surgical 0952 (Given - Provid er: Delfina Cheng RCharles) scopolamine base 1 mg over 3 days 1 patch (TRANSDERM SCOP) (CANCELED) 1 patch, transdermal, Administer over 72 Hours, Every 72 hours, First dose on Alla 10/26/23 at 0900, For 1 dose, Pre-Op, Contains 1.5 mg to deliver 1 mg/72 hours. 0841 (Medication Pricila lied - Provider: Meliza Townsend RCharles)1347 (Due: Medication Removed - Provider: Discharge Provider, Automatic - Comment: Time automatically adjusted from order being discontinued) Continuous Medication Order 10/24/2023 10/25/2023 10/26/2023 Lactated Ringer's 20 mL/hr, intravenous, Continuous, Starting on Alla 10/26/23 at 0845, Pre-Op 1155 (Canceled Entry - Provider: Krystle Steele R.N.) Lactated Ringer's 20 mL/hr, intravenous, Continuous, Starting on Alla 10/26/23 at 1030, PACU & Post-Op 1155 (Continued from OR - Provider: Krystle Steele R.N.) PRN Medication Order 10/24/2023 10/25/2023 10/26/2023 acetaminophen tablet 1,000 mg (TYLENOL) (COMPLETED)(Linked Group 1) 1,000 mg, oral, Once as needed, other, If patient has not received in the previous 6 hours, Starting on Alla 10/26/23 at 1147, For 1 dose, PACU (only), Oral unless RASS less than -1 or nausea/vomiting. Do not use if given in last 6 hours 1210 (Given - Provid er: Krystle Steele R.N.) acetaminophen tablet 1,000 mg (TYLENOL) 1,000 mg, oral, Every 6 hours PRN, mild pain or score 1-3 of 10, Starting on Alla 10/26/23 at 1810 BUPivacaine liposome (PF) 20 mL, BUPivacaine 30 mL 50 mL injection (CANCELED) As needed, Starting on Alla 10/26/23 at 1104, Intra-Op 1054 (Given - Provid er: Jatin Mackey M.D. - Comment: bilateral breasts) fentaNYL injection 25 mcg (SUBLIMAZE) (CANCELED) 25 mcg, intravenous, Every 2 min PRN, moderate pain or score 4-6 of 10, severe pain or score 7-10 of 10, Starting on Alla 10/26/23 at 1147, PACU (only), Up to maximum total dose of 200 mcg 1153 (Given - Provid er: Krystle Steele R.N.)1216 (Given - Provider: Krystle Steele R.N.) fentaNYL injection 25 mcg (SUBLIMAZE) 25 mcg, intravenous, Every 30 min PRN, moderate pain or score 4-6 of 10, severe pain or score 7-10 of 10, Starting on Alla 10/26/23 at 1238, For pain uncontrolled 30 minutes after administration of oral medication or if unable to tolerate oral route gentamicin-vancomycin 160 mg-1 g in NaCl 0.9% 1000 mL irrigation (bottle) irrigation, Once in surgery, OR use only, Starting on Alla 10/26/23 at 0848, For 1 dose, Intra-Op haloperidol lactate injection 1 mg (HALDOL) 1 mg, intravenous, Every 6 hours PRN, nausea, vomiting, Starting on Alla 10/26/23 at 1238, For 48 hours, Total of 3 doses in 24 hour period. RASS must be -2 or higher to administer. Reassess for nausea or vomiting after at least 10 minutes. If nausea or vomiting persists administer next ordered antiemetic medications (order for antiemetic medication administration ondansetron then haloperidol then prochlorperazine) lidocaine 500 mg-EPINEPHrine 1 mg in lactated ringers 1000 mL (TUMESCENT-PLASTICS) solution subcutaneous, Once in surgery, OR use only, Starting on Alla 10/26/23 at 0848, For 1 dose, Intra-Op naloxone injection 0.2 mg (NARCAN) 0.2 mg, intravenous, As needed, respiratory depression, Starting on Alla 10/26/23 at 1238, For RASS Score -4 or less, respiratory rate of less than 8 breaths/min. Notify provider/service and rapid response team (if available at institution). ondansetron (PF) injection 4 mg (ZOFRAN) 4 mg, intravenous, Every 6 hours PRN, nausea, vomiting, Starting on Alla 2 at 1238, For 48 hours, Reassess for nausea or vomiting after at least 10 minutes. If nausea or vomiting persists administer next ordered antiemetic medications (order for antiemetic medication administration ondansetron then haloperidol then prochlorperazine). povidone iodine 0.25% in NaCl 0.9% irrigation solution irrigation, Once in surgery, OR use only, Starting on Alla 10/26/23 at 0848, For 1 dose, Intra-Op, IRRIGATION USE ONLY prochlorperazine injection 5 mg (COMPAZINE) 5 mg, intravenous, Every 6 hours PRN, nausea, vomiting, Starting on Alla 2 at 1238, For 48 hours, RASS must be -2 or higher to administer. Reassess for nausea/vomiting after at least 10 minutes. If nausea or vomiting persists administer next ordered antiemetic medications (order for antiemetic medication administration ondansetron then haloperidol then prochlorperazine) traMADoL tablet 100 mg (ULTRAM)(Linked Group 2) 100 mg, oral, Every 4 hours PRN, severe pain or score 7-10 of 10, Starting on Alla 10/26/23 at 1238, Restriction Criteria (Pharmacy will review and approve if criteria met): Use in adults 18 years and older traMADoL tablet 50 mg (ULTRAM)(Linked Group 2) 50 mg, oral, Every 4 hours PRN, moderate pain or score 4-6 of 10, Starting on Alla 10/26/23 at 1238, Restriction Criteria (Pharmacy will review and approve if criteria met): Use in adults 18 years and older tranexamic acid 3 g/75 mL (40 mg/mL) in NaCl 0.9% sterile solution 75 mL 75 mL, topical, Once in surgery, OR use only, Starting on Alla 10/26/23 at 0848, For 1 dose, Intra-Op, For topical, irrigation, or infiltration use ONLY Linked Groups Order Group 1: acetaminophen tablet 1,000 mg (TYLENOL) (COMPLETED)Jump to med 1,000 mg, oral, Once as needed, other, If patient has not received in the previous 6 hours, Starting on Alla 10/26/23 at 1147, For 1 dose, PACU (only), Oral unless RASS less than -1 or nausea/vomiting. Do not use if given in last 6 hours Or acetaminophen injection 1,000 mg (COMPLETED) 1,000 mg, intravenous, at 400 mL/hr, Administer over 15 Minutes, Once as needed, other, If patient has not received in previous 6 hours, Starting on Alla 10/26/23 at 1147, For 1 dose, PACU (only), Oral unless RASS less than -1 or nausea/vomiting. Do not use if given in last 6 hours, Restriction Criteria (Pharmacy will review and approve if criteria met): Unable to take or tolerate medications administered via the enteral route or orally (not just NPO) Group 2: traMADoL tablet 50 mg (ULTRAM)Jump to med 50 mg, oral, Every 4 hours PRN, moderate pain or score 4-6 of 10, Starting on Alla 10/26/23 at 1238, Restriction Criteria (Pharmacy will review and approve if criteria met): Use in adults 18 years and older Or traMADoL tablet 100 mg (ULTRAM)Jump to med 100 mg, oral, Every 4 hours PRN, severe pain or score 7-10 of 10, Starting on Alla 10/26/23 at 1238, Restriction Criteria (Pharmacy will review and approve if criteria met): Use in adults 18 years and older documented in this encounter Care Teams Caravan Park And Camping Ground Manager Relationship Specialty Start Date End Date Elsewhere, Pcp PCP - General Director Of Diagnostic Imaging 09/25/19 documented as of this encounter
--- OUTSIDE RECORDS SUMMARY | 2024-01-19 12:17 | XMS_ITS | Encounter Summary ---
Author Name Unknown Organization [facility] Address [address] [place] [address] Care Team Providers Care Grain Merchandising Manager Name Role Phone Elsewhere, Pcp Primary Care Provider Unavailabl e Reason for Visit * Outpatient (Routine) - Closed Specialty Diagnoses / Procedures Referred By Mily ferrell Referred To Contact Plastic Surgery Tessa Starkey P.A.-C., M.S. [address] [place] [phone] [facility] Referral ID Status Reason Start Date Expiration Date Visits Re quested Visits Authorized [id number] Closed 08/24/2023 08/23/2026 1 1 Encounter Details Date Type Department Care Team ([facility] Contact Info) Description 10/23/2023 1:15 PM OBIEE OBIA SOLUTION ARCHITECT Office Visit Division of Plastic Surgery in [place], [place] [address] [place] [phone] Denny Bearden M.D. [address] [place] [phone] Absence Of Breast Acquired Bilateral (Primary [...] Sex Assigned at Female 08/20/2018 8:53 AM OBIEE OBIA SOLUTION ARCHITECT Gender Identity Female 08/20/2018 8:53 AM OBIEE OBIA SOLUTION ARCHITECT Sexual Orientation Straight 08/20/2018 8: 53 AM OBIEE OBIA SOLUTION ARCHITECT documented as of this encounter Progress Notes * Jatin Covarrubias M.D. - 10/23/2023 1:15 PM CST SUBJECTIVE CHIEF COMPLAINT/REASON FOR VISIT Valerie Box is a 63 y.o. female who presents for evaluation. HISTORY OF PRESENT ILLNESS 63F presenting for preoperative visit for scheduled surgery on 10/26/[address] Son - KIM Implant exchange and fat grafting. Patient has history of right sided breast cancer s/p lumpectomy/radiation 30 years ago c/b recurrence followed by [facility] and TE reconstruction 2016. Her last surgery was on June 2018 where she underwent left implant exchange and fat grafting. Implants in place: R - Inspra 615 cc SRX, L 560 cc SRF. She's had an MRI February 2023 which showed right implant intracapsular rupture and benign appearing breast lesions on the right. She had follow up MRI in August 2023 which showed those lesions are smaller however they saw a new lesion which is likely benign for which the radiologist recommended follow up MRI in 6 months. Patient is happy with size of implants. The following portions of the patient's history were reviewed and updated as appropriate: allergies, current medications, family history, medical history, social history, surgical history and problemlist. Social History Tobacco Use Smoking status: Never Smokeless tobacco: Never REVIEW OF SYSTEMS Negative except as noted in HPI OBJECTIVE PHYSICAL EXAM General: Awake, alert, no acute distress Breasts: Bilaterally well-healed breast incisions. Her implants remain soft to the touch. The skin is mobile with no evidence of major constriction. Scar tissue palpable present on the right breasts'breast splitting scar. ASSESSMENT / PLAN It was a pleasure to see the patient in clinic today. We discussed proceeding with implant exchangehowever we discussed not doing fat grafting. This is because there is a new lesion in the medial upper quadrant seen on the August MRI for which they want repeat MRI in 6 months and we don't want to obscure the results of the MRI in any way. We will do just implant exchange in the upcoming surgery. Once we are assured that the follow up MRI has been obtained and the lesions are benign, we can always do fat grafting in the after the issue of the lesions has been resolved. On the lateral aspects of the breasts we can do lateral capsulorraphy to medialize the implants and help simulate the volume from the fat grafting. If we see anything suspicious during our surgery we would always plan to perform a biopsy and send to pathology. This would be outpatient procedure. We don't anticipate drains. Risks discussed. Patient would like to proceed. All patient questions and concerns were answeredto the best of our ability. The patient was seen and examined with Dr. Son. E OBIA SOLUTION ARCHITECT documented in this encounter Plan of Treatment Not on file documented as of this encounter Visit Diagnoses Diagnosis Absence Of Breast Acquired Bilateral- Primary documented in this encounter Care Teams Grain Merchandising Manager Relationship Specialty Start Date End Date Elsewhere, Pcp PCP - General Risk Assessor 09/25/19 documented as of this encounter
--- OUTSIDE RECORDS SUMMARY | 2024-01-19 12:17 | XMS_ITS | Encounter Summary ---
Author Name Unknown Organization [facility] Address [address] [place] [address] Care Team Providers Care Jewelry Casting Model Maker Name Role Phone Elsewhere, Pcp Primary Care Provider Unavailabl e Encounter Details Date Type Department Care Team (Late st Contact Info) Description 10/11/2023 Clinical Communication Division of Plastic Surgery in [place], [place] [address] [place] [phone] Denny Bearden M.D. [address] [place] [phone] Social History Tobacco Use Types Packs/Day Years [...] Sex Assigned at Female 08/20/2018 8:53 AM FULLER BRUSH MAN Gender Identity Female 08/20/2018 8:53 AM FULLER BRUSH MAN Sexual Orientation Straight 08/20/2018 8: 53 AM FULLER BRUSH MAN documented as of this encounter Plan of Treatment Not on file documented as of this encounter Visit Diagnoses Not on filedocumented in this encounter Care Teams Jewelry Casting Model Maker Relationship Specialty Start Date End Date Elsewhere, Pcp PCP - General Dry House Wheeler 09/25/19 documented as of this encounter
--- OUTSIDE RECORDS SUMMARY | 2024-01-19 12:17 | XMS_ITS | Clinical Summary ---
Author Name Unknown Organization [facility] Address [place], [place] [address] Care Team Providers Care Convalescent Sitter Name Role Phone Javier Moody DPM Unavailable [phone] Staff, Other Clinical Unavailable UnavailGerri Butler Primary Care Provider Allergies Active Allergy Reactions Criticality Noted Date Comments Adhesive Tape-Silicones Other - Describe In Comment Field 04/20/2017 Contact dermatitis Amoxicillin-Pot Clavulanate Headache 02/18/2020 Morphine Hallucinations 12/07/2016 Nortriptyline Sedation 12/13/2006 INTOLERANCE Oxycodone Nausea Only 02/10/2021 Shellfish Derived Edema 06/02/2017 Raw shellfish Ankles swell Sulfa (Sulfonamide Antibiotics) Hives 12/13/2006 Medications Medication Sig Dispensed Refills Start Date End Date Status vitamin e 1,000 unit cap Take by mouth once daily. 0 10/13/2015 Active exemestane (AROMASIN) 25 mg tabletIndications: Ductal carcinoma of right breast (HC) Take 1 tablet by mouth once daily after a meal. 30 tablet 02/14/2020 Active clindamycin (CLEOCIN) 150 mg capsule TAKE 4 CAPSULES BY MOUTH 1 HOUR PRIOR TO DENTAL APPOINTMENT 02/12/2020 Active cholecalciferol (Vitamin D) 1,000 unit capsule Take 1 Capsule (1,000 units) by mouth once daily. 0 01/06/2021 Active cyanocobalamin (Vitamin B-12) 1,000 mcg tablet Take 1 Tablet (1,000 mcg) by mouth once daily. 90 Tablet 3 01/06/2021 Active Cranberry 400 mg capsule 2 tablets PO daily 0 01/06/2021 Active LORazepam (ATIVAN) 1 mg tablet 06/23/2021 Active D-Mannose 99 % powdIndications:Re current UTI As directed 2 g once daily. 60 g 5 07/07/2021 Active rizatriptan (MAXALT) 10 mg tabletIndications: Migraine syndrome TAKE 1 TABLET BY MOUTH AT ONSET. MAY TAKE WITH 2 IBUPROFEN. MAY REPEAT IN 2 HRS IF NEEDED. TAKE NO MORE THAT 2 TABS IN 24HRS. 10 Tablet 8 11/12/2021 Active d-mannose 500 mg cap Take by mouth. 0 08/01/2022 Active nitrofurantoin macrocrystaL (MACRODANTIN) 100 mg capsuleIndications :UTI symptoms Take 1 tablet by mouth after intercourse. 20 Capsule 1 09/22/2022 Active levothyroxine (SYNTHROID) 112 mcg tabletIndications: Hypothyroidism, unspecified type Take 1 Tablet (112 mcg) by mouth once daily. 90 Tablet 3 03/07/2023 Active fluocinonide 0.05% topical (LIDEX) 0.05 % ointmentIndication s:Seborrheic dermatitis, unspecified APPLY TO AFFECTED AREAS TOPICALLY 2 TIMES DAILY. FOR NO MORE THAN 14 DAYS CONSECUTIVELY 60 g 03/07/2023 Active metroNIDAZOLE (METROLOTION) 0.75 % lotn lotionIndications: Skin rash Apply topically to affected area(s) two times daily. 70 mL 3 03/20/2023 Active estradioL (ESTRACE) 0.01% (0.1 mg/g) vaginal creamIndications:U rinary problem Insert 1 g into the vagina every Monday and Monday. 42.5 g 12/08/2023 Active Active Problems Problem Noted Date Diagnosed Date Diverticulitis of large intestine without bleedi ng 08/02/2022 H/O total hysterectomy 01/19/2022 Breast implant status 08/16/2018 Routine adult health maintenance 03/06/2017 Overview: Colonoscopy 02/2017 normal repeat in 10 years Ductal carcinoma of right breast 11/07/2016 Overview: New dx right breast. Hx previous ca right breast. Osteoarthritis 08/15/2014 Overview: Bilateral hands Chronic cholecystitis 01/17/2013 Esophageal reflux 12/26/2012 Overview: Off and on sx over the years EGD 12/2012 normal Low back pain 07/06/2010 Dysthymic disorder 09/28/2007 Overview: Depression Unspecified hypothyroidism 12/13/2006 Migraine, unspecified, witho ut mention of intractable migraine without mention of status migrainosus 12/13/2006 Seborrheic dermatitis, unspecified 12/13/2006 Malignant neoplasm of breast (female), unspecifi ed site 12/13/2006 Malignant neoplasm of breast (female), unspecifi ed site 12/13/2006 Meniere's disease, unspecified 12/13/2000 Malignant neoplasm of breast (female), unspecifi ed site 12/13/1989 Hallux valgus with bunions, right Hammertoe of right foot Plantar fasciitis of right foot Encounters Date Type Department Care Team Description 01/19/2024 Travel 01/19/2024 Nurse Triage [facility] [address] [place] [address] Gerri Serrano PA Constipation; Abdominal Pain from Last 3 Months Immunizations Name Administration Dates Next Due COVID-19 vaccine (Kaai-Bio NTech 30mcg/0.3mL) 12YO+ CAYETANO-SUCROSE PF MDV 02/16/2022 COVID-19 vaccine (Kaai-Bio NTech 30mcg/0.3mL) PFMDV 06/14/2021,12/30/2020,12/09/2020 HepA-HepB (Twinrix) 04/22/2008,11/06/2007,2007 Influenza, IIV4 07/17/2022 Influenza,CCIIV4 PRESERV FREE 06/21/2020 Td (Age >=7 Years) 01/13/2021,06/01/2000 Tdap 02/08/2011 Zoster (Shingrix-RZV, recombinant) 04/25/2019, Family History Medical History Relation Name Comments Depression Brother 1 Brendan Migraines Brother 1 Brendan Spondyloarthropathy Brother 1 Brendan undiffer entiated, started on Enbrel Crohn's disease Brother 2 Jaden Depression Brother 2 Jaden Migraines Brother 2 Jaden Diabetes Father Cancer-breast Maternal Aunt Cancer-breast Maternal Uncle Arthritis Mother Cancer-breast Mother Crohn's disease Mother Diabetes Mother Other Mother MIGRAINE/COLON POLYPS Depression Sister Suicidality Son 1 ALON Alcoholism Son 2 MARKO recovering Relation Name Status Comments Brother 1 Brendan Alive Brother 2 Jaden Alive Father Alive Maternal Aunt Maternal Uncle Mother Alive Other ANANTH Alive SPOUSE Sister Alive Son 1 ALON Son 2 MARKO Alive Social History Tobacco Use Types Packs/Day Years Used Date Smoking Tobacco: Former Cigars Smokeless Tobacco: Never Tobacco Cessation:Counseling Given: Not Answered Alcohol Use Standard Drinks/Week Comments Not Currently 0 (1 standard drink = 0.6 oz pur e alcohol) occasional PHQ-2 Answer Date Recorded PHQ-2 TOTAL SCORE 0 07/01/2021 Social Connections Answer Date Recorded Frequency of Communication with Friends and Fami ly 0 03/07/2023 Financial Resource Strain Answer Date R ecorded Difficulty of Paying Living Expenses 3 03/07/2023 Difficulty of Paying Living Expenses Not on file 03/07/2023 Food Insecurity Answer Date Recorded Worried About Running Out of Food in the Last Ye ar 1 03/07/2023 Transportation Needs Answer Date Record ed Lack of Transportation (Medical) 1 03/07/2023 Housing Stability Answer Date Recorded Unable to Pay for Housing in the Last Year 1 03/07/2023 Sex and Gender Information Value Date Recorded Sex Assigned at Not on file Gender Identity Not on file Sexual Orientation Not on file Obstetrics History Para Term AB IAB SAB Ectopic Multiple Livin g Live Births 2 2 Date Outcome GA Total Labor Labor/2nd/3rd Weight Sex Delivery Anes PTL Delia A1 A5 Name Cl in Last Filed Vital Signs Vital Sign Reading Time Taken Comments Blood Pressure 139/85 06/14/2023 3:03 PM CDT Pulse 87 06/14/2023 3:03 PM CDT Temperature 36.8 ??C (98.3 ??F) 08/01/2022 3:31 PM CS T Respiratory Rate 18 07/07/2021 9:34 AM CDT Oxygen Saturation 96% 06/14/2023 3:03 PM CDT Inhaled Oxygen Concentration - - Weight 94.3 kg (208 lb) 03/07/2023 8:15 AM CDT Height 161 cm (5' 3.39) 03/07/2023 8:15 AM CDT Body Mass Index 36.4 03/07/2023 8:15 AM CDT Plan of Treatment Health Maintenance Due Date Last Done Comments HIV for age 15-65 1974 Depression screening for age 12+ 07/01/2022 07/01/2021, 07/01/2021, 07/01/2021, Additional history exists COVID-19 vaccine series ( season) 2023 07/17/2022, 02/16/2022, 06/14/2021, Additional history exists BMI (ht and wt on same day) for age 18+ 03/07/2024 03/07/2023, 02/16/2022, 01/14/2022, Additional history exists Influenza for age 50-64 05/26/2024 07/17/2022, 06/21 Colonoscopy through age 75 03/06/202703/06, 03/06/2017, 03/06/2017 (Completed outside of [facility]), Additional history exists Lipids for age 45-75 03/07/2028 03/07/2023, 02/16/2022, 01/13/2021, Additional history exists Tetanus booster 01/13/2031 01/13/2021, 01/23, 02/08/2011, Additional history exists Tdap Completed 02/08/2011 Hepatitis C screening for age 18-79 Completed 08/13/2014 Zoster (shingles) series for age 50+ Completed 04/25/2019, 01/25/2019 Pneumococcal series for age 6-64 Aged Out No longer eligible based on patient's age to complete this topic Medical Devices Implanted Type Area Creative Services Intern Device Identifier Shelf Expiration Date Model / Serial / Lot [id number] - [id number] Implanted:Qty: 1 on 06/02/2017 by Javier Moody DPM at [facility] Right: Foot [employer] [id number] / / Description:MTP CP plate [id number] - [id number] Implanted:Qty: 3 on 06/02/2017 by Javier Moody DPM at [facility] Right: Foot [employer] [id number] / / Description:2.7 mm locking s crews, T8 [id number] - [id number] Implanted:Qty: 1 on 06/02/2017 by Javier Moody DPM at [facility] Right: Foot [employer] [id number] / / Description:3.6 mm CP screw, T8 [id number] - [id number] Implanted:Qty: 1 on 06/02/2017 by Javier Moody DPM at [facility] Right: Foot [employer] [id number] / / Description:2.7 mm locking s crew, T8 [id number] - [id number] Implanted:Qty: 1 on 10/02/2017 by Javier Moody DPM at [facility] Left: Foot [employer] [id number] / / N/A Description:MTP CP Plate, le ft T8, 5 Hole [id number] - [id number] Implanted:Qty: 2 on 10/02/2017 by Javier Moody DPM at [facility] Left: Foot [employer] [id number] / / N/A Description:2.7mm Locking Sc rews, T8 [id number] - [id number] Implanted:Qty: 2 on 10/02/2017 by Javier Moody DPM at [facility] Left: Foot [employer] [id number] / / N/A Description:2.7mm Locking Sc rews, T8 Explanted Type Area Creative Services Intern Device Identifier Shelf Expiration Date Model / Serial / Lot [id number] - [id number] Implanted:Qty: 1 Explanted:Qty: 1 on 10/02/2017 at [facility] Left: Foot [employer] [id number] / / N/A Description:3.6mm CP Screws, T8 [id number] - [id number] Explanted:Qty: 1 on 10/02/2017 at [facility] Left: Foot [employer] [id number] / / N/A Description:CP Screws, T8 Procedures Procedure Name Priority Date/Time Associated Diagnosis Comments LIPID PANEL W REFLEX MEASURED LDL Routine 03/07/2023 9:06 AM CDT Screening cholesterol level COLONOSCOPY SCREENING Routine 03/06/2017 12:00 AM CDT Special screening for malignant neoplasms, colon ANTI HCV Routine 08/13/2014 9:30 AM [facility] Need for hepatitis C screening test from Last 3 Months or Most Recently Relevant to Health Maintenance Results * LIPID PANEL W REFLEX MEASURED LDL (03/07/2023 9:06 AM CDT) CHOLESTEROL,TOTAL 184 100 - 199 mg/dL 03/07/2023 7:07 PM CDT [facility] Comment: Cholesterol, Total Reference Ranges Desirable <200 mg/dL Borderline 200-239 mg/dL High >=240 mg/dL TRIGLYCERIDES 78 <150 mg/dL 03/07/2023 7:07 PM CDT [facility] HDL CHOLESTEROL 54 >40 mg/dL 7:07 PM CDT [facility] NON-HDL CHOLESTEROL 130 <145 mg/dl 03/07/2023 7:07 PM CDT [facility] CHOL/HDL RATIO 3.41 <4.50 03/07/2023 7:07 PM CDT [facility] LDL CHOLESTEROL 114 <=130 mg/dL 03/07/2023 7:07 PM CDT [facility] VLDL CHOLESTEROL 16 <=30 mg/dL 03/07/2023 7:07 PM CDT [facility] PROVIDER ORDERED STATUS RANDOM 03/07/2023 7:07 PM CDT [facility] Blood BLOOD SPECIMEN / Unknown Venipuncture / Unknown 03/07/2023 9:06 AM CDT 03/07/2023 9:07 AM CDT Gerri ALVAREZ [facility]STR[facility] [address] [place] [address], * COLONOSCOPY SCREENING (03/06/2017 12:00 AM CDT) Son Hair MD GI PROCEDURE ORD * ANTI HCV (08/13/2014 9:30 AM [facility]) HEPATITIS C ANTIBODY Non-Reacti ve Non-Reacti ve 08/13/2014 8:03 PM [facility] Blood specimen (specimen) BLOOD SPECIMEN / Unknown Add On / Unknown 08/13/2014 9:30 AM [facility] 08/13/2014 4:40 PM [facility] Narrative [facility] - 08/13/2014 8:03 PM [facility] Antibodies to HCV not detected; does not exclude the possibility of exposure to HCV. Jody Davies NP SEND OUTS [facility] [address] [place] [address], from Last 3 Months or Most Recently Relevant to Health Maintenance Advance Directives * Full Code (Latest Code Status on File) Date Activated Date Inactivated Comments 10/02/2017 9:37 AM 10/02/2017 7:57 PM Question Answer Comments Code Status Discussion: Not Discussed * Full Code Date Activated Date Inactivated Comments 06/02/2017 10:56 AM 06/02/2017 2:32 PM Question Answer Comments Code Status Discussion: Not Discussed * Full Code Date Activated Date Inactivated Comments 06/02/2017 6:03 AM 06/02/2017 10:56 AM Question Answer Comments Code Status Discussion: Not Discussed Care Teams Convalescent Sitter Relationship Specialty Start Date End Date Gerri Serrano PA [address] [place] [address] PCP - General Physician Tourist Information Officer 10/25/19 Javier Moody DPM [address] [place] [address] Surgery - Podiatric 09/28/17 Staff, Other Clinical . Plastic Surgery 09/28/17
--- OUTSIDE RECORDS SUMMARY | 2024-01-19 12:17 | XMS_ITS | Encounter Summary ---
Author Name Unknown Organization 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 [Z90.13] Procedures WV DELAYED INSRT/RPLC BRST IMPLNT WV RMVL RPTRD BRST IMPLNT WV REV KIMMY CAPSULOTOMY BRST WV GRAFTING OF AUTOLOGOUS FAT BY LIPO 50 CC OR LESS WV GRAFTING OF AUTOLOGOUS FAT BY LIPO EA ADDL 50 CC WV CAPSULORRHAPHY GLENOHUMRL JT MULTI-DIRIONAL INS RECONSTRUCTION BREAST WITH IMPLANT; proceed as indicated REMOVAL IMPLANT BREAST CAPSULECTOMY BREAST INJECTION FAT harvested from abdomen, flanks or thighs Referral ID Status Reason Start Date Expiration Date Visits Re quested Visits Authorized [id number] 1 1 Encounter Details Date Type Department Care Team (Late st Contact Info) Description 10/26/2023 8:42 AM GERIATRIC ASSISTANT - 10/26/2023 12:47 PM GERIATRIC ASSISTANT Surgery [facility] [address] [place] [address] Denny Bearden M.D. [address] [place] [address] RECONSTRUCTION BREAST WITH IMPLANT, proceed as indicated. Social History Tobacco Use Types Packs/Day Years [...] Sex Assigned at Female 08/20/2018 8:53 AM GERIATRIC ASSISTANT Gender Identity Female 08/20/2018 8:53 AM GERIATRIC ASSISTANT Sexual Orientation Straight 08/20/2018 8: 53 AM GERIATRIC ASSISTANT documented as of this encounter Last Filed Vital Signs Vital Sign Reading Time Taken Comments Blood Pressure 124/70 10/26/2023 12:20 PM GERIATRIC ASSISTANT Pulse 75 10/26/2023 12:20 PM GERIATRIC ASSISTANT Temperature 36.9 ??C (98.4 ??F) 10/26/2023 1 1:45 AM GERIATRIC ASSISTANT Respiratory Rate 14 10/26/2023 12:2 3 PM GERIATRIC ASSISTANT Oxygen Saturation 95% 10/26/2023 12: 20 PM GERIATRIC ASSISTANT Inhaled Oxygen Concentration - - Weight 90.7 kg (199 lb 15.3 oz) 10/26/2023 6:35 AM GERIATRIC ASSISTANT Height 160.5 cm (5' 3.19) 10/26/2023 6:35 AM CS T Body Mass Index 35.21 10/26/2023 6:35 AM GERIATRIC ASSISTANT documented in this encounter Discharge Instructions * Attachments The following attachments cannot be sent through Care Everywhere. * Your Scopolamine Patch (Qatari) documented in this encounter Medications at Time [...] 05/21/2009 11/22/2023 traMADoL (ULTRAM) 50 mg tabletIndications:Ac grayling Pain Take 1 tablet (50 mg total) by mouth every 6 (six) hours as needed for pain Indications: Acute Pain. 8 tablet 10/26/2023 11/22/2023 documented as of this encounter OR Notes * Op Note - Jatin Covarrubias M.D. - 10/26/2023 9:53 AM CST Pre-op Diagnosis Absence Of Breast Acquired Bilateral Post-op Diagnosis Absence Of Breast Acquired Bilateral Block Layer A assistant case manager actively participated and was necessary for one or more of the following: opening, exposure and visualization during the case, maintaining hemostasis, wound closure resulting in itssafe and expeditious completion. Findings As expected. Complications None Operative Note Narrative Procedure: Bilateral breast implant exchange due to right breast implant rupture - Right breast: prepectoral Laughlin Memorygel Smooth Round Ultra high profile 650 cc. Left breast: prepectoral Laughlin Memorygel Smooth Round High profile 600 cc [...] Associated Diagnosis Comments CAPSULORRHAPHY 10/26/2023 8:46 AM GERIATRIC ASSISTANT Absence Of Breast Acquired Bilateral CAPSULECTOMY BREAST 10/26/2023 8 :46 AM GERIATRIC ASSISTANT Absence Of Breast Acquired Bilateral REMOVAL IMPLANT BREAST 8:46 AM GERIATRIC ASSISTANT Absence Of Breast Acquired Bilateral RECONSTRUCTION BREAST WITH IMPLANT 10/26/2023 8:46 AM GERIATRIC ASSISTANT Absence Of Breast Acquired Bilateral documented in this encounter Visit Diagnoses Diagnosis Absence Of Breast Acquired Bilateral- Primary Absence Of Breast Acquired Bilateral documented [...] last 6 hours Given 10/26/2023 12:10 PM GERIATRIC ASSISTANT 1,000 mg BUPivacaine liposome (PF) 20 mL, BUPivacaine 30 mL 50 mL injection As needed, Starting on Alla 10/26/23 at 1104, Intra-Op Given 10/26/2023 10:54 AM GERIATRIC ASSISTANT 50 mL fentaNYL injection 25 mcg (SUBLIMAZE) 25 mcg, intravenous, Every 2 min PRN, moderate pain or score 4-6 of 10, severe pain or score 7-10 of 10, Starting on Alla 10/26/23 at 1147, PACU (only), Up to maximum total dose of 200 mcg Given 10/26/2023 12:16 PM GERIATRIC ASSISTANT 25 mcg Given 10/26/2023 11:53 AM GERIATRIC ASSISTANT 25 mcg gentamicin-vancomycin 160 mg-1 g in [...] Post-Op Continued from OR 10/26/2023 11:55 AM GERIATRIC ASSISTANT 20 mL/hr 20 mL/hr lidocaine 500 mg-EPINEPHrine [...] mg/72 hours. Medication Applied 10/26/2023 8:41 AM GERIATRIC ASSISTANT 1 patch Behind Right Ear traMADoL tablet [...] Recently Administered Medications Times are shown in GERIATRIC ASSISTANT. Scheduled Medication Order 10/24/2023 10/25/2023 10/26/2023 BUPivacaine [...] 0952 (Given - Provid er: Delfina Cheng R.N.) scopolamine base 1 mg over 3 days 1 patch (TRANSDERM SCOP) (CANCELED) 1 patch, transdermal, Administer over 72 Hours, Every 72 hours, First dose on Alla 10/26/23 at 0900, For 1 dose, Pre-Op, Contains 1.5 mg to deliver 1 mg/72 hours. 0841 (Medication Pricila lied - Provider: Meliza Townsend R.N.)5324 (Due: Medication Removed - Provider: Discharge Provider, [...] score 7-10 of 10, Starting on Alla 2/1/24 at 1238, For pain uncontrolled 30 minutes [...] Alla 10/26/23 at 1238, For 48 hours, RASS must [...] older documented in this encounter Care Teams Director Of Housing Relationship Specialty Start Date End Date Elsewhere, Pcp PCP - General Resource Forester 09/25/19 documented as of this encounter
--- OUTSIDE RECORDS SUMMARY | 2024-01-19 12:17 | XMS_ITS | Encounter Summary ---
Author Name Unknown Organization [facility] Address [address] [place] [address] Care Team Providers Care Chute Tender Name Role Phone Elsewhere, Pcp Primary Care Provider Unavailabl e Encounter Details Date Type Department Care Team (Late st Contact Info) Description 10/23/2023 Ancillary Procedure Department of Plastic and [...] Sex Assigned at Female 08/20/2018 8:53 AM MANAGER COMPENSATION Gender Identity Female 08/20/2018 8:53 AM MANAGER COMPENSATION Sexual Orientation Straight 08/20/2018 8: 53 AM MANAGER COMPENSATION documented as of this encounter Plan of Treatment Not on file documented as of this encounter Procedures Procedure Name Priority Date/Time Associated Diagnosis Comments PLASTIC AND RECON SURGERY IMAGE EXAM Routine 10/23/2023 12:00 AM MANAGER COMPENSATION documented in this encounter Results * TRAM Implant Exchange-Plastic And Recon Surgery Image Exam (10/23/2023 12:00 AM MANAGER COMPENSATION) Narrative [facility] - 10/23/2023 3:55 PM MANAGER COMPENSATION This order has been created and auto-finalized to support the import of images acquired without order. The clinical documentation to support these images can be found on the encounter that produced images. Provider Not In System IMG NON RAD IMAGI NG PROCEDURES [facility] NA documented in this encounter Visit Diagnoses Not on filedocumented in this encounter Care Teams Chute Tender Relationship Specialty Start Date End Date Elsewhere, Pcp PCP - General Watershed Manager 09/25/19 documented as of this encounter
[2024-01-19 12:42] LABS: Appearance Urine Cloudy (Clear); Bilirubin Urine 2+ (Negative); Blood Urine 2+ (Negative); Color Urine Dark yellow (Yellow); Glucose Urine Negative (Negative); Ketones Urine 1+ (Negative); Leukocyte Esterase Urine Negative (Negative); Nitrite Urine Negative (Negative); Protein Urine 2+ (Negative); Specific Gravity Urine >= 1.030 (1.000-1.030); Urobilinogen Urine 0.2 (0.2-1.0)
[2024-01-19 12:56] LABS: WBC Urine 0-2 (0-5)
[2024-01-19 12:57] LABS: Bacteria Urine Moderate; Squamous Epithelial Cell Urine Moderate (None-Few)
[2024-01-19 13:08] LABS: Basophils Percent Auto 0.2 % (0.0-3.0); Eosinophils Percent Auto 0.6 % (0.0-7.0); Hematocrit 45.7 % (33.0-51.0); Hemoglobin* 14.8 gm/dL (12.0-16.0); Immature Granulocytes Pct Auto 0.2 %; Lymphocytes Percent Auto 16.3 % (20-44); Mean Corpuscular HGB Conc 32 gm/dL (32-36); Mean Corpuscular Hemoglobin 30 pg (26-34); Mean Corpuscular Volume 91 fL (80-100); Monocytes Percent Auto 7.4 % (0.0-11.0); Neutrophils Percent Auto 75.3 % (42.0-72.0); Platelet Count* 267 K/uL (140-440); RDW Coefficient of Variation % 12.5 % (11.5-15.5); Red Blood Count 5.02 m/uL (4.00-5.20); White Blood Count* 12.39 K/uL (4.50-11.00)
[2024-01-19 13:16] LABS: Slide Review Reflex No
[2024-01-19 13:19] LABS: Chloride* 102 mmol/L (96-114)
[2024-01-19 13:20] LABS: Sodium* 137 mmol/L (135-149)
[2024-01-19 13:22] LABS: Creatinine* 0.7 mg/dL (0.5-1.5); Est. Creatinine Clearance* 47.01; Estimated Glomerular Filt Rate 97 ml/min
[2024-01-19 13:23] LABS: Anion Gap 11 mEq/L (7-15); Blood Urea Nitrogen* 14 mg/dL (7-30); Calcium* 9.9 mg/dL (8.4-10.6); Carbon Dioxide* 24 mmol/L (20-32); Glucose* 97 mg/dL (60-115)
[2024-01-19 13:28] VITALS: PULSE 115; TEMP 36.8; O2SAT 95
--- NOTE | 2024-01-19 14:06 | ED.GENADULT ---
HPI - General Adult General Date Seen: 01/19/24 Chief complaint: Abdominal Pain Stated complaint: thinks its diverticulitis Time Seen by Provider: 01/19/24 11:38 History of Present Illness HPI narrative: Very pleasant 63-year-old female with a history of diverticulitis, osteoarthritis, distant history of breast cancer. She presents to the ER today with concern for abdominal pain. It is affecting her lower abdomen, much more so in the left lower quadrant than the right. It has been in there for 2 or 3 days. No known injury or any clear trigger for it. It comes and goes. And no clear pattern to the discomfort. It is described as a pain and an ache. No other associated symptoms. No fever or chills. No vomiting. She feels like she might be constipated so she has been trying to take some stool softeners but has not had much results. Urination has been normal. Symptoms feel similar to previous episodes of diverticulitis but are more severe. She is worried that something might be wrong or that she might be really constipated and about to rupture: So came here to the ER. Incidentally, on her way to the ER she received a phone call from her father. He was apparently calling to tell her to say rosae. He has been depressed and he is now contemplating suicide. She is very worried about her father. He lives in [place]. She says that her 2 brothers are responding to his calls and it sounds like her brother is a going to make sure that he is safe. Related Data Home Medications Medication Instructions Recorded Confirmed levothyroxine 112 mcg tablet mcg 07/28/22 01/18/24 rizatriptan 10 mg tablet 10 mg PO PRN 07/28/22 01/18/24 calcium carbonate 600 mg-vitamin 1 tab PO BID 01/19/24 01/19/24 D3 5 mcg (200 unit) tablet (Calcium 600 + D(3)) Previous Rx's Medication Instructions Recorded exemestane 25 mg tablet 25 mg PO QDAY breast cancer #90 03/09/23 tabs Allergies Allergy/AdvReac Type Severity Reaction Status Date / Time amoxicillin Allergy Severe Headache Verified 01/19/24 13:47 nortriptyline Allergy Mild intolerance Verified 01/19/24 13:47 shellfish derived Allergy Unknown ankle Verified 01/19/24 13:47 swelling Sulfa (Sulfonamide Allergy Unknown Hives Verified 01/19/24 13:47 Antibiotics) adhesive tape Allergy Verified 01/19/24 13:47 clavulanic acid Allergy Headache Verified 01/19/24 13:47 [From Augmentin] morphine AdvReac Severe Hallucinati Verified 01/19/24 13:47 ng oxycodin Allergy Intermediate severe Uncoded 01/19/24 13:47 migraine PFSH PFSH Medical History (Updated 01/19/24 @ 14:20 by Favian Davis MD) Diverticulitis ?K57.92 - Diverticulitis of intestine, part unspecified, without perforation or abscess without bleeding (ICD-10) Osteoarthritis of right shoulder ?M19.011 - Primary osteoarthritis, right shoulder (ICD-10) Migraine headache ?G43.909 - Migraine, unspecified, not intractable, without status migrainosus (ICD-10) Meniere's disease ?H81.09 - Meniere's disease, unspecified ear (ICD-10) Hypothyroidism ?E03.9 - Hypothyroidism, unspecified (ICD-10) History of depression ?Z86.59 - Personal history of other mental and behavioral disorders (ICD-10) Gastroesophageal reflux disease ?K21.9 - Gastro-esophageal reflux disease without esophagitis (ICD-10) Surgical History (Updated 01/02/24 @ 12:40 by Car Skaggs) History of foot surgery ?Z98.890 - Other specified postprocedural states (ICD-10) History of bilateral mastectomy (11/2016) ?Z90.13 - Acquired absence of bilateral breasts and nipples (ICD-10) H/O arthroscopy of right knee (06/20/03) ?Z98.890 - Other specified postprocedural states (ICD-10) History of bilateral knee arthroplasty (06/03/05) ?Z96.653 - Presence of artificial knee joint, bilateral (ICD-10) 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) ?Z96.611 - Presence of right artificial shoulder joint (ICD-10) H/O arthroscopy of left knee (01/14/05) ?Z98.890 - Other specified postprocedural states (ICD-10) History of partial hysterectomy (~1996) ?Z90.711 - Acquired absence of uterus with remaining cervical stump (ICD-10) Hx laparoscopic cholecystectomy (01/10/13) ?Z90.49 - Acquired absence of other specified parts of digestive tract (ICD-10) Social History Smoking Status: Never smoker Do you use any of these nicotine containing products: None How often do you have a drink containing alcohol: never AUDIT-C Alcohol total score: 0 Non-prescribed substance use: denies use Exam Narrative: Exam Narrative: Constitutional: Appears well-developed and well-nourished. Alert. Tearful and anxious about her father but otherwise polite and converse. Non toxic. HENT: Head: Atraumatic. Nose: Nose normal. Mouth/Throat: Oral mucosa is clear and moist. no trismus. Pharynx normal. Eyes: Conjunctivae normal. EOM normal. Pupils equal, round, and reactive to light. No scleral icterus. Neck: Normal range of motion. Neck supple. No tracheal deviation present. Cardiovascular: Normal rate, regular rhythm. No gallop. No friction rub. No murmur heard. Symmetric radial artery pulses Pulmonary/Chest: Effort normal. No stridor. No respiratory distress. No wheezes. No rales. No rhonchi . No tenderness. Abdominal: Soft. Bowel sounds normal. No distension. No mass. Left lower quadrant > suprapubic> right lower quad tenderness. No upper abdominal tenderness. No CVA tenderness. No Sepulveda sign. No rebound. No guarding. Musculoskeletal: RUE: Normal range of motion. No tenderness. No deformity LUE: Normal range of motion. No tenderness. No deformity RLE: Normal range of motion. No edema. No tenderness. No deformity LLE: Normal range of motion. No edema. No tenderness. No deformity Neurological: Alert and oriented to person, place, and time. Normal strength. CN II-VII intact. No sensory deficit. GCS eye subscore is 4. GCS verbal subscore is 5. GCS motor subscore is 6. Normal coordination Skin: Skin is warm and dry. No rash noted. No pallor. Normal capillary refill. Psychiatric: Normal mood. Anxious and worried about her father. Const: Vital Signs, click to edit/add: Vital Signs - 24 hr 01/19/24 10:48 01/19/24 13:28 Temperature 9.7 F L 98.3 F Pulse Rate [Pulse Oximeter] 115 H 115 H Respiratory Rate 24 Blood Pressure [Le ft Upper Arm] 168/119 H Pulse Oximetry 97 95 Oxygen Delivery Me thod Room Air Room Air Course Vital Signs Vital signs: Initial Vital Signs Temperature 9.7 F L 01/19/24 10:48 Temperature Source Temporal Artery Scan 01/19/24 10:48 Pulse Rate 115 H 01/19/24 10:48 Respiratory Rate 24 01/19/24 10:48 Blood Pressure 168/119 H 01/19/24 10:48 Blood Pressure Mean 135 H 01/19/24 10:48 Blood Pressure Position Sitting 01/19/24 10:48 Pulse Oximetry 97 01/19/24 10:48 Oxygen Delivery Method Room Air 01/19/24 10:48 Vital Signs Temperature 9.7 F L 01/19/24 10:48 Pulse Rate 115 H 01/19/24 10:48 Respiratory Rate 24 01/19/24 10:48 Blood Pressure 168/119 H 01/19/24 10:48 Pulse Oximetry 97 01/19/24 10:48 Oxygen Delivery Method Room Air 01/19/24 10:48 Temperature 98.3 F 01/19/24 13:28 Pulse Rate 115 H 01/19/24 13:28 Respiratory Rate 24 01/19/24 10:48 Blood Pressure 168/119 H 01/19/24 10:48 Pulse Oximetry 95 01/19/24 13:28 Oxygen Delivery Method Room Air 01/19/24 13:28 Medical Decision Making MDM Narrative Medical decision making narrative: Presented to the Emergency Department with left lower quad> right lower quadrant abdominal pain ongoing for the past couple of days. Pain is reminiscent to the patient of previous diverticulitis.. The differential diagnosis of abdominal pain includes: Appendicitis, Bowel Obstruction, Ulcer, Ischemia, Cholecystitis, Diverticulitis, Pancreatitis, UTI, kidney stone, Enteritis/Colitis, amongst many other etiologies. []Laboratory testing does not reveal a cause for the patient's pain. CT imaging does confirm signs of acute uncomplicated sigmoid diverticulitis. White count elevated at 12. She was tachycardic at presentation, probably due to anxiety about her father and also partly due to pain. Otherwise blood pressure stable, afebrile. No clear sepsis physiology. No life threatening cause or need for emergent surgery or hospital admission is detected today. I discussion with the patient about diverticulitis. We discussed that traditional therapy would include antibiotics but recent guidelines studies indicate that antibiotics are not necessary for acute uncomplicated diverticulitis. She was strongly prefer not to have antibiotics. Therefore will treat supportively. She declines any prescription pain killers and plans to treat her pain with Tylenol. Precautions for return to the ER reviewed. Discussed that if she is not improved within 2-3 days, she should be rechecked, and of course come back to the ER immediately if she gets worse. Lab Data Labs: Lab Results 01/19/24 01/19/24 Range/Units 11:44 12:55 WBC 12.39 H (4.50-11.00) K/uL RBC 5.02 (4.00-5.20) m/uL Hgb 14.8 (12.0-16.0) gm/dL Hct 45.7 (33.0-51.0) % MCV 91 (80-100) fL MCH 30 (26-34) pg MCHC 32 (32-36) gm/dL RDW Coeff of Rosemary 12.5 (11.5-15.5) % Plt Count 267 (140-440) K/uL Neut % (Auto) 75.3 H (42.0-72.0) % Lymph % (Auto) 16.3 L (20-44) % Mccormick % (Auto) 7.4 (0.0-11.0) % Eos % (Auto) 0.6 (0.0-7.0) % Baso % (Auto) 0.2 (0.0-3.0) % Neut # (Auto) 9.30 H (1.7-7.0) K/uL Lymph # (Auto) 2.00 (0.90-2.90) K/uL Mccormick # (Auto) 0.90 (0.00-0.90) K/UL Eos # (Auto) 0.10 (0.00-0.50) K/uL Baso # (Auto) 0.00 (0.00-0.30) K/uL Abs Immat Gran (auto) 0.00 (0.00-0.30) K/uL Imm/Tot Granulo (auto) 0.2 % Sodium 137 (135-149) mmol/L Potassium 4.0 (3.6-5.1) mmol/L Chloride 102 (96-114) mmol/L Carbon Dioxide 24 (20-32) mmol/L Anion Gap 11 (7-15) mEq/L BUN 14 (7-30) mg/dL Creatinine 0.7 (0.5-1.5) mg/dL Estimated Creat Clear 47.01 Estimated GFR 97 ml/min Glucose 97 (60-115) mg/dL Calcium 9.9 (8.4-10.6) mg/dL Urine Color Dark yellow (Yellow) Urine Appearance Cloudy A (Clear) Urine pH 6.0 (5.0-8.5) Ur Specific Wallis >= 1.030 (1.000-1.030) Urine Protein 2+ A (Negative) Urine Glucose (UA) Negative (Negative) Urine Ketones 1+ A (Negative) Urine Blood 2+ A (Negative) Urine Nitrite Negative (Negative) Urine Bilirubin 2+ A (Negative) Urine Urobilinogen 0.2 (0.2-1.0) Ur Leukocyte Esterase Negative (Negative) Urine RBC 2-5 A (0-2) Urine WBC 0-2 (0-5) Ur Squamous Epith Cells Moderate A (None-Few) Urine Bacteria Moderate A (None) Imaging Data CT scan - abdomen: Attestation: I have reviewed the pertinent imaging results. Radiologist's impression: IMPRESSION: Acute uncomplicated sigmoid diverticulitis. Other nonacute appearing findings as discussed above. The patient had a similar episode of diverticulitis in this area 07/28/2022 Discharge Plan Discharge Clinical Impression: Diverticulitis Patient Disposition: Home, Self-Care Condition: Stable Instructions: Diverticulitis (DC) Additional Instructions: As we discussed, please come back to the ER right away if you have any worsening symptoms-for instance if you have worsening pain, develops fever or chills, bloody stools, weakness, or if you have any problems. Please follow-up with your regular doctor and recheck within 1 week. Prescriptions: No Action exemestane 25 mg tablet 25 mg PO QDAY Qty: 90 3RF rizatriptan 10 mg tablet 10 mg PO PRN levothyroxine 112 mcg tablet calcium carbonate-vitamin D3 [Calcium 600 + D(3)] 600 mg-5 mcg (200 unit) tablet 1 tab PO BID Follow Up/Referrals: Gerri Serrano PA-C [Primary Care Provider] - Stand Alone Forms: MyHealth Info Instructions
== END 2024-01-19 14:30 | disposition home or self-care (01) ==
PROVIDERS: Emergency Provider Emergency Medicine; PCP Physician Assistant Medical
DX: K57.92 Diverticulitis of intestine, part unspecified, without perforation or abscess without bleeding (principal)
CPT/HCPCS: 36415; 74177; 80048; 81001; 85025; 87086; 99283; 99284; 99285; Q9967

== ENCOUNTER 2024-01-22 17:39 | Outpatient (CLI) | payer OTHER, SELFPAY ==
--- OUTSIDE RECORDS SUMMARY | 2024-01-22 17:42 | XMS_ITS ---
Author Name Unknown Organization [facility] Address [address] [place] [address] Care Team Providers Care Bilingual Teacher Name Role Phone Unavailable Unavailable Unavailable Surgery Details Not on file Complications Check Surgery Details section. Procedure Estimated Blood Loss Check Surgery Details section. Procedure Findings Check Surgery Details section. Procedure Specimens Taken Check Surgery Details section.
--- OUTSIDE RECORDS SUMMARY | 2024-01-22 17:42 | XMS_ITS | Encounter Summary ---
Author Name Unknown Organization [facility] Address [address] [place] [address] Care Team Providers Care Metalsmith Apprentice Name Role Phone Elsewhere, Pcp Primary Care Provider Unavailabl e Reason for Referral * Outpatient (Routine) - Closed Specialty Diagnoses / Procedures Referred By Contac t Referred To Contact Plastic Surgery Tessa Starkey P.A.-C., M.S. [address] [place] [phone] [facility] Referral ID Status Reason Start Date Expiration Date Visits Re quested Visits Authorized [id number] Closed 11/10/2023 05/11/2025 1 1 Scheduling Instructions W/ Tessa O REPORTER Reason for Visit * Outpatient (Routine) - Closed Specialty Diagnoses / Procedures Referred By Mily t Referred To Contact Plastic Surgery Tessa Starkey P.A.-C., M.S. [address] [place] [phone] [facility] Referral ID Status Reason Start Date Expiration Date Visits Re quested Visits Authorized [id number] Closed 08/24/2023 08/23/2026 1 1 Encounter Details Date Type Department Care Team ([facility] st Contact Info) Description 11/10/2023 11:30 AM RADIO REPORTER Office Visit Division of Plastic Surgery in [place], [place] [address] [place] [phone] Tessa Starkey P.A.-C., M.S. [address] [place] [phone] Absence Of Breast Acquired Bilateral (Primary Dx) [...] Sex Assigned at Female 08/20/2018 8:53 AM RADIO REPORTER Gender Identity Female 08/20/2018 8:53 AM RADIO REPORTER Sexual Orientation Straight 08/20/2018 8: 53 AM RADIO REPORTER documented as of this encounter Progress Notes * Tessa Starkey P.A.-C., M.S. - 11/10/2023 11:30 AM CST SUBJECTIVE CHIEF COMPLAINT / REASON FOR VISIT 1. Valerie Box is s/p bilateral implant based breast reconstruction with Dr. Sno. 2. History of radiation on right breast [...] plan; patient expressed understanding of the content. O REPORTER documented in this encounter Plan of Treatment Scheduled Referrals Name Type Priority Associated Diagnoses Orde r Schedule Plastic Surgery office visit (clinic) Outpatient Referral Routine Expected: 11/24/2023 (Approximate), Expires: 02/07/2025 documented as of this encounter Visit Diagnoses Diagnosis Absence Of Breast Acquired Bilateral- Primary documented in this encounter Care Teams Metalsmith Apprentice Relationship Specialty Start Date End Date Elsewhere, Pcp PCP - General Functional Tester 09/25/19 documented as of this encounter
--- OUTSIDE RECORDS SUMMARY | 2024-01-22 17:42 | XMS_ITS | Encounter Summary ---
Author Name Unknown Organization [facility] Address [address] [place] [address] Care Team Providers Care Sql Data Analyst Name Role Phone Elsewhere, Pcp Primary Care Provider Unavailabl e Reason for Visit * Outpatient (Routine) - Closed Specialty Diagnoses / Procedures Referred By Mily ferrell Referred To Contact Plastic Surgery Tessa Starkey P.A.-Hollis., M.S. [address] [place] [phone] [facility] Referral ID Status Reason Start Date Expiration Date Visits Re quested Visits Authorized [id number] Closed 12/26/2023 06/26/2025 1 1 Encounter Details Date Type Department Care Team (Late st Contact Info) Description 12/28/2023 1:30 PM CDT Office Visit Division of Plastic Surgery in [place], [place] [address] [place] [phone] Tessa Starkey P.ANiko-Hollis., M.S. [address] [place] [phone] Absence Of Breast Acquired Bilateral (Primary Dx) Social History Tobacco Use Types Packs/Day Years Used Date Smoking Tobacco: Never Smokeless Tobacco: Never Alcohol Use Standard Drinks/Week Comments No 0 (1 standard drink = 0.6 oz pur e alcohol) socially [facility] Utilities Answer Date Recorded In the past 12 months has th e [employer], gas, oil, or water [employer] threatened to shut off services in your [...] your living situation today? I have a [facility] place to live 12/26/2023 Sex and Gender Information Value Date Recorded Sex Assigned at Female 08/20/2018 8:53 AM MACHINIST TOOL AND DIE Gender Identity Female 08/20/2018 8:53 AM MACHINIST TOOL AND DIE Sexual Orientation Straight 08/20/2018 8: 53 AM MACHINIST TOOL AND DIE documented as of this encounter Progress Notes [...] Primary documented in this encounter Care Teams Sql Data Analyst Relationship Specialty Start Date End Date Elsewhere, Pcp PCP - General Relief Pilot 09/25/19 documented as of this encounter
--- OUTSIDE RECORDS SUMMARY | 2024-01-22 17:42 | XMS_ITS | Encounter Summary ---
Author Name Unknown Organization [facility] Address [address] [place] [address] Care Team Providers Care Civilian Technician Name Role Phone Elsewhere, Pcp Primary Care Provider Unavailabl e Reason for Referral * Outpatient (Routine) - Closed Specialty Diagnoses / Procedures Referred By Mily ferrell Referred To Contact Plastic Surgery Tessa Starkey P.A.-C., M.S. [address] [place] [phone] [facility] Referral ID Status Reason Start Date Expiration Date Visits Re quested Visits Authorized [id number] Closed 12/26/2023 06/26/2025 1 1 Scheduling Instructions W/ Tessa Encounter Details Date Type Department Care Team (Late st Contact Info) Description 12/26/2023 Orders Only Division of Plastic Surgery in [place], [place] [address] [place] [phone] Tessa Starkey P.A.-C., M.S. [address] [place] [phone] Social History Tobacco Use Types Packs/Day Years Used Date Smoking Tobacco: Never Smokeless Tobacco: Never Alcohol Use Standard Drinks/Week Comments No 0 (1 standard drink = 0.6 oz pur e alcohol) socially [facility] Utilities Answer Date Recorded In [...] your living situation today? I have a [facility] place to live 12/26/2023 Sex and Gender Information Value Date Recorded Sex Assigned at Female 08/20/2018 8:53 AM NEONATAL SURGEON Gender Identity Female 08/20/2018 8:53 AM NEONATAL SURGEON Sexual Orientation Straight 08/20/2018 8: 53 AM NEONATAL SURGEON documented as of this encounter Plan of Treatment Scheduled Referrals Name Type Priority Associated Diagnoses Orde r Schedule Plastic Surgery office visit (clinic) Outpatient Referral Routine Expected: 12/26/2023 (Approximate), Expires: 03/26/2025 documented as of this encounter Visit Diagnoses Not on filedocumented in this encounter Care Teams Civilian Technician Relationship Specialty Start Date End Date Elsewhere, Pcp PCP - General Speech Language Therapist 09/25/19 documented as of this encounter
--- OUTSIDE RECORDS SUMMARY | 2024-01-22 17:42 | XMS_ITS | Clinical Summary ---
Author Name Unknown Organization [facility] Address [address] [place] [address] Care Team Providers Care Social Media Marketing Analyst Name Role Phone Elsewhere, Pcp Primary Care Provider Unavailabl e Source Comments Patient records contain information from all sites at [facility]. For routine questions regarding patient records, call [phone] during business hours, M-F 8:00 AM - 5:00 PM Central Time. 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 Absence Of Breast Acquired Bilateral (Primary Dx) 12/28/2023 12:00 PM CDT Ancillary Procedure Department of Plastic and Reconstructive Surgery 12/27/2023 2:30 PM CDT Clinical Communication Virtual Review in [place], [place] [address] [place] [address] Pre-visit Intake 12/26/2023 Orders Only Division of Plastic Surgery in [place], [place] [address] [place] [phone] Tessa Starkey P.A.-C., M.S. 11/24/2023 1:00 PM THERMIT WELDING MACHINE OPERATOR Office Visit Division of Plastic Surgery in [place], [place] [address] [place] [phone] Tessa Starkey P.A.-C., M.S. Absence Of Breast Acquired Bilateral (Primary Dx) 11/24/2023 Abstract [place], [place] [address] [place] [phone] Provider, Historical 11/24/2023 Ancillary Procedure Department of Plastic and Reconstructive Surgery 11/22/2023 8:30 AM THERMIT WELDING MACHINE OPERATOR Clinical Communication Virtual Review in [place], [place] [address] [place] [address] Pre-visit Intake 11/10/2023 11:30 AM THERMIT WELDING MACHINE OPERATOR Office Visit Division of Plastic Surgery in [place], [place] [address] [place] [phone] Tessa Starkey P.Nacho.Chantale., M.S. Absence Of Breast Acquired Bilateral (Primary Dx) 11/10/2023 Ancillary Procedure Department of Plastic and Reconstructive Surgery 10/26/2023 9:01 AM THERMIT WELDING MACHINE OPERATOR Anesthesia Event T [facility] OR [address] [place] [address] Balwinder Cline M.D. 10/26/2023 8:42 AM THERMIT WELDING MACHINE OPERATOR - 10/26/2023 12:47 PM THERMIT WELDING MACHINE OPERATOR Surgery [facility] OR [address] [place] [address] Denny Bearden M.D. RECONSTRUCTION BREAST WITH IMPLANT, proceed as indicated. 10/26/2023 6:04 AM THERMIT WELDING MACHINE OPERATOR - 10/26/2023 1:47 PM THERMIT WELDING MACHINE OPERATOR Hospital Encounter Outpatient Surgery Unit in [place], [place] [address] [place] [address] Denny Bearden M.D. Discharge Disposition: Home or Self Care 10/23/2023 1:15 PM THERMIT WELDING MACHINE OPERATOR Office Visit Division of Plastic Surgery in [place], [place] [address] [place] [address] Denny Bearden M.D. Absence Of Breast Acquired Bilateral (Primary Dx) 10/23/2023 11:16 AM THERMIT WELDING MACHINE OPERATOR - 10/23/2023 11:59 PM THERMIT WELDING MACHINE OPERATOR Hospital Encounter Department of Laboratory Medicine and Pathology, [facility] in [place], [place] [address] [place] [address] Tessa Starkey P.A.-C., M.S. Absence Of Breast Acquired Bilateral Discharge Disposition: Home or Self Care 10/23/2023 Ancillary Procedure Department of Plastic and Reconstructive Surgery from Last 3 Months Family History Medical History Relation Name Comments Diabetes Father Brendan Orosco Hyperlipidemia Father Brendan Orosco Breast cancer Mother Doris Rogers Dementia Mother Drois Rogers Diabetes Mother Doris Rogers Ulcerative colitis [...] Recorded In the past 12 months has [employer], gas, oil, or water [employer] threatened to shut off services in your [...] your living situation today? I have a [facility] place to live 12/26/2023 Sex and Gender Information Value Date Recorded Sex Assigned at Female 08/20/2018 8:53 AM THERMIT WELDING MACHINE OPERATOR Gender Identity Female 08/20/2018 8:53 AM THERMIT WELDING MACHINE OPERATOR Sexual Orientation Straight 08/20/2018 8: 53 AM THERMIT WELDING MACHINE OPERATOR Last Filed Vital Signs Vital Sign Reading Time Taken Comments Blood Pressure 137/75 10/26/2023 1:19 PM THERMIT WELDING MACHINE OPERATOR Pulse 88 10/26/2023 1:19 PM THERMIT WELDING MACHINE OPERATOR Temperature 36.7 ??C (98.1 ??F) 10/26/2023 1 2:59 PM THERMIT WELDING MACHINE OPERATOR Respiratory Rate 16 10/26/2023 1:19 PM THERMIT WELDING MACHINE OPERATOR Oxygen Saturation 94% 10/26/2023 1:19 PM THERMIT WELDING MACHINE OPERATOR Inhaled Oxygen Concentration - - Weight 90.7 kg (199 lb 15.3 oz) 10/26/2023 6:35 AM THERMIT WELDING MACHINE OPERATOR Height 160.5 cm (5' 3.19) 10/26/2023 6:35 AM CS T Body Mass Index 35.21 10/26/2023 6:35 AM THERMIT WELDING MACHINE OPERATOR Plan of Treatment Health Maintenance Due Date [...] this topic Medical Devices Implanted Type Area Rodbuster Device Identifier Shelf Expiration Date Model / Serial / Lot Breast Smo Rnd High 600cc - [id number] - [id number] Implanted:Qty: 1 on 10/26/2023 by Jatin Covarrubias M.D. at [facility] Breast Implant Left: Other/Legacy - See Implant Description [employer] 07/11/2026 [id number] / [id number] / [employer]uen Memorygel Implant 650cc Implanted:Qty: 1 on 10/26/2023 by Jatin Covarrubias M.D. at [facility] Breast Implant Right: Other/Legacy - See Implant Description [employer] [id number] 08/03/2027 350-650 1BC / [id number] / [id number] Conversions - Default Historical Implant Device Implanted:09/25 (Quantity not on file) Hardware e.g. pins/screw s/rods Foot Description:Body Location - Feet. Device Status Text - Hardware. Conversions - Default Historical Implant Device Implanted:11/23 (Quantity not on file) Knee Implant Other/Legacy - See Implant Description Description:Body Location - [email or web address]'s. Device Status Text - Knee Imp. Alloderm Rtu 2.4 + -.4mm 9.6x19.3cm - Archer [id number] Implanted:Qty: 1 on 12/07/2016 Mesh or Patch Other/Legacy - See Implant Description LifeCell Martell (Use Allergan) Description:Device Manufactu rer - Lifecell Martell. Body Location - Other. Left. Device Status Text - [id number]. Alloderm Rtu 2.4 + -.4mm 9.6x19.3cm - Archer [id number] Implanted:Qty: 1 on 12/07/2016 Mesh or Patch Other/Legacy - See Implant Description LifeCell Martell (Use Allergan) Description:Device Manufactu rer - Lifecell Martell. Body Location - Other. Right. Device Status Text - [id number]. Alloderm Rtu 2.4 9.6x19.3cm 185sqcm - Archer [id number] Implanted:Qty: 370 on 12/07/2016 Mesh or Patch LifeCell Martell (Use Allergan) Description:Device Manufactu rer - Lifecell Martell. Device Status Text - [id number]. Shoulder Implant Shoulder Implant Right: Shoulder Explanted Type Area Rodbuster Device Identifier Shelf Expiration Date Model / Serial / Lot Abenab-datum- Lama Labira 615cc - Archer [id number] Implanted:Qty: 1 on 04/20/2017 Explanted:Qty: 1 on 07/25/2018 at [facility] Breast Implant Other/Legacy - See Implant Description Allergan Medical Description:Device Manufactu rer - Allergan Inc.. Body Location - Other. Left. Device Status Text - [id number]. Natrelle- Inspira 615cc - Archer [id number] Implanted:Qty: 1 on 04/20/2017 Explanted:Qty: 1 on 10/26/2023 by Denny Bearden M.D. at [facility] Breast Implant Other/Legacy - See Implant Description [employer] Medical Description:Device Manufactu rer - Allergan Inc.. Body Location - Other. Right. Device Status Text - [id number]. Brst Resp Gel Stysrf 560 - [id number] - [id number] Implanted:Qty: 1 on 07/25/2018 at [facility] Explanted:Qty: 1 on 10/26/2023 by Jatin Covarrubias M.D. at [facility] Breast Implant Left: Other/Legacy - See Implant Description [employer]ergan Medical 03/29/2021 [id number] / [id number] / Natrelle-Expand er Mod Tab 500cc - Archer [id number] Explanted:Qty: 1 on 04/20/2017 Tissue Morning Show Producer Other/Legacy - See Implant Description [employer]er[employer] Medical Description:Device Manufactu rer - Allergan Inc.. Body Location - Other. Left. Device Status Text - [id number]. Natrelle-Expand er Mod Tab 500cc - Archer [id number] Explanted:Qty: 1 on 04/20/2017 Tissue Morning Show Producer Other/Legacy - See Implant Description [employer] Medical Description:Device Manufactu rer - Allergan Inc.. Body Location - Other. Right. Device Status Text - [id number]. Procedures Procedure Name Priority Date/Time Associated Diagnosis Comments PLASTIC AND RECON SURGERY IMAGE EXAM Routine 12/28/2023 12:00 PM CDT PLASTIC AND RECON SURGERY IMAGE EXAM Routine 11/24/2023 12:00 AM THERMIT WELDING MACHINE OPERATOR PLASTIC AND RECON SURGERY IMAGE EXAM Routine 11/10/2023 12:00 AM THERMIT WELDING MACHINE OPERATOR LDA ANE ENDOTRACHEAL AIRWAY Routine 10/26/2023 9:12 AM THERMIT WELDING MACHINE OPERATOR CAPSULORRHAPHY 10/26/2023 8:46 AM THERMIT WELDING MACHINE OPERATOR Absence Of Breast Acquired Bilateral CAPSULECTOMY BREAST 10/26/2023 8 :46 AM THERMIT WELDING MACHINE OPERATOR Absence Of Breast Acquired Bilateral REMOVAL IMPLANT BREAST 8:46 AM THERMIT WELDING MACHINE OPERATOR Absence Of Breast Acquired Bilateral RECONSTRUCTION BREAST WITH IMPLANT 10/26/2023 8:46 AM THERMIT WELDING MACHINE OPERATOR Absence Of Breast Acquired Bilateral CBC WITH DIFFERENTIAL, B Routine 10/23/2023 11:46 AM THERMIT WELDING MACHINE OPERATOR Absence Of Breast Acquired Bilateral BASIC METABOLIC PANEL, S/P Routine 10/23/2023 11:46 AM THERMIT WELDING MACHINE OPERATOR Absence Of Breast Acquired Bilateral PLASTIC AND RECON SURGERY IMAGE EXAM Routine 10/23/2023 12:00 AM THERMIT WELDING MACHINE OPERATOR EXTI THYROID-STIMULATING HORMONE-SENSITIVE (S-TSH), S Routine 04/07/2023 [...] System IMG NON RAD IMAGI NG PROCEDURES IIAZ NA * LDA ANE ENDOTRACHEAL AIRWAY (10/26/2023 9:12 AM THERMIT WELDING MACHINE OPERATOR) Narrative Delfina Cheng, R.N. - 10/26/2023 9:12 AM THERMIT WELDING MACHINE OPERATOR Delfina Cheng R.N. ? 10/26/2023 ??9:15 AM [...] ETT location: oral VL device: glide scope [place] scope blade size: 3 Tube size: 7 [...] CBC with Differential, Blood (10/23/2023 11:46 AM THERMIT WELDING MACHINE OPERATOR) Hemoglobin 14.9 11.6 - 15.0 g/dL 10/23/2023 12:28 PM THERMIT WELDING MACHINE OPERATOR DTL Hematocrit 45.8(H) 35.5 - 44.9 % 10/23/2023 12:28 PM THERMIT WELDING MACHINE OPERATOR DTL Erythrocytes 4.94 3.92 - 5.13 x10(12)/L 10/23/2023 12:28 PM THERMIT WELDING MACHINE OPERATOR DTL MCV 92.7 78.2 - 97.9 fL 10/23/2023 12:28 PM THERMIT WELDING MACHINE OPERATOR DTL RBC Distrib Width 13.0 12.2 - 16.1 % 10/23/2023 12:28 PM THERMIT WELDING MACHINE OPERATOR DTL Platelet Count 253 157 - 371 x10(9)/L 10/23/2023 12:28 PM THERMIT WELDING MACHINE OPERATOR DTL Leukocytes 7.1 3.4 - 9.6 x10(9)/L 10/23/2023 12:28 PM THERMIT WELDING MACHINE OPERATOR DTL Neutrophils 4.11 1.56 - 6.45 x10(9)/L 10/23/2023 12:28 PM THERMIT WELDING MACHINE OPERATOR DHPM Lymphocytes 2.10 0.95 - 3.07 x10(9)/L 10/23/2023 12:28 PM THERMIT WELDING MACHINE OPERATOR DTL Monocytes 0.48 0.26 - 0.81 x10(9)/L 10/23/2023 12:28 PM THERMIT WELDING MACHINE OPERATOR DTL Eosinophils 0.32 0.03 - 0.48 x10(9)/L 10/23/2023 12:28 PM THERMIT WELDING MACHINE OPERATOR DTL Basophils 0.04 0.01 - 0.08 x10(9)/L 10/23/2023 12:28 PM THERMIT WELDING MACHINE OPERATOR DTL Blood (Blood, Venous) 10/23/2023 11:46 AM THERMIT WELDING MACHINE OPERATOR 10/23/2023 12:21 PM THERMIT WELDING MACHINE OPERATOR Tessa Starkey P.A.-C., M.S. LAB BLOOD ADD-O N [facility] [address] [place] [address], [facility] DTL [facility] [address] [place] [address] [facility] [address] [place] [address] * (ABNORMAL) Basic Metabolic Panel (10/23/2023 11:46 AM THERMIT WELDING MACHINE OPERATOR) Potassium, S 4.6 3.6 - 5.2 mmol/L 10/23/2023 1:10 PM THERMIT WELDING MACHINE OPERATOR DTL Sodium, S 138 135 - 145 mmol/L 10/23/2023 1:10 PM THERMIT WELDING MACHINE OPERATOR DTL Chloride, S 102 98 - 107 mmol/L 10/23/2023 1:10 PM THERMIT WELDING MACHINE OPERATOR DTL Bicarbonate, S 28 22 - 29 mmol/L 10/23/2023 1:10 PM THERMIT WELDING MACHINE OPERATOR DTL Anion Gap 8 7 - 15 10/23/2023 1:10 PM THERMIT WELDING MACHINE OPERATOR DTL BUN (Blood Urea Nitrogen), S 17 6 - 21 mg/dL 10/23/2023 1:10 PM THERMIT WELDING MACHINE OPERATOR DTL Creatinine 0.79 0.59 - 1.04 mg/dL 10/23/2023 1:10 PM THERMIT WELDING MACHINE OPERATOR DTL Estimated GFR (eGFR) 83 >=60 mL/min/BSA 10/23/2023 1:10 PM THERMIT WELDING MACHINE OPERATOR DTL Comment: Estimated GFR calculated using the 2020 CKD_EPI creatinine equation. Calcium, Total, S 10.6(H) 8.8 - 10.2 mg/dL 10/23/2023 1:22 PM THERMIT WELDING MACHINE OPERATOR DTL Glucose, S 90 70 - 140 mg/dL 10/23/2023 1:10 PM THERMIT WELDING MACHINE OPERATOR DTL Blood (Blood, Venous) 10/23/2023 11:46 AM THERMIT WELDING MACHINE OPERATOR 10/23/2023 12:42 PM THERMIT WELDING MACHINE OPERATOR Tessa Starkey P.A.-C., M.S. LAB BLOOD ADD-O N [facility] [address] [place] [address], [place] DTL [facility] [address] [place] [address] from Last 3 Months or Most Recently Relevant to Health Maintenance Advance Directives For more information, please contact: [phone] Documents on File Type Date Recorded Patient Grinder And Honer Operator Automatic Expl anation Advance Directives 11/24/2023 1:07 PM Balwinder Box HCPOA/ADVOCATE/AGENT/R EPRESENTATIVE/SURROGAT E Healthcare Agents on File Name Relationship Healthcare Agent Relationship Communication Balwinder Box Spouse Health Care Agent Favian Box Son First Altern ate Health Care Agent Care Teams Social Media Marketing Analyst Relationship Specialty Start Date End Date Elsewhere, Pcp PCP - General Wall Worker 09/25/19
--- OUTSIDE RECORDS SUMMARY | 2024-01-22 17:42 | XMS_ITS | Encounter Summary ---
Author Name Unknown Organization [facility] Address [address] [place] [address] Care Team Providers Care Managing Editor Name Role Phone Elsewhere, Pcp Primary Care [...] Sex Assigned at Female 08/20/2018 8:53 AM AUTOMATION/CONTROLS MANAGER Gender Identity Female 08/20/2018 8:53 AM AUTOMATION/CONTROLS MANAGER Sexual Orientation Straight 08/20/2018 8: 53 AM AUTOMATION/CONTROLS MANAGER documented as of this encounter Plan of Treatment Not on file documented as of this encounter Procedures Procedure Name Priority Date/Time Associated Diagnosis Comments PLASTIC AND RECON SURGERY IMAGE EXAM Routine 11/10/2023 12:00 AM AUTOMATION/CONTROLS MANAGER documented in this encounter Results * Breast Implant Exchange-Plastic And Recon Surgery Image Exam (11/10/2023 12:00 AM AUTOMATION/CONTROLS MANAGER) Narrative [facility] - 11/10/2023 2:25 PM AUTOMATION/CONTROLS MANAGER This order has been created and auto-finalized to support the import of images acquired without order. The clinical documentation to support these images can be found on the encounter that produced images. Provider Not In System IMG NON RAD IMAGI NG PROCEDURES [facility] NA documented in this encounter Visit Diagnoses Not on filedocumented in this encounter Care Teams Managing Editor Relationship Specialty Start Date End Date Elsewhere, Pcp PCP - General Procurement Professional Logistics 09/25/19 documented as of this encounter
--- OUTSIDE RECORDS SUMMARY | 2024-01-22 17:42 | XMS_ITS | Encounter Summary ---
Author Name Unknown Organization [facility] Address [address] [place] [address] Care Team Providers Care Internet Systems Administrator Name Role Phone Elsewhere, Pcp Primary Care Provider Unavailabl e Reason for Visit * Reason Onset Date Comments Pre-visit Intake 12/27/2023 Encounter Details Date Type Department Care Team (Latest Contact Info) Description 12/27/2023 2:30 PM CDT Clinical Communication Virtual Review in [place], [place] [address] [place] [address] Pre-visit Intake Social History Tobacco Use Types Packs/Day Years Used Date Smoking Tobacco: Never Smokeless Tobacco: Never Tobacco Cessation:Counseling Given: Not Answered Alcohol Use Standard Drinks/Week Comments No 0 (1 standard drink = 0.6 oz pur e alcohol) socially [facility] Utilities Answer Date Recorded In the past 12 months has [employer] gas, oil, or water [employer] threatened to shut off services in your [...] your living situation today? I have a [facility] place to live 12/26/2023 Sex and Gender Information Value Date Recorded Sex Assigned at Female 08/20/2018 8:53 AM NEWCOMER HOSTESS Gender Identity Female 08/20/2018 8:53 AM NEWCOMER HOSTESS Sexual Orientation Straight 08/20/2018 8: 53 AM NEWCOMER HOSTESS documented as of this encounter Plan of Treatment Not on file documented as of this encounter Visit Diagnoses Not on filedocumented in this encounter Care Teams Internet Systems Administrator Relationship Specialty Start Date End Date Elsewhere, Pcp PCP - General Procurement Services Manager 09/25/19 documented as of this encounter
--- OUTSIDE RECORDS SUMMARY | 2024-01-22 17:42 | XMS_ITS | Referral Summary ---
Author Name Unknown Organization [facility] Address [address] [place] [address] Care Team Providers Care Land Lease Information Clerk Name Role Phone Elsewhere, Pcp Primary Care Provider Unavailabl e Source Comments Patient records contain information [facility] at [facility]. For routine questions regarding patient records, call [phone] during business hours, M-F 8:00 AM - 5:00 PM Central Time. Record requests for emergency care only can be directed to [phone] at any time.[facility] Encounters Date Type Department Care Team Description 12/28/2023 12:00 PM CDT Ancillary Procedure Department of Plastic and Reconstructive Surgery 12/28/2023 1:30 PM CDT Office Visit Division of Plastic Surgery in [place], [place] [address] [place] [phone] Tessa Starkey P.A.-C., M.S. Absence Of Breast Acquired Bilateral (Primary Dx) 12/27/2023 2:30 PM CDT Clinical Communication Virtual Review in [place], [place] [address] [place] [address] Pre-visit Intake 12/26/2023 Orders Only Division of Plastic Surgery in [place], [place] [address] [place] [phone] Tessa Starkey P.Nacho.Chantale., M.S. 11/24/2023 [place], [place] [address] [place] [phone] Provider, Historical 11/24/2023 Ancillary Procedure Department of Plastic and Reconstructive Surgery 11/24/2023 1:00 PM CASH SURRENDER CALCULATOR Office Visit Division of Plastic Surgery in [place], [place] [address] [place] [phone] Tessa Starkey P.A.-Hollis., M.S. Absence Of Breast Acquired Bilateral (Primary Dx) 11/22/2023 8:30 AM CASH SURRENDER CALCULATOR Clinical Communication Virtual Review in [place], [place] [address] [place] [address] Pre-visit Intake 11/10/2023 Ancillary Procedure Department of Plastic and Reconstructive Surgery 11/10/2023 11:30 AM CASH SURRENDER CALCULATOR Office Visit Division of Plastic Surgery in [place], [place] [address] [place] [phone] Tessa Starkey P.A.-C., M.S. Absence Of Breast Acquired Bilateral (Primary Dx) 10/26/2023 9:01 AM CASH SURRENDER CALCULATOR Anesthesia Event [facility] [address] [place] [address] Balwinder Cline M.D. 10/26/2023 8:42 AM CASH SURRENDER CALCULATOR - 10/26/2023 12:47 PM CASH SURRENDER CALCULATOR Surgery [facility] [address] [place] [address] Denny Bearden M.D. RECONSTRUCTION BREAST WITH IMPLANT, proceed as indicated. 10/26/2023 6:04 AM CASH SURRENDER CALCULATOR - 10/26/2023 1:47 PM CASH SURRENDER CALCULATOR Hospital Encounter Outpatient Surgery Unit in [place], [place] [address] [place] [phone] Denny Bearden M.D. Discharge Disposition: Home or Self Care 10/23/2023 Ancillary Procedure Department of Plastic and Reconstructive Surgery 10/23/2023 11:16 AM CASH SURRENDER CALCULATOR - 10/23/2023 11:59 PM CASH SURRENDER CALCULATOR Hospital Encounter Department of Laboratory Medicine and Pathology, [facility] in [place], [place] [address] [place] [phone] Tessa Starkey P.A.-C., M.S. Absence Of Breast Acquired Bilateral Discharge Disposition: Home or Self Care 10/23/2023 1:15 PM CASH SURRENDER CALCULATOR Office Visit Division of Plastic Surgery in [place], [place] [address] [place] [address] Denny Bearden M.D. Absence Of Breast Acquired [...] Overview: Added automatically from request for surgery [id number] Metastatic Lung Cancer 12/14/2016 Hyperlipidemia 11/11/2016 Morbid [...] = 0.6 oz pur e alcohol) socially [facility] Utilities Answer Date Recorded In the past 12 months has [employer], oil, or water [employer] threatened to shut off services in your [...] your living situation today? I have a [facility] place to live 12/26/2023 Sex and Gender Information Value Date Recorded Sex Assigned at Female 08/20/2018 8:53 AM CASH SURRENDER CALCULATOR Gender Identity Female 08/20/2018 8:53 AM CASH SURRENDER CALCULATOR Sexual Orientation Straight 08/20/2018 8: 53 AM CASH SURRENDER CALCULATOR Last Filed Vital Signs Vital Sign Reading Time Taken Comments Blood Pressure 137/75 10/26/2023 1:19 PM CASH SURRENDER CALCULATOR Pulse 88 10/26/2023 1:19 PM CASH SURRENDER CALCULATOR Temperature 36.7 ??C (98.1 ??F) 10/26/2023 1 2:59 PM CASH SURRENDER CALCULATOR Respiratory Rate 16 10/26/2023 1:19 PM CASH SURRENDER CALCULATOR Oxygen Saturation 94% 10/26/2023 1:19 PM CASH SURRENDER CALCULATOR Inhaled Oxygen Concentration - - Weight 90.7 kg (199 lb 15.3 oz) 10/26/2023 6:35 AM CASH SURRENDER CALCULATOR Height 160.5 cm (5' 3.19) 10/26/2023 6:35 AM CS T Body Mass Index 35.21 10/26/2023 6:35 AM CASH SURRENDER CALCULATOR Plan of Treatment Not on file Medical Devices Implanted Type Area Senior Programmer Device Identifier Shelf Expiration Date Model / Serial / Lot Breast Smo Rnd High 600cc - [id number] - [id number] Implanted:Qty: 1 on 10/26/2023 by Jatin Covarrubias M.D. at [facility] Breast Implant Left: Other/Legacy - See Implant Description [employer] 07/11/2026 [id number] / [id number] / [place] [employer] Implant 650cc Implanted:Qty: 1 on 10/26/2023 by Jatin Covarrubias M.D. at [facility] Breast Implant Right: Other/Legacy - See Implant Description [employer] [id number] 08/03/2027 350-650 1BC / [id number] / [id number] Conversions - Default Historical Implant Device Implanted:09/25 (Quantity not on file) Hardware e.g. pins/screw s/rods Foot Description:Body Location - Feet. Device Status Text - Hardware. Conversions - Default Historical Implant Device Implanted:11/23 (Quantity not on file) Knee Implant Other/Legacy - See Implant Description Description:Body Location - [email or web address]'s. Device Status Text - Knee Imp. Alloderm Rtu 2.4 + -.4mm 9.6x19.3cm - Archer [id number] Implanted:Qty: 1 on 12/07/2016 Mesh or Patch Other/Legacy - See Implant Description LifeCell Martell (Use Allergan) Description:Device Manufactu rer - Lifecell Martell. Body Location - Other. Left. Device Status Text - [id number]. Alloderm Rtu 2.4 + -.4mm 9.6x19.3cm - Archer [id number] Implanted:Qty: 1 on 12/07/2016 Mesh or Patch Other/Legacy - See Implant Description LifeCell Martell (Use Allergan) Description:Device Manufactu rer - Lifecell Martell. Body Location - Other. Right. Device Status Text - [id number]. Alloderm Rtu 2.4 9.6x19.3cm 185sqcm - Archer [id number] Implanted:Qty: 370 on 12/07/2016 Mesh or Patch LifeCell Martell (Use Allergan) Description:Device Manufactu rer - Lifecell Martell. Device Status Text - [id number]. Shoulder Implant Shoulder Implant Right: Shoulder Explanted Type Area Senior Programmer Device Identifier Shelf Expiration Date Model / Serial / Lot Maday Yost 615cc - Archer [id number] Implanted:Qty: 1 on 04/20/2017 Explanted:Qty: 1 on 07/25/2018 at [facility] Breast Implant Other/Legacy - See Implant Description [employer] Description:Device Manufactu rer - [employer]ergan Inc.. Body Location - Other. Left. Device Status Text - [id number]. Natrelle- Inspira 615cc - Archer [id number] Implanted:Qty: 1 on 04/20/2017 Explanted:Qty: 1 on 10/26/2023 by Denny Bearden M.D. at [facility] Breast Implant Other/Legacy - See Implant Description [employer] Description:Device Manufactu rer - [employer]ergan Inc.. Body Location - Other. Right. Device Status Text - [id number]. Brst Resp Gel Stysrf 560 - [id number] - [id number] Implanted:Qty: 1 on 07/25/2018 at [facility] Explanted:Qty: 1 on 10/26/2023 by Jatin Covarrubias M.D. at [facility] Breast Implant Left: Other/Legacy - See Implant Description [employer] 03/29/2021 [id number] / [id number] / Natrelle-Expand er Mod Tab 500cc - Archer [id number] Explanted:Qty: 1 on 04/20/2017 Tissue Decorating Kiln Operator Other/Legacy - See Implant Description [employer] Description:Device Manufactu rer - Allergan Inc.. Body Location - Other. Left. Device Status Text - [id number]. Natrelle-Expand er Mod Tab 500cc - Archer [id number] Explanted:Qty: 1 on 04/20/2017 Tissue Decorating Kiln Operator Other/Legacy - See Implant Description [employer] Description:Device Manufactu rer - Allergan Inc.. Body Location - Other. Right. Device Status Text - [id number]. Procedures Procedure Name Priority Date/Time Associated Diagnosis Comments PLASTIC AND RECON SURGERY IMAGE EXAM Routine 12/28/2023 12:00 PM CDT PLASTIC AND RECON SURGERY IMAGE EXAM Routine 11/24/2023 12:00 AM CASH SURRENDER CALCULATOR PLASTIC AND RECON SURGERY IMAGE EXAM Routine 11/10/2023 12:00 AM CASH SURRENDER CALCULATOR LDA ANE ENDOTRACHEAL AIRWAY Routine 10/26/2023 9:12 AM CASH SURRENDER CALCULATOR CAPSULORRHAPHY 10/26/2023 8:46 AM CASH SURRENDER CALCULATOR Absence Of Breast Acquired Bilateral CAPSULECTOMY BREAST 10/26/2023 8 :46 AM CASH SURRENDER CALCULATOR Absence Of Breast Acquired Bilateral REMOVAL IMPLANT BREAST 8:46 AM CASH SURRENDER CALCULATOR Absence Of Breast Acquired Bilateral RECONSTRUCTION BREAST WITH IMPLANT 10/26/2023 8:46 AM CASH SURRENDER CALCULATOR Absence Of Breast Acquired Bilateral CBC WITH DIFFERENTIAL, B Routine 10/23/2023 11:46 AM CASH SURRENDER CALCULATOR Absence Of Breast Acquired Bilateral BASIC METABOLIC PANEL, S/P Routine 10/23/2023 11:46 AM CASH SURRENDER CALCULATOR Absence Of Breast Acquired Bilateral PLASTIC AND RECON SURGERY IMAGE EXAM Routine 10/23/2023 12:00 AM CASH SURRENDER CALCULATOR EXTI THYROID-STIMULATING HORMONE-SENSITIVE (S-TSH), S Routine 04/07/2023 [...] LDA ANE ENDOTRACHEAL AIRWAY (10/26/2023 9:12 AM CASH SURRENDER CALCULATOR) Narrative Delfina Cheng, R.N. - 10/26/2023 9:12 AM CASH SURRENDER CALCULATOR Delfina Cheng R.N. ? 10/26/2023 ??9:15 AM [...] ETT location: oral VL device: glide scope Talmage scope blade size: 3 Tube size: 7 [...] CBC with Differential, Blood (10/23/2023 11:46 AM CASH SURRENDER CALCULATOR) Pathologist [facility] Hemoglobin 14.9 11.6 - 15.0 g/dL 10/23/2023 12:28 PM CASH SURRENDER CALCULATOR DTL Hematocrit 45.8(H) 35.5 - 44.9 % 10/23/2023 12:28 PM CASH SURRENDER CALCULATOR DTL Erythrocytes 4.94 3.92 - 5.13 x10(12)/L 10/23/2023 12:28 PM CASH SURRENDER CALCULATOR DTL MCV 92.7 78.2 - 97.9 fL 10/23/2023 12:28 PM CASH SURRENDER CALCULATOR DTL RBC Distrib Width 13.0 12.2 - 16.1 % 10/23/2023 12:28 PM CASH SURRENDER CALCULATOR DTL Platelet Count 253 157 - 371 x10(9)/L 10/23/2023 12:28 PM CASH SURRENDER CALCULATOR DTL Leukocytes 7.1 3.4 - 9.6 x10(9)/L 10/23/2023 12:28 PM CASH SURRENDER CALCULATOR DTL Neutrophils 4.11 1.56 - 6.45 x10(9)/L 10/23/2023 12:28 PM CASH SURRENDER CALCULATOR DHPM Lymphocytes 2.10 0.95 - 3.07 x10(9)/L 10/23/2023 12:28 PM CASH SURRENDER CALCULATOR DTL Monocytes 0.48 0.26 - 0.81 x10(9)/L 10/23/2023 12:28 PM CASH SURRENDER CALCULATOR DTL Eosinophils 0.32 0.03 - 0.48 x10(9)/L 10/23/2023 12:28 PM CASH SURRENDER CALCULATOR DTL Basophils 0.04 0.01 - 0.08 x10(9)/L 10/23/2023 12:28 PM CASH SURRENDER CALCULATOR DTL Blood (Blood, Venous) 10/23/2023 11:46 AM CASH SURRENDER CALCULATOR 10/23/2023 12:21 PM CASH SURRENDER CALCULATOR Tessa Starkey P.A.-C., M.S. LAB BLOOD ADD-O N [facility] [address] [place] [address], [facility] DTL [facility] [address] [place] [address] * (ABNORMAL) Basic Metabolic Panel (10/23/2023 11:46 AM CASH SURRENDER CALCULATOR) Pathologist [facility] Potassium, S 4.6 3.6 - 5.2 mmol/L 10/23/2023 1:10 PM CASH SURRENDER CALCULATOR DTL Sodium, S 138 135 - 145 mmol/L 10/23/2023 1:10 PM CASH SURRENDER CALCULATOR DTL Chloride, S 102 98 - 107 mmol/L 10/23/2023 1:10 PM CASH SURRENDER CALCULATOR DTL Bicarbonate, S 28 22 - 29 mmol/L 10/23/2023 1:10 PM CASH SURRENDER CALCULATOR DTL Anion Gap 8 7 - 15 10/23/2023 1:10 PM CASH SURRENDER CALCULATOR DTL BUN (Blood Urea Nitrogen), S 17 6 - 21 mg/dL 10/23/2023 1:10 PM CASH SURRENDER CALCULATOR DTL Creatinine 0.79 0.59 - 1.04 mg/dL 10/23/2023 1:10 PM CASH SURRENDER CALCULATOR DTL Estimated GFR (eGFR) 83 >=60 mL/min/BSA 10/23/2023 1:10 PM CASH SURRENDER CALCULATOR DTL Comment: Estimated GFR calculated using the 2020 CKD_EPI creatinine equation. Calcium, Total, S 10.6(H) 8.8 - 10.2 mg/dL 10/23/2023 1:22 PM CASH SURRENDER CALCULATOR DTL Glucose, S 90 70 - 140 mg/dL 10/23/2023 1:10 PM CASH SURRENDER CALCULATOR DTL Blood (Blood, Venous) 10/23/2023 11:46 AM CASH SURRENDER CALCULATOR 10/23/2023 12:42 PM CASH SURRENDER CALCULATOR Tessa Starkey P.A.-C., M.S. 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
--- OUTSIDE RECORDS SUMMARY | 2024-01-22 17:42 | XMS_ITS | Encounter Summary ---
Author Name Unknown Organization [facility] Address [address] [place] [address] Care Team Providers Care Telecommunications Specialist Name Role Phone Elsewhere, Pcp Primary Care [...] = 0.6 oz pur e alcohol) socially [facility] Utilities Answer Date Recorded In the past 12 months has th e electric, gas, oil, or water [employer] threatened to shut off services in your [...] Sex Assigned at Female 08/20/2018 8:53 AM RETURNED GOODS SORTER Gender Identity Female 08/20/2018 8:53 AM RETURNED GOODS SORTER Sexual Orientation Straight 08/20/2018 8: 53 AM RETURNED GOODS SORTER documented as of this encounter Plan [...] on filedocumented in this encounter Care Teams Telecommunications Specialist Relationship Specialty Start Date End Date Elsewhere, Pcp PCP - General Instrumentation Controls Engineer 09/25/19 documented as of this encounter
--- OUTSIDE RECORDS SUMMARY | 2024-01-22 17:42 | XMS_ITS | Encounter Summary ---
Author Name Unknown Organization [facility] Address [address] [place] [address] Care Team Providers Care Environmental Professional Name Role Phone Elsewhere, Pcp Primary Care Provider Unavailabl e Reason for Referral * Outpatient (Routine) - Authorized Specialty Diagnoses / Procedures Referred By Contac t Referred To Contact Plastic Surgery Tessa Starkey P.A.-C., M.S. [address] [place] [phone] [facility] Referral ID Status Reason Start Date Expiration Date V isits Requested Visits Authorized [id number] Authorized 11/24/2023 05/25/2025 1 1 Scheduling Instructions Breast irish MILL OPERATOR CORE SAND Reason for Visit * Outpatient (Routine) - Closed Specialty Diagnoses / Procedures Referred By Contac t Referred To Contact Plastic Surgery Tessa Starkey P.A.-C., M.S. [address] [place] [phone] [facility] Referral ID Status Reason Start Date Expiration Date Visits Re quested Visits Authorized [id number] Closed 11/10/2023 05/11/2025 1 1 Encounter Details Date Type Department Care Team ([facility] st Contact Info) Description 11/24/2023 1:00 PM SAND MILL OPERATOR CORE SAND Office Visit Division of Plastic Surgery in [place], [place] [address] [place] [address] Tessa Starkey P.A.-C., M.S. [address] [place] [address] Absence Of Breast Acquired Bilateral (Primary Dx) [...] Sex Assigned at Female 08/20/2018 8:53 AM SAND MILL OPERATOR CORE SAND Gender Identity Female 08/20/2018 8:53 AM SAND MILL OPERATOR CORE SAND Sexual Orientation Straight 08/20/2018 8: 53 AM SAND MILL OPERATOR CORE SAND documented as of this encounter Progress Notes [...] plan; patient expressed understanding of the content. MILL OPERATOR CORE SAND documented in this encounter Plan of Treatment Scheduled Referrals Name Type Priority Associated Diagnoses Orde r Schedule Plastic Surgery office visit (clinic) Outpatient Referral Routine Expected: 11/23/2024 (Approximate), Expires: 02/23/2025 documented as of this encounter Visit Diagnoses Diagnosis Absence Of Breast Acquired Bilateral- Primary documented in this encounter Care Teams Environmental Professional Relationship Specialty Start Date End Date Elsewhere, Pcp PCP - General River Rat 09/25/19 documented as of this encounter
--- OUTSIDE RECORDS SUMMARY | 2024-01-22 17:42 | XMS_ITS | Encounter Summary ---
Author Name Unknown Organization [facility] Address [address] [place] [address] Care Team Providers Care Printing Shop Supervisor Name Role Phone Elsewhere, Pcp Primary Care [...] Assigned at Female 08/20/2018 8:53 AM DROP WIRE HANGER Gender Identity Female 08/20/2018 8:53 AM DROP WIRE HANGER Sexual Orientation Straight 08/20/2018 8: 53 AM DROP WIRE HANGER documented as of this encounter Plan of Treatment Not on file documented as of this encounter Procedures Procedure Name Priority Date/Time Associated Diagnosis Comments PLASTIC AND RECON SURGERY IMAGE EXAM Routine 11/24/2023 12:00 AM DROP WIRE HANGER documented in this encounter Results * Breast Implants-Plastic And Recon Surgery Image Exam (11/24/2023 12:00 AM DROP WIRE HANGER) Narrative [facility] - 11/24/2023 4:10 PM DROP WIRE HANGER This order has been created and auto-finalized to support the import of images acquired without order. The clinical documentation to support these images can be found on the encounter that produced images. Provider Not In System IMG NON RAD IMAGI NG PROCEDURES [facility] NA documented in this encounter Visit Diagnoses Not on filedocumented in this encounter Care Teams Printing Shop Supervisor Relationship Specialty Start Date End Date Elsewhere, Pcp PCP - General Social Services Manager 09/25/19 documented as of this encounter
--- OUTSIDE RECORDS SUMMARY | 2024-01-22 17:42 | XMS_ITS | Encounter Summary ---
Author Name Unknown Organization [facility] Address [address] [place] [address] Care Team Providers Care Pesticide Chemist Name Role Phone Elsewhere, Pcp Primary Care Provider Unavailabl e Encounter Details Date Type Department Care Team (Late st Contact Info) Description 11/24/2023 Abstract [place], [place] [address] [place] [phone] Provider, Historical Social History Tobacco Use Types [...] Sex Assigned at Female 08/20/2018 8:53 AM HARVEST CONTRACTOR Gender Identity Female 08/20/2018 8:53 AM HARVEST CONTRACTOR Sexual Orientation Straight 08/20/2018 8: 53 AM HARVEST CONTRACTOR documented as of this encounter Plan of Treatment Not on file documented as of this encounter Visit Diagnoses Not on filedocumented in this encounter Care Teams Pesticide Chemist Relationship Specialty Start Date End Date Elsewhere, Pcp PCP - General Roping Machine Tender 09/25/19 documented as of this encounter
--- OUTSIDE RECORDS SUMMARY | 2024-01-22 17:42 | XMS_ITS | Encounter Summary ---
Author Name Unknown Organization [facility] Address [address] [place] [address] Care Team Providers Care Chuck Wagon Driver Name Role Phone Elsewhere, Pcp Primary Care Provider Unavailabl e Reason for Visit * Reason Onset Date Comments Pre-visit Intake 11/22/2023 Encounter Details Date Type Department Care Team (Latest Contact Info) Description 11/22/2023 8:30 AM PLANNING CONSULTANT Clinical Communication Virtual Review in [place], [place] [address] [place] [address] Pre-visit Intake Social History Tobacco Use Types [...] Sex Assigned at Female 08/20/2018 8:53 AM PLANNING CONSULTANT Gender Identity Female 08/20/2018 8:53 AM PLANNING CONSULTANT Sexual Orientation Straight 08/20/2018 8: 53 AM PLANNING CONSULTANT documented as of this encounter Plan of Treatment Not on file documented as of this encounter Visit Diagnoses Not on filedocumented in this encounter Care Teams Chuck Wagon Driver Relationship Specialty Start Date End Date Elsewhere, Pcp PCP - General Steel Barrel Reamer 09/25/19 documented as of this encounter
--- OUTSIDE RECORDS SUMMARY | 2024-01-22 17:43 | XMS_ITS | Encounter Summary ---
Author Name Unknown Organization [facility] Address [address] [place] [id number] Care Team Providers Care Client Consultant Name Role Phone Elsewhere, Pcp Primary Care Provider Unavailabl e Encounter Details Date Type Department Care Team (Latest Contact Info) Description 10/23/2023 11:16 AM SEASONING MIXER - 10/23/2023 11:59 PM SEASONING MIXER Hospital Encounter Department of Laboratory Medicine and Pathology, [facility], in [place], [place] [address] [place] [phone] Tessa Starkey P.A.-C., M.S. [address] [place] [phone] Absence Of Breast Acquired Bilateral Discharge Disposition: [...] Sex Assigned at Female 08/20/2018 8:53 AM SEASONING MIXER Gender Identity Female 08/20/2018 8:53 AM SEASONING MIXER Sexual Orientation Straight 08/20/2018 8: 53 AM SEASONING MIXER documented as of this encounter Medications at [...] oxyCODONE (ROXICODONE) 5 mg immediate release tabletIndications:Ac [place] Pain Take 1 tablet (5 mg total) by mouth every 4 (four) hours as needed for pain or moderate pain or score 4-6 of 10 Indication: Acute Pain. 15 tablet 07/25/2018 10/26/2023 sertraline (ZOLOFT) 100 mg tablet Take 1.5 tablets by mouth at bedtime. 04/20/2017 10/26/2023 traMADoL (ULTRAM) 50 mg tabletIndications:Ac [place] Pain Take 1 tablet (50 mg total) [...] by mouth daily. 400 unit. 05/21/2009 zoledronic wwmd-yhdxtllq-xjwde (zoledronic ds-mzvrxplm-5.9NaCl) 4 mg/100 mL piggyback [id number] 10/26/2023 documented as of this encounter Plan of Treatment Not on file documented as of this encounter Procedures Procedure Name Priority Date/Time Associated Diagnosis Comments CBC WITH DIFFERENTIAL, B Routine 10/23/2023 11:46 AM SEASONING MIXER Absence Of Breast Acquired Bilateral BASIC METABOLIC PANEL, S/P Routine 10/23/2023 11:46 AM SEASONING MIXER Absence Of Breast Acquired Bilateral documented in this encounter Results * (ABNORMAL) CBC with Differential, Blood (10/23/2023 11:46 AM SEASONING MIXER) Hemoglobin 14.9 11.6 - 15.0 g/dL 10/23/2023 12:28 PM SEASONING MIXER DTL Hematocrit 45.8(H) 35.5 - 44.9 % 10/23/2023 12:28 PM SEASONING MIXER DTL Erythrocytes 4.94 3.92 - 5.13 x10(12)/L 10/23/2023 12:28 PM SEASONING MIXER DTL MCV 92.7 78.2 - 97.9 fL 10/23/2023 12:28 PM SEASONING MIXER DTL RBC Distrib Width 13.0 12.2 - 16.1 % 10/23/2023 12:28 PM SEASONING MIXER DTL Platelet Count 253 157 - 371 x10(9)/L 10/23/2023 12:28 PM SEASONING MIXER DTL Leukocytes 7.1 3.4 - 9.6 x10(9)/L 10/23/2023 12:28 PM SEASONING MIXER DTL Neutrophils 4.11 1.56 - 6.45 x10(9)/L 10/23/2023 12:28 PM SEASONING MIXER PM Lymphocytes 2.10 0.95 - 3.07 x10(9)/L 10/23/2023 12:28 PM SEASONING MIXER DTL Monocytes 0.48 0.26 - 0.81 x10(9)/L 10/23/2023 12:28 PM SEASONING MIXER DTL Eosinophils 0.32 0.03 - 0.48 x10(9)/L 10/23/2023 12:28 PM SEASONING MIXER DTL Basophils 0.04 0.01 - 0.08 x10(9)/L 10/23/2023 12:28 PM SEASONING MIXER DTL Blood (Blood, Venous) 10/23/2023 11:46 AM SEASONING MIXER 10/23/2023 12:21 PM SEASONING MIXER Tessa Starkey P.A.-C., M.S. LAB BLOOD ADD-O N [facility] [address] [place] [address], [facility] DTL [facility] [address] [place] [address] * (ABNORMAL) Basic Metabolic Panel (10/23/2023 11:46 AM SEASONING MIXER) [facility] Potassium, S 4.6 3.6 - 5.2 mmol/L 10/23/2023 1:10 PM SEASONING MIXER DTL Sodium, S 138 135 - 145 mmol/L 10/23/2023 1:10 PM SEASONING MIXER DTL Chloride, S 102 98 - 107 mmol/L 10/23/2023 1:10 PM SEASONING MIXER DTL Bicarbonate, S 28 22 - 29 mmol/L 10/23/2023 1:10 PM SEASONING MIXER DTL Anion Gap 8 7 - 15 10/23/2023 1:10 PM SEASONING MIXER DTL BUN (Blood Urea Nitrogen), S 17 6 - 21 mg/dL 10/23/2023 1:10 PM SEASONING MIXER DTL Creatinine 0.79 0.59 - 1.04 mg/dL 10/23/2023 1:10 PM SEASONING MIXER DTL Estimated GFR (eGFR) 83 >=60 mL/min/BSA 10/23/2023 1:10 PM SEASONING MIXER DTL Comment: Estimated GFR calculated using the 2020 CKD_EPI creatinine equation. Calcium, Total, S 10.6(H) 8.8 - 10.2 mg/dL 10/23/2023 1:22 PM SEASONING MIXER DTL Glucose, S 90 70 - 140 mg/dL 10/23/2023 1:10 PM SEASONING MIXER DTL Blood (Blood, Venous) 10/23/2023 11:46 AM SEASONING MIXER 10/23/2023 12:42 PM SEASONING MIXER Tessa Starkey P.A.-C., M.S. LAB BLOOD ADD-O N [facility] [address] [place] [address], [facility] [address] [place] [address] documented in this encounter Visit Diagnoses Diagnosis Absence Of Breast Acquired Bilateral documented in this encounter Care Teams Client Consultant Relationship Specialty Start Date End Date Elsewhere, Pcp PCP - General Soft Sugar Cutter 09/25/19 documented as of this encounter
--- OUTSIDE RECORDS SUMMARY | 2024-01-22 17:43 | XMS_ITS | Clinical Summary ---
Author Name Unknown Organization [facility] Address [place], [place] [address] Care Team Providers Care Lime Burner Name Role Phone Javier Moody DPM Unavailable [phone] Staff, Other Clinical Unavailable UnavailGerri Butler Primary [...] Team Description 01/19/2024 Travel 01/19/[address] [facility] [address] [place] [address] Gerri Serrano PA Constipation; Abdominal Pain from Last 3 Months Immunizations Name Administration Dates Next Due COVID-19 vaccine ([employer] 30mcg/0.3mL) 12YO+ CAYETANO-SUCROSE PF MDV 02/16/2022 COVID-19 vaccine ([employer] 30mcg/0.3mL) PFMDV 06/14/2021,12/30/2020,12/09/2020 HepA-HepB (Twinrix) 04/22/2008,11/06/2007,2007 [...] 74 03/06/202703/06, 03/06/2017, 03/06/2017 (Completed outside of [facility]), Additional history exists Lipids for age 45-75 [...] this topic Medical Devices Implanted Type Area Leather Production Worker Device Identifier Shelf Expiration Date Model / Serial / Lot [id number] - [id number] Implanted:Qty: 1 on 06/02/2017 by Javier Moody DPM at [facility] Right: Foot [employer] [id number] / / Description:MTP CP plate [id number] - [id number] Implanted:Qty: 3 on 06/02/2017 by Javier Moody DPM at [facility] Right: Foot [employer] [id number] / / Description:2.7 mm locking s crews, T8 [id number] - [id number] Implanted:Qty: 1 on 06/02/2017 by Javier Moody DPM at [facility] Right: Foot [employer] [id number] / / Description:3.6 mm CP screw, T8 [id number] - [id number] Implanted:Qty: 1 on 06/02/2017 by Javier Moody DPM at [facility] Right: Foot [employer] [id number] / / Description:2.7 mm locking s crew, T8 [id number] - [id number] Implanted:Qty: 1 on 10/02/2017 by Javier Moody DPM at [facility] Left: Foot [employer] [id number] / / N/A Description:MTP CP Plate, le ft T8, 5 Hole [id number] - [id number] Implanted:Qty: 2 on 10/02/2017 by Javier Moody DPM at [facility] Left: Foot [employer] [id number] / / N/A Description:2.7mm Locking Sc rews, T8 [id number] - [id number] Implanted:Qty: 2 on 10/02/2017 by Javier Moody DPM at [facility] Left: Foot [employer] [id number] / / N/A Description:2.7mm Locking Sc rews, T8 Explanted Type Area Leather Production Worker Device Identifier Shelf Expiration Date Model / Serial / Lot [id number] - [id number] Implanted:Qty: 1 Explanted:Qty: 1 on 10/02/2017 at [facility] Left: Foot [employer] [id number] / / N/A Description:3.6mm CP Screws, T8 [id number] - [id number] Explanted:Qty: 1 on 10/02/2017 at [facility] Left: Foot [employer] [id number] / / N/A Description:CP Screws, T8 Procedures Procedure Name Priority Date/Time Associated Diagnosis Comments LIPID PANEL W REFLEX MEASURED LDL Routine 03/07/2023 9:06 AM CDT Screening cholesterol level COLONOSCOPY SCREENING Routine 03/06/2017 12:00 AM CDT Special screening for malignant neoplasms, colon ANTI HCV Routine 08/13/2014 9:30 AM DEMAND PLANNING ANALYST Need for hepatitis C screening test from Last 3 Months or Most Recently Relevant to Health Maintenance Results * LIPID PANEL W REFLEX MEASURED LDL (03/07/2023 9:06 AM CDT) CHOLESTEROL,TOTAL 184 100 - 199 mg/dL 03/07/2023 7:07 PM CDT [facility] [employer] [facility] Comment: Cholesterol, Total Reference Ranges Desirable <200 mg/dL Borderline 200-239 mg/dL High >=240 mg/dL TRIGLYCERIDES 78 <150 mg/dL 03/07/2023 7:07 PM CDT [facility] HDL CHOLESTEROL 54 >40 mg/dL 7:07 PM CDT [facility] NON-HDL CHOLESTEROL 130 <145 mg/dl 03/07/2023 7:07 PM CDT [facility] CHOL/HDL RATIO 3.41 <4.50 03/07/2023 7:07 PM CDT [facility] LDL CHOLESTEROL 114 <=130 mg/dL 03/07/2023 7:07 PM CDT [facility] VLDL CHOLESTEROL 16 <=30 mg/dL 03/07/2023 7:07 PM CDT [facility] PROVIDER ORDERED STATUS RANDOM 03/07/2023 7:07 PM CDT [facility] Blood BLOOD SPECIMEN / Unknown Venipuncture / Unknown 03/07/2023 9:06 AM CDT 03/07/2023 9:07 AM CDT Gerri ALVAREZ [facility] [address] [place] [address], * COLONOSCOPY SCREENING (03/06/2017 12:00 AM CDT) Son Hair MD GI PROCEDURE ORD * ANTI HCV (08/13/2014 9:30 AM DEMAND PLANNING ANALYST) HEPATITIS C ANTIBODY Non-Reacti ve Non-Reacti ve 08/13/2014 8:03 PM DEMAND PLANNING ANALYST [facility] Blood specimen (specimen) BLOOD SPECIMEN / Unknown Add On / Unknown 08/13/2014 9:30 AM DEMAND PLANNING ANALYST 08/13/2014 4:40 PM DEMAND PLANNING ANALYST Narrative [facility] - 08/13/2014 8:03 PM DEMAND PLANNING ANALYST Antibodies to HCV not detected; does not exclude the possibility of exposure to HCV. oJdy Davise NP SEND OUTS [facility] [address] [place] [address], from Last 3 Months or Most Recently [...] Code Status Discussion: Not Discussed Care Teams Lime Burner Relationship Specialty Start Date End Date Gerri Serrano PA [address] [place] [address] PCP - General Physician China Decorator 10/25/19 Javier Moody DPM [address] [place] [address] Surgery - Podiatric 09/28/17 Staff, Other Clinical . Plastic Surgery 09/28/17
--- OUTSIDE RECORDS SUMMARY | 2024-01-22 17:43 | XMS_ITS | Encounter Summary ---
Author Name Unknown Organization [facility] Address [address] [place] [address] Care Team Providers Care Laser Systems Engineer Name Role Phone Elsewhere, Pcp Primary Care Provider Unavailabl e Reason for Visit * Outpatient (Routine) - Closed Specialty Diagnoses / Procedures Referred By Mily ferrell Referred To Contact Plastic Surgery Tessa Starkey P.A.-C., M.S. [address] [place] [phone] [facility] Referral ID Status Reason Start Date Expiration Date Visits Re quested Visits Authorized [id number] Closed 08/24/2023 08/23/2026 1 1 Encounter Details Date Type Department Care Team ([facility] Contact Info) Description 10/23/2023 1:15 PM NARROW FABRIC LOOM FIXER Office Visit Division of Plastic Surgery in [place], [place] [address] [place] [phone] Denny Bearden M.D. [address] [place] [phone] Absence Of Breast Acquired Bilateral (Primary [...] Sex Assigned at Female 08/20/2018 8:53 AM NARROW FABRIC LOOM FIXER Gender Identity Female 08/20/2018 8:53 AM NARROW FABRIC LOOM FIXER Sexual Orientation Straight 08/20/2018 8: 53 AM NARROW FABRIC LOOM FIXER documented as of this encounter Progress Notes [...] was seen and examined with Dr. Son. OW FABRIC LOOM FIXER documented in this encounter Plan of Treatment Not on file documented as of this encounter Visit Diagnoses Diagnosis Absence Of Breast Acquired Bilateral- Primary documented in this encounter Care Teams Laser Systems Engineer Relationship Specialty Start Date End Date Elsewhere, Pcp PCP - General Recoil Spring Winder 09/25/19 documented as of this encounter
--- OUTSIDE RECORDS SUMMARY | 2024-01-22 17:43 | XMS_ITS | Encounter Summary ---
Author Name Unknown Organization [facility] Address [address] [place] [address] Care Team Providers Care Planting Material Unloader Name Role Phone Elsewhere, Pcp Primary Care [...] Sex Assigned at Female 08/20/2018 8:53 AM SCRAP BALLER Gender Identity Female 08/20/2018 8:53 AM SCRAP BALLER Sexual Orientation Straight 08/20/2018 8: 53 AM SCRAP BALLER documented as of this encounter Plan of Treatment Not on file documented as of this encounter Procedures Procedure Name Priority Date/Time Associated Diagnosis Comments PLASTIC AND RECON SURGERY IMAGE EXAM Routine 10/23/2023 12:00 AM SCRAP BALLER documented in this encounter Results * TRAM Implant Exchange-Plastic And Recon Surgery Image Exam (10/23/2023 12:00 AM SCRAP BALLER) Narrative [facility] - 10/23/2023 3:55 PM SCRAP BALLER This order has been created and auto-finalized to support the import of images acquired without order. The clinical documentation to support these images can be found on the encounter that produced images. Provider Not In System IMG NON RAD IMAGI NG PROCEDURES [facility] NA documented in this encounter Visit Diagnoses Not on filedocumented in this encounter Care Teams Planting Material Unloader Relationship Specialty Start Date End Date Elsewhere, Pcp PCP - General Dry Mill Worker 09/25/19 documented as of this encounter
--- OUTSIDE RECORDS SUMMARY | 2024-01-22 17:43 | XMS_ITS | Encounter Summary ---
Author Name Unknown Organization [facility] Address [address] [place] [address] Care Team Providers Care Carpet Tile Layer Name Role Phone Elsewhere, Pcp Primary Care Provider Unavailabl e Reason for Visit * Auth/Cert (Routine) Specialty Diagnoses / Procedures Referred By Mily t Referred To Contact Diagnoses Absence Of Breast Acquired Bilateral Absence Of Breast Acquired Bilateral [Z90.13] Procedures OR DELAYED INSRT/RPLC BRST IMPLNT OR RMVL RPTRD BRST IMPLNT OR REV KIMMY CAPSULOTOMY BRST OR GRAFTING OF AUTOLOGOUS FAT BY LIPO 50 CC OR LESS OR GRAFTING OF AUTOLOGOUS FAT BY LIPO EA ADDL 50 CC OR CAPSULORRHAPHY GLENOHUMRL JT MULTI-DIRIONAL INS RECONSTRUCTION BREAST WITH IMPLANT; proceed as indicated REMOVAL IMPLANT BREAST CAPSULECTOMY BREAST INJECTION FAT harvested from abdomen, flanks or thighs Referral ID Status Reason Start Date Expiration Date Visits Re quested Visits Authorized [id number] 1 1 Encounter Details Date Type Department Care Team (Late st Contact Info) Description 10/26/2023 8:42 AM SENIOR APPLICATIONS ARCHITECT - 10/26/2023 12:47 PM SENIOR APPLICATIONS ARCHITECT Surgery [facility] [address] [place] [phone] Denny Bearden M.D. [address] [place] [phone] RECONSTRUCTION BREAST WITH IMPLANT, proceed as indicated. [...] Sex Assigned at Female 08/20/2018 8:53 AM SENIOR APPLICATIONS ARCHITECT Gender Identity Female 08/20/2018 8:53 AM SENIOR APPLICATIONS ARCHITECT Sexual Orientation Straight 08/20/2018 8: 53 AM SENIOR APPLICATIONS ARCHITECT documented as of this encounter Last Filed Vital Signs Vital Sign Reading Time Taken Comments Blood Pressure 124/70 10/26/2023 12:20 PM SENIOR APPLICATIONS ARCHITECT Pulse 75 10/26/2023 12:20 PM SENIOR APPLICATIONS ARCHITECT Temperature 36.9 ??C (98.4 ??F) 10/26/2023 1 1:45 AM SENIOR APPLICATIONS ARCHITECT Respiratory Rate 14 10/26/2023 12:2 3 PM SENIOR APPLICATIONS ARCHITECT Oxygen Saturation 95% 10/26/2023 12: 20 PM SENIOR APPLICATIONS ARCHITECT Inhaled Oxygen Concentration - - Weight 90.7 kg (199 lb 15.3 oz) 10/26/2023 6:35 AM SENIOR APPLICATIONS ARCHITECT Height 160.5 cm (5' 3.19) 10/26/2023 6:35 AM CS T Body Mass Index 35.21 10/26/2023 6:35 AM SENIOR APPLICATIONS ARCHITECT documented in this encounter Discharge Instructions * Attachments The following attachments cannot be sent through Care Everywhere. * Your Scopolamine Patch (Mal[place]ian) documented in this encounter Medications at Time [...] 05/21/2009 11/22/2023 traMADoL (ULTRAM) 50 mg tabletIndications:Ac [place] Pain Take 1 tablet (50 mg total) by mouth every 6 (six) hours as needed for pain Indications: Acute Pain. 8 tablet 10/26/2023 11/22/2023 documented as of this encounter OR Notes * Op Note - Jatin Covarrubias M.D. - 10/26/2023 9:53 AM CST Pre-op Diagnosis Absence Of Breast Acquired Bilateral Post-op Diagnosis Absence Of Breast Acquired Bilateral Basket Patcher A language assistant actively participated and was necessary for one or more of the following: opening, exposure and visualization during the case, maintaining hemostasis, wound closure resulting in itssafe and expeditious completion. Findings As expected. Complications None Operative Note Narrative Procedure: Bilateral breast implant exchange due to right breast implant rupture - Right breast: prepectoral Hope Memorygel Smooth Round Ultra high profile 650 cc. Left breast: prepectoral Hope Memorygel Smooth Round High profile 600 cc [...] Associated Diagnosis Comments CAPSULORRHAPHY 10/26/2023 8:46 AM SENIOR APPLICATIONS ARCHITECT Absence Of Breast Acquired Bilateral CAPSULECTOMY BREAST 10/26/2023 8 :46 AM SENIOR APPLICATIONS ARCHITECT Absence Of Breast Acquired Bilateral REMOVAL IMPLANT BREAST 8:46 AM SENIOR APPLICATIONS ARCHITECT Absence Of Breast Acquired Bilateral RECONSTRUCTION BREAST WITH IMPLANT 10/26/2023 8:46 AM SENIOR APPLICATIONS ARCHITECT Absence Of Breast Acquired Bilateral documented in [...] last 6 hours Given 10/26/2023 12:10 PM SENIOR APPLICATIONS ARCHITECT 1,000 mg BUPivacaine liposome (PF) 20 mL, BUPivacaine 30 mL 50 mL injection As needed, Starting on Alla 10/26/23 at 1104, Intra-Op Given 10/26/2023 10:54 AM SENIOR APPLICATIONS ARCHITECT 50 mL fentaNYL injection 25 mcg (SUBLIMAZE) 25 mcg, intravenous, Every 2 min PRN, moderate pain or score 4-6 of 10, severe pain or score 7-10 of 10, Starting on Alla 10/26/23 at 1147, PACU (only), Up to maximum total dose of 200 mcg Given 10/26/2023 12:16 PM SENIOR APPLICATIONS ARCHITECT 25 mcg Given 10/26/2023 11:53 AM SENIOR APPLICATIONS ARCHITECT 25 mcg gentamicin-vancomycin 160 mg-1 g in [...] Post-Op Continued from OR 10/26/2023 11:55 AM SENIOR APPLICATIONS ARCHITECT 20 mL/hr 20 mL/hr lidocaine 500 mg-EPINEPHrine [...] mg/72 hours. Medication Applied 10/26/2023 8:41 AM SENIOR APPLICATIONS ARCHITECT 1 patch Behind Right Ear traMADoL tablet [...] Recently Administered Medications Times are shown in SENIOR APPLICATIONS ARCHITECT. Scheduled Medication Order 10/24/2023 10/25/2023 10/26/2023 BUPivacaine [...] (Medication Pricila lied - Provider: Meliza Townsend R.N.)[id number] (Due: Medication Removed - Provider: Discharge Provider, [...] in the previous 6 hours, Starting on Alal 10/26/23 at 1147, For 1 dose, PACU [...] older documented in this encounter Care Teams Carpet Tile Layer Relationship Specialty Start Date End Date Elsewhere, Pcp PCP - General Medical Record Administrator 09/25/19 documented as of this encounter
--- OUTSIDE RECORDS SUMMARY | 2024-01-22 17:43 | XMS_ITS | Encounter Summary ---
Author Name Unknown Organization [facility] Address [address] [place] [address] Care Team Providers Care Shipping Processor Name Role Phone Elsewhere, Pcp Primary Care Provider Unavailabl e Reason for Visit * Auth/Cert (Routine) Specialty Diagnoses / Procedures Referred By Mily t Referred To Contact Diagnoses Absence Of Breast Acquired Bilateral Absence Of Breast Acquired Bilateral [Z90.13] Procedures NC DELAYED INSRT/RPLC BRST IMPLNT NC RMVL RPTRD BRST IMPLNT NC REV KIMMY CAPSULOTOMY BRST NC GRAFTING OF AUTOLOGOUS FAT BY LIPO 50 CC OR LESS NC GRAFTING OF AUTOLOGOUS FAT BY LIPO EA ADDL 50 CC NC CAPSULORRHAPHY GLENOHUMRL JT MULTI-DIRIONAL INS RECONSTRUCTION BREAST WITH IMPLANT; proceed as indicated REMOVAL IMPLANT BREAST CAPSULECTOMY BREAST INJECTION FAT harvested from abdomen, flanks or thighs Referral ID Status Reason Start Date Expiration Date Visits Re quested Visits Authorized [id number] 1 1 Encounter Details Date Type Department Care Team (Late st Contact Info) Description 10/26/2023 9:01 AM [employer] Anesthesia Event [facility] [address] [place] [address] Balwinder Cline M.D. [address] [place] [address] Anesthesia Record Procedure Summary Procedure Name Responsible [...] Sex Assigned at Female 08/20/2018 8:53 AM [employer] Gender Identity Female 08/20/2018 8:53 AM [employer] Sexual Orientation Straight 08/20/2018 8: 53 AM [employer] documented as of this encounter OR Notes * Anesthesia Postprocedure Evaluation - Balwinder Cline M.D. - 10/26/2023 3:00 PM CST Patient: Valerie Box Procedure Summary Date: 10/26/23 Room / Location: [place] [address] / [facility] in [place], [place] Anesthesia Start: 09 Anesthesia Stop: 1148 [...] Post Op nausea/vomiting: none Hydration status: euvolemic ERCIAL INTERNSHIP * Anesthesia Procedure Notes - Delfina Cheng RCharles - 10/26/2023 9:14 AM [employer] Associated Order(s): Airway Airway Date/Time: 10/26/2023 9:12 AM Performed by: Delfina Cheng RCharles Authorized by: Balwinder Cline M.D. Patient location during procedure: OR / Procedure Area PROCEDURE DETAILS: Mask difficulty assessment: easy mask Final airway type: video laryngoscope Laryngeal Manipulation: no Final best view of glottic structures - Cormack/Lehane Score: grade 1 ETT location: oral VL device: glide scope [place] scope blade size: 3 Tube size: 7 [...] anesthesia POST PROCEDURE DETAILS: Procedure outcome: successful [employer]CIAL INTERNSHIP * Anesthesia Preprocedure Evaluation - Balwinder Cline M.D. - 10/26/2023 8:31 AM CST Preprocedure Anesthesia & H&P Assessment Procedure Summary Date/Time: 10/26/23 0842 Procedures: RECONSTRUCTION BREAST WITH IMPLANT, proceed as indicated. (Bilateral) REMOVAL IMPLANT BREAST. (Bilateral) CAPSULECTOMY BREAST vs CAPSULOTOMY. (Bilateral) CAPSULORRHAPHY. (Bilateral) Diagnosis: Absence Of Breast Acquired Bilateral [Z90.13] Pre-op diagnosis: Absence Breast Acquired Bilateral [Z90.13]. Location: [place] [address] / [facility] in [place], [place] Providers: Denny Bearden M.D. Pertinent components [...] with patient /legal guardian or through an jewelry consultant. Risks/Benefits/Alternatives of Blood transfusion discussed with patient / legal guardian, includingan opportunity to ask questions and/or decline some or all transfusion therapies. The patient / legal guardian consented to the use of all blood products, as deemed medically necessary Approval to Proceed: approved for anesthesia ERCIAL INTERNSHIP documented in this encounter Plan of Treatment Not on file documented as of this encounter Procedures Procedure Name Priority Date/Time Associated Diagnosis Comments LDA ANE ENDOTRACHEAL AIRWAY Routine 10/26/2023 9:12 AM [employer] documented in this encounter Results * LDA ANE ENDOTRACHEAL AIRWAY (10/26/2023 9:12 AM [employer]) Narrative Delfina Cheng R.N. - 10/26/2023 9:12 AM [employer] Delfina Cheng R.N. ? 10/26/2023 ??9:15 AM [...] ETT location: oral VL device: glide scope [place] scope blade size: 3 Tube size: 7 [...] Indications: Prophylaxis, surgical Given 10/26/2023 9:52 AM [employer] 2 g dexAMETHasone injection (DECADRON) intravenous, As needed, Starting on Alla 10/26/23 at 0917, Anesthesia Intra-op Given 10/26/2023 9:17 AM [employer] 8 mg fentaNYL injection (SUBLIMAZE) intravenous, As needed, Starting on Alla 10/26/23 at 0909, Anesthesia Intra-op Given 10/26/2023 10:33 AM [employer] 25 mcg Given 10/26/2023 9:55 AM [employer] 50 mcg Given 10/26/2023 9:19 AM [employer] 50 mcg haloperidol lactate injection (HALDOL) intravenous, As needed, Starting on Alla 10/26/23 at 1051, Anesthesia Intra-op Given 10/26/2023 10:51 AM [employer] 1 mg ketamine injection (KETALAR) intravenous, As needed, Starting on Alla 10/26/23 at 0952, Anesthesia Intra-op Given 10/26/2023 10:48 AM [employer] 10 mg Given 10/26/2023 9:52 AM [employer] 20 mg Lactated Ringer's intravenous, Continuous Infusion: Per Instructions PRN, Starting on Alla 10/26/23 at 0906, Anesthesia Intra-op New Bag 10/26/2023 9:06 AM [employer] lidocaine (PF) (cardiac) injection intravenous, As needed, Starting on Alla 10/26/23 at 0909, Anesthesia Intra-op Given 10/26/2023 9:09 AM [employer] 100 mg ondansetron (PF) injection (ZOFRAN) intravenous, As needed, Starting on Alla 10/26/23 at 1051, Anesthesia Intra-op Given 10/26/2023 10:51 AM [employer] 4 mg propofol 10 mg/mL infusion (DIPRIVAN) intravenous, Continuous Infusion: Per Instructions PRN, Starting on Alla 10/26/23 at 0909, Anesthesia Intra-op New Bag 10/26/2023 9:09 AM [employer] 125 mcg/kg/min 68.025 mL/hr propofoL injection (DIPRIVAN) intravenous, As needed, Starting on Alla 10/26/23 at 0909, Anesthesia Intra-op Given 10/26/2023 10:48 AM [employer] 30 mg Given 10/26/2023 10:43 AM [employer] 30 mg Given 10/26/2023 10:33 AM [employer] 30 mg succinylcholine (PF) injection (ANECTINE) intravenous, As needed, Starting on Alla 10/26/23 at 0909, Anesthesia Intra-op Given 10/26/2023 9:09 AM [employer] 100 mg documented in this encounter Care Teams Shipping Processor Relationship Specialty Start Date End Date Elsewhere, Pcp PCP - General Bench Molder 09/25/19 documented as of this encounter
--- OUTSIDE RECORDS SUMMARY | 2024-01-22 17:43 | XMS_ITS | Encounter Summary ---
Author Name Unknown Organization [facility] Address [address] [place] [address] Care Team Providers Care Rental Agent Name Role Phone Elsewhere, Pcp Primary Care Provider Unavailabl e Reason for Visit * Auth/Cert (Routine) Specialty Diagnoses / Procedures Referred By Mily t Referred To Contact Diagnoses Absence Of Breast Acquired Bilateral Absence Of Breast Acquired Bilateral [Z90.13] Procedures IA DELAYED INSRT/RPLC BRST IMPLNT IA RMVL RPTRD BRST IMPLNT IA REV KIMMY CAPSULOTOMY BRST IA GRAFTING OF AUTOLOGOUS FAT BY LIPO 50 CC OR LESS IA GRAFTING OF AUTOLOGOUS FAT BY LIPO EA ADDL 50 CC IA CAPSULORRHAPHY GLENOHUMRL JT MULTI-DIRIONAL INS RECONSTRUCTION BREAST WITH IMPLANT; proceed as indicated REMOVAL IMPLANT BREAST CAPSULECTOMY BREAST INJECTION FAT harvested from abdomen, flanks or thighs Referral ID Status Reason Start Date Expiration Date Visits Re quested Visits Authorized [id number] 1 1 Encounter Details Date Type Department Care Team (Latest Contact Info) Description 10/26/2023 6:04 AM TALENT CONSULTANT - 10/26/2023 1:47 PM TALENT CONSULTANT Hospital Encounter Outpatient Surgery Unit in [place], [place] [address] [place] [address] Denny Bearden M.D. [address] [place] [phone] Discharge Disposition: Home or Self Care Social [...] Sex Assigned at Female 08/20/2018 8:53 AM TALENT CONSULTANT Gender Identity Female 08/20/2018 8:53 AM TALENT CONSULTANT Sexual Orientation Straight 08/20/2018 8: 53 AM TALENT CONSULTANT documented as of this encounter Last Filed Vital Signs Vital Sign Reading Time Taken Comments Blood Pressure 137/75 10/26/2023 1:19 PM TALENT CONSULTANT Pulse 88 10/26/2023 1:19 PM TALENT CONSULTANT Temperature 36.7 ??C (98.1 ??F) 10/26/2023 1 2:59 PM TALENT CONSULTANT Respiratory Rate 16 10/26/2023 1:19 PM TALENT CONSULTANT Oxygen Saturation 94% 10/26/2023 1:19 PM TALENT CONSULTANT Inhaled Oxygen Concentration - - Weight 90.7 kg (199 lb 15.3 oz) 10/26/2023 6:35 AM TALENT CONSULTANT Height 160.5 cm (5' 3.19) 10/26/2023 6:35 AM CS T Body Mass Index 35.21 10/26/2023 6:35 AM TALENT CONSULTANT documented in this encounter Discharge Instructions * Attachments The following attachments cannot be sent through Care Everywhere. * Your Scopolamine Patch (Colombian) documented in this encounter Medications at Time [...] Post-op Diagnosis Absence Of Breast Acquired Bilateral Spool Cleaner Hand A acute care nursing assistant actively participated and was necessary for one or more of the following: opening, exposure and visualization during the case, maintaining hemostasis, wound closure resulting in itssafe and expeditious completion. Findings As expected. Complications None Operative Note Narrative Procedure: Bilateral breast implant exchange due to right breast implant rupture - Right breast: prepectoral [place]oulder Memorygel Smooth Round Ultra high profile 650 cc. Left breast: prepectoral Boulder Memorygel Smooth Round High profile 600 cc [...] Associated Diagnosis Comments CAPSULORRHAPHY 10/26/2023 8:46 AM TALENT CONSULTANT Absence Of Breast Acquired Bilateral CAPSULECTOMY BREAST 10/26/2023 8 :46 AM TALENT CONSULTANT Absence Of Breast Acquired Bilateral REMOVAL IMPLANT BREAST 8:46 AM TALENT CONSULTANT Absence Of Breast Acquired Bilateral RECONSTRUCTION BREAST WITH IMPLANT 10/26/2023 8:46 AM TALENT CONSULTANT Absence Of Breast Acquired Bilateral documented in [...] last 6 hours Given 10/26/2023 12:10 PM TALENT CONSULTANT 1,000 mg fentaNYL injection 25 mcg (SUBLIMAZE) 25 mcg, intravenous, Every 2 min PRN, moderate pain or score 4-6 of 10, severe pain or score 7-10 of 10, Starting on Alla 10/26/23 at 1147, PACU (only), Up to maximum total dose of 200 mcg Given 10/26/2023 12:16 PM TALENT CONSULTANT 25 mcg Given 10/26/2023 11:53 AM TALENT CONSULTANT 25 mcg gentamicin-vancomycin 160 mg-1 g in [...] Post-Op Continued from OR 10/26/2023 11:55 AM TALENT CONSULTANT 20 mL/hr 20 mL/hr lidocaine 500 mg-EPINEPHrine [...] mg/72 hours. Medication Applied 10/26/2023 8:41 AM TALENT CONSULTANT 1 patch Behind Right Ear traMADoL tablet [...] Recently Administered Medications Times are shown in TALENT CONSULTANT. Scheduled Medication Order 10/24/2023 10/25/2023 10/26/2023 BUPivacaine [...] (Medication Pricila lied - Provider: Meliza Townsend RChalres)1347 (Due: Medication Removed - Provider: Discharge Provider, [...] older documented in this encounter Care Teams Rental Agent Relationship Specialty Start Date End Date Elsewhere, Pcp PCP - General Dry Wall Sprayer 09/25/19 documented as of this encounter
--- NOTE | 2024-01-22 18:00 | MR_ITS ---
Patient: TIFFANY HAWLEY Facility:?[facility] Patient ID:?[id number] Site Patient ID:?[id number]. Site :?[id number] Study:?MRI-Spine Cervical WO-01/22/2024 6:34:31 PM Ordering Physician:TERRANCE Final Report: INDICATION : Neck pain. TECHNIQUE : Cervical spine MRI without contrast. COMPARISON: COMPARISONCervical spine radiographs from 01/18/2024. FINDINGS: Straightening of the typical cervical lordosis. No recent compression fracture or marrow replacing process. Posterior fossa structures are normal. Cervical cord signal is normal. 11 millimeter oblong T2 hypointense nodule within the right posterior upper cervical subcutaneous soft tissues, likely a sebaceous cyst. Right common carotid artery eccentric atherosclerotic plaque/thrombus. Discs/Endplates: Moderate disc height loss and disc desiccation C6-7. Mild cervical disc height loss and disc desiccation elsewhere. Multilevel shallow broad-based Schmorl`s node indentations. Findings at individual levels as follows: Craniocervical junction: Alignment is maintained. C2-C3: High-grade left facet arthrosis. Small facet joint effusion and periarticular bone marrow edema. Findings consistent with active degenerative synovitis. No spinal canal or neural foraminal stenosis. C3-C4: Trace anterolisthesis. High-grade left facet arthrosis. Mild left neural foraminal stenosis. No right neural foraminal stenosis or spinal canal stenosis. C4-C5: 3 millimeters anterolisthesis. Right uncovertebral and facet arthrosis with [id number] right neural foraminal stenosis. No left neural foraminal stenosis or spinal canal stenosis. C5-C6: Trace anterolisthesis. Left uncovertebral arthrosis with mild left neural foraminal stenosis. No right neuroforaminal stenosis or spinal canal stenosis. C6-C7: Shallow disc osteophyte complex flattens the thecal sac without spinal canal stenosis. Bilateral uncovertebral arthrosis with minimal right and moderately advanced left neural foraminal stenosis. Impingement of the exiting left C7 nerve root. C7-T1: Trace anterolisthesis. Shallow disc osteophyte complex. Minimal uncovertebral arthrosis. Mild right neural foraminal stenosis. No left neural foraminal stenosis or spinal canal stenosis. T1-2: No spinal canal or neural foraminal stenosis. T2-3: A shallow central protrusion flattens the thecal sac. No spinal canal or neural foraminal stenosis. IMPRESSION: 1. At C2-3, active degenerative inflammation involving the hypertrophic left facet joint. 2. At C6-7, moderately advanced left neural foraminal stenosis with impingement of the exiting left C7 nerve root. 3. Multilevel cervical spondylosis at additional levels without high-grade spinal canal/neural foraminal stenosis or waldo impingement of neural structures. 4. Cervical cord signal is normal. No intradural pathology. Dictated by Vikram Templeton MD @ 01/23/2024 10:35:00 AM Signed by:?Vikram Templeton MD @01/23/2024 10:35:00 AM (Electronic Signature)
--- NOTE | 2024-02-12 15:45 | ONC.NURNOTE ---
Patient called to schedule follow up MRI and appointment with Dr. Hammer. Orders entered. Patient had bilateral implant exchange done at [place] in October. MRI is a short interval study to follow up on a previous area of enhancement.
== END 2024-01-22 17:40 | disposition home or self-care (01) ==
LOC: MRI 17:40
PROVIDERS: PCP Physician Assistant Medical; Visit Provider Family Medicine
DX: M54.2 Cervicalgia (principal); M47.892 Other spondylosis, cervical region; M48.02 Spinal stenosis, cervical region; M19.012 Primary osteoarthritis, left shoulder; M54.12 Radiculopathy, cervical region
CPT/HCPCS: 72141

== ENCOUNTER 2024-03-13 13:26 | Outpatient (CLI) | payer OTHER, SELFPAY ==
--- OUTSIDE RECORDS SUMMARY | 2024-03-13 13:28 | XMS_ITS | Clinical Summary ---
Author Organization [facility] Address [place], [place] [address] Care Team Providers Care Classroom Teacher Name Role Phone Javier Moody DPM Unavailable [phone] Staff, Other Clinical Unavailable UnavailGerri Butler Primary [...] End Date Status exemestane (AROMASIN) 25 mg tabletIndications :Ductal carcinoma of right breast (HC) Take 1 [...] mg tablet 06/23/2021 Active D-Mannose 99 % powdIndications:R ecurrent UTI As directed 2 g once daily. 60 g 5 07/07/2021 Active rizatriptan (MAXALT) 10 mg tabletIndications :Migraine syndrome TAKE 1 TABLET BY MOUTH AT ONSET. MAY TAKE WITH 2 IBUPROFEN. MAY REPEAT IN 2 HRS IF NEEDED. TAKE NO MORE THAT 2 TABS IN 24HRS. 10 Tablet 8 11/12/2021 Active d-mannose 500 mg cap Take by mouth. 0 08/01/2022 Active metroNIDAZOLE (METROLOTION) 0.75 % lotn lotionIndications :Skin rash Apply topically to affected area(s) two times daily. 70 mL 3 03/20/2023 Active levothyroxine (SYNTHROID) 112 mcg tabletIndications :Hypothyroidism, unspecified type Take 1 Tablet (112 mcg) by mouth once daily. 90 Tablet 3 03/11/2024 Active estradioL (ESTRACE) 0.01% (0.1 mg/g) vaginal creamIndications: Urinary problem Insert 1 g into the vagina every Monday and Monday. 42.5 g 1 03/11/2024 Active fluocinonide 0.05% topical (LIDEX) 0.05 % ointmentIndicatio ns:Seborrheic dermatitis, unspecified APPLY TO AFFECTED AREAS TOPICALLY 2 TIMES DAILY. FOR NO MORE THAN 14 DAYS CONSECUTIVELY 60 g 03/11/2024 Active nitrofurantoin macrocrystaL (MACRODANTIN) 100 mg capsuleIndication s:UTI symptoms Take 1 tablet by mouth after intercourse. 20 Capsule 1 03/11/2024 Active vitamin e 1,000 unit cap Take by mouth once daily. 0 10/13/2015 4 Discontinu ed(*Patien t states no longer taking) nitrofurantoin macrocrystaL (MACRODANTIN) 100 mg capsuleIndication s:UTI symptoms Take 1 tablet by mouth after intercourse. 20 Capsule 1 09/22/2022 4 Discontinu ed(Reorder (E-cancel not sent)) levothyroxine (SYNTHROID) 112 mcg tabletIndications :Hypothyroidism, unspecified type Take 1 Tablet (112 mcg) by mouth once daily. 90 Tablet 3 03/07/2023 4 Discontinu ed(Reorder (E-cancel not sent)) fluocinonide 0.05% topical (LIDEX) 0.05 % ointmentIndicatio ns:Seborrheic dermatitis, unspecified APPLY TO AFFECTED AREAS TOPICALLY 2 TIMES DAILY. FOR NO MORE THAN 14 DAYS CONSECUTIVELY 60 g 03/07/2023 4 Discontinu ed(Reorder (E-cancel not sent)) estradioL (ESTRACE) 0.01% (0.1 mg/g) vaginal creamIndications: Urinary problem Insert 1 g into the vagina every Monday and Monday. 42.5 g 12/08/2023 4 Discontinu ed(Reorder (E-cancel not sent)) Active Problems Problem Noted Date Diagnosed Date Diverticulitis of large intestine without bleedi ng 08/02/2022 H/O total hysterectomy 01/19/2022 Breast implant status 08/16/2018 Routine adult health maintenance 03/06/2017 Overview: Colonoscopy 02/2017 normal repeat in 10 years Ductal carcinoma of right breast 11/07/2016 Overview: New dx right breast. Hx previous ca right breast. Osteoarthritis 08/15/2014 Overview: Bilateral hands Unspecified hypothyroidism 12/13/2006 Migraine, unspecified, witho ut mention of intractable migraine without mention of status migrainosus 12/13/2006 Seborrheic dermatitis, unspecified 12/13/2006 Meniere's disease, unspecified 12/13/2000 Resolved Problems Problem Noted Date Diagnosed Date Resolved Date Chronic cholecystitis 01/17/20132023 Esophageal reflux 12/26/2012 03/11/2024 Overview: Off and on sx over the years EGD 12/2012 normal Low back pain 07/06/2010 03/11/2024 Dysthymic disorder 09/28/2007 Overview: Depression Malignant neoplasm of breast (female), unspecified site 12/13/2006 03/11/2024 Malignant neoplasm of breast (female), unspecified site 12/13/2006 03/11/2024 Malignant neoplasm of breast (female), unspecified site 12/13/1989 03/11/2024 Hallux valgus with bunions, right 03/11/2024 Hammertoe of right foot 02/23 Plantar fasciitis of right foot 03/11/2024 Encounters Date Type Department Care Team Description 03/11/2024 8:10 AM CDT Office Visit [facility] [address] [place] [address] Gerri Serrano PA Physical (63 years old) 03/11/2024 Travel 01/22/2024 Orders Only [facility] Scanner 1 scan: (1-Ord) [facility], MRI CERVICAL SPINE WO CON, 01/22/2024 01/19/2024 Orders Only [facility] Scanner 1 scan: (1-Ord) [facility], ABD/PELVIS, 01/19/2024 01/19/2024 Travel 01/19/2024 Nurse Triage [facility] [address] [place] [address] Gerri Serrano PA Constipation; Abdominal Pain 01/18/2024 Orders Only [facility] Scanner 1 scan: (1-Ord) [facility], XR CERVICAL SPINE 2-3 V, 01/18/2024 from Last 3 Months Immunizations Name Administration Dates Next Due COVID-19 vaccine ([employer] 30mcg/0.3mL) 12YO+ CAYETANO-SUCROSE PF, MDV 02/16/2022 COVID-19 vaccine ([employer] 30mcg/0.3mL) PF, MDV 06/14/2021,12/30/2020,12/09/2020 HepA-HepB (Twinrix) 04/22/2008,11/06/2007,2007 Influenza, IIV4 07/17/2022 [...] Communication with Friends and Fami ly 0 03/11/2024 Financial Resource Strain Answer Date R ecorded Difficulty of Paying Living Expenses 3 03/11/2024 Difficulty of Paying Living Expenses Not on file 03/11/2024 Food Insecurity Answer Date Recorded Worried About Running Out of Food in the Last Ye ar 1 03/11/2024 Transportation Needs Answer Date Record ed Lack of Transportation (Medical) 1 03/11/2024 Housing Stability Answer Date Recorded Unable to Pay for Housing in the Last Year 1 03/11/2024 Sex and Gender Information Value Date Recorded Sex Assigned at Not on file Gender Identity Not on file Sexual Orientation Not on file Travel History Travel Start Travel End [place] 02/14/2024 02/19/2024 Obstetrics History Para Term AB IAB SAB Ectopic Multiple Livin g Live Births 2 2 Date Outcome GA Total Labor Labor/2nd/3rd Weight Sex Type Anes PTL Delia A1 A5 Name Clin Last Filed Vital Signs Vital Sign Reading Time Taken Comments Blood Pressure 120/86 03/11/2024 8:12 AM CDT Pulse 75 03/11/2024 8:12 AM CDT Temperature 36.8 ??C (98.3 ??F) 08/01/2022 3:31 PM CS T Respiratory Rate 18 07/07/2021 9:34 AM CDT Oxygen Saturation 96% 06/14/2023 3:03 PM CDT Inhaled Oxygen Concentration - - Weight 92.1 kg (203 lb) 03/11/2024 8:12 AM CDT Height 161 cm (5' 3.39) 03/11/2024 8:12 AM CDT Body Mass Index 35.52 03/11/2024 8:12 AM CDT Plan of Treatment Upcoming Encounters Date Type Department Care Team (Late st Contact Info) Description 03/13/2024 3:30 PM CDT Orders Only [facility] [address] [place] [address] [place], [place] 03/19/2024 1:45 PM CDT Office Visit [facility] [address] [place] [address] Manju Mckeon MD [address] [place] [address] Health Maintenance Due Date Last Done Comments HIV for age 15-65 1974 Depression screening for age 12+ 07/01/2022 07/01/2021, 07/01/2021, 07/01/2021, Additional history exists COVID-19 vaccine series (2022- season) 2023 08/08/2023, 07/17/2022, 02/16/2022, Additional history exists Influenza for age 50-64 05/26/2024 07/17/2022, 06/21 BMI (ht and wt on same day) for age 18+ 03/11/2025 03/11/2024, 03/07/2023, 02/16/2022, Additional history exists Colonoscopy through age 75 03/06/202703/06, 03/06/2017, 03/06/2017 (Completed outside of [facility]), Additional history exists Lipids for age 45-75 03/11/2029 03/11/2024, 03/07/2023, 02/16/2022, Additional history exists Tetanus booster 01/13/2031 01/13/2021, 01/23, 02/08/2011, Additional history exists Tdap Completed 02/08/2011 Hepatitis C screening for age 18-79 Completed 08/13/2014 Zoster (shingles) series for age 50+ Completed 04/25/2019, 01/25/2019 Pneumococcal series for age 6-64 Aged Out No longer eligible based on patient's age to complete this topic Medical Devices Implanted Type Area System Dispatcher Device Identifier Shelf Expiration Date Model / Serial / Lot [id number] - [id number] Implanted:Qty: 1 on 06/02/2017 by Javier Moody DPM at [facility] Right: Foot [employer] [id number] / / Description:MTP CP plate [id number] - [id number] Implanted:Qty: 3 on 06/02/2017 by Javier Moody DPM at [facility] Right: Foot [employer] [id number] / / Description:2.7 mm locking s crews, T8 [id number] - [id number] Implanted:Qty: 1 on 06/02/2017 by Javier Moody DPM at [facility] Right: Foot [employer] [id number] / / Description:3.6 mm CP screw, T8 [id number] - [id number] Implanted:Qty: 1 on 06/02/2017 by Javier Moody DPM at [facility] Right: Foot [employer] [id number] / / Description:2.7 mm locking s crew, T8 [id number] - [id number] Implanted:Qty: 1 on 10/02/2017 by Javier Moody DPM at [facility] Left: Foot [employer] [id number] / / N/A Description:MTP CP Plate, le ft T8, 5 Hole [id number] - [id number] Implanted:Qty: 2 on 10/02/2017 by Javier Moody DPM at [facility] Left: Foot [employer] [id number] / / N/A Description:2.7mm Locking Sc rews, T8 [id number] - [id number] Implanted:Qty: 2 on 10/02/2017 by Javier Moody DPM at [facility] Left: Foot [employer] [id number] / / N/A Description:2.7mm Locking Sc rews, T8 Explanted Type Area System Dispatcher Device Identifier Shelf Expiration Date Model / Serial / Lot [id number] - [id number] Implanted:Qty: 1 Explanted:Qty: 1 on 10/02/2017 at [facility] Left: Foot [employer] [id number] / / N/A Description:3.6mm CP Screws, T8 [id number] - [id number] Explanted:Qty: 1 on 10/02/2017 at [facility] Left: Foot [employer] [id number] / / N/A Description:CP Screws, T8 Procedures Procedure Name Priority Date/Time Associated Diagnosis Comments COMP METABOLIC PANEL Routine 03/11/2024 8:58 AM CDT Screening for diabetes mellitus LIPID PANEL W REFLEX MEASURED LDL Routine 03/11/2024 8:58 AM CDT Screening cholesterol level TSH Routine 03/11/2024 8:58 AM CDT Hypothyroidism, unspecified type SCAN-MRI INTERPRETATION 01/22/2024 12:00 AM CDT SCAN-CT INTERPRETATION 12:00 AM CDT SCAN-RADIOLOGY REPORT 01/18/2024 12:00 AM CDT COLONOSCOPY SCREENING Routine 03/06/2017 12:00 AM CDT Special screening for malignant neoplasms, colon ANTI HCV Routine 08/13/2014 9:30 AM VETERINARY MICROBIOLOGIST Need for hepatitis C screening test from Last 3 Months or Most Recently Relevant to Health Maintenance Results * LIPID PANEL W REFLEX MEASURED LDL (03/11/2024 8:58 AM CDT) CHOLESTEROL,TOTAL 189 100 - 199 mg/dL 03/11/2024 6:32 PM CDT [facility] Comment: Cholesterol, Total Reference Ranges Desirable <200 mg/dL Borderline 200-239 mg/dL High >=240 mg/dL TRIGLYCERIDES 103 <150 mg/dL 03/11/2024 6:32 PM CDT [facility] HDL CHOLESTEROL 65 >40 mg/dL 6:32 PM CDT [facility] NON-HDL CHOLESTEROL 124 <145 mg/dl 03/11/2024 6:32 PM CDT [facility] CHOL/HDL RATIO 2.91 <4.50 03/11/2024 6:32 PM CDT [facility] LDL CHOLESTEROL 103 <=130 mg/dL 03/11/2024 6:32 PM CDT [facility] VLDL CHOLESTEROL 21 <=30 mg/dL 03/11/2024 6:32 PM CDT [facility] PROVIDER ORDERED STATUS RANDOM 03/11/2024 6:32 PM CDT [facility] Blood BLOOD SPECIMEN / Unknown Venipuncture / Unknown 03/11/2024 8:58 AM CDT 03/11/2024 8:58 AM CDT Gerri ALVAREZ CHEMISTRY [facility] [address] [place] [address], * TSH (03/11/2024 8:58 AM CDT) TSH 0.29 0.27 - 4.20 uIU/mL 03/11/2024 6:32 PM CDT [facility] Blood BLOOD SPECIMEN / Unknown Venipuncture / Unknown 03/11/2024 8:58 AM CDT 03/11/2024 8:58 AM CDT Narrative [facility] - 03/11/2024 6:32 PM CDT In Adults, TSH values between 5.00 and 10.00 uIU/ml do not necessarily indicate the presence of Hypothyroidism. Correlation with clinical findings such as presence of goiter and/or Thyroperoxidase (TPO) Antibody may be helpful. For more information please refer to DANIELLE 2004; 291: 228-238. Gerri ALVAREZ CHEMISTRY [facility] [address] [place] [address], * (ABNORMAL) COMP METABOLIC PANEL (03/11/2024 8:58 AM CDT) SODIUM 140 136 - 145 mmol/L 03/11/2024 6:32 PM CDT [facility] POTASSIUM 4.5 3.5 - 5.1 mmol/L 03/11/2024 6:32 PM CDT [facility] CHLORIDE 100 98 - 107 mmol/L 03/11/2024 6:32 PM T [facility] CO2,TOTAL 28 22 - 29 mmol/L 03/11/2024 6:32 PM CDT [facility] ANION GAP 12 5 - 18 03/11/2024 6:32 PM T [facility] GLUCOSE 95 70 - 99 mg/dL 03/11/2024 6:32 PM T [facility] CALCIUM 10.7(H) 8.8 - 10.2 mg/dL 03/11/2024 6:32 PM T [facility] BUN 19 8 - 23 mg/dL 03/11/2024 6:32 PM T [facility] CREATININE 0.75 0.50 - 0.90 mg/dL 03/11/2024 6:[address] [facility] BUN/CREAT RATIO 25(H) 10 - 20 6:32 PM T [facility] eGFR 89(L) >90 mL/min/1.7 3m2 03/11/2024 6:32 PM T [facility] Comment:As of 2021, eG FR is calculated by the CKD-EPI creatinine equation without race adjustment. ??eGFR can be influenced by muscle mass, exercise, and diet. ??The reported eGFR is an estimation only and is only applicable if the renal function is stable. ALBUMIN 4.7 4.0 - 4.9 g/dL 03/11/2024 6:32 PM CDT [facility] PROTEIN,TOTAL 7.5 6.0 - 8.0 g/dL 03/11/2024 6:32 PM CDT [facility] BILIRUBIN,TOTAL 0.8 0.0 - 1.2 mg/dL 03/11/2024 6:32 PM CDT [facility] ALK PHOSPHATASE 80 35 - 104 IU/L 03/11/2024 6:32 PM CDT [facility] ALT (SGPT) 18 10 - 35 IU/L 03/11/2024 6:32 PM CDT [facility] AST (SGOT) 21 10 - 35 IU/L 03/11/2024 6:32 PM CDT [facility] Blood BLOOD SPECIMEN / Unknown Venipuncture / Unknown 03/11/2024 8:58 AM CDT 03/11/2024 8:58 AM CDT Gerri ALVAREZ CHEMISTRY [facility] [address] [place] [id number], * SCAN-MRI INTERPRETATION (01/22/2024 12:00 AM CDT) Anatomical Region Laterality Modality Other Scanner OTHER * SCAN-CT INTERPRETATION (01/19/2024 12:00 AM CDT) Anatomical Region Laterality Modality Other Scanner OTHER * SCAN-RADIOLOGY REPORT (01/18/2024 12:00 AM CDT) Anatomical Region Laterality Modality Other Scanner OTHER * COLONOSCOPY SCREENING (03/06/2017 12:00 AM CDT) Son Hair MD GI PROCEDURE ORD * ANTI HCV (08/13/2014 9:30 AM VETERINARY MICROBIOLOGIST) HEPATITIS C ANTIBODY Non-Reacti ve Non-Reacti ve 08/13/2014 8:03 PM VETERINARY MICROBIOLOGIST [facility] Blood specimen (specimen) BLOOD SPECIMEN / Unknown Add On / Unknown 08/13/2014 9:30 AM VETERINARY MICROBIOLOGIST 08/13/2014 4:40 PM VETERINARY MICROBIOLOGIST Narrative [facility] - 08/13/2014 8:03 PM VETERINARY MICROBIOLOGIST Antibodies to HCV not detected; does not exclude the possibility of exposure to HCV. Jody Davies REAL ESTATE PORT[employer] MANAGER SEND OUTS [facility] 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 Plastic Surgery 09/28/17
--- NOTE | 2024-03-13 13:45 | CRLHL7_ITS ---
For Patients: As a result of the Century Cures Act, medical imaging exams and procedure reports are released immediately into your electronic medical record. You may view this report before your referring provider. If you have questions, please contact your health care provider. BILATERAL BREAST MRI WITHOUT AND WITH GADOLINIUM CLINICAL HISTORY: This is a patient with history of treated RIGHT breast cancer, mastectomy, and prophylactic LEFT mastectomy. Follow-up of foci of enhancement in the RIGHT breast. INDICATION FOR BREAST MRI: Short interval follow-up. COMPARISON STUDIES: MRI 08/25/2023. CONTRAST: 20 cc Dotarem. TECHNIQUE: The patient was positioned prone using a breast coil. Multiple imaging sequences were obtained using 1-1.5 mm thick slices with no gap. The image sequences include T2-weighted STIR in the axial plane, T1-weighted nonfat-saturated gradient echo in the axial plane, pre- and post-contrast T1-weighted FLASH 3D with fat suppression in the axial plane, and T1-weighted FLASH high-resolution 3D with fat suppression in the sagittal plane. Image post-processing was performed on a [employer] workstation. Complex 3D rendering including maximum intensity projections (MIPS) and volumetric renderings were obtained to optimize visualization of the extent of pathology and relationship to the nipple, skin, and chest wall. This aids in determining feasibility of breast conservation surgery. Subtraction, multiplanar reconstruction, mean curve determination, and angiogenesis mapping were also performed. The study was technically adequate. FINDINGS: Limited study with poor fat saturation with suboptimal positioning. Amount of Fibroglandular Tissue: Almost entirely fat. Breast Background Enhancement: Minimal. RIGHT/LEFT Breast: Mastectomies with implant reconstruction bilaterally. Findings of intracapsular rupture in the RIGHT breast again seen. Within the RIGHT medial breast, there are a few small scattered foci of enhancement, difficult to compare to the prior study given differences in positioning of the breast. Foci measure up to 4 mm, located along the reconstructed medial superior RIGHT breast. This is seen on series and also posterior upper reconstructed breast adjacent to the implant capsule . These are non-amenable to MRI-guided biopsy. These probably are benign/indeterminate and are unchanged in size. Continued follow-up recommended. Prominent LEFT axillary lymph nodes are unchanged from the prior study. No suspicious enhancement of the LEFT reconstructed breast. There is also a 4 cm lesion in the medial aspect of the left hepatic lobe that does not appear to enhance. This is not significantly changed and probably reflects a cyst. IMPRESSIONS AND RECOMMENDATIONS: 1. Small foci of enhancement along the medial upper reconstructed RIGHT breast slightly difficult to compare to the prior studies given differences in positioning. These measure less than 4 mm, located along the mid and posterior upper reconstructed breast. These are non-amenable to MRI-guided biopsy. These are indeterminate, but probably benign. Continued follow-up recommended with MRI in one year. 2. Prominent LEFT axillary lymph nodes are unchanged. 3. A 4 cm lesion in the medial left hepatic lobe probably reflects a cyst. Ultrasound could be performed to confirm. 4. No abnormal axillary lymph nodes on the RIGHT. 5. Mastectomy with implant reconstruction with intracapsular rupture on the RIGHT again seen. BI-RADS Category 3: Probably Benign Monica Kulkarni M.D. Diagnostic/Breast Radiologist [email or web address] HANNAHP/wilman stovall/Dictated by: Monica Kulkarni MD @ 03/14/2024 8:51:00 AM (Electronically Signed)
== END 2024-03-13 13:27 | disposition home or self-care (01) ==
LOC: MRI 13:27
PROVIDERS: PCP Physician Assistant Medical; Visit Provider Internal Medicine Hematology & Oncology
DX: Z85.3 Personal history of malignant neoplasm of breast (principal); R59.0 Localized enlarged lymph nodes; K76.9 Liver disease, unspecified
CPT/HCPCS: 77049; A9575

== ENCOUNTER 2024-03-21 09:09 | Outpatient (RCR) | payer OTHER, SELFPAY ==
--- NOTE | 2024-03-22 16:04 | ONC.NURNOTE ---
Patient called and instructed to take 500mg of calcium bid She states she will pick it up and start reduced dose
== END 2024-09-17 23:59 | disposition home or self-care (01) ==
LOC: CCIC 09:09
PROVIDERS: PCP Physician Assistant Medical; Visit Provider Physician Assistant
DX: C50.911 Malignant neoplasm of unspecified site of right female breast (principal); Z17.0 Estrogen receptor positive status [ER+]; E83.52 Hypercalcemia; Z80.3 Family history of malignant neoplasm of breast
CPT/HCPCS: 99214; G0463

== ENCOUNTER 2024-04-11 07:33 | Outpatient (CLI) | payer OTHER, SELFPAY ==
--- OUTSIDE RECORDS SUMMARY | 2024-04-11 07:36 | XMS_ITS | Clinical Summary ---
Author Organization [employer] [facility] Address [place], [place] [address] Care Team Providers Care Supervisor Webbing Name Role Phone Javier Moody DPM Unavailable [phone] Staff, Other Clinical Unavailable UnavailGerri Butler Primary [...] End Date Status exemestane (AROMASIN) 25 mg tabletIndications: Ductal carcinoma [...] 08/01/2022 Active metroNIDAZOLE (METROLOTION) 0.75 % lotn lotionIndications: Skin rash Apply topically to affected area(s) two times daily. 70 mL 3 03/20/2023 Active levothyroxine (SYNTHROID) 112 mcg tabletIndications: Hypothyroidism, [...] 03/11/2024 Active nitrofurantoin macrocrystaL (MACRODANTIN) 100 mg capsuleIndications :UTI symptoms Take 1 tablet by mouth after intercourse. 20 Capsule 1 03/11/2024 Active Active Problems Problem Noted Date Diagnosed [...] Encounters Date Type Department Care Team Description 03/19/2024 1:45 PM CDT Office Visit [facility] [address] [facility] [place] [address] Manju Mckeon MD Consult (Diverticulitis) 03/19/2024 Travel 03/13/2024 3:30 PM CDT Orders Only [facility] [address] [place] [address] Lab, [place] Lab 03/13/2024 Orders Only [facility] Scanner 1 scan: (1-Ord) [facility], BILATERAL BREAST W/WO GADOLINIUM, 03/13/2024 03/13/2024 Travel 03/11/2024 8:10 AM CDT Office Visit [facility] [address] [facility] [place] [address] Gerri Serrano PA Physical (63 years old) 03/11/2024 Travel 01/22/2024 Orders Only [facility] Scanner 1 scan: (1-Ord) [facility], MRI CERVICAL SPINE WO CON, 01/22/2024 01/19/2024 Orders Only [facility] Scanner 1 scan: (1-Ord) [facility], ABD/PELVIS, 01/19/2024 01/19/2024 Travel 01/19/2024 Nurse Triage [facility] [address] [place] [address] Gerri Serrano PA Constipation; Abdominal Pain 01/18/2024 Orders Only [facility] Scanner 1 scan: (1-Ord) [facility], XR CERVICAL SPINE 2-3 V, 01/18/2024 from Last 3 Months Immunizations Name Administration Dates Next Due COVID-19 vaccine (Everbridge-Bio NTech 30mcg/0.3mL) 12YO+ CAYEATNO-SUCROSE PF, MDV 02/16/2022 COVID-19 vaccine (Everbridge-Bio NTech 30mcg/0.3mL) PF, MDV 06/14/2021,12/30/2020,12/09/2020 HepA-HepB (Twinrix) 04/22/2008,11/06/2007,2007 Influenza, IIV4 07/17/2022 Influenza,CCIIV4 PRESERV FREE 06/21/2020 Td (Age >=7 Years) 01/13/2021,06/01/2000 Tdap 02/08/2011 Zoster (Shingrix-RZV, recombinant) 04/25/2019, Family History Medical History Relation Name Comments Depression Brother 1 Brenadn Migraines Brother 1 Brendan Spondyloarthropathy Brother 1 [...] Sign Reading Time Taken Comments Blood Pressure 127/80 03/19/2024 1:48 PM CDT Pulse 92 03/19/2024 1:48 PM CDT Temperature 36.8 ??C (98.3 ??F) 08/01/2022 3:31 PM CS T Respiratory Rate 18 07/07/2021 9:34 AM CDT Oxygen Saturation 95% 03/19/2024 1:48 PM CDT Inhaled Oxygen Concentration - - Weight 93.2 kg (205 lb 8 oz) 03/19/2024 1:48 PM CDT Height 161 cm (5' 3.39) 03/11/2024 8:12 AM CDT Body Mass Index 35.96 03/11/2024 8:12 AM CDT Plan of Treatment Health Maintenance Due Date Last Done Comments HIV for age 15-65 1974 Depression screening for age 12+ 07/01/2022 07/01/2021, 07/01/2021, 07/01/2021, Additional history exists COVID-19 vaccine series ( season) 2023 08/08/2023, 07/17/2022, 02/16/2022, Additional history exists Influenza for age 50-64 05/26/2024 07/17/2022, 06/21 BMI (ht and wt on same day) for age 18+ 03/11/2025 03/11/2024, 03/07/2023, 02/16/2022, Additional history exists Colonoscopy through age 75 03/06/202703/06, 03/06/2017, 03/06/2017 (Completed outside of [facility]), Additional history exists Lipids for age 45-75 [...] this topic Medical Devices Implanted Type Area Meat Blender Device Identifier Shelf Expiration Date Model / Serial / Lot [id number] - [id number] Implanted:Qty: 1 on 06/02/2017 by Javier Moody DPM at [facility] Right: Foot [employer] [id number] / / Description:MTP CP plate [id number] - [id number] Implanted:Qty: 3 on 06/02/2017 by Javier Moody DPM at [facility] Right: Foot [employer] [id number] / / Description:2.7 mm locking s crews, T8 [id number] - [id number] Implanted:Qty: 1 on 06/02/2017 by Javier Moody DPM at [facility] Right: Foot [employer] [id number] / / Description:3.6 mm CP screw, T8 [id number] - [id number] Implanted:Qty: 1 on 06/02/2017 by Javier Moody DPM at [facility] Right: Foot [employer] [id number] / / Description:2.7 mm locking s crew, T8 [id number] - [id number] Implanted:Qty: 1 on 10/02/2017 by Javier Moody DPM at [facility] Left: Foot [employer] [id number] / / N/A Description:MTP CP Plate, le ft T8, 5 Hole [id number] - [id number] Implanted:Qty: 2 on 10/02/2017 by Javier Moody DPM at [facility] Left: Foot [employer] [id number] / / N/A Description:2.7mm Locking Sc rews, T8 [id number] - [id number] Implanted:Qty: 2 on 10/02/2017 by Javier Moody DPM at [facility] Left: Foot [employer] [id number] / / N/A Description:2.7mm Locking Sc rews, T8 Explanted Type Area Meat Blender Device Identifier Shelf Expiration Date Model / Serial / Lot [id number] - [id number] Implanted:Qty: 1 Explanted:Qty: 1 on 10/02/2017 at [facility] Left: Foot [employer] [id number] / / N/A Description:3.6mm CP Screws, T8 [id number] - [id number] Explanted:Qty: 1 on 10/02/2017 at [facility] Left: Foot [employer] [id number] / / N/A Description:CP Screws, T8 Procedures Procedure Name Priority Date/Time Associated Diagnosis Comments PTH,INTACT Routine 03/13/2024 3:31 PM CDT Serum calcium elevated SCAN-MRI INTERPRETATION 03/13/2024 12:00 AM CDT COMP METABOLIC PANEL Routine 03/11/2024 8:58 AM [...] colon ANTI HCV Routine 08/13/2014 9:30 AM FITTINGS TIGHTENER Need for hepatitis C screening test from Last 3 Months or Most Recently Relevant to Health Maintenance Results * PTH,INTACT (03/13/2024 3:31 PM CDT) CALCIUM 10.1 8.8 - 10.2 mg/dL 03/14/2024 12:34 AM CDT [facility] PTH,INTACT 35.9 15.0 - 69.0 pg/mL 03/14/2024 12:34 AM CDT [facility] Blood BLOOD SPECIMEN / Unknown Butterfly / Unknown 03/13/2024 3:31 PM CDT 03/13/2024 3:32 PM CDT Gerri ALVAREZ SEND OUTS [facility] [address] [place] [address], * SCAN-MRI INTERPRETATION (03/13/2024 12:00 AM CDT) Only the most recent of2 resultswithin the time period is included. Anatomical Region Laterality Modality Other Scanner OTHER * LIPID PANEL W REFLEX MEASURED LDL (03/11/2024 8:58 AM CDT) CHOLESTEROL,TOTAL 189 100 - 199 mg/dL 03/11/2024 6:32 PM CDT [facility] Comment: Cholesterol, Total Reference Ranges Desirable <200 mg/dL Borderline 200-239 mg/dL High >=240 mg/dL TRIGLYCERIDES 103 <150 mg/dL 03/11/2024 6:32 PM CDT [facility] TR[facility] HDL CHOLESTEROL 65 >40 mg/dL 6:32 PM CDT [facility] NON-HDL CHOLESTEROL 124 <145 mg/dl 03/11/2024 6:32 PM CDT [facility] CHOL/HDL RATIO 2.91 <4.50 03/11/2024 6:32 PM CDT [facility] LDL CHOLESTEROL 103 <=130 mg/dL 03/11/2024 6:32 PM CDT [facility] VLDL CHOLESTEROL 21 <=30 mg/dL 03/11/2024 6:32 PM CDT [facility] ORDERED STATUS RANDOM 03/11/2024 6:32 PM CDT [facility] Blood BLOOD SPECIMEN / Unknown Venipuncture / Unknown 03/11/2024 8:58 AM CDT 03/11/2024 8:58 AM CDT Gerri ALVAREZ CHEMISTRY [facility] [address] [place] [address], * TSH (03/11/2024 8:58 AM CDT) TSH 0.29 0.27 - 4.20 uIU/mL 03/11/2024 6:32 PM CDT [facility] Blood BLOOD SPECIMEN / Unknown Venipuncture / Unknown 03/11/2024 8:58 AM CDT 03/11/2024 8:58 AM CDT Narrative [facility] - 03/11/2024 6:32 PM CDT In Adults, TSH values between 5.00 and 10.00 uIU/ml do not necessarily indicate the presence of Hypothyroidism. Correlation with clinical findings such as presence of goiter and/or Thyroperoxidase (TPO) Antibody may be helpful. For more information please refer to DANIELLE 2004; 291: 228-238. Gerri ALVAREZ CHEMISTRY [facility] [address] [place] [address], * (ABNORMAL) COMP METABOLIC PANEL (03/11/2024 8:58 AM CDT) SODIUM 140 136 - 145 mmol/L 03/11/2024 6:32 PM CDT [facility] POTASSIUM 4.5 3.5 - 5.1 mmol/L 03/11/2024 6:32 PM CDT [facility] CHLORIDE 100 98 - 107 mmol/L 03/11/2024 6:32 PM T [facility] CO2,TOTAL 28 22 - 29 mmol/L 03/11/2024 6:32 PM CDT [facility] ANION GAP 12 5 - 18 03/11/2024 6:32 PM CDT [facility] GLUCOSE 95 70 - 99 mg/dL 03/11/2024 6:32 PM T [facility] CALCIUM 10.7(H) 8.8 - 10.2 mg/dL 03/11/2024 6:32 PM T [facility] BUN 19 8 - 23 mg/dL 03/11/2024 6:32 PM T [facility] CREATININE 0.75 0.50 - 0.90 mg/dL 03/11/2024 6:32 PM T [facility] BUN/CREAT RATIO 25(H) 10 - 20 6:32 PM T [facility] eGFR 89(L) >90 mL/min/1.7 3m2 03/11/2024 6:32 PM T [facility] Comment:As of 2021, eG FR is calculated by the CKD-EPI creatinine equation without race adjustment. ??eGFR can be influenced by muscle mass, exercise, and diet. ??The reported eGFR is an estimation only and is only applicable if the renal function is stable. ALBUMIN 4.7 4.0 - 4.9 g/dL 03/11/2024 6:32 PM CDT [facility] PROTEIN,TOTAL 7.5 6.0 - 8.0 g/dL 03/11/2024 6:32 PM CDT [facility] BILIRUBIN,TOTAL 0.8 0.0 - 1.2 mg/dL 03/11/2024 6:32 PM CDT [facility] TRA LABORATORY ALK PHOSPHATASE 80 35 - 104 IU/L 03/11/2024 6:32 PM CDT [facility] ALT (SGPT) 18 10 - 35 IU/L 03/11/2024 6:32 PM CDT [facility] AST (SGOT) 21 10 - 35 IU/L 03/11/2024 6:32 PM CDT [facility] Blood BLOOD SPECIMEN / Unknown Venipuncture / Unknown 03/11/2024 8:58 AM CDT 03/11/2024 8:58 AM CDT Gerri ALVAREZ CHEMISTRY [facility] [address] [place] [address], * SCAN-CT INTERPRETATION (01/19/2024 12:00 AM CDT) Anatomical Region Laterality Modality Other Scanner OTHER * SCAN-RADIOLOGY REPORT (01/18/2024 12:00 AM CDT) Anatomical Region Laterality Modality Other Scanner OTHER * COLONOSCOPY SCREENING (03/06/2017 12:00 AM CDT) Son Hair MD GI PROCEDURE ORD * ANTI HCV (08/13/2014 9:30 AM FITTINGS TIGHTENER) HEPATITIS C ANTIBODY Non-Reacti ve Non-Reacti ve 08/13/2014 8:03 PM FITTINGS TIGHTENER [facility] Blood specimen (specimen) BLOOD SPECIMEN / Unknown Add On / Unknown 08/13/2014 9:30 AM FITTINGS TIGHTENER 08/13/2014 4:40 PM FITTINGS TIGHTENER Narrative [facility]AL LAB[facility]AT[facility] - 08/13/2014 8:03 PM FITTINGS TIGHTENER Antibodies to HCV not detected; does not exclude the possibility of exposure to HCV. Jody Davies SIZER MACHINE SEND OUTS [facility]EN[facility]AL LABORATORY [address] [place] [address], from Last 3 Months or Most Recently Relevant to Health Maintenance Advance Directives Documents on File Type Date Recorded Patient Colorist Dyer Expl anation Healthcare Directive 03/11/2024 8:01 AM [...] Code Status Discussion: Not Discussed Care Teams Supervisor Webbing Relationship Specialty Start Date End Date Gerri Serrano PA [address] [place] [address] PCP - General Physician Ceo & Board Director 10/25/19 Javier Moody DPM [address] [place] [address] Surgery - Podiatric 09/28/17 Staff, Other Clinical . Plastic Surgery 09/28/17
--- NOTE | 2024-04-11 09:07 | W.ANESCHARGE ---
Anesthesia Charges Start Date/Time Anesthesia Start Date: 04/11/24 Anesthesia Start Time: 08:29 Stop Date/Time Anesthesia Stop Date: 04/11/24 Anesthesia Stop Time: 09:05
--- NOTE | 2024-04-11 09:13 | W.ANESCHARGE ---
Anesthesia Charges Start Date/Time Anesthesia Start Date: 04/11/24 Anesthesia Start Time: 08:29 Stop Date/Time Anesthesia Stop Date: 04/11/24 Anesthesia Stop Time: 09:05
== END 2024-04-11 07:34 | disposition home or self-care (01) ==
LOC: OP CLINIC 07:33
PROVIDERS: PCP Physician Assistant Medical; Visit Provider Surgery
DX: Z12.11 Encounter for screening for malignant neoplasm of colon (principal); K63.5 Polyp of colon; K57.30 Diverticulosis of large intestine without perforation or abscess without bleeding; Z83.719 Family history of colon polyps, unspecified
CPT/HCPCS: 00811; 45385; 88305; J2704

== ENCOUNTER 2024-11-28 10:45 | Outpatient (RCR) | payer MEDICARE, BC, SELFPAY | END 2025-03-28 23:59 | disposition home or self-care (01) | PROVIDERS: PCP Physician Assistant Medical; Visit Provider Orthopaedic Surgery Orthopaedic Surgery of the Spine | DX: M54.2 Cervicalgia (principal); Z51.89 Encounter for other specified aftercare | CPT/HCPCS: 97110; 97140; 97162; 97535 ==

== ENCOUNTER 2025-05-08 17:42 | Emergency (ER) | payer MEDICARE, BC, SELFPAY ==
--- OUTSIDE RECORDS SUMMARY | 2025-05-08 17:44 | XMS_ITS | Clinical Summary ---
Author Organization [facility] Address [address] , [address] [place] [address] Phone Care Team Providers Care Jewelry Mold Maker Name Role Phone Crystal Ortega Conditions or Problems Problem Name Problem Code Onset Date Status Entry Date Provider Comment Standard Description Annotate Chronic migraine without aura, with intractable migraine, so stated, with status migrainosus 708268784 (SNOMED CT) 04/11 Resolved 04/11 Rosario Ledezma DNP,PROFESSIONAL SOCCER PLAYER,CN P Status migrainosus COMMON MIGRAINE, NOT INTRACTABLE G43.009 (ICD-10-CM) 05/16 Active 05/16 Rosario Ledezma DNP,PROFESSIONAL SOCCER PLAYER,CN P Migraine without aura, not intractable, without status migrainosus Chronic migraine without aura, with intractable migraine, so stated, with status migrainosus [id number] (SNOMED CT) 04/11 Removed 04/11 Vinicio Patel MD Status migrainosus Medications Medication Instructions Start Date Stop Date Generic Name [facility] Provider AZO D-MANNOSE 500 MG CAPS d-mannose [id number] Jose Cortez MD CALCIUM 600+D3 600-10 MG-MCG TABS calcium carbonate-vitam in d3 [id number] Jose Cortez MD RIZATRIPTAN BENZOATE 10 MG TABS Take 1 tablet by mouth AT ONSET MAY COMBINE WITH 2 IBUPROFEN MAY REPEAT IN 2 HOURS IF NEEDED. TAKE NO MORE THAN 2 TABS IN 24 HOURS. rizatriptan [id number] Jose Cortez MD RIZATRIPTAN BENZOATE 10 MG TABS Take 1 tablet by mouth AT ONSET MAY COMBINE WITH 2 IBUPROFEN MAY REPEAT IN 2 HOURS IF NEEDED. TAKE NO MORE THAN 2 TABS IN 24 HOURS. rizatriptan [id number] Rosario Koch Darien DNP,PROFESSIONAL SOCCER PLAYER,STEM ROLLER OR CRUSHER OPERATOR VERAPAMIL HCL 40 MG TABS Month #1 take 1 bid. Month #2 take 1 daily, then stop verapamil [id number] Rosario Koch Darien DNP,PROFESSIONAL SOCCER PLAYER,STEM ROLLER OR CRUSHER OPERATOR SERTRALINE HCL 100 MG TABS 2 tablet by mouth once a day sertraline [id number] Rosario Koch Darien DNP,PROFESSIONAL SOCCER PLAYER,STEM ROLLER OR CRUSHER OPERATOR VERAPAMIL HCL ER 120 MG CR-TABS 1 by mouth once a day verapamil [id number] Vinicio Patel MD LEVOTHYROXINE SODIUM 125 MCG TABS 1 once a day levothyroxine 12081583768 Vinicio Patel MD AROMASIN 25 MG TABS 1 once a day exemestane [id number] Vinicio Patel MD SERTRALINE HCL 100 MG TABS 2 tablet by mouth once a day sertraline 53539696866 Vinicio Patel MD VERAPAMIL HCL 40 MG TABS Month #1 take 1 bid. Month #2 take 1 daily, then stop verapamil [id number] Vinicio Patel MD RIZATRIPTAN BENZOATE 10 MG TABS Take 1 tablet by mouth once a week rizatriptan [id number] Vinicio Patel MD RIZATRIPTAN BENZOATE 10 MG TABS Take 1 tablet by mouth AT ONSET MAY COMBINE WITH 2 IBUPROFEN MAY REPEAT IN 2 HOURS IF NEEDED. TAKE NO MORE THAN 2 TABS IN 24 HOURS. rizatriptan [id number] Vinicio Patel MD RIZATRIPTAN BENZOATE 10 MG TABS Take 1 tablet by mouth once a week rizatriptan [id number] Zena Leblanc RN RIZATRIPTAN BENZOATE 10 MG TABS TAKE 1 TABLET BY MOUTH AT ONSET MAY COMBINE WITH 2 IBUPROFEN MAY REPEAT IN 2 HOURS IF NEEDED. TAKE NO MORE THAN 2 TABS IN 24 HOURS. RIZATRIPTAN BENZOATE [id number] Vanessa Brunson PA-C AMOXICILLIN 500 MG TABS 1 pill tid for 10 days AMOXICILLIN [id number] Vinicio Patel MD MAXALT 10 MG TABS 1 pill at ENG onset. May combine with 2 Ibuprofen, May repeat in 2 hours if needed. Use no more than 2 pills in 24 hours. RIZATRIPTAN BENZOATE [id number] Melany Santos APRN STEM ROLLER OR CRUSHER OPERATOR AMOXICILLIN 500 MG TABS 1 pill tid for 10 days AMOXICILLIN 54350481738 Vinicio Patel MD LEVOTHYROXINE SODIUM 125 MCG TABS 1 daily LEVOTHYROXINE SODIUM 55964897907 Vinicio Patel MD SERTRALINE HCL 100 MG TABS 2 daily SERTRALINE HCL 94183781368 Vinicio Patel MD AROMASIN 25 MG TABS 1 daily EXEMESTANE 61168710417 Vinicio Patel MD VERAPAMIL HCL ER 120 MG CR-TABS 1 pill daily VERAPAMIL HCL [id number] Vanessa Brunson PA-C Medications Administered No information available. Allergies, Adverse Reactions, Alerts Allergy Name Reaction Description Start Date Severity Statu s Provider OXYCODONE HCL Moderate Active Rosario Koch Rechjoseigel DNP,PROFESSIONAL SOCCER PLAYER,STEM ROLLER OR CRUSHER OPERATOR MORPHINE SULFATE hallucinations Severe Active Rosario Koch Rechtzigel DNP,PROFESSIONAL SOCCER PLAYER,STEM ROLLER OR CRUSHER OPERATOR AUGMENTIN migraine Moderate Active Rosario Koch Rec htzigel DNP,PROFESSIONAL SOCCER PLAYER,STEM ROLLER OR CRUSHER OPERATOR SULFA Critical Active Vinicio Patel MD Results Date Name Value Unit Range Flag Description Office Visit: CLUSTER ENG 08:32- 04/11/18 08:32 REFERRING PHYSICIA... [facility] Fall Risk Screening - Screen patient for falls, if positive, provide counseling on fall prevention Fall risk assessment Office Visit: fax SMOK STATUS never smoker Toba management accountant smoking status Office Visit: Office Visit E OMD f/u fax MEDS REVIEW Done Documenta tion of current medications (procedure) Internal Other: Authorizatio n - OBS [email or web address] Yes Authoriza tion: Release of Information - Authorize [facility] - Payment and Healthcare Operations ROIAUTHOTHER Yes Authoriz ation: Release of Information - Authorize Others/Insurance - Payment and Healthcare Operations HIECONSENT Yes Consent To Release information to the Health Information Exchange (HIE) [email or web address] Yes Authorizat ion: Authorization for [facility] to leave messages, voicemail, send text messages, send emails AUTHRELHCARE Yes Authoriz ation: Release/Retrieval of Information to/from Healthcare Facilities, Pharmacy Benefit Payers and Providers AUTHPRIVPRAC Yes Authoriz ation: Notice of privacy practices AUTHBENEFIT Yes Authoriza tion: Assignment of Benefits and Payment Agreement Internal Other: Verbal Autho rization/Emergency Contact - OBS VERBAL_EMER Done Verbal authorization and emergency contact Plan of Care Type Date Detail Appointment 11:00 AM Rosario birch DNP,PROFESSIONAL SOCCER PLAYER,STEM ROLLER OR CRUSHER OPERATOR, [address], [address], [place], [address], Pending order Follow up DONY Pending order Follow up DONY Pending order Patient Instruct ions Pending order Patient Instruct ions Pending order Follow up Pending order Follow up Pending order Follow up in cli candace or telemedicine with provider or DONY Pending Order exclud ed from report: Pending order Follow up in cli candace or telemedicine with provider or DONY Pending order Follow up Pending order Patient Instruct ions Pending order Follow up Pending Order exclud ed from report: Pending order Follow up Pending Order exclud ed from report: Pending order Patient Instruct ions Pending order Follow up Pending order Follow up Pending order Follow up Pending Order exclud ed from report: Pending order MRI-Brain W/O Procedures Code Procedure Name Date Entry Date [facility]-[id number] Documentation of current medicatio ns ORDERS Patient Instructions ORDERS Follow up ORDERS Follow up in clinic or telemedicine with provider or DONY ORDERS Follow up ORDERS Patient Instructions ORDERS Follow up [facility]-[id number] Documentation of current medicatio ns ORDERS Patient Instructions ORDERS Follow up CPT-69128 Brief emotional/behavioral assessment 201 05/03/10 [facility]-[id number] Documentation of current medicatio ns [id number] MRI-Brain W/O CPT-13248 MRI Brain W/O [facility]-[id number] Documentation of current medicatio ns Vital Signs Date Name Value Unit Description Heart Rate 66 /min pulse rate Height 63 [in_us] height E&M BP Diastolic 70 mm[Hg] blood pressu re, diastolic BP Systolic 130 mm[Hg] blood pressur e, systolic BMI (Body Mass Index) 40.89 kg/m2 Bod y Mass Index (Ratio) Weight Measured 230 [lb_av] weight E& M Weight Measured 230 [lb_av] weight E& M Immunizations No information available. Advance Directives No information available.
--- OUTSIDE RECORDS SUMMARY | 2025-05-08 17:44 | XMS_ITS | Clinical Summary ---
Author Organization [facility] Address [address] [place] [address] Care Team Providers Care Patternmaker Bench Name Role Phone None Reported, Pcp Primary Care Provider Unavail able Source Comments Patient records contain information from all sites at [facility]. For routine questions regarding patient records, call [phone] during business hours, M-F 8:00 AM - 5:00 PM Central Time. Record requests for emergency care only can be directed to [phone] at any time.[facility] Allergies Active Allergy Reactions Criticality Noted Date Comments Adhesive Tape-Silicones Other (see comments) 04/20/2017 Contact dermatitis, tape over eyes from previous surgery Amoxicillin-Pot Clavulanate Headache 02/18/2020 Azithromycin Hives (Reselect Reaction) 06/19/2024 Morphine Hallucinations 12/07/2016 Nortriptyline Rash,Other (see comments) 12/13/2006 INTOLERANCE, migraines Oxycodone Nausea Only 02/10/2021 Shellfish Derived Swelling 12/07/2016 ankle swelling Sulfa (Sulfonamide Antibiotics) Hives (Reselect Reaction) 05/18/2004 Medications * This document contains information received from the source organization and may not represent a complete record from that organization. exemestane (AROMASIN) 25 mg tablet Take 1 tablet by mouth daily. 7 Active clindamycin (CLEOCIN) 150 mg capsule PRIOR TO DENTAL 0 Active cranberry 400 mg capsule 2 tablets PO daily 1 Active fluocinonide (LIDEX) 0.05 % ointment Twice A Day as needed 0 Active LORazepam (ATIVAN) 1 mg tablet 1 Active nitrofurantoin (MACRODANTIN) 100 mg capsule as needed. 1 Active rizatriptan (MAXALT) 10 mg tablet Take 10 mg by mouth as needed for migraine. 2 Active estradioL (ESTRACE) 0.1 mg/g (0.01%) vaginal cream Insert 1 g into the vagina once a week. 3 Active metroNIDAZOLE (METROLOTION) 0.75 % lotion Apply topically as needed. 3 Active d-mannose 500 mg capsule Take by mouth daily. 2 Active calcium carbonate-vitam in D3 500 mg-3.125 mcg (125 unit) per tablet Take 1 tablet by mouth 2 (two) times a day. Active levothyroxine (SYNTHROID, LEVOTHROID) 112 mcg tablet Take 1 tablet by mouth every morning before breakfast. 4 Active calcium carbonate 1,500 mg (600 mg calcium) tablet Take 600 mg by mouth. 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 No 12/26/2023 Hunger Vital Sign Answer Date Recorded [...] things needed for daily living? No 12/26/2023 Housing Stability Answer Date Recorded What is your living situation today? I have a [facility] place to live 12/26/2023 Comments No Sex and Gender Information Value Date Recorded Sex Assigned at Female 08/20/2018 8:53 AM COUNTY ADVISER Legal Sex Female 1:05 PM COUNTY ADVISER Gender Identity Female 08/20/2018 8:53 AM COUNTY ADVISER Sexual Orientation Straight 08/20/2018 8: 53 AM COUNTY ADVISER Last Filed Vital Signs Vital Sign Reading Time Taken Comments Blood Pressure 137/75 10/26/2023 1:19 PM COUNTY ADVISER Pulse 88 10/26/2023 1:19 PM COUNTY ADVISER Temperature 36.7 C (98.1 F) 10/26/2023 12:59 PM COUNTY ADVISER Respiratory Rate 16 10/26/2023 1:19 PM COUNTY ADVISER Oxygen Saturation 94% 10/26/2023 1:19 PM COUNTY ADVISER Inhaled Oxygen Concentration - - Weight 90.7 kg (199 lb 15.3 oz) 10/26/2023 6:35 AM COUNTY ADVISER Height 160.5 cm (5' 3.19) 10/26/2023 6:35 AM CS T Body Mass Index 35.21 10/26/2023 6:35 AM COUNTY ADVISER Plan of Treatment Health Maintenance Due Date Last Done Comments CT Colonography 1959 Cologuard 1959 FIT 1960 HIV Screening 1960 Hepatitis C Screening 1960 Depression Screening (Annual PHQ-2) 09/25/2024 Fall Risk Screen (Annual) 09/25/2024 COVID-19 Vaccine (8 - Pfizer risk season) 2025 08/11/2024, 08/08/2023, 07/17/2022, Additional history exists Lipid (Cholesterol) Screening 03/11/2025 03/11/2024, 03/07/2023, 02/16/2022, Additional history exists Influenza Vaccine (#1) 2025 , 08/08/2023, 07/17/2022, Additional history exists Thyroid Stimulating Hormone (TSH) test for thyroid function 03/17/2026 03/17/2025, 03/11/2024, 04/07/2023, Additional history exists Fasting Glucose for Diabetes Screening 03/11/2027 03/11/2024, 10/23/2023, 03/07/2023, Additional history exists DTaP,Tdap,and Td Vaccines (3 - Td or Tdap) 01/13/2031 01/13/2021, 02/08/2011 Colonoscopy 04/11/2034 04/11/2024, 03/06/2017 Colorectal Cancer Screening 04/11/2034 Zoster Vaccines Completed 04/25/2019, 01/25/2019 Pneumococcal vaccine (50+ years) Completed 10/17/2024 RSV vaccine - (32-36 weeks) or 60+ years Completed 10/17/2024 Bone Density Scan (Osteoporosis Screen) Discontinued 03/18/2025 HPV Vaccines Aged Out No longer eligi ble based on patient's age to complete this topic IPV Vaccines Aged Out No longer eligi ble based on patient's age to complete this topic Medical Devices Implanted Type Area Shipyard Supervisor Device Identifier Shelf Expiration Date Model / Serial / Lot Breast Smo Rnd High 600cc - [id number] - [id number] Implanted:Qty: 1 on 10/26/2023 by Jatin Mackey M.D. at [facility] Breast Implant Left: Other/Legacy - See Implant Description [employer] 07/11/2026 [id number] / [id number] / Haley Memorygel Implant 650cc Implanted:Qty: 1 on 10/26/2023 by Jatin Mackey M.D. at [facility] Breast Implant Right: Other/Legacy - See Implant Description [employer] [id number] 08/03/2027 [id number] [id number] / [id number] / [id number] Conversions - Default Historical Implant Device Implanted:09/25 (Quantity not on file) Hardware e.g. pins/screw s/rods Foot Description:Body Location - Feet. Device Status Text - Hardware. Conversions - Default Historical Implant Device Implanted:11/23 (Quantity not on file) Knee Implant Other/Legacy - See Implant Description Description:Body Location - [email or web address]. Device Status Text - Knee Imp. Alloderm Rtu 2.4 + -.4mm 9.6x19.3cm - Archer [id number] Implanted:Qty: 1 on 12/07/2016 Mesh or Patch Other/Legacy - See Implant Description LifeCell Martell (Use Allergan) Description:Device Manufactu rer - Lifecell Martell. Body Location - Other. Left. Device Status Text - [id number]. Alloderm Rtu 2.4 + -.4mm 9.6x19.3cm - Archer [id number] Implanted:Qty: 1 on 12/07/2016 Mesh or Patch Other/Legacy - See Implant Description LifeCell Martell (Use Allergan) Description:Device Manufactu rer - Lif[employer]ell Martell. Body Location - Other. Right. Device Status Text - [id number]. Alloderm Rtu 2.4 9.6x19.3cm 185sqcm - Archer [id number] Implanted:Qty: 370 on 12/07/2016 Mesh or Patch LifeCell Martell (Use Allergan) Description:Device Manufactu rer - Lifecell Martell. Device Status Text - [id number]. Shoulder Implant Shoulder Implant Right: Shoulder Explanted Type Area Shipyard Supervisor Device Identifier Shelf Expiration Date Model / Serial / Lot Maday Yost 615cc - Archer [id number] Implanted:Qty: 1 on 04/20/2017 Explanted:Qty: 1 on 07/25/2018 at [facility] Breast Implant Other/Legacy - See Implant Description Allergan Medical Description:Device Manufactu rer - [employer]ergan Inc[employer] Body Location - Other. Left. Device Status Text - [id number]. Natrelle- Inspira 615cc - Archer [id number] Implanted:Qty: 1 on 04/20/2017 Explanted:Qty: 1 on 10/26/2023 by Denny Bearden M.D. at [facility] Breast Implant Other/Legacy - See Implant Description [employer]gan Medical Description:Device Manufactu rer - [employer]ergan Inc.. Body Location - Other. Right. Device Status Text - [id number]. Brst Resp Gel Stysrf 560 - [id number] - [id number] Implanted:Qty: 1 on 07/25/2018 at [facility] Explanted:Qty: 1 on 10/26/2023 by Jatin Mackey M.D. at [facility] Breast Implant Left: Other/Legacy - See Implant Description [employer]ergan Medical 03/29/2021 [id number] / [id number] / Natrelle-Expand er Mod Tab 500cc - Archer [id number] Explanted:Qty: 1 on 04/20/2017 Tissue Rod Buster Other/Legacy - See Implant Description Allergan Medical Description:Device Manufactu rer - Allergan Inc.. Body Location - Other. Left. Device Status Text - [id number]. Natrelle-Expand er Mod Tab 500cc - Archer [id number] Explanted:Qty: 1 on 04/20/2017 Tissue Rod Buster Other/Legacy - See Implant Description Allergan Medical Description:Device Manufactu rer - Allergan Inc.. Body Location - Other. Right. Device Status Text - [id number]. Procedures Procedure Name Priority Date/Time Associated Diagnosis Comments BASIC METABOLIC PANEL, S/P Routine 10/23/2023 11:46 AM COUNTY ADVISER Absence Of Breast Acquired Bilateral from Last 3 Months or Most Recently Relevant to Health Maintenance Results * (ABNORMAL) Basic Metabolic Panel (10/23/2023 11:46 AM COUNTY ADVISER) [facility] Potassium, S 4.6 3.6 - 5.2 mmol/L 10/23/2023 1:10 PM COUNTY ADVISER DTL Sodium, S 138 135 - 145 mmol/L 10/23/2023 1:10 PM COUNTY ADVISER DTL Chloride, S 102 98 - 107 mmol/L 10/23/2023 1:10 PM COUNTY ADVISER DTL Bicarbonate, S 28 22 - 29 mmol/L 10/23/2023 1:10 PM COUNTY ADVISER DTL Anion Gap 8 7 - 15 10/23/2023 1:10 PM COUNTY ADVISER DTL BUN (Blood Urea Nitrogen), S 17 6 - 21 mg/dL 10/23/2023 1:10 PM COUNTY ADVISER DTL Creatinine 0.79 0.59 - 1.04 mg/dL 10/23/2023 1:10 PM COUNTY ADVISER DTL Estimated GFR (eGFR) 83 >=60 mL/min/BSA 10/23/2023 1:10 PM COUNTY ADVISER DTL Comment: Estimated GFR calculated using the 2020 CKD_EPI creatinine equation. Calcium, Total, S 10.6(H) 8.8 - 10.2 mg/dL 10/23/2023 1:22 PM COUNTY ADVISER DTL Glucose, S 90 70 - 140 mg/dL 10/23/2023 1:10 PM COUNTY ADVISER DTL Blood (Blood, Venous) 10/23/2023 11:46 AM COUNTY ADVISER 10/23/2023 12:42 PM COUNTY ADVISER Tessa Starkey P.A.-C., M.S. LAB BLOOD ADD-ON Final Result [facility] [address] [place] [address], [facility] [address] [place] [address] from Last 3 Months or Most Recently Relevant to Health Maintenance Insurance [facility] MEDICARE Advance Directives For more information, please contact: [phone] Documents on File Type Date Recorded Patient Assistant Associate Full Professor Expl anation Advance Directives 11/24/2023 1:07 PM Balwinder Box HCPOA/ADVOCATE/AGENT/R EPRESENTATIVE/SURROGAT E Healthcare Agents on File Name Relationship Healthcare Agent Relationship Communication Balwinder Box Spouse Health Care Agent Favian Box Son First Altern ate Health Care Agent Care Teams Patternmaker Bench Relationship Specialty Start Date End Date None Reported, Pcp PCP - General 08/02/24
--- OUTSIDE RECORDS SUMMARY | 2025-05-08 17:44 | XMS_ITS | Clinical Summary ---
Author Organization [employer] [facility] Address [facility] [place] [address] Care Team Providers Care Director Of Sales Marketing Name Role Phone Javier Moody DPM Unavailable [phone] Staff, Other Clinical Unavailable UnavailGerri Butler Primary Care Provider Allergies Active Allergy Reactions Criticality Noted Date Comments Adhesive Tape-Silicones Other - Describe In Comment Field 04/20/2017 Contact dermatitis Amoxicillin-Pot Clavulanate Headache 02/18/2020 Azithromycin Hives 06/19/2024 Morphine Hallucinations 12/07/2016 Nortriptyline Sedation 12/13/2006 INTOLERANCE Oxycodone Nausea Only 02/10/2021 Shellfish Derived Edema 06/02/2017 Raw shellfish Ankles swell Sulfa (Sulfonamide Antibiotics) Hives 12/13/2006 Medications exemestane (AROMASIN) 25 mg tabletIndication s:Ductal carcinoma of right breast (HC) Take 1 tablet by mouth once daily after a meal. 30 tablet 02/14/20 20 Active Cranberry 400 mg capsule 2 tablets PO daily 0 01/07/20 21 Active D-Mannose 99 % powdIndications: Recurrent UTI As directed 2 g once daily. 60 g 5 07/07/20 21 Active fluocinonide 0.05% topical (LIDEX) 0.05 % ointmentIndicati ons:Seborrheic dermatitis, unspecified APPLY TO AFFECTED AREAS TOPICALLY 2 TIMES DAILY. FOR NO MORE THAN 14 DAYS CONSECUTIVELY 60 g 03/11/20 24 Active calcium carbonate (CALTRATE) 600 mg calcium (1,500 mg) tablet Take 1 Tablet (600 mg) by mouth once daily. 05/08/20 24 Active doxycycline monohydrate 100 mg tablet TAKE ONE TABLET BY MOUTH ONCE FOR ONE DOSE. TAKE ONE HOUR PRIOR TO DENTAL PROCEDURES (INCLUDING CLEANINGS) AND DIRTY PROCEDURES ( SUCH CO 11/26/19 Active azelaic acid 15 % gel APPLY A THIN LAYER TO AFFECTED SKIN OF FACE ONCE DAILY AT NIGHT, ONGOING. 03/04/20 25 Active levothyroxine 112 mcg tabletIndication s:Hypothyroidism , unspecified type Take 1 Tablet (112 mcg) by mouth once daily. 90 Tablet 3 03/17/20 25 Active metroNIDAZOLE 0.75 % lotionIndication s:Skin rash Apply topically to affected area(s) two times daily. 70 mL 3 03/17/20 25 Active rizatriptan 10 mg tabletIndication s:Migraine syndrome TAKE 1 TABLET BY MOUTH AT ONSET. MAY TAKE WITH 2 IBUPROFEN. MAY REPEAT IN 2 HRS IF NEEDED. TAKE NO MORE THAT 2 TABS IN 24HRS. 10 Tablet 8 03/17/20 25 Active nitrofurantoin macrocrystaL 100 mg capsuleIndicatio ns:UTI symptoms Take 1 tablet by mouth after intercourse. 20 Capsule 1 03/17/20 25 Active Active Problems Problem Noted Date Diagnosed Date Morbid obesity 05/08/2024 Diverticulitis of large intestine without bleedi ng 08/02/2022 H/O total hysterectomy 01/19/2022 Breast implant status 08/16/2018 Routine adult health maintenance 03/06/2017 Overview (03/06/2017): Colonoscopy 02/2017 normal repeat in 10 years Ductal carcinoma of right breast 11/07/2016 Overview (11/07/2016): New dx right breast. Hx previous ca right breast. Osteoarthritis 08/15/2014 Overview (08/15/2014): Bilateral hands Unspecified hypothyroidism 12/13/2006 Migraine, unspecified, witho ut mention of intractable migraine without mention of status migrainosus 12/13/2006 Seborrheic dermatitis, unspecified 12/13/2006 Meniere's disease, unspecified 12/13/2000 Resolved Problems Problem Noted Date Diagnosed Date Resolved Date Chronic cholecystitis 01/17/20132023 Esophageal reflux 12/26/2012 03/11/2024 Overview (01/11/2013): Off and on sx over the years EGD 12/2012 normal Low back pain 07/06/2010 03/11/2024 Dysthymic disorder 09/28/2007 Overview (09/28/2007): Depression Malignant neoplasm of breast (female), unspecified site 12/13/2006 03/11/2024 Malignant neoplasm of breast (female), unspecified site 12/13/2006 03/11/2024 Malignant neoplasm of breast (female), unspecified site 12/13/1989 03/11/2024 Hallux valgus with bunions, right 03/11/2024 Hammertoe of right foot 02/23 Plantar fasciitis of right foot 03/11/2024 Encounters Date Type Department Care Team Description 03/18/2025 9:30 AM CDT Ancillary Procedure [facility] [address] [place] [address] 03/18/2025 Telephone [facility] [address] [place] [address] Gerri Serrano PA Prior Authorization (metroNIDAZOLE 0.75 % lotion (DENIED)) 03/17/2025 8:30 AM CDT Office Visit [facility] [address] [place] [address] Gerri Serrano PA Medicare WELCOME Visit (64 years old); Concerns (Would like bone density done) 03/17/2025 Travel 02/10/2025 10:40 AM CDT Office Visit [facility] [address] [place] [address] Kianna Abel PA Vaginal Discharge (Patient states itching and a little bit of discharge for about a week.) 02/10/2025 Travel from Last 3 Months Immunizations Immunization Administration Dates Next Due COVID-19 vaccine (flo.do NTZipmark 30mcg/0.3mL) 12YO+ CAYETANO-SUCROSE PF, MDV 02/16/2022 COVID-19 vaccine (RetentionGrid-Bio NTech 30mcg/0.3mL) PF, MDV 06/14/2021,12/30/2020,12/09/2020 HepA-HepB (Twinrix) 04/22/2008,11/06/2007,2007 Influenza, High-dose Inactivated 08/11/2024 Influenza, IIV4 07/17/2022 Influenza,CCIIV4 PRESERV FREE 06/21/2020 Pneumococcal Conj 20-valent (Prevnar 20) 025 RSV, Recombinant ADJ Reconst ituted (Arexvy 120MCG/0.5mL) 10/17/2024 Td (Age >=7 Years) 01/13/2021,06/01/2000 Tdap 02/08/2011 [...] Father Alive Maternal Aunt Maternal Uncle Mother Other ANANTH Alive SPOUSE Sister Alive Son 1 ALON Son 2 MARKO Alive Social History Tobacco Use Types Packs/Day Years Used Date Smoking Tobacco: Former Cigars Smokeless Tobacco: Never Tobacco Cessation:Counseling Given: Not Answered Alcohol Use Standard Drinks/Week Comments Not Currently 0 (1 standard drink = 0.6 oz pur e alcohol) occasional PHQ-2 Answer Date Recorded PHQ-2 TOTAL SCORE 0 03/17/2025 Social Connections Answer Date Recorded Do you often feel lonely or isolated from those around you? 0 03/17/2025 Financial Resource Strain Answer Date R ecorded Difficulty of Paying Living Expenses 3 03/17/2025 Difficulty of Paying Living Expenses Not on file 03/17/2025 Food Insecurity Answer Date Recorded Do you worry your food will run out before you are able to buy more? 1 03/17/2025 Transportation Needs Answer Date Record ed Does lack of transportation keep you from medica l appointments? 1 03/17/2025 Does lack of transportation keep you from work, meetings or getting things that you need? 1 03/17/2025 Housing Stability Answer Date Recorded What is your housing situation today? 1 03/17/2025 Utilities Answer Date Recorded Do you have trouble paying f or utilities (for example, heat, electricity, water, phone)? 1 03/17/2025 Comments No Sex and Gender Information Value Date Recorded Sex Assigned at Not on file Legal Sex Female 6:24 AM BOOK TRIMMER Gender Identity Not on file Sexual Orientation Not on file Occupation Industry Job Start Date Job End Date Not on file Not on file Not on file Not on file Obstetrics History Para Term AB IAB SAB Ectopic Multiple Livin g Live Births 2 2 Date Outcome GA Total Labor Labor/2nd/3rd Weight Sex Type Anes PTL Delia A1 A5 Name Clin Last Filed Vital Signs Vital Sign Reading Time Taken Comments Blood Pressure 124/84 03/17/2025 8:43 AM CDT Pulse 76 03/17/2025 8:43 AM CDT Temperature 36.4 C (97.6 F) 02/10/2025 10:43 AM CDT Respiratory Rate 18 07/07/2021 9:34 AM CDT Oxygen Saturation 93% 02/10/2025 10:43 AM CDT Inhaled Oxygen Concentration - - Weight 91.4 kg (201 lb 6.4 oz) 03/17/2025 8:43 A M CDT Height 161 cm (5' 3.39) 03/17/2025 8:43 AM CDT Body Mass Index 35.24 03/17/2025 8:43 AM CDT Plan of Treatment Health Maintenance Due Date Last Done Comments HIV for age 15-65 1975 COVID-19 vaccine series (8 - Pfizer risk season) 2025 08/11/2024, 08/08/2023, 07/17/2022, Additional history exists Influenza Vaccine (#1) 2025 , 07/17/2022, 06/21/2020 BMI (ht and wt on same day) for age 18+ 03/17/2026 03/17/2025, 03/11/2024, 03/07/2023, Additional history exists Depression screening for age 12+ 03/17/2026 03/17/2025, 07/01/2021, 07/01/2021, Additional history exists Medicare Wellness for age 65+ 03/18/2026 03/17/2025 Lipids for age 45-75 03/17/2030 03/17/2025, 03/11/2024, 03/07/2023, Additional history exists Tetanus booster 01/13/2031 01/13/2021, 01/23, 02/08/2011, Additional history exists Colonoscopy through age 75 04/11/203404/11, 03/06/2017, 03/06/2017, Additional history exists Hepatitis B series for 19+ Completed 04/22, 11/06/2007, 09/28/2007 Hepatitis C screening for ag e 18-79 Completed 08/13/2014 Zoster (shingles) series for age 50+ Completed 04/25/2019, 01/25/2019 Pneumococcal series for age 50+ Completed RSV vaccine for adults or Completed 10/17/2024 DEXA/DXA scan for age 65+ Completed 2024, 03/07/2023, 08/11/2020, Additional history exists Medical Devices Implanted Type Area As400 Analyst Device Identifier Shelf Expiration Date Model / Serial / Lot [id number] - [id number] Implanted:Qty: 1 on 06/02/2017 by Javier Moody DPM at [facility] Right: Foot [employer] [id number] / / Description:MTP CP plate [id number] - [id number] Implanted:Qty: 3 on 06/02/2017 by Javier Moody DPM at [facility] Right: Foot [employer] [id number] / / Description:2.7 mm locking s crews, T8 [id number] - [id number] Implanted:Qty: 1 on 06/02/2017 by Javier Moody DPM at [facility] Right: [employer] [id number] / / Description:3.6 mm CP screw, T8 [id number] - [id number] Implanted:Qty: 1 on 06/02/2017 by Javier Moody DPM at [facility] Right: [employer] [id number] / / Description:2.7 mm locking s crew, T8 [id number] - [id number] Implanted:Qty: 1 on 10/02/2017 by Javier Moody DPM at [facility] Left: Foot [employer] [id number] / / N/A Description:MTP CP Plate, le ft T8, 5 Hole [id number] - [id number] Implanted:Qty: 2 on 10/02/2017 by Javier Moody DPM at [facility] Left: Foot [employer] [id number] / / N/A Description:2.7mm Locking Sc rews, T8 [id number] - [id number] Implanted:Qty: 2 on 10/02/2017 by Javier Moody DPM at [facility] Left: Foot [employer] [id number] / / N/A Description:2.7mm Locking Sc rews, T8 Explanted Type Area As400 Analyst Device Identifier Shelf Expiration Date Model / Serial / Lot [id number] - [id number] Implanted:Qty: 1 Explanted:Qty: 1 on 10/02/2017 at [facility] Left: Foot [employer] [id number] / / N/A Description:3.6mm CP Screws, T8 [id number] - [id number] Explanted:Qty: 1 on 10/02/2017 at [facility] Left: Foot [employer] [id number] / / N/A Description:CP Screws, T8 Procedures Procedure Name Priority Date/Time Associated Diagnosis Comments XR DXA BONE DENSITY 2 SITES AXIAL Routine 03/18/2025 9:46 AM CDT Postmenopausal TSH Routine 03/17/2025 9:38 AM CDT Hypothyroidism, unspecified type LIPID PANEL W REFLEX MEASURED LDL Routine 03/17/2025 9:38 AM CDT Hypothyroidism, unspecified type Ductal carcinoma of right breast (HC) COMP METABOLIC PANEL Routine 03/17/2025 9:38 AM CDT Ductal carcinoma of right breast (HC) TRICHOMONAS, SVEN, AND BACTERIAL VAGINOSIS BY DONALD Routine 02/10/2025 10:53 AM CDT Vaginal irritation COLONOSCOPY SCREENING Routine 04/11/2024 12:00 AM CDT Family history of colon cancer in mother ANTI HCV Routine 08/13/2014 9:30 AM BOOK TRIMMER Need for hepatitis C screening test from Last 3 Months or Most Recently Relevant to Health Maintenance Results * XR DXA BONE DENSITY 2 SITES AXIAL [89584.1] (03/18/2025 9:46 AM CDT) Anatomical Region Laterality Modality Spine, HIPS, HIPL, HIPR Other Impressions 03/24/2025 8:01 PM CDT Normal bone density. RECOMMENDATIONS: The National Osteoporosis Foundation recommends pharmacologic treatment for patients with T-scores of -2.5 or less, patients with prior history of fragility fractures, or patients with 10-year probability of greater than 3% at hips or greater than 20% of suffering major osteoporotic fractures. Recommend continued optimization of calcium and vitamin D intake through dietary means and/or supplementation and regular exercise. Repeat scan recommended in 3-5 years. Gerri Serrano PA-C [facility] 03/24/2025 Narrative 03/24/2025 8:01 PM CDT For Patients: Results are automatically released to your [employer]) account once available, in compliance with federal regulations. This means that you may see your results before your provider has had a chance to review them. Please allow 2-3 business days for your provider to comment on the results. XR DXA Bone Mineral Density (BMD) EXAM LOCATION: [address] [address] PATIENT NAME: Valerie Box DATE OF : 1960 EXAM DATE: 03/18/2025 REQUESTING PROVIDER: Gerri Serrano PA GENDER AT : female HEIGHT: 5' 3.39 (03/17/2025) WEIGHT: 201 lb 6.4 oz (03/17/2025) MENOPAUSAL STATUS: Postmenopausal RACE/ETHNICITY: White RISK FACTORS: Cancer Treatment, Family History of Osteoporosis, Menopause < Age 40, and White Race CURRENT MEDICATION FOR BONE LOSS: NONE INDICATION: Post-Menopause COMPARISON DATE(S): 2019 FOR SPINE AND 2022 FOR HIPS DXA scans are compared to prior studies for a patient only when the two (or more) studies were performed on the same scanner. It is not possible to compare data generated on one scanner to data from another because there are not standards in DXA equipment. This applies even if the two scanners are made by the same supervisor pressing department. PROCEDURE: Dual-energy x-ray absorptiometry performed with routine technique. Reporting is completed in the form of a T-score. The T-score represents the standard deviation from peak bone mass based on young healthy adult. A Z-score is used for diagnosis in premenopausal women, and for men under the age of 50. FINDINGS: RESULT LUMBAR SPINE L1 - L4 BMD: 1.504 g/cm2 T-Score: + 2.5 Z-Score: + 3.2 Change from prior in 2019: Increase 6.7%. RESULTS FEMUR Left femoral neck BMD: 1.191 g/cm2 T-Score: + 1.1 Z-Score: + 2.0 Change from prior in 2022: Increase 1.8%. Right femoral neck BMD: 1.189 g/cm2 T-Score: + 1.1 Z-Score: + 2.0 Change from prior in 2022: Increase 1.2%. Left hip BMD: 1.240 g/cm2 T-Score: + 1.8 Z-Score: + 2.4 Change from prior in 2022: Decrease 0.2%. Right hip BMD: 1.209 g/cm2 T-Score: + 1.6 Z-Score: + 2.2 Change from prior in 2022: Decrease 0.4%. WHO criteria: Normal: T-score at or above -1 SD Osteopenia: T-score between -1.1 and -2.4 SD Osteoporosis: T-score at or below -2.5 SD FRAX RISK CALCULATION (USED FOR OSTEOPENIA ONLY): 10-year probability of major osteoporotic fracture: 5.2%. 10-year probability of hip fracture: 0.1%. Gerri ALVAREZ DEXA Final R esult * (ABNORMAL) LIPID PANEL W REFLEX MEASURED LDL (03/17/2025 9:38 AM CDT) Pathologist [facility] CHOLESTEROL, TOTAL 210(H) <200 mg/dL [facility] HDL CHOLESTEROL 58 > OR = 50 mg/dL [facility] TRIGLYCERIDES 148 <150 mg/dL [facility] LDL-CHOLESTEROL 126(H) mg/dL (calc) [facility] Comment: Reference range: <100 Desirable range <100 mg/dL for primary prevention; <70 mg/dL for patients with CHD or diabetic patients with > or = 2 CHD risk factors. LDL-C is now calculated using the Son-Stockton calculation, which is a validated novel method providing better accuracy than the Friedewald equation in the estimation of LDL-C. Son SS et al. DANIELLE. 2013;310(19): 2555-0378 (http://education.[employer]/faq/EAS192) CHOL/HDLC RATIO 3.6 <5.0 (calc) [facility] NON HDL CHOLESTEROL 152(H) <130 mg/dL (calc) [facility] Comment: For patients with diabetes plus 1 major ASCVD risk factor, treating to a non-HDL-C goal of <100 mg/dL (LDL-C of <70 mg/dL) is considered a therapeutic option. Blood BLOOD SPECIMEN / Unknown 03/17/2025 9:38 AM CDT 03/17/2025 9:39 AM CDT Gerri ALVAREZ CHEMISTRY Final R esult [facility] [address] [place] [address], [facility] [address] [place] [address] * TSH (03/17/2025 9:38 AM CDT) [facility] TSH 1.44 0.40 - 4.50 mIU/L [facility] Blood BLOOD SPECIMEN / Unknown 03/17/2025 9:38 AM CDT 03/17/2025 9:39 AM CDT Gerri ALVAREZ CHEMISTRY Final R esult [facility] [address] [place] [address], [facility] [address] [place] [address] * COMP METABOLIC PANEL (03/17/2025 9:38 AM CDT) [facility] GLUCOSE 96 65 - 99 mg/dL [facility] Comment: Fasting reference interval UREA NITROGEN (BUN) 13 7 - 25 mg/dL [facility] CREATININE 0.73 0.50 - 1.05 mg/dL [facility] EGFR 91 > OR = 60 mL/min/1. 73m2 [facility] BUN/CREATININE RATIO SEE NOTE: 6 - 22 (calc) [facility] Comment: Not Reported: BUN and Creatinine are within reference range. SODIUM 140 135 - 146 mmol/L [facility] POTASSIUM 4.3 3.5 - 5.3 mmol/L [facility] CHLORIDE 101 98 - 110 mmol/L [facility] CARBON DIOXIDE 31 20 - 32 mmol/L [facility] CALCIUM 10.4 8.6 - 10.4 mg/dL [facility] PROTEIN, TOTAL 7.3 6.1 - 8.1 g/dL [facility] ALBUMIN 4.4 3.6 - 5.1 g/dL [facility] GLOBULIN 2.9 1.9 - 3.7 g/dL (calc) [facility] ALBUMIN/GLOBULIN RATIO 1.5 1.0 - 2.5 (calc) [facility] BILIRUBIN, TOTAL 0.5 0.2 - 1.2 mg/dL [facility] ALKALINE PHOSPHATASE 70 37 - 153 U/L [facility] AST 20 10 - 35 U/L [facility] ALT 19 6 - 29 U/L [facility] Blood BLOOD SPECIMEN / Unknown 03/17/2025 9:38 AM CDT 03/17/2025 9:39 AM CDT Gerri ALVAREZ CHEMISTRY Final R esult Performing Organization Address City/[facility]/ZIP Co de Phone Number [facility] [address] [place] [address], [facility] [address] [place] [address] * TRICHOMONAS, SVEN, AND BACTERIAL VAGINOSIS BY DONALD (02/10/2025 10:53 AM CDT) SVEN SPECIES Negative Negative 11:03 PM CDT [facility] SVEN GLABRATA Negative Negative 02/10/2025 11:03 PM CDT [facility] TRICHOMONAS VVA Negative Negative 11:03 PM CDT [facility] BACTERIAL VAGINOSIS Negative Negative 02/10/2025 11:03 PM CDT [facility] Other VAGINAL SWAB / Unknown Non-Blood / Unknown 02/10/2025 10:53 AM CDT 02/10/2025 11:38 AM CDT Kianna ALVAREZ MICROBIOLOGY Final Result [facility] [address] [place] [address] * COLONOSCOPY SCREENING (04/11/2024 12:00 AM CDT) us Manju Mckeon MD GI PROCEDURE ORD Final R esult * ANTI HCV (08/13/2014 9:30 AM BOOK TRIMMER) HEPATITIS C ANTIBODY Non-Reacti ve Non-Reacti ve 08/13/2014 8:03 PM BOOK TRIMMER [facility] Blood specimen (specimen) BLOOD SPECIMEN / Unknown Add On / Unknown 08/13/2014 9:30 AM BOOK TRIMMER 08/13/2014 4:40 PM BOOK TRIMMER Narrative [facility] - 08/13/2014 8:03 PM BOOK TRIMMER Antibodies to HCV not detected; does not exclude the possibility of exposure to HCV. Jody Davies CONTINUOUS MINER OPERATOR SEND OUTS F inal Result [facility] 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 Plastic Surgery 09/28/17
[2025-05-08 18:03] VITALS: BP 158/86; PULSE 120; RESP 20; TEMP 37.4; O2SAT 95; BMI 35.3
--- NOTE | 2025-05-08 18:11 | CRLHL7_ITS ---
For Patients: As a result of the Century Cures Act, medical imaging exams and procedure reports are released immediately into your electronic medical record. You may view this report before your referring provider. If you have questions, please contact your health care provider. INDICATION: LEFT LOWER QUADRANT PAIN, HX DIVERTICULITIS. TECHNIQUE: CT abdomen and pelvis acquired with 97 cc Isovue 370 IV contrast. COMPARISON: None. FINDINGS: Lower chest: Partially visualized bilateral breast implants. Liver: Left hepatic lobe 3.8 cm mildly complex cystic focus, nonspecific. Otherwise, unremarkable. Gallbladder and bile ducts: Cholecystectomy. No biliary dilatation. Pancreas: Unremarkable. No mass or inflammation. Spleen: Unremarkable. Normal in size. No masses. Adrenal glands: Unremarkable. No nodules. Kidneys: Right renal cortical subcentimeter hypodensity, too small to characterize. No hydroureteronephrosis. GI tract: Colonic diverticulosis with moderate inflammatory changes about the mid sigmoid colon. No evidence of a mechanical obstruction. Normal appendix. Vasculature: Abdominal aorta is normal in caliber. Mesenteric arteries are patent. Lymph nodes: No lymphadenopathy. Peritoneum/Abdominal Wall: Unremarkable. No sign of mass or infiltration. No free air or significant free fluid. Pelvis: Unremarkable. Bones: Unremarkable for age. IMPRESSION: Acute sigmoid diverticulitis without evident complication. Please note that all CT scans at this facility use dose modulation, iterative reconstruction, and/or weight-based dosing when appropriate to reduce radiation dose to as low as reasonably achievable. Dictated by Chase Giles MD @ 05/08/2025 7:55:36 PM (Electronically Signed)
--- NOTE | 2025-05-08 18:13 | ED_ITS ---
HPI - General Adult General Date Seen: 05/08/25 Chief complaint: Abdominal Pain Stated complaint: diverticulitis Time Seen by Provider: 05/08/25 17:51 History of Present Illness HPI narrative: Patient is a 64-year-old woman with a history of diverticulitis who presents for evaluation of left lower quadrant pain with some radiation to her back. This is been there for couple of days, she has been just trying to manage it but it seems to be getting worse and today she developed a migraine. She has rizatriptan but was not sure if she should take it given her abdominal pain so she elected to come in kind of to ask about that question and also to have her abdominal pain evaluated. She feels that she might be constipated, she has not had a good bowel movement since this pain started. She did try a laxative and then had some watery stools. She has not had any vomiting but does feel nauseated today. No fevers that she knows about. No urinary symptoms. No black or bloody stools. Related Data Home Medications ?Medication ?Instructions ?Recorded ?Confirmed levothyroxine 112 mcg tablet mcg 07/28/22 05/07/25 rizatriptan 10 mg tablet 10 mg PO PRN 07/28/22 cranberry 500 mg capsule 500 mg PO QDAY 03/21/2404/25 dmaoose PO .qd 03/21/24 08/05/24 calcium 600 mg (as 1 tab PO QDAY 05/06/2405/08 carbonate)-vitamin D3 5 mcg (200 unit) tablet (Calcium 600 + D(3)) ibuprofen 200 mg tablet 200 mg PO Q6H PRN 05/29/24 0 05/08/25 Previous Rx's ?Medication ?Instructions ?Recorded cephalexin 500 mg capsule 2,000 mg (4 x 500 mg) PO ONC E #4 08/05/24 caps exemestane 25 mg tablet 25 mg PO QDAY breast cancer #90 02/10/25 tabs Allergies Allergy/AdvReac Type Severity Reaction Status Date / Time amoxicillin Allergy Severe Headache Verified 05/08/25 18:58 nortriptyline Allergy Mild intolerance Verified 05/08/25 18:58 shellfish derived Allergy Unknown ankle Verified 05/08/25 18:58 swelling Sulfa (Sulfonamide Allergy Unknown Hives Verified 05/08/25 18:58 Antibiotics) clavulanic acid (From Allergy Headache Verified 05/08/25 18:58 Augmentin) morphine AdvReac Severe Hallucinati Verified 05/08/25 18:58 ng oxycodone AdvReac Intermediate Extreme Verified 05/08/25 18:58 nausea azithromycin AdvReac Hives Verified 05/08/25 18:58 Review of Systems Status of ROS: Reports: 10 or more systems reviewed and unremarkable except as noted in History and below PFSH PFS Medical History Breast implant rupture ?T85.43XA - Leakage of breast prosthesis and implant, initial encounter (ICD- 10) Diverticulitis ?K57.92 - Diverticulitis of intestine, part unspecified, without perforation or abscess without bleeding (ICD-10) Osteoarthritis of right shoulder ?M19.011 - Primary osteoarthritis, right shoulder (ICD-10) Migraine headache ?G43.909 - Migraine, unspecified, not intractable, without status migrainosus (ICD-10) Hypothyroidism ?E03.9 - Hypothyroidism, unspecified (ICD-10) History of depression ?Z86.59 - Personal history of other mental and behavioral disorders (ICD-10) Gastroesophageal reflux disease ?K21.9 - Gastro-esophageal reflux disease without esophagitis (ICD-10) Surgical History History of foot surgery ?Z98.890 - Other specified postprocedural states (ICD-10) History of bilateral mastectomy (11/2016) ?Z90.13 - Acquired absence of bilateral breasts and nipples (ICD-10) H/O arthroscopy of right knee (06/20/03) ?Z98.890 - Other specified postprocedural states (ICD-10) History of bilateral knee arthroplasty (06/03/05) ?Z96.653 - Presence of artificial knee joint, bilateral (ICD-10) 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) ?Z96.611 - Presence of right artificial shoulder joint (ICD-10) H/O arthroscopy of left knee (01/14/05) ?Z98.890 - Other specified postprocedural states (ICD-10) History of partial hysterectomy (~1996) ?Z90.711 - Acquired absence of uterus with remaining cervical stump (ICD-10) Hx laparoscopic cholecystectomy (01/10/13) ?Z90.49 - Acquired absence of other specified parts of digestive tract (ICD- 10) Family History (Updated 05/29/24 @ 13:10 by Estefani Garcia ~ RN, RN) Mother Breast cancer Other Diabetes Social History (Updated 08/05/24 @ 10:39 by Gabriela Kan ~ 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 Head: Normocephalic, atraumatic. Eyes: Sclera clear. Pupils equal and reactive. ENT: Mucous membranes moist. Neck: Supple without adenopathy. Heart: Regular rate and rhythm without murmur. Lungs: Clear. No increased work of breathing, crackles or wheezes. Abdomen: Abdomen is soft and nondistended. She has tenderness greatest in the left lower quadrant and suprapubic area with some guarding. No rebound or rigidity. She has a little diffuse tenderness throughout the abdomen. Extremities: Well perfused, pulses intact. No significant edema. Neurologic: Alert, conversant. Speech fluent, face symmetric. Moves all extremities equally. Skin: Warm, dry well perfused. Affect: Normal. Const: Vital Signs, click to edit/add: Vital Signs - 24 hr 05/08/25 18:03 05/08/25 18:47 05/08/25 19:15 Temperature 99.3 F Pulse Rate 102 H Pulse Rate [Pulse Oximeter] 120 H 102 H Respiratory Rate 20 16 Blood Pressure Blood Pressure [Ri ght Upper Arm] 158/86 H 141/75 H Pulse Oximetry 95 95 95 Oxygen Delivery Me thod Room Air Room Air 05/08/25 19:16 05/08/25 20:20 Temperature Pulse Rate Pulse Rate [Pulse Oximeter] 92 Respiratory Rate 20 Blood Pressure 141/75 H Blood Pressure [Ri ght Upper Arm] 144/91 H Pulse Oximetry Oxygen Delivery Me thod Course Course ED Course: Advised I think it is okay for her to take her rizatriptan, her preference was to do that versus using meds here in the ER as it works very well for her. With regard to her abdominal pain, she does have a history of diverticulitis and certainly this is suggestive of recurrent diverticulitis. Plan will be to check some labs, she is tachycardic here and will give some fluids. She said that may be because she is feeling nervous. I think imaging is warranted given her abdominal exam to rule out complications related to diverticulitis. I reviewed her CT scan which is consistent with sigmoid diverticulitis. Labs are notable for mildly elevated white blood cell count of 13, CRP is elevated at 8.5. Other labs are normal. She feels significantly improved, rizatriptan helped her headache and she does not need anything further for pain. She is comfortable going home with ibuprofen and/or Tylenol, will treat with Augmentin. Discussed reasons to return such as severe worsening pain, fevers, vomiting, bloody stools. Etc.. Keep diet bland, clear liquids advance to bland diet as symptoms allow. Primary care follow-up if not improving in the next 3-5 days. Vital Signs Vital signs: Initial Vital Signs Temperature 99.3 F 05/08/25 18:03 Temperature Source Temporal Artery Scan 05/08/25 18:03 Pulse Rate 120 H 05/08/25 18:03 Respiratory Rate 20 05/08/25 18:03 Blood Pressure 158/86 H 05/08/25 18:03 Blood Pressure Mean 110 H 05/08/25 18:03 Pulse Oximetry 95 05/08/25 18:03 Oxygen Delivery Method Room Air 05/08/25 18:03 Vital Signs Temperature 99.3 F 05/08/25 18:03 Pulse Rate 120 H 05/08/25 18:03 Respiratory Rate 20 05/08/25 18:03 Blood Pressure 158/86 H 05/08/25 18:03 Pulse Oximetry 95 05/08/25 18:03 Oxygen Delivery Method Room Air 05/08/25 18:03 Temperature 99.3 F 05/08/25 18:03 Pulse Rate 92 05/08/25 20:20 Respiratory Rate 20 05/08/25 20:20 Blood Pressure 144/91 H 05/08/25 20:20 Pulse Oximetry 95 05/08/25 19:15 Oxygen Delivery Method Room Air 05/08/25 19:15 Medications Administered Medications: Discontinued Medications Generic Name Dose Route Start Last Admin Trade Name Jonasq PRN Reason Stop Dose Admin Sodium Chloride 1,000 mls @ 1,000 mls/hr 05/08/25 18:15 05/08/25 20:14 0.9 % Sodium Chloride 1000 Ml IV 05/08/25 19:14 Infused .Q1H SATISH Infusion Ondansetron HCl 4 mg 05/08/25 18:11 05/08/25 18:47 Ondansetron 2 Mg/Ml Inj IVP 05/08/25 18:12 4 mg ONCE ONE Administration Medical Decision Making Lab Data Labs: Lab Results 05/08/25 05/08/25 05/08/25 Range/Units 18:17 18:30 18:40 WBC 13.61 H (4.50-11.00) K/uL RBC 4.74 (4.00-5.20) m/uL Hgb 14.1 (12.0-16.0) gm/dL Hct 42.7 (33.0-51.0) % MCV 90 (80-100) fL MCH 30 (26-34) pg MCHC 33 (32-36) gm/dL RDW Coeff of Rosemary 12.7 (11.5-15.5) % Plt Count 253 (140-440) K/uL Neut % (Auto) 83.5 H (42.0-72.0) % Lymph % (Auto) 9.2 L (20-44) % [place] % (Auto) 6.2 (0.0-11.0) % Eos % (Auto) 0.5 (0.0-7.0) % Baso % (Auto) 0.3 (0.0-3.0) % Neut # (Auto) 11.40 H (1.7-7.0) K/uL Lymph # (Auto) 1.30 (0.90-2.90) K/uL [place] # (Auto) 0.80 (0.00-0.90) K/UL Eos # (Auto) 0.10 (0.00-0.50) K/uL Baso # (Auto) 0.00 (0.00-0.30) K/uL Abs Immat Gran (auto) 0.00 (0.00-0.30) K/uL Imm/Tot Granulo (auto) 0.3 % Sodium 133 L (135-149) mmol/L Potassium 3.7 (3.6-5.1) mmol/L Chloride 100 (96-114) mmol/L Carbon Dioxide 23 (20-32) mmol/L Anion Gap 10 (7-15) mEq/L BUN 14 (7-30) mg/dL Creatinine 0.7 (0.5-1.5) mg/dL Estimated Creat Clear 46.40 Estimated GFR 96 ml/min Glucose 111 (60-115) mg/dL Lactate 1.0 (0.5-1.9) mmol/L Calcium 10.0 (8.4-10.6) mg/dL C-Reactive Protein 8.5 H (0.5-1.0) mg/dL Urine Color Dark yellow (Yellow) Urine Appearance Slightly Cloudy A (Clear) Urine pH 6.0 (5.0-8.5) Ur Specific [place] 1.010 (1.000-1.030) Urine Protein 1+ A (Negative) Urine Glucose (UA) Negative (Negative) Urine Ketones 3+ A (Negative) Urine Blood 2+ A (Negative) Urine Nitrite Negative (Negative) Urine Bilirubin Negative (Negative) Urine Urobilinogen 0.2 (0.2-1.0) Ur Leukocyte Esterase 1+ A (Negative) Urine RBC 2-5 A (0-2) Urine WBC 2-5 (0-5) Ur Squamous Epith Cells Few (None-Few) Urine Bacteria Few A (None) POC Creatinine 0.7 (0.6-1.3) mg/dl Discharge Plan Discharge Clinical Impression: Diverticulitis Condition: Improved Instructions: Diverticulitis (DC) Additional Instructions: Augmentin as prescribed. Return to the ER at any time if you have more severe pain, new symptoms such as fevers, vomiting, or other worsening. Follow-up with primary care as needed if you are not improving at all over the next 3-5 days. Keep diet bland until symptoms have resolved. Prescriptions: No Action ibuprofen 200 mg tablet 200 mg PO Q6H PRN cephalexin 500 mg capsule 2,000 mg PO ONCE Qty: 4 3RF Rx Instructions: Take 2,000mg by mouth, one hour prior to dental appointment. dmaoose PO .qd Patient Comments: To prevent UTI cranberry 500 mg capsule 500 mg PO QDAY Rx Instructions: administer with meals exemestane 25 mg tablet 25 mg PO QDAY Qty: 90 0RF rizatriptan 10 mg tablet 10 mg PO PRN levothyroxine 112 mcg tablet calcium carbonate-vitamin D3 [Calcium 600 + D(3)] 600 mg-5 mcg (200 unit) tablet 1 tab PO QDAY Follow Up/Referrals: Gerri Serrano PAChantale [Primary Care Provider, Family Practice]
[2025-05-08 18:26] LABS: Appearance Urine Slightly Cloudy (Clear)
[2025-05-08 18:47] VITALS: PULSE 102; O2SAT 95
[2025-05-08 18:47] LABS: Lactate Sepsis w/Reflex* 1.0 mmol/L (0.5-1.9)
[2025-05-08] MEDS: ONDANSETRON 2 MG/ML inj 4 MG IVP (18:47)
[2025-05-08 18:48] LABS: Hematocrit 42.7 % (33.0-51.0); Hemoglobin* 14.1 gm/dL (12.0-16.0); Immature Granulocytes Pct Auto 0.3 %; Mean Corpuscular HGB Conc 33 gm/dL (32-36); Mean Corpuscular Hemoglobin 30 pg (26-34); Mean Corpuscular Volume 90 fL (80-100); RDW Coefficient of Variation % 12.7 % (11.5-15.5); Red Blood Count 4.74 m/uL (4.00-5.20); White Blood Count* 13.61 K/uL (4.50-11.00)
[2025-05-08 18:51] LABS: Creatinine, Point-of-Care* 0.7 mg/dl (0.6-1.3)
[2025-05-08 18:53] LABS: Immature Granulocytes Abs Auto 0.00 K/uL (0.00-0.30); Lymphocytes Absolute Auto 1.30 K/uL (0.90-2.90); Slide Review Reflex No
[2025-05-08 19:08] LABS: Est. Creatinine Clearance* 46.40; Estimated Glomerular Filt Rate 96 ml/min
[2025-05-08 19:09] LABS: Anion Gap 10 mEq/L (7-15)
[2025-05-08 19:15] VITALS: BP 141/75; PULSE 102; RESP 16; O2SAT 95
[2025-05-08 19:15] LABS: Blood Urea Nitrogen* 14 mg/dL (7-30); Calcium* 10.0 mg/dL (8.4-10.6); Carbon Dioxide* 23 mmol/L (20-32); Chloride* 100 mmol/L (96-114); Creatinine* 0.7 mg/dL (0.5-1.5); Glucose* 111 mg/dL (60-115); Potassium* 3.7 mmol/L (3.6-5.1); Sodium* 133 mmol/L (135-149)
[2025-05-08 19:16] VITALS: BP 141/75
--- OUTSIDE RECORDS SUMMARY | 2025-05-08 19:28 | XMS_ITS | Clinical Summary ---
Author Organization [facility] Address [address] , [address] [place] [address] Phone Care Team Providers Care Gore Maker Name Role Phone rCystal Ortega Conditions or Problems Problem Name Problem Code Onset Date Status Entry Date Provider Comment Standard Description Annotate Chronic migraine without aura, with intractable migraine, so stated, with status migrainosus [id number] (SNOMED CT) 04/11 Resolved 04/11 Rosario Ledezma DNP,BUSINESS SUPPORT LIAISON,CN P Status migrainosus COMMON MIGRAINE, NOT INTRACTABLE G43.009 (ICD-10-CM) 05/16 Active 05/16 Rosario Ledezma DNP,BUSINESS SUPPORT LIAISON,CN P Migraine without aura, not intractable, without status migrainosus Chronic migraine without aura, with intractable migraine, so stated, with status migrainosus [id number] (SNOMED CT) 04/11 Removed 04/11 Vinicio Patel MD Status migrainosus Medications Medication Instructions Start Date Stop Date Generic Name [facility] Provider AZO D-MANNOSE 500 MG CAPS d-mannose [id number] Jose Cortez MD CALCIUM 600+D3 600-10 MG-MCG TABS calcium carbonate-vitam in d3 [id number] Jose Cortez MD RIZATRIPTAN BENZOATE 10 MG TABS Take 1 tablet by mouth AT ONSET MAY COMBINE WITH 2 IBUPROFEN MAY REPEAT IN 2 HOURS IF NEEDED. TAKE NO MORE THAN 2 TABS IN 24 HOURS. rizatriptan [id number] Jose Cortez MD RIZATRIPTAN BENZOATE 10 MG TABS Take 1 tablet by mouth AT ONSET MAY COMBINE WITH 2 IBUPROFEN MAY REPEAT IN 2 HOURS IF NEEDED. TAKE NO MORE THAN 2 TABS IN 24 HOURS. rizatriptan [id number] Rosario Koch Darien DNP,BUSINESS SUPPORT LIAISON,MEDICAL FRONT DESK COORDINATOR VERAPAMIL HCL 40 MG TABS Month #1 take 1 bid. Month #2 take 1 daily, then stop verapamil [id number] Rosario Koch Darien DNP,BUSINESS SUPPORT LIAISON,MEDICAL FRONT DESK COORDINATOR SERTRALINE HCL 100 MG TABS 2 tablet by mouth once a day sertraline [id number] Rosario Koch Darien DNP,BUSINESS SUPPORT LIAISON,MEDICAL FRONT DESK COORDINATOR VERAPAMIL HCL ER 120 MG CR-TABS 1 by mouth once a day verapamil [id number] Vinicio Patel MD LEVOTHYROXINE SODIUM 125 MCG TABS 1 once a day levothyroxine [id number] Vinicio Patel MD AROMASIN 25 MG TABS 1 once a day exemestane [id number] Vinicio Patel MD SERTRALINE HCL 100 MG TABS 2 tablet by mouth once a day sertraline [id number] Vinicio Patel MD VERAPAMIL HCL 40 MG TABS Month #1 take 1 bid. Month #2 take 1 daily, then stop verapamil [id number] Vinicio Patel MD RIZATRIPTAN BENZOATE 10 MG TABS Take 1 tablet by mouth once a week rizatriptan [id number] Vinicio Patel MD RIZATRIPTAN BENZOATE 10 MG TABS Take 1 tablet by mouth AT ONSET MAY COMBINE WITH 2 IBUPROFEN MAY REPEAT IN 2 HOURS IF NEEDED. TAKE NO MORE THAN 2 TABS IN 24 HOURS. rizatriptan [id number] Vinicio Patel MD RIZATRIPTAN BENZOATE 10 MG TABS Take 1 tablet by mouth once a week rizatriptan [id number] Zena Leblanc RN RIZATRIPTAN BENZOATE 10 MG TABS TAKE 1 TABLET BY MOUTH AT ONSET MAY COMBINE WITH 2 IBUPROFEN MAY REPEAT IN 2 HOURS IF NEEDED. TAKE NO MORE THAN 2 TABS IN 24 HOURS. RIZATRIPTAN BENZOATE [id number] Vanessa Brunson PA-C AMOXICILLIN 500 MG TABS 1 pill tid for 10 days AMOXICILLIN [id number] Vinicio Patel MD MAXALT 10 MG TABS 1 pill at ENG onset. May combine with 2 Ibuprofen, May repeat in 2 hours if needed. Use no more than 2 pills in 24 hours. RIZATRIPTAN BENZOATE [id number] Melany Santos APRN MEDICAL FRONT DESK COORDINATOR AMOXICILLIN 500 MG TABS 1 pill tid for 10 days AMOXICILLIN [id number] Vinicio Patel MD LEVOTHYROXINE SODIUM 125 MCG TABS 1 daily LEVOTHYROXINE SODIUM [id number] Vinicio Patel MD SERTRALINE HCL 100 MG TABS 2 daily SERTRALINE HCL [id number] Vinicio Patel MD AROMASIN 25 MG TABS 1 daily EXEMESTANE [id number] Vinicio Patel MD VERAPAMIL HCL ER 120 MG CR-TABS 1 pill daily VERAPAMIL HCL [id number] Vanessa Brunson PA-C Medications Administered No information available. Allergies, Adverse Reactions, Alerts Allergy Name Reaction Description Start Date Severity Statu s Provider OXYCODONE HCL Moderate Active Rosario Koch Rechjoseigel DNP,BUSINESS SUPPORT LIAISON,MEDICAL FRONT DESK COORDINATOR MORPHINE SULFATE hallucinations Severe Active Rosario Koch Rechtzigel DNP,BUSINESS SUPPORT LIAISON,MEDICAL FRONT DESK COORDINATOR AUGMENTIN migraine Moderate Active Rosaroi Koch Rec htzigel DNP,BUSINESS SUPPORT LIAISON,MEDICAL FRONT DESK COORDINATOR SULFA Critical Active Vinicio Patel MD Results Date Name Value Unit Range Flag Description Office Visit: CLUSTER ENG 08:32- 04/11/18 08:32 REFERRING PHYSICIA... [facility] Fall Risk Screening - Screen patient for falls, if positive, provide counseling on fall prevention Fall risk assessment Office Visit: fax SMOK STATUS never smoker Toba underwriting account representative smoking status Office Visit: Office Visit E [...] Date Detail Appointment 11:00 AM Rosario birch DNP,BUSINESS SUPPORT LIAISON,MEDICAL FRONT DESK COORDINATOR, [address], [address], [place], [address], Pending order Follow up DONY Pending order [...] Procedures Code Procedure Name Date Entry Date [facility]-[id number] Documentation of current medicatio ns ORDERS Patient Instructions ORDERS Follow up ORDERS Follow up in clinic or telemedicine with provider or DONY ORDERS Follow up ORDERS Patient Instructions ORDERS Follow up [facility]-[id number] Documentation of current medicatio ns ORDERS Patient Instructions ORDERS Follow up CPT-30298 Brief emotional/behavioral assessment 201 05/03/10 [facility]-[id number] Documentation of current medicatio ns [id number] MRI-Brain W/O CPT-10722 MRI Brain W/O [facility]-[id number] Documentation of current medicatio ns Vital Signs [...]
[2025-05-08 20:20] VITALS: BP 144/91; PULSE 92; RESP 20
== END 2025-05-08 20:21 | disposition home or self-care (01) ==
PROVIDERS: Emergency Provider Emergency Medicine; PCP Physician Assistant Medical
DX: K57.92 Diverticulitis of intestine, part unspecified, without perforation or abscess without bleeding (principal)
CPT/HCPCS: 36415; 74177; 80048; 81001; 82565; 83605; 85025; 86140; 87086; 99284; 99285; J2405; J7030; Q9967

== ENCOUNTER 2025-05-25 17:17 | Emergency (ER) | payer MEDICARE, BC, SELFPAY ==
--- OUTSIDE RECORDS SUMMARY | 2025-05-20 10:38 | XMS_ITS ---
Author Organization [facility] Address [address] , [address] [place] [address] Phone Care Team Providers Care Teamcenter Solution Architect Name Role Phone Darien PÉREZ,HEATHER,KENJI, Rosario Koch Unavailable + Conditions or Problems No information available. Medications No information available. Medications Administered No information available. Allergies, Adverse Reactions, Alerts Allergy Name Reaction Description Start Date Severity Statu s Provider NORTRIPTYLINE HCL migraine and nausea Moderate A ctive Rosario Koch Rechtzigel ELISA,HEATHER,KENJI ZITHROMAX headache Severe Active Rosario Koch Rec htzigel ELISA,HEATHER,KENJI Results Date Name Value Unit Range Flag Description Office Visit: Office Visit 1 year fax MEDS REVIEW Done Documenta tion of current medications (procedure) Plan of Care Type Date Detail Appointment 11:20 AM Jose Cortez MD, [address], [address], [place], [address], Pending order Follow up Pending order Follow up Pending order Patient Instruct ions Procedures Code Procedure Name Date Entry Date ORDERS Patient Instructions Vital Signs Date Name Value Unit Description Height 63 [in_us] height E&M Immunizations No information available. Advance Directives No information available.
--- OUTSIDE RECORDS SUMMARY | 2025-05-25 17:19 | XMS_ITS | Clinical Summary ---
Author Organization [facility] Address [address] [place] [address] Care Team Providers Care Eyeglass Frames Polisher Name Role Phone None Reported, Pcp Primary Care Provider Unavail able Source Comments Patient records contain information from all sites at [facility]. For routine questions regarding patient records, call [phone] during business hours, M-F 8:00 AM - 5:00 PM Central Time. Record requests for emergency care only can be directed to [phone] at any time.[facility] Allergies Active Allergy Reactions Criticality Noted Date [...] (04/13/2018): Added automatically from request for surgery [id number] Metastatic Lung Cancer 12/14/2016 Hyperlipidemia 11/11/2016 Morbid [...] = 0.6 oz pur e alcohol) socially [facility] Utilities Answer Date Recorded In the [...] your living situation today? I [facility] 12/26/2023 Comments No Sex and Gender Information Value Date Recorded Sex Assigned at Female 08/20/2018 8:53 AM HAND FRETTED INSTRUMENT MAKER Legal Sex Female 1:05 PM HAND FRETTED INSTRUMENT MAKER Gender Identity Female 08/20/2018 8:53 AM HAND FRETTED INSTRUMENT MAKER Sexual Orientation Straight 08/20/2018 8: 53 AM HAND FRETTED INSTRUMENT MAKER Last Filed Vital Signs Vital Sign Reading Time Taken Comments Blood Pressure 137/75 10/26/2023 1:19 PM HAND FRETTED INSTRUMENT MAKER Pulse 88 10/26/2023 1:19 PM HAND FRETTED INSTRUMENT MAKER Temperature 36.7 C (98.1 F) 10/26/2023 12:59 PM HAND FRETTED INSTRUMENT MAKER Respiratory Rate 16 10/26/2023 1:19 PM HAND FRETTED INSTRUMENT MAKER Oxygen Saturation 94% 10/26/2023 1:19 PM HAND FRETTED INSTRUMENT MAKER Inhaled Oxygen Concentration - - Weight 90.7 kg (199 lb 15.3 oz) 10/26/2023 6:35 AM HAND FRETTED INSTRUMENT MAKER Height 160.5 cm (5' 3.19) 10/26/2023 6:35 AM CS T Body Mass Index 35.21 10/26/2023 6:35 AM HAND FRETTED INSTRUMENT MAKER Plan of Treatment Health Maintenance Due Date [...] history exists Fasting Glucose for Diabetes Screening 03/17/2028 03/17/2025, 03/11/2024, 10/23/2023, Additional history exists DTaP,Tdap,and Td Vaccines (3 [...] this topic Medical Devices Implanted Type Area Levers Lace Machine Operator Device Identifier Shelf Expiration Date Model / Serial / Lot Breast Smo Rnd High 600cc - [id number] - [id number] Implanted:Qty: 1 on 10/26/2023 by Jatin Mackey M.D. at [facility] Breast Implant Left: Other/Legacy - See Implant Description [place] Neuronex 07/11/2026 [id number] / [id number] / Haley Memorygel Implant 650cc Implanted:Qty: 1 on 10/26/2023 by Jatin Mackey M.D. at [facility] Breast Implant Right: Other/Legacy - See Implant Description [place]2[employer] [id number] 08/03/2027 350-650 [id number] / [id number] / [id number] Conversions - Default Historical Implant Device Implanted:09/25 (Quantity not on file) Hardware e.g. pins/screw s/rods Foot Description:Body Location - Feet. Device Status Text - Hardware. Conversions - Default Historical Implant Device Implanted:11/23 (Quantity not on file) Knee Implant Other/Legacy - See Implant Description Description:Body Location - miley.TKA's. Device Status Text - Knee Imp. Alloderm Rtu 2.4 + -.4mm 9.6x19.3cm - Archer [id number] Implanted:Qty: 1 on 12/07/2016 Mesh or Patch Other/Legacy - See Implant Description LifeCell Martell (Use Allergan) Description:Device Manufactu rer - Lifecell Martell. Body Location - Other. Left. Device Status Text - [id number]. Alloderm Rtu 2.4 + -.4mm 9.6x19.3cm - Archer [id number] Implanted:Qty: 1 on 12/07/2016 Mesh or Patch Other/Legacy - See Implant Description LifeCell Martell (Use Allergan) Description:Device Manufactu rer - Lifecell Martell. Body Location - Other. Right. Device Status Text - [id number]. Alloderm Rtu 2.4 9.6x19.3cm 185sqcm - Archer [id number] Implanted:Qty: 370 on 12/07/2016 Mesh or Patch LifeCell Martell (Use Allergan) Description:Device Manufactu rer - Lifecell Martell. Device Status Text - [id number]. Shoulder Implant Shoulder Implant Right: Shoulder Explanted Type Area Levers Lace Machine Operator Device Identifier Shelf Expiration Date Model / Serial / Lot Maday Yost 615cc - Archer [id number] Implanted:Qty: 1 on 04/20/2017 Explanted:Qty: 1 on 07/25/2018 at [facility] Breast Implant Other/Legacy - See Implant Description Allergan Medical Description:Device Manufactu rer - Allergan Inc.. Body Location - Other. Left. Device Status Text - [id number]. Natrelle- Inspira 615cc - Archer [id number] Implanted:Qty: 1 on 04/20/2017 Explanted:Qty: 1 on 10/26/2023 by Denny Bearden M.D. at [facility] Breast Implant Other/Legacy - See Implant Description Allergan Medical Description:Device Manufactu rer - Allergan Inc.. Body Location - Other. Right. Device Status Text - [id number]. Brst Resp Gel Stysrf 560 - [id number] - [id number] Implanted:Qty: 1 on 07/25/2018 at [facility] Explanted:Qty: 1 on 10/26/2023 by Jatin Mackey M.D. at [facility] Breast Implant Left: Other/Legacy - See Implant Description Allergan Medical 03/29/[address] [id number] / [id number] / Natrelle-Expand er Mod Tab 500cc - Archer [id number] Explanted:Qty: 1 on 04/20/2017 Tissue Screw Driver Operator Other/Legacy - See Implant Description Allergan Medical Description:Device Manufactu rer - Allergan Inc.. Body Location - Other. Left. Device Status Text - [id number]. Natrelle-Expand er Mod Tab 500cc - Archer [id number] Explanted:Qty: 1 on 04/20/2017 Tissue Screw Driver Operator Other/Legacy - See Implant Description Allergan Medical Description:Device Manufactu rer - Allergan Inc.. Body Location - Other. Right. Device Status Text - [id number]. Procedures Procedure Name Priority Date/Time Associated Diagnosis Comments BASIC METABOLIC PANEL, S/P Routine 10/23/2023 11:46 AM HAND FRETTED INSTRUMENT MAKER Absence Of Breast Acquired Bilateral from Last 3 Months or Most Recently Relevant to Health Maintenance Insurance [facility] SHIELD MEDICARE Advance Directives For more information, please contact: [phone] Documents on File Type Date Recorded Patient Bowling Or Skating Front Desk Clerk Expl anation Advance Directives 11/24/2023 1:07 PM Balwinder Box HCPOA/ADVOCATE/AGENT/R EPRESENTATIVE/SURROGAT E Healthcare Agents on File Name Relationship Healthcare Agent Relationship Communication Balwinder Box Spouse Health Care Agent Favian Box Son First Altern ate Health Care Agent Care Teams Eyeglass Frames Polisher Relationship Specialty Start Date End Date None Reported, Pcp PCP - General 08/02/24
--- OUTSIDE RECORDS SUMMARY | 2025-05-25 17:19 | XMS_ITS | Clinical Summary ---
Author Organization [facility] Address [facility] [place] [address] Care Team Providers Care Software Development Test Engineer Name Role Phone Jesusanthonykareem Javier Solis DPM Unavailable [phone] Staff, Other Clinical Unavailable UnavailGerri Butler Primary [...] Hives 12/13/2006 Medications exemestane (AROMASIN) 25 mg tabletIndications :Ductal carcinoma of right breast (HC) Take 1 tablet by mouth once daily after a meal. 30 tablet 02/14/20 20 Active Cranberry 400 mg capsule 2 tablets PO daily 0 01/07/20 21 Active D-Mannose 99 % powdIndications:R ecurrent UTI [...] (600 mg) by mouth once daily. 05/08/20 Active doxycycline monohydrate 100 mg tablet TAKE ONE TABLET BY MOUTH ONCE FOR ONE DOSE. TAKE ONE HOUR PRIOR TO DENTAL PROCEDURES (INCLUDING CLEANINGS) AND DIRTY PROCEDURES ( SUCH CO 11/26/19 Active azelaic acid 15 % gel APPLY A THIN LAYER TO AFFECTED SKIN OF FACE ONCE DAILY AT NIGHT, ONGOING. 03/04/20 Active levothyroxine 112 mcg tabletIndications :Hypothyroidism, unspecified type Take 1 Tablet (112 mcg) by mouth once daily. 90 Tablet 3 03/17/20 Active metroNIDAZOLE 0.75 % lotionIndications :Skin rash Apply topically to affected area(s) two times daily. 70 mL 3 03/17/20 Active rizatriptan 10 mg tabletIndications :Migraine syndrome TAKE 1 TABLET BY MOUTH AT ONSET. MAY TAKE WITH 2 IBUPROFEN. MAY REPEAT IN 2 HRS IF NEEDED. TAKE NO MORE THAT 2 TABS IN 24HRS. 10 Tablet 8 03/17/20 Active nitrofurantoin macrocrystaL 100 mg capsuleIndication s:UTI symptoms Take 1 tablet by mouth after intercourse. 20 Capsule 1 03/17/20 25 Active ciprofloxacin (CIPRO) 500 mg tabletIndications :urinary tract infection Take 1 Tablet (500 mg) by mouth two times daily for 7 days. 14 Tablet 05/23/20 25 025 Active fluconazole (DIFLUCAN) 150 mg tabletIndications :Yeast vaginitis Take 1 Tablet (150 mg) by mouth one time for 1 dose. 1 Tablet 05/09/20 25 025 fluconazole (DIFLUCAN) 150 mg tabletIndications :Yeast vaginitis Take 1 Tablet (150 mg) by mouth one time for 1 dose. 1 Tablet 05/13/20 25 025 fluconazole (DIFLUCAN) 150 mg tabletIndications :Urinary symptom or sign,UTI (urinary tract infection), uncomplicated Take 1 Tablet (150 mg) by mouth one time for 1 dose. 1 Tablet 1 05/23/20 25 025 Active Problems Problem Noted Date Diagnosed Date [...] Encounters Date Type Department Care Team Description 05/23/2025 4:55 PM CDT Office Visit [facility] [address] [place] [address] Tix, KIM Davis Burning On Urination 05/23/2025 Travel 05/23/2025 Nurse Triage [facility] [address] [place] [address] Gerri Serrano PA Urinary Problem 05/13/2025 6:00 PM CDT Office Visit [facility] [address] [facility] [place] [address] Melissa Gutierres NP Allergic Reaction 05/13/2025 Travel 05/13/[address] [address] Gerri Serrano PA Error-please disregard 05/13/2025 Nurse T[address] [address] Gerri Serrano PA Rash; Allergic Reaction (Question) 05/13/2025 Nurse Triage [address] [address] Gerri Serrano PA Rash 05/09/[address] [address] Gerri Serrano PA Medication Management (fluconazole (DIFLUCAN) ) 05/08/2025 Orders Only [facility] Scanner 1 scan: (1-Ord) [place], ABDOMEN PELVIS W CON, 05/08/2025 03/18/2025 9:30 AM CDT Ancillary Procedure [address] [address] 03/18/[address] [address] Gerri Serrano PA Prior Authorization (metroNIDAZOLE 0.75 % lotion (DENIED)) 03/17/2025 8:30 AM CDT Office Visit [address] [address] Gerri Serrano PA Medicare WELCOME Visit (64 years old); Concerns (Would like bone density done) 03/17/2025 Travel from Last 3 Months Immunizations Immunization Administration Dates Next Due COVID-19 vaccine (Pfizer-Bio NTech 30mcg/0.3mL) 12YO+ CAYETANO-SUCROSE PF, MDV 02/16/2022 COVID-19 vaccine (BinOptics NTech 30mcg/0.3mL) PF, MDV 06/14/2021,12/30/2020,12/09/2020 HepA-HepB (Twinrix) [...] Years Used Date Smoking Tobacco: Former Cigars Passive Smoke Exposure: Current Smokeless Tobacco: Never Tobacco Cessation:Counseling Given: Not [...] on file Legal Sex Female 6:24 AM MAKE READY MECHANIC Gender Identity Not on file Sexual Orientation [...] Sign Reading Time Taken Comments Blood Pressure 130/77 05/23/2025 5:52 PM CDT Pulse 92 05/23/2025 5:52 PM CDT Temperature 37.1 C (98.7 F) 05/23/2025 5:52 PM CDT Respiratory Rate 16 05/23/2025 5:52 PM CDT Oxygen Saturation 98% 05/23/2025 5:52 PM CDT Inhaled Oxygen Concentration - - Weight 89.3 kg (196 lb 14.4 oz) 05/13/2025 6:12 PM CDT Height 161 cm (5' 3.39) 03/17/2025 8:43 AM CDT Body Mass Index 34.46 03/17/2025 8:43 AM CDT Plan of Treatment [...] history exists Medical Devices Implanted Type Area Uke Operator Device Identifier Shelf Expiration Date Model / Serial / Lot [id number] - [id number] Implanted:Qty: 1 on 06/02/2017 by Javier Moody DPM at [facility] Right: Foot [employer] [id number] / / Description:MTP CP plate [id number] - [id number] Implanted:Qty: 3 on 06/02/2017 by Javier Moody DPM at [facility] Right: Foot [employer] [id number] / / Description:2.7 mm locking s crews, T8 [id number] - [id number] Implanted:Qty: 1 on 06/02/2017 by Jaiver Moody DPM at [facility] Right: Foot [employer] [id number] / / Description:3.6 mm CP screw, T8 [id number] - [id number] Implanted:Qty: 1 on 06/02/2017 by Javier Moody DPM at [facility] Right: Foot [employer] [id number] / / Description:2.7 mm locking s crew, T8 [id number] - [id number] Implanted:Qty: 1 on 10/02/2017 by Javier Moody DPM at [facility] Left: Foot [employer] [id number] / / N/A Description:MTP CP Plate, le ft T8, 5 Hole [id number] - [id number] Implanted:Qty: 2 on 10/02/2017 by Javier Moody DPM at [facility] Left: Foot [employer] [id number] / / N/A Description:2.7mm Locking Sc rews, T8 [id number] - [id number] Implanted:Qty: 2 on 10/02/2017 by Javier Moody DPM at [facility] Left: Foot [employer] [id number] / / N/A Description:2.7mm Locking Sc rews, T8 Explanted Type Area Uke Operator Device Identifier Shelf Expiration Date Model / Serial / Lot [id number] - [id number] Implanted:Qty: 1 Explanted:Qty: 1 on 10/02/2017 at [facility] Left: Foot [employer] [id number] / / N/A Description:3.6mm CP Screws, T8 [id number] - [id number] Explanted:Qty: 1 on 10/02/2017 at [facility] Left: Foot [employer] [id number] / / N/A Description:CP Screws, T8 Procedures Procedure Name Priority Date/Time Associated Diagnosis Comments URINALYSIS MICROSCOPIC STAT 5 5:31 PM CDT Urinary symptom or sign UA W/ SEDIMENT EXAM REFLEXED PER CRITERIA STAT 05/23/2025 5:31 PM CDT Urinary symptom or sign SCAN-CT INTERPRETATION 12:00 AM CDT XR DXA BONE DENSITY 2 SITES AXIAL Routine 03/18/2025 9:46 AM CDT Postmenopausal TSH Routine 03/17/2025 9:38 AM CDT Hypothyroidism, unspecified type LIPID PANEL W REFLEX MEASURED LDL Routine 03/17/2025 9:38 AM CDT Hypothyroidism, unspecified type Ductal carcinoma of right breast (HC) COMP METABOLIC PANEL Routine 03/17/2025 9:38 AM CDT Ductal carcinoma of right breast (HC) COLONOSCOPY SCREENING Routine 04/11/2024 12:00 AM CDT Family history of colon cancer in mother ANTI HCV Routine 08/13/2014 9:30 AM MAKE READY MECHANIC Need for hepatitis C screening test from Last 3 Months or Most Recently Relevant to Health Maintenance Results * (ABNORMAL) URINALYSIS MICROSCOPIC (05/23/2025 5:31 PM CDT) RBC 26-50(A) 0-2, None Seen /HPF 05/23/2025 6:10 PM CDT [facility] WBC 51-100(A) 0-2, 3-5, None Seen /HPF 05/23/2025 6:10 PM T [facility] BACTERIA Many(A) None Seen, Rare, Few Bacteria/ HPF 05/23/2025 6:10 PM T [facility] EPITHELIAL CELLS Few None Seen, Few Epi/HPF 05/23/2025 6:10 PM CDT [facility] Mucus Present 05/23/2025 6:10 PM CDT [facility] Urine URINE SPECIMEN / Unknown Non-Blood / Unknown 05/23/2025 5:31 PM CDT 05/23/2025 5:31 PM CDT us Hunter ALVAREZ URINE Final Resu lt [facility] [address] [facility] [place] [address] * (ABNORMAL) UA W/ SEDIMENT EXAM REFLEXED PER CRITERIA [82084.2] - STAT (05/23/2025 5:31 PM CDT) COLOR Yellow Yellow Color 05/23/2025 6:06 PM T [facility] CLARITY Cloudy(A) Clear Clarity 05/23/2025 6:06 PM [facility] SPECIFIC GRAVITY,URINE >=1.030(A) 1.010, 1.015, 1.020, 1.025 05/23/2025 6:06 PM [facility] PH,URINE 6.0 6.0, 7.0, 8.0, 5.5, 6.5, 7.5, 8.5 05/23/2025 6:06 PM [facility] UROBILINOGEN, QUALITATIVE Normal Normal EU/dl 05/23/2025 6:06 PM [facility] PROTEIN, URINE 30(A) Negative mg/dL 05/23/2025 6:06 PM [facility] GLUCOSE, URINE Negative Negative mg/dL 05/23/2025 6:06 PM [facility] KETONES,URINE Trace(A) Negative mg/dL 05/23/2025 6:06 PM [facility] BILIRUBIN,URI NE Negative Negative 05/23/2025 6:06 PM [facility] OCCULT BLOOD,URINE Large(A) Negative 05/23/2025 6:06 PM [facility] NITRITE Positive(A) Negative 05/23/2025 6:06 PM [facility] LEUKOCYTE ESTERASE Moderate(A) Negative 05/23/2025 6:06 PM [facility] Urine URINE SPECIMEN / Unknown Non-Blood / Unknown 05/23/2025 5:31 PM CDT 05/23/2025 5:31 PM CDT us Hunter ALVAREZ URINE Final Resu lt [facility] [address] [place] [address] * SCAN-CT INTERPRETATION (05/08/2025 12:00 AM CDT) Anatomical Region Laterality Modality Other us Scanner OTHER Final Result * XR DXA BONE DENSITY 2 SITES AXIAL [17628.1] (03/18/2025 9:46 AM CDT) Anatomical Region Laterality [...] recommended in 3-5 years. Gerri Serrano PA-C [facility] 03/24/2025 Narrative 03/24/2025 8:01 PM CDT For Patients: Results are automatically released to your [employer] ([employer]abajo[employer]) account once available, in compliance with federal regulations. This means that you may see your results before your provider has had a chance to review them. Please allow 2-3 business days for your provider to comment on the results. XR DXA Bone Mineral Density (BMD) EXAM LOCATION: [facility] [address] [facility] [address] PATIENT NAME: Valerie Box DATE OF : [...] two scanners are made by the same custom designer. PROCEDURE: Dual-energy x-ray absorptiometry performed with routine [...] 5.2%. 10-year probability of hip fracture: 0.1%. us Gerri ALVAREZ DEXA Final R esult * (ABNORMAL) LIPID PANEL W REFLEX MEASURED LDL (03/17/2025 9:38 AM CDT) CHOLESTEROL, TOTAL 210(H) <200 mg/dL [facility] [...] factors. LDL-C is now calculated using the Walter calculation, which is a validated novel method providing better accuracy than the Friedewald equation in the estimation of LDL-C. Son SS et al. DANIELLE. 2013;310(19): 4418-9480 (http://education.LookUP/faq/XCQ317) CHOL/HDLC RATIO 3.6 <5.0 (calc) [facility] NON HDL CHOLESTEROL 152(H) <130 mg/dL (calc) [facility] Comment: For patients with diabetes plus 1 major ASCVD risk factor, treating to a non-HDL-C goal of <100 mg/dL (LDL-C of <70 mg/dL) is considered a therapeutic option. Blood BLOOD SPECIMEN / Unknown 03/17/2025 9:38 AM CDT 03/17/2025 9:39 AM CDT Gerri ALVAREZ CHEMISTRY Final R esult [email or web address] [address] [place] [address], [facility] [address] [place] [address] * TSH (03/17/2025 9:38 AM CDT) TSH 1.44 0.40 - 4.50 mIU/L [facility] Blood BLOOD SPECIMEN / Unknown 03/17/2025 9:38 AM CDT 03/17/2025 9:39 AM CDT Gerri ALAVREZ CHEMISTRY Final R esult [facility] [address] [place] [address], [facility] [address] [place] [address] * COMP METABOLIC PANEL (03/17/2025 9:38 AM CDT) Pathologist [facility] GLUCOSE 96 65 - 99 mg/dL [facility] Comment: Fasting reference interval UREA NITROGEN (BUN) 13 7 - 25 mg/dL [facility] CREATININE 0.73 0.50 - 1.05 mg/dL [facility] EGFR 91 > OR = 60 mL/min/1. 73m2 [facility] BUN/CREATININE RATIO SEE NOTE: 6 - 22 (calc) [facility] Comment: Not Reported: BUN and Creatinine are within reference range. SODIUM 140 135 - 146 mmol/L [facility] POTASSIUM 4.3 3.5 - 5.3 mmol/L [facility] CHLORIDE 101 98 - 110 mmol/L [facility] CARBON DIOXIDE 31 20 - 32 mmol/L [facility] CALCIUM 10.4 8.6 - 10.4 mg/dL [facility] PROTEIN, TOTAL 7.3 6.1 - 8.1 g/dL [facility] ALBUMIN 4.4 3.6 - 5.1 g/dL [facility] GLOBULIN 2.9 1.9 - 3.7 g/dL (calc) [facility] ALBUMIN/GLOBULIN RATIO 1.5 1.0 - 2.5 (calc) [facility] BILIRUBIN, TOTAL 0.5 0.2 - 1.2 mg/dL [facility] ALKALINE PHOSPHATASE 70 37 - 153 U/L [facility] AST 20 10 - 35 U/L [facility] ALT 19 6 - 29 U/L [facility] Blood BLOOD SPECIMEN / Unknown 03/17/2025 9:38 AM CDT 03/17/2025 9:39 AM CDT Gerri Serrano PA CHEMISTRY Final R esult [email or web address] [address] [place] [address], [place] [phone] [facility] [address] [place] [address] * COLONOSCOPY SCREENING (04/11/2024 12:00 AM CDT) Manju Mckeon MD GI PROCEDURE ORD Final R esult * ANTI HCV (08/13/2014 9:30 AM MAKE READY MECHANIC) HEPATITIS C ANTIBODY Non-Reacti ve Non-Reacti ve 08/13/2014 8:03 PM MAKE READY MECHANIC [facility] Blood specimen (specimen) BLOOD SPECIMEN / Unknown Add On / Unknown 08/13/2014 9:30 AM MAKE READY MECHANIC 08/13/2014 4:40 PM MAKE READY MECHANIC Narrative [facility] - 08/13/2014 8:03 PM MAKE READY MECHANIC Antibodies to HCV not detected; does not exclude the possibility of exposure to HCV. Jody Davies SHIP PROPELLER FINISHER SEND OUTS F inal Result [facility] [address] [place] [address], [place] from Last 3 Months or Most Recently Relevant to Health Maintenance Insurance [employer] [place] [employer]UE [place] ONLY Advance Directives Documents on File Type Date Recorded Patient Jewel Waxer Expl anation Healthcare Directive 03/11/2024 8:01 AM [...] Code Status Discussion: Not Discussed Care Teams Software Development Test Engineer Relationship Specialty Start Date End Date Gerri Serrano PA [address] [place] [address] PCP - General Physician Hospice Fellow 10/25/19 Javier Moody DPM [address] [place] [address] Surgery - Podiatric 09/28/17 Staff, Other Clinical . Plastic Surgery 09/28/17
[2025-05-25 17:27] VITALS: BP 167/104; PULSE 102; RESP 20; TEMP 36.9; O2SAT 98; BMI 35.1
--- NOTE | 2025-05-25 18:46 | CRLHL7_ITS ---
For Patients: As a result of the Century Cures Act, medical imaging exams and procedure reports are released immediately into your electronic medical record. You may view this report before your referring provider. If you have questions, please contact your health care provider. INDICATION: Left lower quadrant abdominal pain. TECHNIQUE: CT abdomen and pelvis acquired with 97 cc Isovue 370 IV contrast. COMPARISON: May 08, 2025.. FINDINGS: Lower chest: Scattered atelectasis. Liver: Left hepatic lobe cyst.. Normal in size and attenuation. No suspicious masses. Gallbladder and bile ducts: Prior cholecystectomy. Pancreas: Unremarkable. No mass or inflammation. Spleen: Unremarkable. Normal in size. No masses. Adrenal glands: Unremarkable. No nodules. Kidneys: Tiny cortical hypodensities, too small to characterize.. No suspicious masses, stones, or hydronephrosis. GI tract: Persistent acute uncomplicated sigmoid diverticulitis. No bowel obstruction. Normal appendix. Vasculature: Abdominal aorta is normal in caliber. Mesenteric arteries are patent. Lymph nodes: No lymphadenopathy. Peritoneum/Abdominal Wall: Unremarkable. No sign of mass or infiltration. No free air or significant free fluid. Pelvis: Hysterectomy. Mildly distended bladder with circumferential wall thickening. Recommend correlation with urinalysis if UTI suspected. Bones: Unremarkable for age. IMPRESSION: Persistent acute uncomplicated sigmoid diverticulitis, similar to mildly improved since prior study. No drainable fluid collections. Given amount of circumferential wall thickening, recommend follow-up study after treatment to evaluate for resolution. Alternatively, colonoscopy could be considered if not recently performed. Please note that all CT scans at this facility use dose modulation, iterative reconstruction, and/or weight-based dosing when appropriate to reduce radiation dose to as low as reasonably achievable. Dictated by Solomon More MD @ 05/25/2025 8:05:19 PM (Electronically Signed)
[2025-05-25 18:55] LABS: Appearance Urine Clear (Clear)
[2025-05-25 19:35] LABS: Hematocrit 45.0 % (33.0-51.0); Hemoglobin* 14.8 gm/dL (12.0-16.0); Immature Granulocytes Abs Auto 0.03 K/uL (0.00-0.30); Immature Granulocytes Pct Auto 0.4 %; Lymphocytes Absolute Auto 2.33 K/uL (0.90-2.90); Mean Corpuscular HGB Conc 33 gm/dL (32-36); Mean Corpuscular Hemoglobin 30 pg (26-34); Mean Corpuscular Volume 90 fL (80-100); RDW Coefficient of Variation % 12.4 % (11.5-15.5); Red Blood Count 5.02 m/uL (4.00-5.20); White Blood Count* 8.31 K/uL (4.50-11.00)
[2025-05-25 19:39] LABS: Slide Review Reflex No
[2025-05-25 19:49] LABS: Albumin* 4.4 g/dL (3.3-5.0); Chloride* 103 mmol/L (96-114); Potassium* 4.0 mmol/L (3.6-5.1); Sodium* 137 mmol/L (135-149)
[2025-05-25 19:52] LABS: Alanine Aminotransferase* 15 U/L (4-35); Alkaline Phosphatase* 81 U/L (40-150); Anion Gap 9 mEq/L (7-15); Aspartate Amino Transferase* 26 U/L (12-35); Bilirubin Total* 0.6 mg/dL (0.1-1.5); Blood Urea Nitrogen* 13 mg/dL (7-30); Calcium* 10.1 mg/dL (8.4-10.6); Carbon Dioxide* 25 mmol/L (20-32); Creatinine* 0.7 mg/dL (0.5-1.5); Est. Creatinine Clearance* 46.40; Estimated Glomerular Filt Rate 96 ml/min; Glucose* 101 mg/dL (60-115); Total Protein* 8.0 g/dL (6.0-8.3)
--- OUTSIDE RECORDS SUMMARY | 2025-05-25 20:15 | XMS_ITS | Clinical Summary ---
Author Organization [facility] Address [address] , [address] [place] [address] Phone Care Team Providers Care Purchasing Clerk Name Role Phone [facility] Unavailable Unava ilable Conditions or Problems Problem Name Problem Code Onset Date Status Entry Date Provider Comment Standard Description Annotate Chronic migraine without aura, with intractable migraine, so stated, with status migrainosus [id number] (SNOMED CT) 04/11 Resolved 04/11 Rosario Ledezma DNP,EXPLOSIVES WORKER,CN P Status migrainosus COMMON MIGRAINE, NOT INTRACTABLE G43.009 (ICD-10-CM) 05/16 Active 05/16 Rosario Ledezma DNP,EXPLOSIVES WORKER,CN P Migraine without aura, not intractable, without status migrainosus Chronic migraine without aura, with intractable migraine, so stated, with status migrainosus [id number] (SNOMED CT) 04/11 Removed 04/11 Vinicio Patel MD Status migrainosus Medications Medication Instructions Start Date Stop Date Generic Name ND Provider AZO D-MANNOSE 500 MG CAPS d-mannose [id number] Jose Cortez MD CALCIUM 600+D3 600-10 MG-MCG TABS calcium carbonate-vitam in d3 [id number] Jose Cortez MD RIZATRIPTAN BENZOATE 10 MG TABS Take 1 tablet by mouth AT ONSET MAY COMBINE WITH 2 IBUPROFEN MAY REPEAT IN 2 HOURS IF NEEDED. TAKE NO MORE THAN 2 TABS IN 24 HOURS. rizatriptan [id number] Rosario Ledezma DNP,EXPLOSIVES WORKER,DIRECTOR BUSINESS INTELLIGENCE RIZATRIPTAN BENZOATE 10 MG TABS Take 1 tablet by mouth AT ONSET MAY COMBINE WITH 2 IBUPROFEN MAY REPEAT IN 2 HOURS IF NEEDED. TAKE NO MORE THAN 2 TABS IN 24 HOURS. rizatriptan [id number] Rosario Koch Darien DNP,EXPLOSIVES WORKER,DIRECTOR BUSINESS INTELLIGENCE VERAPAMIL HCL 40 MG TABS Month #1 take 1 bid. Month #2 take 1 daily, then stop verapamil [id number] Rosario Koch Darien DNP,EXPLOSIVES WORKER,DIRECTOR BUSINESS INTELLIGENCE SERTRALINE HCL 100 MG TABS 2 tablet by mouth once a day sertraline [id number] Rosario Koch Darien DNP,EXPLOSIVES WORKER,DIRECTOR BUSINESS INTELLIGENCE VERAPAMIL HCL ER 120 MG CR-TABS 1 by mouth once a day verapamil [id number] Vinicio Patel MD LEVOTHYROXINE SODIUM 125 MCG TABS 1 once a day levothyroxine [id number] Vinicio Patel MD AROMASIN 25 MG TABS 1 once a day exemestane [id number] Vinicio Patel MD SERTRALINE HCL 100 MG TABS 2 tablet by mouth once a day sertraline [id number] Vinicio Patel MD VERAPAMIL HCL 40 MG TABS Month #1 take 1 bid. Month #2 take 1 daily, then stop verapamil [id number] Vinicio Patel MD RIZATRIPTAN BENZOATE 10 MG TABS Take 1 tablet by mouth once a week rizatriptan [id number] Vinicio Patel MD RIZATRIPTAN BENZOATE 10 MG TABS Take 1 tablet by mouth AT ONSET MAY COMBINE WITH 2 IBUPROFEN MAY REPEAT IN 2 HOURS IF NEEDED. TAKE NO MORE THAN 2 TABS IN 24 HOURS. rizatriptan [id number] Vinicio Patel MD RIZATRIPTAN BENZOATE 10 MG TABS Take 1 tablet by mouth once a week rizatriptan [id number] Zena Leblanc RN RIZATRIPTAN BENZOATE 10 MG TABS TAKE 1 TABLET BY MOUTH AT ONSET MAY COMBINE WITH 2 IBUPROFEN MAY REPEAT IN 2 HOURS IF NEEDED. TAKE NO MORE THAN 2 TABS IN 24 HOURS. RIZATRIPTAN BENZOATE [id number] Vanessa Burnson PA-C AMOXICILLIN 500 MG TABS 1 pill tid for 10 days AMOXICILLIN [id number] Vinicio Patel MD MAXALT 10 MG TABS 1 pill at ENG onset. May combine with 2 Ibuprofen, May repeat in 2 hours if needed. Use no more than 2 pills in 24 hours. RIZATRIPTAN BENZOATE [phone] Melany Santos APRN DIRECTOR BUSINESS INTELLIGENCE AMOXICILLIN 500 MG TABS 1 pill tid for 10 days AMOXICILLIN [id number] Vinicio Patel MD LEVOTHYROXINE SODIUM 125 MCG TABS 1 daily LEVOTHYROXINE SODIUM [id number] Vinicio Patel MD SERTRALINE HCL 100 MG TABS 2 daily SERTRALINE HCL [id number] Vinicio Patel MD AROMASIN 25 MG TABS 1 daily EXEMESTANE [id number] Vinicio Patel MD VERAPAMIL HCL ER 120 MG CR-TABS 1 pill daily VERAPAMIL HCL [id number] Vanessa Brunson PA-C Medications Administered No information available. Allergies, Adverse Reactions, Alerts Allergy Name Reaction Description Start Date Severity Statu s Provider NORTRIPTYLINE HCL migraine and nausea Moderate A ctive Rosario Koch Rechtzigel DNP,EXPLOSIVES WORKER,DIRECTOR BUSINESS INTELLIGENCE ZITHROMAX headache Severe Active Rosario Koch Rec htzigel DNP,EXPLOSIVES WORKER,DIRECTOR BUSINESS INTELLIGENCE OXYCODONE HCL Moderate Active Rosario Koch Rechtzigel DNP,EXPLOSIVES WORKER,DIRECTOR BUSINESS INTELLIGENCE MORPHINE SULFATE hallucinations Severe Active Rosario Koch Rechtzigel DNP,EXPLOSIVES WORKER,DIRECTOR BUSINESS INTELLIGENCE AUGMENTIN migraine Moderate Active Rosario Koch Rec htzigel DNP,EXPLOSIVES WORKER,DIRECTOR BUSINESS INTELLIGENCE SULFA Critical Active Vinicio Patel MD Results Date Name Value Unit Range Flag Description Office Visit: CLUSTER ENG 08:32- 04/11/18 08:32 REFERRING PHYSICIA... 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 Internal Other: Verbal Autho rization/Emergency Contact - OBS VERBAL_EMER Done Verbal authorization and emergency contact Office Visit: Office Visit 1 year fax MEDS REVIEW Done Documenta tion of current medications (procedure) Internal Other: Authorizatio n AUTHBENEFIT Yes Authoriza tion: Assignment of Benefits and Payment Agreement AUTHVMEMTM Yes Authorizat ion: Authorization for [facility] to leave messages, voicemail, send text messages, send emails AUTHRELHCARE Yes Authoriz ation: Release/Retrieval of Information to/from Healthcare Facilities, Pharmacy Benefit Payers and Providers ROIAUTHOTHER Yes Authoriz ation: Release of Information - Authorize Others/Insurance - Payment and Healthcare Operations [email or web address] Yes Authoriza tion: Release of Information - Authorize [facility] - Payment and Healthcare Operations AUTHPRIVPRAC Yes Authoriz ation: Notice of privacy practices HIECONSENT Yes Consent To Release information to the Health Information Exchange (HIE) Plan of Care Type Date Detail Appointment 11:20 AM Jose Cortez MD, [facility], [address], [place], [address], Pending order Follow up Pending order Follow up Pending order Patient Instruct ions Pending order Follow up DONY Pending order [...] Name Date Entry Date ORDERS Patient Instructions ORDERS Follow up DONY [facility]-[id number] Documentation of current medicatio ns ORDERS Patient Instructions ORDERS Follow up ORDERS Follow up in clinic or telemedicine with provider or DONY ORDERS Follow up ORDERS Patient Instructions ORDERS Follow up [facility]-[id number] Documentation of current medicatio ns ORDERS Patient Instructions ORDERS Follow up [id number] Brief emotional/behavioral assessment 201 05/03/10 [facility]-[id number] Documentation of current medicatio ns [id number] MRI-Brain W/O CPT-[id number] MRI Brain W/O [facility]-[id number] Documentation of current medicatio ns Vital Signs Date Name Value Unit Description Height 63 [in_us] height E&M Heart Rate 66 /min pulse rate BP Diastolic 70 mm[Hg] blood pressu re, diastolic BP Systolic 130 mm[Hg] blood pressur e, systolic BMI (Body Mass Index) 40.89 kg/m2 Bod y Mass Index (Ratio) Weight Measured 230 [lb_av] weight E& M Weight Measured 230 [lb_av] weight E& M Immunizations No information available. Advance Directives No information available.
--- NOTE | 2025-05-25 20:20 | ED.ABDPAIN ---
HPI - Abdominal Pain General Date Seen: 05/25/25 Chief Complaint: Abdominal Pain Stated Complaint: Worsening UTI Time Seen by Provider: 05/25/25 18:19 Source: patient Mode of arrival: ambulatory Limitations: no limitations History of Present Illness HPI narrative: Patient is 64-year-old female presenting for left lower quadrant abdominal pain. She states she was 1st seen here on May 08 for diverticulitis. Was started on Augmentin. Developed a rash in the Augmentin but did finish out the course of antibiotics. She thought the she was doing well but then started having the pain again and went to urgent care. At urgent care they found her to have a UTI and started her on ciprofloxacin. Her pain is not been improving since then so she was told to come back to the emergency department for re-evaluation. She has had nausea but currently is not feeling nauseated. Has not noticed any fevers or chills. Has had some constipation. Pain all seems to be in the left lower quadrant and does radiate slightly to the left upper quadrant and suprapubic region. Denies any flank pain. States symptoms seem similar to her previous diverticulitis from earlier in the month. No other concerns noted. Denies chest pain, shortness of breath, headache, lightheadedness, dizziness, weakness, numbness. Related Data Home Medications ?Medication ?Instructions ?Recorded ?Confirmed levothyroxine 112 mcg tablet mcg 07/28/22 05/07/25 rizatriptan 10 mg tablet 10 mg PO PRN 07/28/22 05/07/25 cranberry 500 mg capsule 500 mg PO QDAY 03/21/24 05/08/25 dmaoose PO .qd 03/21/24 08/05/24 calcium 600 mg (as 1 tab PO QDAY 05/06/24 05/08/25 carbonate)-vitamin D3 5 mcg (200 unit) tablet (Calcium 600 + D(3)) ibuprofen 200 mg tablet 200 mg PO Q6H PRN 05/29/24 05/08/25 Previous Rx's ?Medication ?Instructions ?Recorded cephalexin 500 mg capsule 2,000 mg (4 x 500 mg) PO ONCE #4 08/05/24 caps exemestane 25 mg tablet 25 mg PO QDAY breast cancer #90 05/13/25 tabs metronidazole 500 mg tablet 500 mg PO Q8H #15 tabs 05/25/25 Allergies Allergy/AdvReac Type Severity Reaction Status Date / Time amoxicillin Allergy Severe Headache Verified 05/25/25 19:36 nortriptyline Allergy Mild intolerance Verified 05/25/25 19:36 shellfish derived Allergy Unknown ankle Verified 05/25/25 19:36 swelling Sulfa (Sulfonamide Allergy Unknown Hives Verified 05/25/25 19:36 Antibiotics) clavulanic acid (From Allergy Headache Verified 05/25/25 19:36 Augmentin) morphine AdvReac Severe Hallucinati Verified 05/25/25 19:36 ng oxycodone AdvReac Intermediate Extreme Verified 05/25/25 19:36 nausea azithromycin AdvReac Hives Verified 05/25/25 19:36 Review of Systems Status of ROS Reports: 10 or more systems reviewed and unremarkable except as noted in History and below PFSH [facility] Medical History Breast implant rupture ?T85.43XA - Leakage of breast prosthesis and implant, initial encounter (ICD-10) Diverticulitis ?K57.92 - Diverticulitis of intestine, part unspecified, without perforation or abscess without bleeding (ICD-10) Osteoarthritis of right shoulder ?M19.011 - Primary osteoarthritis, right shoulder (ICD-10) Migraine headache ?G43.909 - Migraine, unspecified, not intractable, without status migrainosus (ICD-10) Hypothyroidism ?E03.9 - Hypothyroidism, unspecified (ICD-10) History of depression ?Z86.59 - Personal history of other mental and behavioral disorders (ICD-10) Gastroesophageal reflux disease ?K21.9 - Gastro-esophageal reflux disease without esophagitis (ICD-10) Surgical History History of foot surgery ?Z98.890 - Other specified postprocedural states (ICD-10) History of bilateral mastectomy (11/2016) ?Z90.13 - Acquired absence of bilateral breasts and nipples (ICD-10) H/O arthroscopy of right knee (06/20/03) ?Z98.890 - Other specified postprocedural states (ICD-10) History of bilateral knee arthroplasty (06/03/05) ?Z96.653 - Presence of artificial knee joint, bilateral (ICD-10) 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) ?Z96.611 - Presence of right artificial shoulder joint (ICD-10) H/O arthroscopy of left knee (01/14/05) ?Z98.890 - Other specified postprocedural states (ICD-10) History of partial hysterectomy (~1996) ?Z90.711 - Acquired absence of uterus with remaining cervical stump (ICD-10) Hx laparoscopic cholecystectomy (01/10/13) ?Z90.49 - Acquired absence of other specified parts of digestive tract (ICD-10) Family History Mother Breast cancer Other Diabetes Social History Narrative: has an occasional cigar Son smokes outdoors Smoking Status: Never smoker Do you use any of these nicotine containing products: None Second hand tobacco smoke exposure: Yes (son smokes outside) How often do you have a drink containing alcohol: never AUDIT-C Alcohol total score: 0 Non-prescribed substance use: denies use Exam Narrative: Exam Narrative: Const: Well-nourished, Well-developed, in mild distress Eyes: PERRL, no conjunctival injection, and symmetrical lids HENT: Atraumatic external nose and ears. Moist mucous membranes. Neck: Symmetric, trachea midline, No thyromegaly. CVS: RRR, No murmurs or gallops. Peripheral pulses 2+ and equal in all extremities RESP: Unlabored respiratory effort. Clear to auscultation bilaterally. GI: Tenderness noted to left upper quadrant, left lower quadrant, suprapubic region. Nondistended, No rebound or guarding. No CVA tenderness MSK:Extremities w/o deformity, Normal Active ROM Skin: Warm, Dry. No rashes or lesions. Neuro: Normal Muscle tone, No focal neurological deficits. Psych: Awake, Alert, & Oriented x3. Appropriate mood and affect. Const: Vital Signs, click to edit/add: Vital Signs - 24 hr 05/25/25 17:27 05/25/25 20:48 Temperature 98.5 F Pulse Rate [Pulse Oximeter] 102 H 81 Respiratory Rate 20 18 Blood Pressure [Ri ght Upper Arm] 167/104 H 159/90 H Pulse Oximetry 98 Oxygen Delivery Me thod Room Air Course Vital Signs Vital signs: Initial Vital Signs Temperature 98.5 F 05/25/25 17:27 Temperature Source Temporal Artery Scan 05/25/25 17:27 Pulse Rate 102 H 05/25/25 17:27 Respiratory Rate 20 05/25/25 17:27 Blood Pressure 167/104 H 05/25/25 17:27 Blood Pressure Mean 125 H 05/25/25 17:27 Pulse Oximetry 98 05/25/25 17:27 Oxygen Delivery Method Room Air 05/25/25 17:27 Vital Signs Temperature 98.5 F 05/25/25 17:27 Pulse Rate 102 H 05/25/25 17:27 Respiratory Rate 20 05/25/25 17:27 Blood Pressure 167/104 H 05/25/25 17:27 Pulse Oximetry 98 05/25/25 17:27 Oxygen Delivery Method Room Air 05/25/25 17:27 Temperature 98.5 F 05/25/25 17:27 Pulse Rate 81 05/25/25 20:48 Respiratory Rate 18 05/25/25 20:48 Blood Pressure 159/90 H 05/25/25 20:48 Pulse Oximetry 98 05/25/25 17:27 Oxygen Delivery Method Room Air 05/25/25 17:27 MDM - Abdominal Pain MDM Narrative Medical decision making narrative: Patient is 64-year-old female presenting to emergency department for left lower quadrant abdominal pain. Differential this time includes repeat diverticulitis, ascending UTI, nephrolithiasis. Due to location of pain gallbladder/liver disease, pancreatitis, appendicitis seems less likely. Will do a CT scan for better evaluation. Will also order CBC, CMP, urinalysis, lipase. Lab work returned showing no concerning abnormalities. She is not appear to have UTI anymore. I did see previous records and she did clearly have a UTI a couple days ago. She is currently on ciprofloxacin for it. CT scan returned showing persistent diverticulitis as reviewed by myself and the radiologist. This is likely the cause of her pain. At this time I do believe she is likely safe for discharge and I will add on Flagyl to her antibiotics. I informed her to follow up with her primary care provider. She states she had a colonoscopy 1 year ago that had 4 polyps. She is agreeable to this plan Lab Data Labs: Lab Results 05/25/25 05/25/25 Range/Units 18:48 19:23 WBC 8.31 (4.50-11.00) K/uL RBC 5.02 (4.00-5.20) m/uL Hgb 14.8 (12.0-16.0) gm/dL Hct 45.0 (33.0-51.0) % MCV 90 (80-100) fL MCH 30 (26-34) pg MCHC 33 (32-36) gm/dL RDW Coeff of Rosemary 12.4 (11.5-15.5) % Plt Count 298 (140-440) K/uL Neut % (Auto) 60.3 (42.0-72.0) % Lymph % (Auto) 28.0 (20-44) % Morgan % (Auto) 7.3 (0.0-11.0) % Eos % (Auto) 3.5 (0.0-7.0) % Baso % (Auto) 0.5 (0.0-3.0) % Neut # (Auto) 5.01 (1.7-7.0) K/uL Lymph # (Auto) 2.33 (0.90-2.90) K/uL Morgan # (Auto) 0.60 (0.00-0.90) K/UL Eos # (Auto) 0.29 (0.00-0.50) K/uL Baso # (Auto) 0.04 (0.00-0.30) K/uL Abs Immat Gran (auto) 0.03 (0.00-0.30) K/uL Imm/Tot Granulo (auto) 0.4 % Sodium 137 (135-149) mmol/L Potassium 4.0 (3.6-5.1) mmol/L Chloride 103 (96-114) mmol/L Carbon Dioxide 25 (20-32) mmol/L Anion Gap 9 (7-15) mEq/L BUN 13 (7-30) mg/dL Creatinine 0.7 (0.5-1.5) mg/dL Estimated Creat Clear 46.40 Estimated GFR 96 ml/min Glucose 101 (60-115) mg/dL Calcium 10.1 (8.4-10.6) mg/dL Total Bilirubin 0.6 (0.1-1.5) mg/dL AST 26 (12-35) U/L ALT 15 (4-35) U/L Alkaline Phosphatase 81 (40-150) U/L Total Protein 8.0 (6.0-8.3) g/dL Albumin 4.4 (3.3-5.0) g/dL Lipase 77 (23-300) U/L Urine Color Yellow (Yellow) Urine Appearance Clear (Clear) Urine pH 6.5 (5.0-8.5) Ur Specific [place] <= 1.005 (1.000-1.030) Urine Protein Negative (Negative) Urine Glucose (UA) Negative (Negative) Urine Ketones Negative (Negative) Urine Blood Trace-lysed A (Negative) Urine Nitrite Negative (Negative) Urine Bilirubin Negative (Negative) Urine Urobilinogen 0.2 (0.2-1.0) Ur Leukocyte Esterase Negative (Negative) Urine RBC 0-2 (0-2) Urine WBC 0-2 (0-5) Ur Squamous Epith Cells Few (None-Few) Urine Bacteria None (None) Imaging Data CT scan abdomen pelvis: Attestation: I have reviewed the pertinent imaging results. Radiologist's impression: Persistent acute uncomplicated sigmoid diverticulitis, similar to mildly improved since prior study. No drainable fluid collections. Given amount of circumferential wall thickening, recommend follow-up study after treatment to evaluate for resolution. Alternatively, colonoscopy could be considered if not recently performed. Please note that all CT scans at this facility use dose modulation, iterative reconstruction, and/or weight-based dosing when appropriate to reduce radiation dose to as low as reasonably achievable. Dictated by Solomon More MD @ 05/25/2025 8:05:19 PM Discharge Plan Discharge Clinical Impression: Diverticulitis Patient Disposition: Home, Self-Care Condition: Stable Instructions: Diverticulitis (ED) Additional Instructions: If you are having issues with constipation I recommend using stool softener. Continue take the ciprofloxacin and also start taking the metronidazole. Follow the primary care provider this week and inform them that you are having issues with persistent diverticulitis. Prescriptions: New metronidazole 500 mg tablet 500 mg PO Q8H Qty: 15 0RF No Action ibuprofen 200 mg tablet 200 mg PO Q6H PRN cephalexin 500 mg capsule 2,000 mg PO ONCE Qty: 4 3RF Rx Instructions: Take 2,000mg by mouth, one hour prior to dental appointment. dmaoose PO .qd Patient Comments: To prevent UTI cranberry 500 mg capsule 500 mg PO QDAY Rx Instructions: administer with meals rizatriptan 10 mg tablet 10 mg PO PRN levothyroxine 112 mcg tablet calcium carbonate-vitamin D3 [Calcium 600 + D(3)] 600 mg-5 mcg (200 unit) tablet 1 tab PO QDAY exemestane 25 mg tablet 25 mg PO QDAY Qty: 90 0RF Follow Up/Referrals: Gerri Serrano PA-C [Primary Care Provider, Family Practice] Stand Alone Forms: [facility] Info Instructions
[2025-05-25 20:48] VITALS: BP 159/90; PULSE 81; RESP 18
== END 2025-05-25 20:45 | disposition home or self-care (01) ==
PROVIDERS: Emergency Provider Student in an Organized Health Care Education/Training Program; PCP Physician Assistant Medical
DX: K57.30 Diverticulosis of large intestine without perforation or abscess without bleeding (principal)
CPT/HCPCS: 36415; 74177; 80053; 81001; 82565; 83690; 85025; 99284; Q9967

== ENCOUNTER 2025-07-25 06:25 | Outpatient (CLI) | payer MEDICARE, BC, SELFPAY ==
--- NOTE | 2025-07-25 07:54 | P.ANES_ITS ---
Anesthesia Charges Start Date/Time Anesthesia Start Date: 07/25/25 Anesthesia Start Time: 07:20 Stop Date/Time Anesthesia Stop Date: 07/25/25 Anesthesia Stop Time: 07:47 Coding CPT Codes CPT Codes: RICCARDO LWR INTST NDSC NOS - 14931 ([id number]) P2 - PATIENT W/MILD SYST DISEASE, QK - DATA VISUALIZATION DEVELOPER 2-4 CNCRNT ANES PROC
--- NOTE | 2025-07-25 07:54 | W.ANESCHARGE ---
Anesthesia Charges Start Date/Time Anesthesia Start Date: 07/25/25 Anesthesia Start Time: 07:20 Stop Date/Time Anesthesia Stop Date: 07/25/25 Anesthesia Stop Time: 07:47 Coding CPT Codes CPT Codes: RICCARDO LWR INTST NDSC NOS - 29837 ([id number]) P2 - PATIENT W/MILD SYST DISEASE, QK - PORTFOLIO LEAD 2-4 CNCRNT ANES PROC
--- NOTE | 2025-07-25 08:48 | P.ANES_ITS ---
Anesthesia Charges Start Date/Time Anesthesia Start Date: 07/25/25 Anesthesia Start Time: 07:20 Stop Date/Time Anesthesia Stop Date: 07/25/25 Anesthesia Stop Time: 07:47 Coding CPT Codes CPT Codes: RICCARDO LWR INTST NDSC NOS - 34796 ([id number]) QK - TELLERS SUPERVISOR 2-4 CNCRNT RICCARDO PROC, QX - FUEL DISTRIBUTION SYSTEM OPERATOR SVC W/ MD MED DIRECTION, P2 - PATIENT W/MILD SYST DISEASE
--- NOTE | 2025-07-25 08:48 | W.ANESCHARGE ---
Anesthesia Charges Start Date/Time Anesthesia Start Date: 07/25/25 Anesthesia Start Time: 07:20 Stop Date/Time Anesthesia Stop Date: 07/25/25 Anesthesia Stop Time: 07:47 Coding CPT Codes CPT Codes: RICCARDO LWR INTST NDSC NOS - 60269 ([id number]) QK - FLASH RANGING CREWMEMBER 2-4 CNCRNT RICCARDO PROC, QX - FLASK MAKER SVC W/ MD MED DIRECTION, P2 - PATIENT W/MILD SYST DISEASE
== END 2025-07-25 06:26 | disposition home or self-care (01) ==
LOC: OP CLINIC 06:25
PROVIDERS: PCP Physician Assistant Medical; Visit Provider Internal Medicine Gastroenterology
DX: K57.30 Diverticulosis of large intestine without perforation or abscess without bleeding (principal); D12.3 Benign neoplasm of transverse colon; Z86.0100 Personal history of colon polyps, unspecified; R93.3 Abnormal findings on diagnostic imaging of other parts of digestive tract
CPT/HCPCS: 00811; 45385; J2704

== ENCOUNTER 2025-08-22 06:52 | Outpatient (CLI) | payer MEDICARE, BC, SELFPAY ==
--- NOTE | 2025-08-22 07:15 | CRLHL7_ITS ---
For Patients: As a result of the Century Cures Act, medical imaging exams and procedure reports are released immediately into your electronic medical record. You may view this report before your referring provider. If you have questions, please contact your health care provider. INDICATION: Neck pain, radiculopathy. TECHNIQUE: Cervical spine MRI was performed without the administration of intravenous contrast. COMPARISON: : Cervical spine radiographs 09/02/2024, cervical spine MRI 01/22/2024. FINDINGS: The craniocervical junction is within normal limits. Straightening of the cervical lordosis with trace 2-3 mm anterolisthesis of C2 on C3 and C4 on C5. The vertebral body heights are maintained. Multilevel degenerative changes including disc space height loss, endplate, and bone marrow changes. Multilevel moderate and severe facet joint hypertrophy including marrow edema within the right C2-C3 articulating processes with superimposed small extra-spinal facet joint synovial cyst and edema in the periarticular soft tissues. The cervical spinal cord is within normal limits. Significant findings by level: C2-C3: Mild left neural foraminal stenosis due to uncovertebral and facet joint hypertrophy. No significant right neural foraminal narrowing or spinal canal narrowing. C3-C4: Mild left neural foraminal stenosis due to uncovertebral and facet joint hypertrophy. No significant right neural foraminal narrowing or spinal canal narrowing. C4-C5: Moderate right neural foraminal stenosis due to uncovertebral and facet joint hypertrophy. No significant left neural foraminal narrowing or spinal canal narrowing. C5-C6: Mild left neural foraminal stenosis due to uncovertebral and facet joint hypertrophy. No significant right neural foraminal narrowing or spinal canal narrowing. C6-C7: Mild right and moderate/severe left neural foraminal stenosis due to uncovertebral and facet joint hypertrophy. Disc/osteophyte complex effaces the thecal sac without significant spinal canal narrowing. C7-T1: Mild right neural foraminal stenosis due to uncovertebral joint arthropathy. No significant left neural foraminal narrowing or spinal canal narrowing. A 1.1 cm well-circumscribed T2 hypointense lesion in the right paraspinal subcutaneous soft tissues is unchanged, again likely representing a sebaceous cyst. IMPRESSION: 1. Straightening of the cervical lordosis with trace anterolisthesis of C2 on C3 and C4 on C5. 2. Multilevel moderate and severe facet joint hypertrophy including right C2-C3 facet joint synovitis. 3. No abnormality in the cervical spinal cord. 4. At C4-C5, moderate right neural foraminal stenosis. 5. At C6-C7, moderate/severe left neural foraminal stenosis. 6. Multilevel milder changes as detailed above. Dictated by Johnathan Simon MD @ 08/25/2025 6:40:19 AM (Electronically Signed)
== END 2025-08-22 06:53 | disposition home or self-care (01) ==
LOC: MRI 06:53
PROVIDERS: PCP Physician Assistant Medical; Visit Provider Family Medicine
DX: M47.812 Spondylosis without myelopathy or radiculopathy, cervical region (principal); M54.12 Radiculopathy, cervical region; M43.12 Spondylolisthesis, cervical region; M46.82 Other specified inflammatory spondylopathies, cervical region; L72.3 Sebaceous cyst; M54.2 Cervicalgia
CPT/HCPCS: 72141

== ENCOUNTER 2025-08-27 10:48 | Outpatient (CLI) | payer MEDICARE, BC, SELFPAY ==
--- NOTE | 2025-08-27 11:15 | CRLHL7_ITS ---
For Patients: As a result of the Century Cures Act, medical imaging exams and procedure reports are released immediately into your electronic medical record. You may view this report before your referring provider. If you have questions, please contact your health care provider. Indication: Unilateral primary osteoarthritis, left hip Left hip OA Comparison: 08/05/2024 Procedure : Informed consent was obtained. The site was marked. Time-out was performed. The skin of the left hip was cleansed with ChloraPrep. A sterile drape was placed. 8 cc of 1 percent lidocaine was administered for superficial anesthesia. Subsequently a 22 gauge spinal needle was introduced into the left shoulder joint under intermittent fluoroscopic guidance. 7 cc 1 percent lidocaine and 2 cc 40 milligrams/cc Depo-Medrol then placed into the left hip joint. The needle was removed and hemostasis achieved with direct pressure. A dressing was placed. The patient tolerated the procedure well without immediate complication. Total fluoroscopy time 31 seconds. Impression: Successful fluoroscopically guided left hip injection with 80 milligrams of Depo-Medrol. Dictated by Bawlinder De Souza MD @ 08/27/2025 12:51:45 PM (Electronically Signed)
== END 2025-08-27 10:49 | disposition home or self-care (01) ==
LOC: RAD 10:50
PROVIDERS: PCP Physician Assistant Medical; Visit Provider Physician Assistant
DX: M16.12 Unilateral primary osteoarthritis, left hip (principal)
CPT/HCPCS: 20610; 77002; Q9966

== ENCOUNTER 2025-08-28 08:42 | Outpatient (CLI) | payer MEDICARE, BC, SELFPAY ==
--- NOTE | 2025-08-28 09:15 | CRLHL7_ITS ---
For Patients: As a result of the Century Cures Act, medical imaging exams and procedure reports are released immediately into your electronic medical record. You may view this report before your referring provider. If you have questions, please contact your health care provider. Indication: pain and osteoarthritis Comparison: 08/05/2024 Procedure : Informed consent was obtained. The site was marked. Time-out was performed. The skin of the right hip was cleansed with ChloraPrep. A sterile drape was placed. 8 cc of 1 percent lidocaine was administered for superficial anesthesia. Subsequently a 22 gauge spinal needle was introduced into the right hip joint under intermittent fluoroscopic guidance. Injection of 7 cc 1 percent lidocaine and 2 cc 40 milligrams/cc Depo-Medrol then performed into the right hip joint. The needle was removed and hemostasis achieved with direct pressure. A dressing was placed. The patient tolerated the procedure well without immediate complication. Total fluoroscopy time 11 seconds. Impression: Successful fluoroscopically guided right hip injection with 80 milligrams of Depo-Medrol. Dictated by Balwinder De Souza MD @ 08/28/2025 11:59:09 AM (Electronically Signed)
== END 2025-08-28 08:43 | disposition home or self-care (01) ==
LOC: RAD 08:43
PROVIDERS: PCP Physician Assistant Medical; Visit Provider Physician Assistant
DX: M16.11 Unilateral primary osteoarthritis, right hip (principal)
CPT/HCPCS: 20610; 77002; J1010; Q9966